=== PATIENT | female | born 1945 | race Caucasian/White ===

== ENCOUNTER 2021-08-05 05:51 | Outpatient (REF) | payer MEDICARE, SELFPAY ==
[2021-08-05 06:09] LABS: Hematocrit 28.1 % (37-47); Hemoglobin 8.7 g/dl (12.0-16.0); Mean Corpuscular Hemoglobin 27.3 pg (27.0-33.0); Mean Corpuscular Volume 88.1 fL (80-98); Mean Platelet Volume 10.8 fL (9.4-12.3); Platelet Count 241 X10*3/uL (160-400); Red Blood Count 3.19 X10*6/uL (4.20-5.50); White Blood Count 10.6 X10*3/uL (4.8-10.8)
[2021-08-05 06:14] LABS: INTERNATIONAL NORM RATIO 2.4 (0.9-1.1); Prothrombin Time 27.9 SEC (9.9-13.0)
[2021-08-05 06:40] LABS: Alanine Aminotransferase 8 U/L (0-31); Albumin Level 3.2 g/dL (3.5-5.0); Alkaline Phosphatase 189 U/L (39-117); Anion Gap 10 (12-20); Aspartate Amino Transferase 20 U/L (5-31); Bilirubin Total 0.6 mg/dL (0.0-1.0); Blood Urea Nitrogen 15 mg/dL (9-16); Calcium 8.9 mg/dL (8.4-10.2); Carbon Dioxide 34 mmol/L (22-29); Chloride 102 mmol/L (96-108); Estimated Glomerular Filt Rate > 60; Glucose Random 86 mg/dL (60-115); Potassium 3.9 mmol/L (3.3-5.1); Sodium 142 mmol/L (135-145); Total Protein 5.4 g/dL (6.5-8.0)
== END 2021-08-05 05:52 | disposition home or self-care (01) ==
LOC: HO.MMNH1L 05:51
PROVIDERS: Visit Provider Family Medicine
DX: I48.91 Unspecified atrial fibrillation (principal); J44.9 Chronic obstructive pulmonary disease, unspecified; S72.009D Fracture of unspecified part of neck of unspecified femur, subsequent encounter for closed fracture with routine healing
CPT/HCPCS: 36415; 80053; 85027; 85610

== ENCOUNTER 2021-08-11 00:21 | Outpatient (REF) | payer MEDICARE, SELFPAY ==
[2021-08-11 06:51] LABS: Hematocrit 32.9 % (37-47); Hemoglobin 9.9 g/dl (12.0-16.0); Mean Corpuscular HGB Conc 30.1 g/dl (31.0-35.0); Mean Corpuscular Hemoglobin 27.3 pg (27.0-33.0); Mean Corpuscular Volume 90.9 fL (80-98); Mean Platelet Volume 10.7 fL (9.4-12.3); Platelet Count 444 X10*3/uL (160-400); Red Blood Count 3.62 X10*6/uL (4.20-5.50); Red Cell Distribution Width 21.7 % (11.0-16.0); White Blood Count 9.4 X10*3/uL (4.8-10.8)
[2021-08-11 07:10] LABS: Anion Gap 15 (12-20); Blood Urea Nitrogen 22 mg/dL (9-16); Calcium 8.8 mg/dL (8.4-10.2); Carbon Dioxide 29 mmol/L (22-29); Chloride 99 mmol/L (96-108); Estimated Glomerular Filt Rate 51; Glucose Random 81 mg/dL (60-115); Potassium 3.9 mmol/L (3.3-5.1); Sodium 139 mmol/L (135-145)
[2021-08-11 07:13] LABS: INTERNATIONAL NORM RATIO 1.4 (0.9-1.1)
== END 2021-08-11 00:22 | disposition home or self-care (01) ==
LOC: HO.MMNH1L 00:21
PROVIDERS: Visit Provider Family Medicine
DX: I48.91 Unspecified atrial fibrillation (principal); S72.009A Fracture of unspecified part of neck of unspecified femur, initial encounter for closed fracture; J44.9 Chronic obstructive pulmonary disease, unspecified
CPT/HCPCS: 36415; 80048; 85027; 85610

== ENCOUNTER 2021-08-15 05:40 | Outpatient (REF) | payer MEDICARE, SELFPAY ==
[2021-08-15 05:57] LABS: Appearance Urine CLEAR; Color Urine YELLOW; Glucose Urine UA NEG (NEG); Leukocyte Esterase Urine NEG (NEG); Nitrite Urine NEG (NEG); Urine Blood NEG (NEG); Urine Ketones NEG (NEG); Urine Protein NEG (NEG-TRACE)
== END 2021-08-15 05:41 | disposition home or self-care (01) ==
LOC: HO.MMNH1L 05:40
PROVIDERS: Visit Provider Family Medicine
DX: R41.0 Disorientation, unspecified (principal)
CPT/HCPCS: 81003

== ENCOUNTER 2021-08-18 00:11 | Outpatient (REF) | payer MEDICARE, SELFPAY ==
[2021-08-18 07:10] LABS: Hematocrit 32.3 % (37-47); Hemoglobin 9.9 g/dl (12.0-16.0); INTERNATIONAL NORM RATIO 1.2 (0.9-1.1); Mean Corpuscular HGB Conc 30.7 g/dl (31.0-35.0); Mean Corpuscular Volume 91.2 fL (80-98); Mean Platelet Volume 10.5 fL (9.4-12.3); Platelet Count 361 X10*3/uL (160-400); Prothrombin Time 13.2 SEC (9.9-13.0); Red Blood Count 3.54 X10*6/uL (4.20-5.50); Red Cell Distribution Width 22.5 % (11.0-16.0); White Blood Count 6.7 X10*3/uL (4.8-10.8)
[2021-08-18 07:35] LABS: Anion Gap 14 (12-20); Blood Urea Nitrogen 18 mg/dL (9-16); Calcium 9.3 mg/dL (8.4-10.2); Carbon Dioxide 28 mmol/L (22-29); Chloride 101 mmol/L (96-108); Estimated Glomerular Filt Rate 51; Glucose Random 96 mg/dL (60-115); Potassium 3.6 mmol/L (3.3-5.1); Sodium 139 mmol/L (135-145)
== END 2021-08-18 00:12 | disposition home or self-care (01) ==
LOC: HO.MMNH1L 00:11
PROVIDERS: Visit Provider Family Medicine
DX: I48.91 Unspecified atrial fibrillation (principal); J44.9 Chronic obstructive pulmonary disease, unspecified; S72.009D Fracture of unspecified part of neck of unspecified femur, subsequent encounter for closed fracture with routine healing
CPT/HCPCS: 36415; 80048; 85027; 85610

== ENCOUNTER 2021-08-22 06:28 | Outpatient (REF) | payer MEDICARE, SELFPAY ==
[2021-08-22 06:43] LABS: MANUAL DIFF FLAG NO
[2021-08-22 06:53] LABS: Basophils Absolute Auto 0.1 X10*3/uL (0.0-0.2); Basophils Percent Auto 0.9 % (0-2); Eosinophils Absolute Auto 0.3 X10*3/uL (0.0-0.4); Eosinophils Percent Auto 4.7 % (0-4); Hematocrit 30.7 % (37-47); Hemoglobin 9.4 g/dl (12.0-16.0); Imm Gran Abs Auto 0.05 X10*3/uL (0.00-0.03); Imm Gran Pct Auto 0.7 % (0.0-0.4); Lymphocytes Absolute Auto 0.8 X10*3/uL (1.2-4.9); Lymphocytes Percent Auto 12.4 % (20-40); Mean Corpuscular HGB Conc 30.6 g/dl (31.0-35.0); Mean Corpuscular Hemoglobin 28.1 pg (27.0-33.0); Mean Corpuscular Volume 91.9 fL (80-98); Monocytes Percent Auto 14.5 % (2-11); Neutrophils Absolute Auto 4.5 X10*3/uL (2.0-8.3); Neutrophils Percent Auto 66.8 % (45-73); Platelet Count 261 X10*3/uL (160-400); Red Blood Count 3.34 X10*6/uL (4.20-5.50); Red Cell Distribution Width 22.1 % (11.0-16.0); White Blood Count 6.8 X10*3/uL (4.8-10.8)
[2021-08-22 07:03] LABS: Anion Gap 13 (12-20); Blood Urea Nitrogen 29 mg/dL (9-16); Calcium 9.3 mg/dL (8.4-10.2); Carbon Dioxide 29 mmol/L (22-29); Chloride 104 mmol/L (96-108); Estimated Glomerular Filt Rate 44; Glucose Random 102 mg/dL (60-115); Potassium 4.1 mmol/L (3.3-5.1); Sodium 142 mmol/L (135-145)
== END 2021-08-22 06:29 | disposition home or self-care (01) ==
LOC: HO.MMNH1L 06:28
PROVIDERS: Visit Provider Family Medicine
DX: D64.9 Anemia, unspecified (principal)
CPT/HCPCS: 36415; 80048; 85025

== ENCOUNTER 2021-08-25 01:07 | Outpatient (REF) | payer MEDICARE, SELFPAY ==
[2021-08-25 07:10] LABS: Hematocrit 33.3 % (37-47); Hemoglobin 10.3 g/dl (12.0-16.0); Mean Corpuscular HGB Conc 30.9 g/dl (31.0-35.0); Mean Corpuscular Hemoglobin 28.6 pg (27.0-33.0); Mean Corpuscular Volume 92.5 fL (80-98); Platelet Count 241 X10*3/uL (160-400); Red Cell Distribution Width 22.1 % (11.0-16.0); White Blood Count 8.7 X10*3/uL (4.8-10.8)
[2021-08-25 07:14] LABS: Prothrombin Time 23.1 SEC (9.9-13.0)
[2021-08-25 07:32] LABS: Anion Gap 16 (12-20); Blood Urea Nitrogen 30 mg/dL (9-16); Calcium 9.3 mg/dL (8.4-10.2); Carbon Dioxide 26 mmol/L (22-29); Chloride 100 mmol/L (96-108); Estimated Glomerular Filt Rate 47; Glucose Random 97 mg/dL (60-115); Potassium 3.7 mmol/L (3.3-5.1); Sodium 138 mmol/L (135-145)
== END 2021-08-25 01:08 | disposition home or self-care (01) ==
LOC: HO.MMNH1L 01:07
PROVIDERS: Visit Provider Family Medicine
DX: J44.9 Chronic obstructive pulmonary disease, unspecified (principal); I48.91 Unspecified atrial fibrillation; S72.009A Fracture of unspecified part of neck of unspecified femur, initial encounter for closed fracture
CPT/HCPCS: 36415; 80048; 85027; 85610

== ENCOUNTER 2021-09-02 | Outpatient (REF) | payer MEDICARE, SELFPAY ==
[2021-09-02 06:30] LABS: Hematocrit 30.5 % (37-47); Hemoglobin 9.5 g/dl (12.0-16.0); Mean Corpuscular HGB Conc 31.1 g/dl (31.0-35.0); Mean Corpuscular Hemoglobin 28.9 pg (27.0-33.0); Mean Corpuscular Volume 92.7 fL (80-98); Mean Platelet Volume 11.4 fL (9.4-12.3); Platelet Count 211 X10*3/uL (160-400); Red Blood Count 3.29 X10*6/uL (4.20-5.50); Red Cell Distribution Width 20.3 % (11.0-16.0); White Blood Count 6.9 X10*3/uL (4.8-10.8)
[2021-09-02 06:35] LABS: INTERNATIONAL NORM RATIO 1.9 (0.9-1.1); Prothrombin Time 22.4 SEC (9.9-13.0)
[2021-09-02 06:56] LABS: Anion Gap 15 (12-20); Blood Urea Nitrogen 34 mg/dL (9-16); Carbon Dioxide 25 mmol/L (22-29); Chloride 103 mmol/L (96-108); Estimated Glomerular Filt Rate 43; Glucose Random 103 mg/dL (60-115); Potassium 4.1 mmol/L (3.3-5.1); Sodium 139 mmol/L (135-145)
== END 2021-09-02 00:01 | disposition home or self-care (01) ==
LOC: HO.MMNH1L
PROVIDERS: Visit Provider Family Medicine
DX: I48.91 Unspecified atrial fibrillation (principal); J44.9 Chronic obstructive pulmonary disease, unspecified; S72.009D Fracture of unspecified part of neck of unspecified femur, subsequent encounter for closed fracture with routine healing
CPT/HCPCS: 36415; 80048; 85027; 85610

== ENCOUNTER 2021-09-07 23:56 | Inpatient (IN) | payer MEDICARE, SELFPAY ==
--- NOTE | ~2021-09-07 | IR_ITS ---
PROCEDURE: IR INSERTION OF PICC CLINICAL INFORMATION: Long-term IV antibiotic requirement. COMPARISON: None TECHNIQUE: Procedure and risks and benefits including bleeding, infection and blood clot were discussed with the patient and informed consent was obtained. All elements of maximal sterile barrier technique followed including use of cap, mask, sterile gown, sterile gloves, a sterile full body drape and hand hygiene. Also followed skin preparation with 2% chlorhexidine for cutaneous antisepsis, and sterile ultrasound preparation with sterile gel and probe cover when applicable. The right upper arm was prepped and draped in the usual sterile fashion. The skin and soft tissues were anesthetized with 1% lidocaine plain. Using ultrasound guidance, right brachial vein access was obtained. Over an .018 wire and through a peel-away sheath, a 5-[place] single lumen PICC line was positioned. Catheter tip is in the SVC. Catheter length is 45 cm. Real-time ultrasound guidance was used to document vein patency and for needle entry. A formal ultrasound picture was recorded. Fluoroscopy time: 0.1 minutes. DAP: 3 cGy-cm2. 1 saved fluoroscopic image. FINDINGS: There is a right upper extremity PICC line with tip projecting over the SVC. IR/IR cvc insert peripheral IMPRESSION: Right upper extremity PICC line placement.
--- NOTE | ~2021-09-07 | XR_ITS ---
EXAMINATION: XR CHEST CLINICAL INFORMATION: Cough COMPARISON: 09/16/2021 TECHNIQUE: Frontal view of the chest was obtained. FINDINGS: Lung volumes are symmetric. Redemonstrated upper lobe predominant emphysema and somewhat coarsened appearance of the interstitium. No acute consolidation is seen. No evidence of pneumothorax. Suture line is present in the right upper lung. Trace left pleural effusion is noted. No evidence of pulmonary edema. The cardiomediastinal contour is unremarkable. Calcification is present at the aortic arch. Sternal wires and mediastinal clips are noted. Redemonstrated left rib fractures. XR/XR chest 1V IMPRESSION: No new acute findings. Trace left pleural effusion redemonstrated. Chronic pulmonary findings including emphysema.
--- NOTE | ~2021-09-07 | XR_ITS ---
EXAMINATION: XR CHEST CLINICAL INFORMATION: Shortness of breath COMPARISON: Chest CT 09/08/2021 TECHNIQUE: Frontal view of the chest was obtained. FINDINGS: There are postsurgical changes from median sternotomy and multiple mediastinal clips are in place. There are surgical aga overlying the right upper lung zone from a prior partial right upper lobe resection. There is possible developing hazy opacity within the lateral aspect of the left lower lung zone. No pleural effusion or pneumothorax identified. The cardiomediastinal contours are within normal limits. There are old left-sided rib fractures XR/XR chest 1V IMPRESSION: Possible developing hazy opacity within the lateral left lower lung zone, possibly the lingula either relating to atelectasis or pneumonia in the appropriate clinical setting.
--- NOTE | ~2021-09-07 | CT_ITS ---
EXAMINATION: CT HEAD WITHOUT CONTRAST CT CERVICAL SPINE WITHOUT CONTRAST CLINICAL INFORMATION: Fall COMPARISON: None. TECHNIQUE: Multidetector CT imaging of the head and cervical spine was performed without the use of intravenous contrast. Multiplanar reformats are reviewed. This CT examination was performed using dose optimization techniques as appropriate, variously including the following: *Automated exposure control *Adjustment of mA and/or kV according to patient size (this includes techniques or standardized protocols for targeted exams where dose is matched to indication/reason for exam; i.e. extremities or head) *Use of iterative reconstruction technique DLP: 964 mGy-cm. FINDINGS: There is no evidence of acute intracranial hemorrhage or territorial infarction. No abnormal mass effect or midline shift is seen. Garcia to white matter differentiation is well preserved. No extra-axial fluid collections are identified. The ventricles are normal in size. Mild patchy subcortical and periventricular white matter low-attenuation changes statistically related to small vessel ischemic disease. The osseous structures and soft tissues are normal. The mastoid air cells and visualized portions of the paranasal sinuses are well-aerated. Atlantooccipital alignment is maintained. The vertebral bodies and posterior elements align normally. No acute fracture or subluxation. Vertebral body heights are maintained.No significant degenerative changes are appreciated. No central canal or foraminal narrowing. The cervicomedullary junction and spinal cord are grossly unremarkable. The paraspinal soft tissues are unremarkable. Imaged lung apices demonstrate severe emphysema and biapical fibrocalcific pleural-parenchymal scarring CT/CT head/brain wo con IMPRESSION: No acute intracranial pathology. No cervical spine fracture or malalignment.
--- NOTE | ~2021-09-07 | CT_ITS ---
EXAMINATION: CT CHEST WITHOUT CONTRAST CLINICAL INFORMATION: Fall COMPARISON: None TECHNIQUE: Multidetector volumetric CT imaging of the chest was done. Axial MIP volume rendering provided. Sagittal and coronal reformatted images were obtained. This CT examination was performed using dose optimization techniques as appropriate, variously including the following: *Automated exposure control *Adjustment of mA and/or kV according to patient size (this includes techniques or standardized protocols for targeted exams where dose is matched to indication/reason for exam; i.e. extremities or head) *Use of iterative reconstruction technique DLP: 324 mGy-cm FINDINGS: LUNGS: Moderate to severe upper lobe predominant centrilobular and paraseptal emphysema. Biapical fibrocalcific pleural-parenchymal scarring. There are scattered calcified granulomata. There is a 5 mm mean diameter lymph node along the major fissure. There is a 4 mm subpleural nodule within the middle lobe and a 1 mm pleural nodule within the anterior middle lobe. There is a 5 mm nodule along the anterior middle lobe near the minor fissure, likely focal pleural-parenchymal scarring. MEDIASTINUM: Cardiomegaly. Triple vessel coronary calcifications. No mediastinal or hilar adenopathy. No pericardial effusion. PLEURA: There is no pleural effusion. No pleural mass or thickening. AXILLA: No lymphadenopathy. UPPER ABDOMEN: There is a simple renal cyst in the left kidney, benign requiring no further follow-up. OSSEOUS STRUCTURES: Multiple bilateral healed rib fractures. There is an acute minimally displaced left posterior 11th rib fracture. No additional definite acute rib fractures. Status post kyphoplasty at T11, T12 and L1. Age-indeterminate, but likely chronic compression fracture at T9 resulting in 50% height loss CT/CT chest wo con IMPRESSION: * Acute minimally displaced acute left posterior 11th rib fracture. * Multiple bilateral healed rib fractures. * Moderate to severe emphysema and biapical pleural-parenchymal scarring. * There are a a few pulmonary nodules within and along the middle lobe which are probably benign. As a precaution, consider follow-up CT chest in one year per the Fleischner Society guidelines in this high-risk patient.
--- NOTE | ~2021-09-07 | CT_ITS ---
EXAMINATION: CT HEAD WITHOUT CONTRAST CT CERVICAL SPINE WITHOUT CONTRAST CLINICAL INFORMATION: Fall COMPARISON: None. TECHNIQUE: Multidetector CT imaging of the head and cervical spine was performed without the use of intravenous contrast. Multiplanar reformats are reviewed. This CT examination was performed using dose optimization techniques as appropriate, variously including the following: *Automated exposure control *Adjustment of mA and/or kV according to patient size (this includes techniques or standardized protocols for targeted exams where dose is matched to indication/reason for exam; i.e. extremities or head) *Use of iterative reconstruction technique DLP: 964 mGy-cm. FINDINGS: There is no evidence of acute intracranial hemorrhage or territorial infarction. No abnormal mass effect or midline shift is seen. Garcia to white matter differentiation is well preserved. No extra-axial fluid collections are identified. The ventricles are normal in size. Mild patchy subcortical and periventricular white matter low-attenuation changes statistically related to small vessel ischemic disease. The osseous structures and soft tissues are normal. The mastoid air cells and visualized portions of the paranasal sinuses are well-aerated. Atlantooccipital alignment is maintained. The vertebral bodies and posterior elements align normally. No acute fracture or subluxation. Vertebral body heights are maintained.No significant degenerative changes are appreciated. No central canal or foraminal narrowing. The cervicomedullary junction and spinal cord are grossly unremarkable. The paraspinal soft tissues are unremarkable. Imaged lung apices demonstrate severe emphysema and biapical fibrocalcific pleural-parenchymal scarring CT/CT cervical spine wo con IMPRESSION: No acute intracranial pathology. No cervical spine fracture or malalignment.
--- NOTE | ~2021-09-07 | XR_ITS ---
EXAMINATION: XR HIP, LEFT CLINICAL INFORMATION: Fall on Coumadin COMPARISON: None TECHNIQUE: AP view the pelvis and AP and attempted lateral views of the left hip XR/XR hip LT w PEL1V FINDINGS/IMPRESSION: There is a subcapital fracture of the left femur, with mild superior displacement of the left femur with respect to the femoral head. There are 3 cannulated screws present within the left femoral neck which are not fractured. Unfortunately, no previous imaging is available for comparison, therefore it is unclear whether this displacement is a new finding and represents a refracture. Pelvic ring intact. Right hip joint intact.
--- NOTE | ~2021-09-07 | CT_ITS ---
EXAMINATION: CT CHEST WITHOUT CONTRAST CLINICAL INFORMATION: Chest without bacteremia. COMPARISON: CT chest 09/08/2021 TECHNIQUE: Multidetector volumetric CT imaging of the chest was done. Axial MIP volume rendering provided. Sagittal and coronal reformatted images were obtained. This CT examination was performed using dose optimization techniques as appropriate, variously including the following: *Automated exposure control *Adjustment of mA and/or kV according to patient size (this includes techniques or standardized protocols for targeted exams where dose is matched to indication/reason for exam; i.e. extremities or head) *Use of iterative reconstruction technique DLP: 168 mGy-cm FINDINGS: GASTROENTEROLOGY NURSE PRACTITIONER: Unremarkable. LUNGS: There is diffuse centrilobular and paraseptal emphysema. There is bilateral apical parenchymal scarring and apical pleural thickening. There are postsurgical sutures in the right lung apex from previous wedge resection. There are scattered 1 mm calcified granulomas in both lungs, most prominent in the left lung apex. There is a 6 mm nodule in the right major fissure on axial image 313/7, 4 mm subpleural nodule right middle lobe image 379/7, 4 mm subpleural nodule anteriorly right middle lobe axial image 361/7, 1 cm subpleural plaque right middle lobe image 327/7. MEDIASTINUM: Thyroid lobes are symmetrical and normal. The central trachea and bronchi are well aerated. There is a 1.3 cm precarinal lymph node. No additional lymph nodes seen. Heart size is enlarged. The great vessels are normal caliber. There are coronary artery calcifications. No pericardial effusion seen. PLEURA: There is a small left pleural effusion with bilateral apical pleural thickening and left apical parenchymal calcification. AXILLA: No lymphadenopathy. UPPER ABDOMEN: Visualized liver, spleen, pancreas, and bilateral adrenal glands are unremarkable. OSSEOUS STRUCTURES: No lytic or sclerotic process seen. There are median sternotomy sutures from previous intervention. Bilateral healing ribs are noted. CT/CT chest wo con IMPRESSION: Postoperative changes right lung apex with no recurrent lesion seen. Emphysema without acute consolidation. Small calcified and noncalcified pulmonary nodules are stable. Consider CT followup in 18-24 months. Mild cardiomegaly.
[2021-09-08] VITALS (10 sets, daily range): BP systolic 104–140; BP diastolic 52–73; PULSE 73–88; RESP 14–19; TEMP 36.4–36.8; O2SAT 94–96; BMI 20.9
--- NOTE | 2021-09-08 00:28 | ECG_ITS ---
Test Reason : FALL Blood Pressure : / mmHG Vent. Rate : 080 BPM Atrial Rate : 000 BPM P-R Int : 000 ms QRS Dur : 084 ms QT Int : 416 ms P-R-T Axes : 000 074 020 degrees QTc Int : 479 ms Atrial fibrillation RSR' or QR pattern in V1 suggests right ventricular conduction delay Nonspecific ST and T wave abnormality Abnormal ECG No previous ECGs available Referred By: Demetria Saldivar Electronically Signed By:PORSHA ROMAN MD
--- NOTE | 2021-09-08 00:30 | ED_ITS ---
HPI - Fall General Chief Complaint: Fall Stated Complaint: WRIST PAIN S/P UNWITNESSED FALL @ SN[facility] Time Seen by Provider: 09/08/21 00:27 Source: patient Mode of arrival: EMS History of Present Illness HPI Narrative: 76-year-old female who is brought in by EMS from [facility] for fall and states that she is experiencing left chest wall pain but denies any wrist or hand pain and also states that she is having some mild pain at her left hip for which she had surgery. Patient denies any dizziness, headache, shortness of breath or chest pain and denies any recent nausea, vomiting, diarrhea, or urinary symptoms. Related Data Allergies Allergy/AdvReac Type Severity Reaction Status Date / Time No Known Allergies Allergy Unverified 09/08/21 00:27 Review of Systems Review of Systems: Pertinent positives and negatives as stated in HPI 10 point review of systems is otherwise negative. [facility] Past Medical History Source: nursing notes reviewed Social History Social History Advance Directives: No Advance Directives Information Provided: No Physical Exam Vital Signs: Vital Signs: Last Vital Signs Temp 98.3 F 09/08/21 00:02 Pulse 88 09/08/21 02:26 Resp 16 09/08/21 05:07 BP 134/63 09/08/21 02:26 Pulse Ox 94 09/08/21 02:26 Body Mass Index 20.9 VITAL SIGNS: Reviewed. GENERAL: Well developed, well nourished, in no acute distress. HEAD: Normocephalic/atraumatic EYES: PERRLA, EOMI EARS: Ext canals without abnormality NOSE: Nares patent bilateral OROPHARYNX: no oral lesions noted, posterior pharynx clear, dry mucosa NECK: C-collar in place without midline cervical spine tenderness LUNGS: Normal breath sounds. No adventitious sounds or accessory muscle use. SpO2<95>, pain on palpation over left chest wall without noted crepitus or deformity CARDIOVASCULAR: IRR/IRR without noted murmurs, no JVD or lower extremity edema. ABDOMEN: Soft, non-tender, non-distended with bowel sounds. MUSCULOSKELETAL: No tenderness, deformities, or effusions noted on gross inspection, scar over left lateral hip with palpable pulses and sensation intact no gross deformity noted EXTREMITIES: No cyanosis, clubbing or edema. SKIN: Inspection of the skin reveals no rashes NEUROLOGIC: Alert and oriented x 4. Strength and sensation to light touch were grossly intact x 4. Course Course Course Narrative: 76-year-old female with history and clinical presentation consistent with mechanical fall and associated chest wall pain suspicious for possible rib fractures will evaluate head, C-spine, chest as well as left hip and pelvis as patient is on Coumadin. Review of all investigations significant for posterior fracture of left 11th rib (nondisplaced) as well as subcapital fracture of the left femur, with mild superior displacement of the left femur with respect to the femoral head. I discussed case with inpatient hospitalist who accepts admission. Reevaluation(s) Reevaluation #1: Review of CT c-spine imaging that demonstrated no acute findings and exam was without midline tenderness on palpation or on ROM. No focal neurological deficits to suggest spinal cord injury. Time: 02:44 Reevaluation #2: Discussed with orthopedics the x-ray findings of subcapital fracture of the left femur with mild superior displacement. 0551: I received documentation from [facility] which reports nondisplaced transcervical fracture of the left femoral neck. 0610: The recommendation from orthopedics is to attempt walking the patient. If unable to walk patient will need to be admitted to medical services and will be evaluated this morning. Time: 04:32 MDM - Fall Lab Data Result diagrams: 09/08/21 01:16 09/08/21 01:16 Labs: Lab Results 09/08/21 09/08/21 09/08/21 Range/Units 01:16 01:16 01:16 WBC 9.9 (4.8-10.8) X10*3/uL RBC 3.49 L (4.20-5.50) X10*6/uL Hgb 10.3 L (12.0-16.0) g/dl Hct 32.5 L (37-47) % MCV 93.1 (80-98) fL MCH 29.5 (27.0-33.0) pg MCHC 31.7 (31.0-35.0) g/dl RDW 19.9 H (11.0-16.0) % Plt Count 307 D (160-400) X10*3/uL MPV 10.4 (9.4-12.3) fL Immature Gran % (Auto) 0.8 H (0.0-0.4) % Neut % (Auto) 79.7 H (45-73) % Lymph % (Auto) 6.7 L (20-40) % [place] % (Auto) 10.1 (2-11) % Eos % (Auto) 2.0 (0-4) % Baso % (Auto) 0.7 (0-2) % Lymph # (Auto) 0.7 L (1.2-4.9) X10*3/uL [place] # (Auto) 1.0 (0.1-1.2) X10*3/uL Eos # (Auto) 0.2 (0.0-0.4) X10*3/uL Baso # (Auto) 0.1 (0.0-0.2) X10*3/uL Abs Immat Gran (auto) 0.08 H (0.00-0.03) X10*3/uL Absolute Neuts (auto) 7.9 (2.0-8.3) X10*3/uL Absolute Nucleated RBC 0.000 (0.0-0.012) X10*3/uL Nucleated RBC % (auto) 0.0 (0.0-0.2) /100WBC PT (9.9-13.0) SEC INR (0.9-1.1) Sodium 137 (135-145) mmol/L Potassium 3.7 (3.3-5.1) mmol/L Chloride 99 (96-108) mmol/L Carbon Dioxide 25 (22-29) mmol/L Anion Gap 17 (12-20) BUN 34 H (9-16) mg/dL Creatinine 1.71 H (0.5-1.4) mg/dL Estim Creat Clear Calc 26.8 Estimated GFR 29 Random Glucose 116 H (60-115) mg/dL Calcium 9.7 D (8.4-10.2) mg/dL Total Bilirubin 0.3 (0.0-1.0) mg/dL AST 30 D (5-31) U/L ALT 18 (0-31) U/L Alkaline Phosphatase 172 H (39-117) U/L B-Natriuretic Peptide 391 H (<100) pg/mL Total Protein 6.9 D (6.5-8.0) g/dL Albumin 4.0 D (3.5-5.0) g/dL Urine Color Urine Appearance Urine pH (5.0-8.0) Ur Specific [place] (1.005-1.025) Urine Protein (NEG-TRACE) MG/DL Urine Glucose (UA) (NEG) MG/DL Urine Ketones (NEG) MG/DL Urine Blood (NEG) Urine Nitrite (NEG) Ur Leukocyte Esterase (NEG) Urine RBC (0) /HPF Urine WBC (0-4) /HPF Ur Squamous Epith Cells /LPF Urine Bacteria /LPF COVID-19 (BIMAL) (Negative) COVID-19 Clin Com 09/08/21 09/08/21 09/08/21 Range/Units 01:16 04:26 04:26 WBC (4.8-10.8) X10*3/uL RBC (4.20-5.50) X10*6/uL Hgb (12.0-16.0) g/dl Hct (37-47) % MCV (80-98) fL MCH (27.0-33.0) pg MCHC (31.0-35.0) g/dl RDW (11.0-16.0) % Plt Count (160-400) X10*3/uL MPV (9.4-12.3) fL Immature Gran % (Auto) (0.0-0.4) % Neut % (Auto) (45-73) % Lymph % (Auto) (20-40) % [place] % (Auto) (2-11) % Eos % (Auto) (0-4) % Baso % (Auto) (0-2) % Lymph # (Auto) (1.2-4.9) X10*3/uL [place] # (Auto) (0.1-1.2) X10*3/uL Eos # (Auto) (0.0-0.4) X10*3/uL Baso # (Auto) (0.0-0.2) X10*3/uL Abs Immat Gran (auto) (0.00-0.03) X10*3/uL Absolute Neuts (auto) (2.0-8.3) X10*3/uL Absolute Nucleated RBC (0.0-0.012) X10*3/uL Nucleated RBC % (auto) (0.0-0.2) /100WBC PT 24.5 H (9.9-13.0) SEC INR 2.1 H (0.9-1.1) Sodium (135-145) mmol/L Potassium (3.3-5.1) mmol/L Chloride (96-108) mmol/L Carbon Dioxide (22-29) mmol/L Anion Gap (12-20) BUN (9-16) mg/dL Creatinine (0.5-1.4) mg/dL Estim Creat Clear Calc Estimated GFR Random Glucose (60-115) mg/dL Calcium (8.4-10.2) mg/dL Total Bilirubin (0.0-1.0) mg/dL AST (5-31) U/L ALT (0-31) U/L Alkaline Phosphatase (39-117) U/L B-Natriuretic Peptide (<100) pg/mL Total Protein (6.5-8.0) g/dL Albumin (3.5-5.0) g/dL Urine Color YELLOW Urine Appearance CLEAR Urine pH 6.0 (5.0-8.0) Ur Specific [place] 1.015 (1.005-1.025) Urine Protein NEG (NEG-TRACE) MG/DL Urine Glucose (UA) NEG (NEG) MG/DL Urine Ketones NEG (NEG) MG/DL Urine Blood NEG (NEG) Urine Nitrite NEG (NEG) Ur Leukocyte Esterase 1+ H (NEG) Urine RBC 1-4 (0) /HPF Urine WBC 10-14 H (0-4) /HPF Ur Squamous Epith Cells 1+ /LPF Urine Bacteria 3+ /LPF COVID-19 (BIMAL) Negative (Negative) COVID-19 Clin Com See Note ECG Data Attestation: I personally reviewed and interpreted this ECG as follows: Prior ECG tracings: not available for review Interpretation: Atrial fibrillation, HR-80, no STEMI, QRS/QTC are within normal limits. Discharge Plan Discharge Clinical Impression: Fall, Left rib fracture, Closed subcapital fracture of femur, FRAN (acute kidney injury), Acute UTI Patient Disposition: Admitted As Inpatient
[2021-09-08] MEDS: 0.9 % Sodium Chloride 500 ML 999 ML IV (01:10)
[2021-09-08 01:21] LABS: MANUAL DIFF FLAG NO
[2021-09-08 01:22] LABS: Basophils Absolute Auto 0.1 X10*3/uL (0.0-0.2); Basophils Percent Auto 0.7 % (0-2); Eosinophils Absolute Auto 0.2 X10*3/uL (0.0-0.4); Hematocrit 32.5 % (37-47); Hemoglobin 10.3 g/dl (12.0-16.0); Imm Gran Abs Auto 0.08 X10*3/uL (0.00-0.03); Imm Gran Pct Auto 0.8 % (0.0-0.4); Lymphocytes Absolute Auto 0.7 X10*3/uL (1.2-4.9); Lymphocytes Percent Auto 6.7 % (20-40); Mean Corpuscular HGB Conc 31.7 g/dl (31.0-35.0); Mean Corpuscular Hemoglobin 29.5 pg (27.0-33.0); Mean Corpuscular Volume 93.1 fL (80-98); Mean Platelet Volume 10.4 fL (9.4-12.3); Monocytes Percent Auto 10.1 % (2-11); Neutrophils Absolute Auto 7.9 X10*3/uL (2.0-8.3); Neutrophils Percent Auto 79.7 % (45-73); Platelet Count 307 X10*3/uL (160-400); Red Blood Count 3.49 X10*6/uL (4.20-5.50); Red Cell Distribution Width 19.9 % (11.0-16.0); White Blood Count 9.9 X10*3/uL (4.8-10.8)
[2021-09-08 01:27] LABS: INTERNATIONAL NORM RATIO 2.1 (0.9-1.1); Prothrombin Time 24.5 SEC (9.9-13.0)
[2021-09-08 01:43] LABS: Alanine Aminotransferase 18 U/L (0-31); Alkaline Phosphatase 172 U/L (39-117); Anion Gap 17 (12-20); Aspartate Amino Transferase 30 U/L (5-31); B Type Natriuretic Peptide 391 pg/mL (<100); Bilirubin Total 0.3 mg/dL (0.0-1.0); Blood Urea Nitrogen 34 mg/dL (9-16); Calcium 9.7 mg/dL (8.4-10.2); Carbon Dioxide 25 mmol/L (22-29); Chloride 99 mmol/L (96-108); Creatinine Clr Calc Pharmacy 26.8; Estimated Glomerular Filt Rate 29; Glucose Random 116 mg/dL (60-115); Potassium 3.7 mmol/L (3.3-5.1); Sodium 137 mmol/L (135-145); Total Protein 6.9 g/dL (6.5-8.0)
[2021-09-08] MEDS: fentaNYL citrate/PF 100 MCG/2 ML VIAL 25 MCG IVPUSH (02:29)
[2021-09-08 04:34] LABS: Appearance Urine CLEAR; Color Urine YELLOW; Glucose Urine UA NEG (NEG); Leukocyte Esterase Urine 1+ (NEG); Nitrite Urine NEG (NEG); Specific Gravity - Urine 1.015 (1.005-1.025); UACC Culture Trigger YES; Urine Blood NEG (NEG); Urine Ketones NEG (NEG); Urine Protein NEG (NEG-TRACE)
[2021-09-08 04:42] LABS: Bacteria Urine 3+ /LPF; Squamous Epithelial Cell Urine 1+ /LPF
[2021-09-08 04:51] LABS: COVID-19 Test Negative (Negative); IDNOW Serial# 9DD0AD1C
[2021-09-08] MEDS: HYDROmorphone HCl 0.5 MG/0.5 ML SYRINGE 0.25 MG IVPUSH (05:07)
[2021-09-08] MEDS: cefTRIAXone sodium 1 GM in 0.9 % Sodium Chloride 50 ML IV (07:42)
[2021-09-08] MEDS: HYDROmorphone HCl 1 MG/ML SYRINGE IVPUSH (07:42)
--- NOTE | 2021-09-08 07:52 | PC.NURSE ---
pt alert and oriented, vss. pt reports 10/10 pain with movements, prn pain med given. med hung as documented, pt resting quietly after getting pain med, no apparent distress noted. pt pending admission. will continue to monitor.
--- NOTE | 2021-09-08 08:09 | PHA.MEDREC ---
Pharmacy Consult ? Medication Reconciliation Pharmacy has completed the medication reconciliation. Patient came from [facility] with a medication list. Venice Gilman, Mindi[facility]
--- NOTE | 2021-09-08 11:06 | PM.IMHP ---
History of Present Illness Date of Service: 09/08/21 Chief Complaint: Fall This is a 76-year-old female with a past medical history of severe COPD and chronic respiratory failure with hypoxia on 2-3 L, 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 Patient was previously admitted @ [facility] in Jun 2021 after a syncopal episode resulting in a hip fx. Patient reports that she went to bed quiet early on the evening prior to arrival. She reports that she fell/rolled out of her bed (denies any LOC) at some point during the evening/night and subsequently presented to [facility] ED. She currently reports being tired and having L-sided rib pain. Her hip pain is controlled. She reports no LOC. She reports no current respiratory or cardiac symptoms. In the ED her work up revealed a L subcapital fem. fx with mild superior displacement, 11th L rib fx. Her blood work up showed FRAN (SCr nearly 2X baseline). She was given IV pain control, 500 cc of IVF and will be admitted for further work up. Review of Systems Review of Systems: General - denies fevers or chills, denies weakness or fatigue HEENT -denies blurred vision, denies headache, denies sore throat Cardiovascular - denies chest pain or palpitations, denies edema Respiratory - denies shortness of breath, coughing, wheezing; +rib pain Gastrointestinal - denies abdominal pain, nausea, vomiting, diarrhea - denies flank pain, denies dysuria, denies frequency or urgency Musculoskeletal - denies back pain, + L hip pain, denies knee pain, denies shoulder pain; Neurological - denies any focal weakness or numbness Skin, denies any bruising or redness Psychiatric - denies any suicidal ideation, hallucinations, homicidal ideation Endocrinology - denies intolerance to hot / cold temperatures [facility] Medical History Afib CAD (coronary artery disease) Chronic respiratory failure with hypoxia Colon cancer COPD (chronic obstructive pulmonary disease) GAVE (gastric antral vascular ectasia) Hypertension Iron deficiency anemia Primary biliary cirrhosis Sicca Pertinent family history: patient unsure Surgical History H/O pneumonectomy Hx of CABG Social History Advance Directives: No Advance Directives Information Provided: No Meds Allergies Allergy/AdvReac Type Severity Reaction Status Date / Time No Known Allergies Allergy Unverified 09/08/21 00:27 Active Medications: Current Medications Acetaminophen (Acetaminophen 325 Mg Tablet) 650 mg PO Q6H PRN PRN Reason: Pain, Mild (Pain Scale 1-3) Cyanocobalamin (Cyanocobalamin (Vitamin B-12) 1,000 Mcg Tablet) 1,000 mcg PO DAILY [facility] Docusate Sodium (Docusate Sodium 100 Mg Capsule) 100 mg PO BID BLANQUITA Duloxetine HCl (Duloxetine Hcl 30 Mg Capsule.Dr) 30 mg PO BID [facility] Sodium Chloride (Ns) 1,000 mls @ 50 mls/hr IVCONT .Q20H BLANQUITA Stop: 09/09/21 06:59 Levothyroxine Sodium (Levothyroxine Sodium 150 Mcg Tablet) 150 mcg PO DAILY@0630 BL[facility]ITA Lorazepam (Lorazepam 1 Mg Tablet) 1 mg PO BID [facility] Non-Formulary Medication (Ferrous Sulfate) 325 mg PO DAILY [facility] Non-Formulary Medication (Pantoprazole) 40 mg PO BID [facility] Ondansetron HCl (Ondansetron Hcl 4 Mg/2 Ml Vial) 4 mg IVPUSH Q8H PRN PRN Reason: Nausea and Vomiting Polyethylene Glycol (Polyethylene Glycol 3350 17 Gm Powd.Pack) 17 gm PO DAILY [facility] Sodium Chloride (0.9 % Sodium Chloride Flush 3 Ml Syringe) 3 ml IVFLUSH QSHIFT [facility] Tiotropium Jay Em (Tiotropium Jay Em 18 Mcg Cap.W.Dev) puff INHALE DAILY [facility] Vitamin D (Cholecalciferol (Vitamin D3) 25 Mcg Tablet) 25 mcg PO DAILY [facility] Home Medications Medication Instructions Recorded Confirmed Last Taken Type acetaminophen 325 mg tablet 650 mg PO Q6H PRN 09/08/21 09/08/21 Unknown History albuterol sulfate 90 mcg/actuation 2 puff INHALATION Q4H PRN 09/08/21 09/08/21 Unknown History aerosol inhaler cholecalciferol (vitamin D3) 25 25 mcg PO DAILY 09/08/21 09/08/21 Unknown History mcg (1,000 unit) tablet [id number]-[id number]-PLO-caffeine 30 1 cap PO Q12H PRN 09/08/21 09/08/21 Unknown History mg-50 mg-325 mg-40 mg capsule cyanocobalamin (vitamin B-12) 1,000 mcg PO DAILY 09/08/21 09/08/21 Unknown History 1,000 mcg tablet docusate sodium 100 mg capsule 100 mg PO BID 09/08/21 09/08/21 Unknown History (Colace) duloxetine 30 mg capsule,delayed 30 mg PO BID 09/08/21 09/08/21 Unknown History release ferrous sulfate 325 mg (65 mg 325 mg PO DAILY 09/08/21 09/08/21 Unknown History iron) tablet furosemide 80 mg tablet 80 mg PO DAILY 09/08/21 09/08/21 Unknown History guaifenesin 100 mg/5 mL oral liquid 200 mg PO Q4H PRN 09/08/21 09/08/21 Unknown History levothyroxine 150 mcg tablet 150 mcg PO DAILY@0630 09/08/21 09/08/21 Unknown History lorazepam 1 mg tablet 1 mg PO BID 09/08/21 09/08/21 Unknown History melatonin 3 mg tablet 6 mg PO BEDTIME 09/08/21 09/08/21 Unknown History metoprolol succinate 25 mg 75 mg PO DAILY 09/08/21 09/08/21 Unknown History tablet,extended release 24 hr miconazole nitrate 2 % topical 1 appl TOPICAL DAILY 09/08/21 09/08/21 Unknown History powder multivitamin 1 tab PO DAILY 09/08/21 09/08/21 Unknown History pantoprazole 40 mg tablet,delayed 40 mg PO BID 09/08/21 09/08/21 Unknown History release polyethylene glycol 3350 17 17 g PO DAILY 09/08/21 09/08/21 Unknown History gram/dose oral powder (Miralax) polyvinyl alcohol 1.4 % eye drops 1 drp OPHTHALMIC (EYE) BID 09/08/21 09/08/21 Unknown History (Artificial Tears (polyvinyl alcohol)) potassium chloride 20 mEq 20 meq PO DAILY 09/08/21 09/08/21 Unknown History tablet,extended release sennosides 8.6 mg tablet 17.2 mg PO BEDTIME 09/08/21 09/08/21 Unknown History tiotropium bromide 18 mcg capsule 1 cap INHALATION DAILY 09/08/21 09/08/21 Unknown History with inhalation device tramadol 50 mg tablet 50 mg PO Q6H PRN 09/08/21 09/08/21 Unknown History ursodiol 500 mg tablet 500 mg PO BID 09/08/21 09/08/21 Unknown History warfarin 5 mg tablet 5 mg PO DAILY 09/08/21 09/08/21 Unknown History Physical Exam Vital Signs and Narrative: Vital Signs: Last Vital Signs Temp 98.3 F 09/08/21 00:02 Pulse 77 09/08/21 07:50 Resp 15 09/08/21 07:50 BP 104/55 L 09/08/21 07:50 Pulse Ox 94 09/08/21 02:26 Body Mass Index 20.9 Const: Other: Constitutional - Awake and Alert, No apparent distress HEENT - PERRLA, EOMI, dry mucous membranes Cardiovascular - S1S2, IRR, No edema Respiratory - Normal lung expansion, Normal respiratory effort, No respiratory distress, CTA bilaterally Gastrointestinal - NT / ND; +BS; No rebound or guarding - No CVA tenderness Extremities - no edema Musculoskeletal - L hip externally rotated Skin - Warm/Dry Neurological - Alert & oriented x3, No focal deficit Psychological - Appropriate affect Results Labs CBC and Chem 7: 09/08/21 01:16 09/08/21 01:16 Labs: Laboratory Results - last 24 hr 09/08/21 09/08/21 09/08/21 01:16 01:16 01:16 MCV 93.1 MCH 29.5 MCHC 31.7 RDW 19.9 H Plt Count 307 D MPV 10.4 Immature Gran % (Auto) 0.8 H Neut % (Auto) 79.7 H Lymph % (Auto) 6.7 L Borden % (Auto) 10.1 Eos % (Auto) 2.0 Baso % (Auto) 0.7 Lymph # (Auto) 0.7 L Borden # (Auto) 1.0 Eos # (Auto) 0.2 Baso # (Auto) 0.1 Abs Immat Gran (auto) 0.08 H Absolute Neuts (auto) 7.9 Absolute Nucleated RBC 0.000 Nucleated RBC % (auto) 0.0 PT INR Anion Gap 17 Estim Creat Clear Calc 26.8 Estimated GFR 29 Random Glucose 116 H Lactic Acid Calcium 9.7 D Total Bilirubin 0.3 AST 30 D ALT 18 Alkaline Phosphatase 172 H B-Natriuretic Peptide 391 H Total Protein 6.9 D Albumin 4.0 D Urine Color Urine Appearance Urine pH Ur Specific Watson Urine Protein Urine Glucose (UA) Urine Ketones Urine Blood Urine Nitrite Ur Leukocyte Esterase Urine RBC Urine WBC Ur Squamous Epith Cells Urine Bacteria COVID-19 (BIMAL) COVID-19 Clin Com 09/08/21 09/08/21 09/08/21 01:16 04:26 04:26 MCV MCH MCHC RDW Plt Count MPV Immature Gran % (Auto) Neut % (Auto) Lymph % (Auto) Borden % (Auto) Eos % (Auto) Baso % (Auto) Lymph # (Auto) Borden # (Auto) Eos # (Auto) Baso # (Auto) Abs Immat Gran (auto) Absolute Neuts (auto) Absolute Nucleated RBC Nucleated RBC % (auto) PT 24.5 H INR 2.1 H Anion Gap Estim Creat Clear Calc Estimated GFR Random Glucose Lactic Acid Calcium Total Bilirubin AST ALT Alkaline Phosphatase B-Natriuretic Peptide Total Protein Albumin Urine Color YELLOW Urine Appearance CLEAR Urine pH 6.0 Ur Specific Watson 1.015 Urine Protein NEG Urine Glucose (UA) NEG Urine Ketones NEG Urine Blood NEG Urine Nitrite NEG Ur Leukocyte Esterase 1+ H Urine RBC 1-4 Urine WBC 10-14 H Ur Squamous Epith Cells 1+ Urine Bacteria 3+ COVID-19 (BIMAL) Negative COVID-19 Clin Com See Note 09/08/21 07:29 MCV MCH MCHC RDW Plt Count MPV Immature Gran % (Auto) Neut % (Auto) Lymph % (Auto) Borden % (Auto) Eos % (Auto) Baso % (Auto) Lymph # (Auto) Borden # (Auto) Eos # (Auto) Baso # (Auto) Abs Immat Gran (auto) Absolute Neuts (auto) Absolute Nucleated RBC Nucleated RBC % (auto) PT INR Anion Gap Estim Creat Clear Calc Estimated GFR Random Glucose Lactic Acid 1.0 Calcium Total Bilirubin AST ALT Alkaline Phosphatase B-Natriuretic Peptide Total Protein Albumin Urine Color Urine Appearance Urine pH Ur Specific Watson Urine Protein Urine Glucose (UA) Urine Ketones Urine Blood Urine Nitrite Ur Leukocyte Esterase Urine RBC Urine WBC Ur Squamous Epith Cells Urine Bacteria COVID-19 (BIMAL) COVID-19 Clin Com Imaging Radiologist's Impressions: Impressions Cervical Spine CT 09/08/21 00:27 IMPRESSION: No acute intracranial pathology. No cervical spine fracture or malalignment. Chest CT 09/08/21: IMPRESSION: * Acute minimally displaced acute left posterior 11th rib fracture. * Multiple bilateral healed rib fractures. * Moderate to severe emphysema and biapical pleural-parenchymal scarring. * There are a a few pulmonary nodules within and along the middle lobe which are probably benign. As a precaution, consider follow-up CT chest in one year per the Fleischner Society guidelines in this high-risk patient. Head CT 09/08/21: IMPRESSION: No acute intracranial pathology. No cervical spine fracture or malalignment. Hip/Pelvis X-Ray 09/08/21: FINDINGS/IMPRESSION: There is a subcapital fracture of the left femur, with mild superior displacement of the left femur with respect to the femoral head. There are 3 cannulated screws present within the left femoral neck which are not fractured. Unfortunately, no previous imaging is available for comparison, therefore it is unclear whether this displacement is a new finding and represents a refracture. Pelvic ring intact. Right hip joint intact. Assessment and Plan (1) Closed subcapital fracture of femur: Status: Acute This is a 76 yo F with multiple medical problems including COPD/Chronic resp. failure with hypoxia on 2-3L, CAD - s/p CABG, A. Fib on coumadin, SOTERO/GAVE/PBC/Colon Ca - s/p resection, L hip fx repaired at [facility] in Jun 2021 who presents from [facility] after ? slipping out of bed / fall (unwitnessed) resulting in a L hip Fx. She will be admitted for further treamtent. 1. L subcap. fem fx with superior displacement Likely would need operative repair -- patient unsure of how she wants to proceed Ortho consult Given her advance cardiac and lung disease -- will get Pulm + Cardiology for pre-operative evaluation. Will check 2d Echo 2. FRAN SCr baseline around 0.9, now nearly doubled to 1.7 suspected hypovoluemic, clinially appears dry gentle IVF -- 1L NS @ 50 cc/hr 3. COPD / Chronic Resp failure with hypoxia not in exacerbation continue baseline O2 -- 2-3L by NC continue inhalers Pulm eval as above 4. PAF currently in A. Fib, rate controlled hold coumadin in preparation of surgery continue Metoprolol (will start later today after seeing BP trend) 5.Hypothyroid synthroid 6. Rib fx lidocaine patch Continue her baseline meds as appropriate Full Code HCP is her niece Andra (whom I called and updated) DVT pptx -- on coumadin Quality Stroke Does the patient have a stroke diagnosis?: No VTE Prior VTE?: No VTE Risk Level:: Medical - moderate - high VTE Device Contraindication: Treatment Not Indicated VTE Drug Contraindication: N/A - Med Ordered
--- NOTE | 2021-09-08 11:30 | CA_ITS ---
Transthoracic Echocardiogram Patient (Last, First, Middle): Alina Trujillo, Gender: Female Date of : 1945 Age: 76 Procedure Date: 09/08/2021 Procedure Type: Transthoracic Echocardiogram Location: ER Height: 167.64 cm Weight: 62.6 kg BSA: 1.71 m2 Heart Rate: bpm BP: 104 / 55 mmHg Protozoologist: VH/CP Referring MD: Diogo Fish MD Symptoms: history of chf, pre-operative eval for hip fx Study Quality: Fair ECG Rhythm: Atrial Fibrillation Conclusions: - The left ventricular systolic function is low normal. The calculated ejection fraction is 52% by biplane method. - The basal inferior and basal inferolateral segments are akinetic. - There is moderately decreased right ventricular systolic function. - There is moderate calcification of the aortic valve. - There is moderate tricuspid valve regurgitation. Findings Left Ventricle Normal left ventricular cavity size. There is normal left ventricular wall thickness. The left ventricular systolic function is low normal. The calculated ejection fraction is 52% by biplane method. There is evidence of regional wall motion abnormalities. Diastolic function is indeterminate on the basis of available data. Wall Motion Rest Echo Findings The basal inferior and basal inferolateral segments are akinetic. Right Ventricle Moderately increased right ventricular cavity size. There is moderately decreased right ventricular systolic function. Atria The left atrium is mildly dilated. The right atrium is moderately dilated. Aortic Valve There is moderate calcification of the aortic valve. There is no aortic valve stenosis. The mean gradient is 2 mmHg. There is no aortic valve regurgitation. Mitral Valve There is mild anterior mitral leaflet thickening. There is mild mitral annular calcification. There is trace mitral valve regurgitation. There is no mitral valve stenosis. Pulmonic Valve The pulmonic valve was not well visualized. There is mild pulmonic valve regurgitation. Tricuspid Valve Normal tricuspid valve structure. There is moderate tricuspid valve regurgitation. The right ventricular systolic pressure is 47 mmHg. Mild pulmonary hypertension is present. Great Vessels The aortic annulus, sinuses of valsalva, and asc aorta are normal in size. Venous The inferior vena cava is mildly dilated and collapses greater than 50% with inspiration. Pericardium/Pleural There is no evidence of pericardial effusion. Prior Study Comparison No prior study available for comparison. Measurements 2D Linear Measurements IVSd: 0.89 0.6-0.9/0.6-1.0 cm LVIDd: 4.57 3.9-5.3/4.2-5.9 cm LVIDd Index: 2.67 2.4-3.2/2.2-3.1 cm/m2 LVIDs: 3.33 2.0-3.6 cm LVPWd: 0.83 0.7-1.1 cm Ao Root: 3.10 2.1-3.5 cm LA Diam: 4.10 2.7-3.8/3.0-4.0 cm LAIDs Index: 2.40 1.5-2.3 cm/m2 LV Mass: 159.80 67-162/88-224 g LV Mass Index: 93.45 43-95/49-115 g/m2 LVOT Diam: 2.00 3.0+(-)1.3 cm 2D Systolic Function EF 4C: 53.50 >55% EF 2C: 54.80 >55% EF BiP: 51.70 >55% Mitral Valve MV Pk E: 0.98 MV Decel Time: 127.00 E'Lateral: 14.00 E'Medial: 7.83 E/E' Med: 12.60 E/E' Lat: 7.00 PHT: 37.00 MVA PHT: 5.95 Decel [place]: 8.08 Aortic Valve AoV Pk Luis Miguel: 1.26 AoV Mn Luis Miguel: 0.69 AoV VTI: 0.21 AoV Pk Grad: 6.00 Aov Mn Grad: 2.00 ABRAHAM Cont.VTI: 2.38 LVOT LVOT Pk Luis Miguel: 0.92 LVOT Mn Luis Miguel: 0.61 LVOT VTI: 0.16 LVOT Pk Grad: 3.00 LVOT Mn Grad: 2.00 LVOT Diam: 2.00 LVOT Area: 3.14 Diastolic Function MV Pk E: 0.98 E'Medial: 7.83 E/E' Med: 12.60 E' Laterial: 14.00 E/E' Lat: 7.00 Right Ventricle TVS' Luis Miguel: 7.00 Tricuspid Valve TR Pk Luis Miguel: 3.12 TR Pk Grad: 39.00 RVSP: 47.00 Great Vessels Aorta Ao Root-2D: 3.10 2.0-3.7 cm Ao Asc: 3.40 2.1-3.4 cm Pulmonary Valve PV Pk Luis Miguel: 0.77 Peak PV Grad: 2.00 Updated in Other Vendor System with Status of Final Syed Elkins MD electronically signed on 09/08/2021 4:41:55 PM with status of Final
[2021-09-08] MEDS: ondansetron HCL 4 MG/2 ML VIAL IVPUSH (12:34)
[2021-09-08] MEDS: HYDROmorphone HCl 0.5 MG/0.5 ML SYRINGE IVPUSH ×2 (12:34→18:10)
[2021-09-08] MEDS: Lidocaine 4 % Patch ADH..PATCH 1 PATCH TRANSDERMA (12:40)
[2021-09-08] MEDS: 0.9 % Sodium Chloride 1,000 ML 50 ML IVCONT (13:39)
--- NOTE | 2021-09-08 20:48 | P.EN_ITS ---
Event Note Date of Service: 09/08/21 Event Note: This is a 76 yo female with a h/o percutaneous pinning left hip at the [facility] approx 6 weeks ago. She states since her surgery she has been unable to walk on her own. She walks with PT assistance She feels everyday the pain in the hip is worse She feels the pain in the groin down to the thigh She is in the ED today because she fell out of bed at [facility] Xrays today show a now displaced femoral neck fracture, screws intact Patient was seen at bedside by Dr Leal and myself. We explained the findings and compared them to the opnotes and xrays from [facility] The patient is being admitted to the medial service for her comorbidities We will obtained CD images from [facility] We will discuss options with family as well to determine if this should be fixed sooner than later. full consult note to follow.
[2021-09-08] MEDS: Docusate Sodium 100 MG CAPSULE PO (21:45)
[2021-09-08] MEDS: LORazepam 1 MG TABLET PO (21:45)
[2021-09-08] MEDS: Omeprazole 20 MG CAPSULE.DR PO (21:46)
[2021-09-08] MEDS: Sennosides 8.6 MG TABLET 17.2 MG PO (21:46)
[2021-09-08] MEDS: DULoxetine HCl 30 MG CAPSULE.DR PO (21:46)
[2021-09-08] MEDS: UrsodioL 300 MG CAPSULE 600 MG PO (21:46)
[2021-09-09] VITALS (10 sets, daily range): BP systolic 100–154; BP diastolic 54–67; PULSE 81–101; RESP 17–20; TEMP 36.3–37.1; O2SAT 88–97
[2021-09-09] MEDS: 0.9 % Sodium Chloride Flush 3 ML SYRINGE IVFLUSH ×2 (00:06→15:58)
[2021-09-09 05:41] LABS: MANUAL DIFF FLAG NO
[2021-09-09 05:55] LABS: Basophils Percent Auto 0.3 % (0-2); Eosinophils Percent Auto 0.2 % (0-4); Hematocrit 29.3 % (37-47); Hemoglobin 8.9 g/dl (12.0-16.0); Imm Gran Abs Auto 0.07 X10*3/uL (0.00-0.03); Imm Gran Pct Auto 0.5 % (0.0-0.4); Lymphocytes Absolute Auto 0.5 X10*3/uL (1.2-4.9); Lymphocytes Percent Auto 3.8 % (20-40); Mean Corpuscular HGB Conc 30.4 g/dl (31.0-35.0); Mean Corpuscular Hemoglobin 29.4 pg (27.0-33.0); Mean Corpuscular Volume 96.7 fL (80-98); Mean Platelet Volume 10.9 fL (9.4-12.3); Monocytes Absolute Auto 1.3 X10*3/uL (0.1-1.2); Neutrophils Absolute Auto 10.9 X10*3/uL (2.0-8.3); Neutrophils Percent Auto 85.2 % (45-73); Platelet Count 265 X10*3/uL (160-400); Red Blood Count 3.03 X10*6/uL (4.20-5.50); Red Cell Distribution Width 19.6 % (11.0-16.0); White Blood Count 12.8 X10*3/uL (4.8-10.8)
[2021-09-09 06:00] LABS: Anion Gap 17 (12-20); Blood Urea Nitrogen 21 mg/dL (9-16); Calcium 9.4 mg/dL (8.4-10.2); Carbon Dioxide 24 mmol/L (22-29); Chloride 106 mmol/L (96-108); Creatinine Clr Calc Pharmacy 48.7; Estimated Glomerular Filt Rate 58; Glucose Random 112 mg/dL (60-115); Sodium 143 mmol/L (135-145)
[2021-09-09] MEDS: HYDROmorphone HCl 0.5 MG/0.5 ML SYRINGE IVPUSH ×3 (07:46→22:49)
--- NOTE | 2021-09-09 07:47 | PC.NURSE ---
Attempted to scan bracelet with scanner, unable to scan. Called help desk stated that scanner is not connected to internet, coming up to fix problem. Pt was screaming in pain so I administered pain medication.
--- NOTE | 2021-09-09 10:05 | MHC.CM.PN ---
PATIENT IS IN FROM [facility] SHE AGREES THAT PLAN IS TO RETURN. HCP IS ON FILE AND VERIFIED. PLAN IS O.R. TODAY @ 1030. CASE MANAGEMENT FOLLOWING. IMM 09/09 IN CHART
--- NOTE | 2021-09-09 10:25 | P.EN_ITS ---
Event Note Date of Service: 09/09/21 Event Note: Full consultation to follow. High cardiac risk for surgery. Un-mod ifiable. May proceed.
--- NOTE | 2021-09-09 10:39 | P.PNIM_ITS ---
Progress Note: A&P (1) Closed subcapital fracture of femur: Status: Acute <Nimisha Ramesh NP - Last Filed: 09/09/21 10:48> (2) FRAN (acute kidney injury): Status: Acute <Nimisha Ramesh NP - Last Filed: 09/09/21 10:48> (3) Acute UTI: Status: Acute <Nimisha Ramesh NP - Last Filed: 09/09/21 10:48> Assessment and Plan: This is a 76 yo F with multiple medical problems including COPD/Chronic resp. failure with hypoxia on 2-3L, CAD - s/p CABG, A. Fib on coumadin, SOTERO/GAVE/PBC/Colon Ca - s/p resection, L hip fx repaired at [facility] in Jun 2021 who presents from [facility] after ? slipping out of bed / fall (unwitnessed) resulting in a L hip Fx. She will be admitted for further treamtent. L subcap. fem fx with superior displacement Ortho consult Given her advance cardiac and lung disease will get Pulm + Cardiology for pre- operative evaluation. High risk as per cardiology Pain management, monitor for sedation FRAN SCr baseline around 0.9 suspected hypovolemia, clinially appears dry gentle IVF -- 1L NS @ 50 cc/hr completed COPD / Chronic Resp failure with hypoxia not in exacerbation continue baseline O2 -- 2-3L by NC continue inhalers Pulm eval as above PAF currently in A. Fib, rate controlled hold coumadin in preparation of surgery continue Metoprolol (will start later today after seeing BP trend) Hypothyroid synthroid Rib fx lidocaine patch Continue her baseline meds as appropriate Full Code HCP is her niece Andra (whom I called and updated) DVT pptx SCD boots <Nimisha Ramesh NP - Last Filed: 09/09/21 10:48> This is a 76 yo F with multiple medical problems including COPD/Chronic resp. failure with hypoxia on 2-3L, CAD - s/p CABG, A. Fib on coumadin, SOTERO/GAVE/PBC/Colon Ca - s/p resection, L hip fx repaired at [facility] in Jun 2021 who presents from [facility] after ? slipping out of bed / fall (unwitnessed) resulting in a L hip Fx. She will be admitted for further treamtent. L subcap. fem fx with superior displacement Ortho consult Given her advance cardiac and lung disease will get Pulm + Cardiology for pre-operative evaluation. High risk as per cardiology Pain management, monitor for sedation FRAN SCr baseline around 0.9 suspected hypovolemia, clinially appears dry gentle IVF -- 1L NS @ 50 cc/hr completed COPD / Chronic Resp failure with hypoxia not in exacerbation continue baseline O2 -- 2-3L by NC continue inhalers Pulm eval as above PAF currently in A. Fib, rate controlled hold coumadin in preparation of surgery continue Metoprolol (will start later today after seeing BP trend) Hypothyroid synthroid Rib fx lidocaine patch Continue her baseline meds as appropriate Full Code HCP is her niece Andra (whom I called and updated) DVT pptx SCD boots Attending Attestation: Patient seen and examined independently and I was present during gomez portion of E/M service. Agree with Adelaida Ramesh NP's history, physical, assessment, and plan with the follwing changes and/or additions: Seen by Cardiology -- high risk for surgery, but unmodifiable. Seen by Pulm (d/w Dr. Ramesh) -- avoid general anesthesia. Rechecking INR stat now. Overall -- patient high risk for surgery. Would use nerve block if able. If INR not within acceptable range -- maybe best to wait until tomorrow. Anticipate that it will be down to that range by tomorrow. FRAN resolved PAF -- metoprolol restarted <Diogo Fish MD - Last Filed: 09/09/21 11:46> Subjective Subjective Date of Service: 09/09/21 <Nimisha Ramesh NP - Last Filed: 09/09/21 10:48> 09/09/21 <Diogo Fish MD - Last Filed: 09/09/21 11:46> Review of Systems Follow up hip fracture Still in a lot of pain having some sob <Nimisha Ramesh NP - Last Filed: 09/09/21 10:48> Physical Exam Vital Signs: Vital Signs: Last Vital Signs Temp 97.9 F 09/09/21 07:21 Pulse 86 09/09/21 07:21 Resp 18 09/09/21 07:21 BP 154/67 H 09/09/21 07:21 Pulse Ox 94 09/09/21 07:21 Body Mass Index 20.9 <Nimisha Ramesh NP - Last Filed: 09/09/21 10:48> Appearing in no acute distress lung sounds normal expansion heart regular rate rhythm, clear S1, S2 positive bowel sounds, abdomen is soft, nontender neuro patient is alert x3, no focal deficits <Nimisha Ramesh NP - Last Filed: 09/09/21 10:48> Objective Data Current Medications Acetaminophen (Acetaminophen 325 Mg Tablet) 650 mg PO Q6H PRN PRN Reason: Pain, Mild (Pain Scale 1-3) Albuterol/Ipratropium (Albuterol/Iprat 2.5/0.5mg 3 Ml Ampul.Neb) 3 ml INHALE RQ6H PRN PRN Reason: Shortness of Breath/Wheezing Cyanocobalamin (Cyanocobalamin (Vitamin B-12) 1,000 Mcg Tablet) 1,000 mcg PO DAILY ON LICENSE OF [facility] Last Admin: 09/09/21 07:49 Dose: Not Given Documented by: Docusate Sodium (Docusate Sodium 100 Mg Capsule) 100 mg PO BID ON LICENSE OF [facility] Last Admin: 09/09/21 07:49 Dose: Not Given Documented by: Duloxetine HCl (Duloxetine Hcl 30 Mg Capsule.) 30 mg PO BID ON LICENSE OF [facility] Last Admin: 09/09/21 07:49 Dose: Not Given Documented by: Ferrous Sulfate (Ferrous Sulfate 324 Mg Tablet.) 324 mg PO DAILY ON LICENSE OF [facility] Last Admin: 09/09/21 07:49 Dose: Not Given Documented by: Hydromorphone HCl (Hydromorphone Hcl 0.5 Mg/0.5 Ml Syringe) 0.5 mg IVPUSH Q4H PRN; Protocol PRN Reason: Pain, Severe (Pain Scale 7-10) Last Admin: 09/09/21 07:46 Dose: 0.5 mg Documented by: Levothyroxine Sodium (Levothyroxine Sodium 150 Mcg Tablet) 150 mcg PO DAILY @0630 ON LICENSE OF [facility] Last Admin: 09/09/21 06:31 Dose: Not Given Documented by: Lidocaine (Lidocaine 4 % Patch Adh..Patch) 1 patch TRANSDERMA DAILY ON LICENSE OF [facility]; Protocol Last Admin: 09/09/21 10:07 Dose: Not Given Documented by: Lorazepam (Lorazepam 1 Mg Tablet) 1 mg PO BID ON LICENSE OF [facility] Last Admin: 09/09/21 09:12 Dose: Not Given Documented by: Metoprolol Succinate (Metoprolol Succinate Er 25 Mg Tab.Er.24h) 75 mg PO DAILY ON LICENSE OF [facility]; Protocol Last Admin: 09/09/21 07:49 Dose: Not Given Documented by: Omeprazole (Omeprazole 20 Mg Capsule.Dr) 20 mg PO BID ON LICENSE OF [facility] Last Admin: 09/09/21 07:50 Dose: Not Given Documented by: Ondansetron HCl (Ondansetron Hcl 4 Mg/2 Ml Vial) 4 mg IVPUSH Q8H PRN PRN Reason: Nausea and Vomiting Last Admin: 09/08/21 12:34 Dose: 4 mg Documented by: Polyethylene Glycol (Polyethylene Glycol 3350 17 Gm Powd.Pack) 17 gm PO DAILY ON LICENSE OF [facility] Last Admin: 09/09/21 07:50 Dose: Not Given Documented by: Senna (Sennosides 8.6 Mg Tablet) 17.2 mg PO BEDTIME ON LICENSE OF [facility] Last Admin: 09/08/21 21:46 Dose: 17.2 mg Documented by: Sodium Chloride (0.9 % Sodium Chloride Flush 3 Ml Syringe) 3 ml IVFLUSH QSHIFT ON LICENSE OF [facility] Last Admin: 09/09/21 09:54 Dose: Not Given Documented by: Tiotropium [place] (Tiotropium [place] 18 Mcg Cap.W.Dev) 1 puff INHALE DAILY ON LICENSE OF [facility] Last Admin: 09/09/21 07:52 Dose: Not Given Documented by: Ursodiol (Ursodiol 300 Mg Capsule) 600 mg PO BID ON LICENSE OF [facility] Last Admin: 09/09/21 07:50 Dose: Not Given Documented by: Vitamin D (Cholecalciferol (Vitamin D3) 25 Mcg Tablet) 25 mcg PO DAILY ON LICENSE OF [facility] Last Admin: 09/09/21 07:48 Dose: Not Given Documented by: <Nimisha Ramesh NP - Last Filed: 09/09/21 10:48> Labs CBC & Chem 7: : 09/09/21 05:24 09/09/21 05:24 <Nimisha Ramesh NP - Last Filed: 09/09/21 10:48> Labs: Laboratory Results - last 24 hr 09/09/21 09/09/21 05:24 05:24 MCV 96.7 MCH 29.4 MCHC 30.4 L RDW 19.6 H Plt Count 265 MPV 10.9 Immature Gran % (Auto) 0.5 H Neut % (Auto) 85.2 H Lymph % (Auto) 3.8 L [place] % (Auto) 10.0 Eos % (Auto) 0.2 Baso % (Auto) 0.3 Lymph # (Auto) 0.5 L [place] # (Auto) 1.3 H Eos # (Auto) 0.0 Baso # (Auto) 0.0 Abs Immat Gran (auto) 0.07 H Absolute Neuts (auto) 10.9 H Absolute Nucleated RBC 0.000 Nucleated RBC % (auto) 0.0 Anion Gap 17 Estim Creat Clear Calc 48.7 Estimated GFR 58 Random Glucose 112 Calcium 9.4 <Nimisha Ramesh NP - Last Filed: 09/09/21 10:48> Microbiology Microbiology Results: Microbiology 09/08/21 07:40 Blood - Venous Blood Culture - Preliminary No growth after 24 hours. 09/08/21 07:29 Blood - Venous Blood Culture - Preliminary No growth after 24 hours. 09/08/21 00:00 Urine clean catch - Urine nieto top Urine Culture - Final <Nimisha Ramesh NP - Last Filed: 09/09/21 10:48> Quality Stroke Does the patient have a stroke diagnosis?: No <Nimisha Ramesh NP - Last Filed: 09/09/21 10:48> VTE Prior VTE?: No <Nimisha Ramesh NP - Last Filed: 09/09/21 10:48> VTE Risk Level:: Medical - moderate - high <Nimisha Ramesh NP - Last Filed: 09/09/21 10:48> VTE Device Contraindication: Treatment Not Indicated <Nimisha Ramesh NP - Last Filed: 09/09/21 10:48> VTE Drug Contraindication: N/A - Med Ordered <Nimisha Ramesh NP - Last Filed: 09/09/21 10:48>
--- NOTE | 2021-09-09 10:44 | PM.CNOR ---
History of Present Illness HPI Consult date: 09/09/21 Chief complaint: Hip Fx, FRAN Narrative: This is a 76 yo female with a h/o percutaneous pinning left hip at the [facility] approx 6 weeks ago. She states since her surgery she has been unable to walk on her own. She walks with PT assistance with a walker. She feels everyday the pain in the hip is worse. She feels the pain in the groin down to the thigh. She is in the ED today because she fell out of bed at [facility] and c.o increased pain in the left hip and thigh. Xrays today show a now displaced femoral neck fracture, screws intact. She also has PMH significant for COPD/Chronic resp. failure with hypoxia on 2-3L, CAD - s/p CABG, A. Fib on coumadin, SOTERO/GAVE/PBC/Colon Ca - s/p resection. She was admitted to the medical service for further workup of her comorbidities and orthopedics was consulted for further recommendations of her left hip . She currently resides at [facility] Her plan is to live with her sister on discharge. Review of Systems Review of Systems: Yes all other systems are reviewed and are negative [facility] Past Medical History Medical History Afib CAD (coronary artery disease) Chronic respiratory failure with hypoxia Colon cancer COPD (chronic obstructive pulmonary disease) GAVE (gastric antral vascular ectasia) Hypertension Iron deficiency anemia Primary biliary cirrhosis [place] Surgical History Surgical History H/O pneumonectomy Hx of CABG Social History Social History Household Members: Other Household Members Other:: patient from facility Housing: Long-Term Do you presently have visiting nurse or other home services: No Unable to assess alcohol history related to: Unknown Patient Tobacco Use Status: Tobacco use Unknown service: No Current occupational status: retired Meds Allergies Allergy/AdvReac Type Severity Reaction Status Date / Time No Known Allergies Allergy Unverified 09/08/21 00:27 Active Medications: Current Medications Acetaminophen (Acetaminophen 325 Mg Tablet) 650 mg PO Q6H PRN PRN Reason: Pain, Mild (Pain Scale 1-3) Albuterol/Ipratropium (Albuterol/Iprat 2.5/0.5mg 3 Ml Ampul.Neb) 3 ml INHALE RQ6H PRN PRN Reason: Shortness of Breath/Wheezing Cyanocobalamin (Cyanocobalamin (Vitamin B-12) 1,000 Mcg Tablet) 1,000 mcg PO DAILY [facility] Last Admin: 09/09/21 07:49 Dose: Not Given Documented by: Docusate Sodium (Docusate Sodium 100 Mg Capsule) 100 mg PO BID [facility] Last Admin: 09/09/21 07:49 Dose: Not Given Documented by: Duloxetine HCl (Duloxetine Hcl 30 Mg Capsule.) 30 mg PO BID [facility] Last Admin: 09/09/21 07:49 Dose: Not Given Documented by: Ferrous Sulfate (Ferrous Sulfate 324 Mg Tablet.) 324 mg PO DAILY [facility] Last Admin: 09/09/21 07:49 Dose: Not Given Documented by: Hydromorphone HCl (Hydromorphone Hcl 0.5 Mg/0.5 Ml Syringe) 0.5 mg IVPUSH Q4H PRN; Protocol PRN Reason: Pain, Severe (Pain Scale 7-10) Last Admin: 09/09/21 07:46 Dose: 0.5 mg Documented by: Levothyroxine Sodium (Levothyroxine Sodium 150 Mcg Tablet) 150 mcg PO DAILY@0630 [facility] Last Admin: 09/09/21 06:31 Dose: Not Given Documented by: Lidocaine (Lidocaine 4 % Patch Adh..Patch) 1 patch TRANSDERMA DAILY [facility]; Protocol Last Admin: 09/09/21 10:07 Dose: Not Given Documented by: Lorazepam (Lorazepam 1 Mg Tablet) 1 mg PO BID [facility] Last Admin: 09/09/21 09:12 Dose: Not Given Documented by: Metoprolol Succinate (Metoprolol Succinate Er 25 Mg Tab.Er.24h) 75 mg PO DAILY [facility]; Protocol Last Admin: 09/09/21 07:49 Dose: Not Given Documented by: Omeprazole (Omeprazole 20 Mg Capsule.) 20 mg PO BID [facility] Last Admin: 09/09/21 07:50 Dose: Not Given Documented by: Ondansetron HCl (Ondansetron Hcl 4 Mg/2 Ml Vial) 4 mg IVPUSH Q8H PRN PRN Reason: Nausea and Vomiting Last Admin: 09/08/21 12:34 Dose: 4 mg Documented by: Polyethylene Glycol (Polyethylene Glycol 3350 17 Gm Powd.Pack) 17 gm PO DAILY [facility] Last Admin: 09/09/21 07:50 Dose: Not Given Documented by: Senna (Sennosides 8.6 Mg Tablet) 17.2 mg PO BEDTIME [facility] Last Admin: 09/08/21 21:46 Dose: 17.2 mg Documented by: Sodium Chloride (0.9 % Sodium Chloride Flush 3 Ml Syringe) 3 ml IVFLUSH QSHIFT [facility] Last Admin: 09/09/21 09:54 Dose: Not Given Documented by: Tiotropium [place] (Tiotropium [place] 18 Mcg Cap.W.Dev) 1 puff INHALE DAILY [facility] Last Admin: 09/09/21 07:52 Dose: Not Given Documented by: Ursodiol (Ursodiol 300 Mg Capsule) 600 mg PO BID [facility] Last Admin: 09/09/21 07:50 Dose: Not Given Documented by: Vitamin D (Cholecalciferol (Vitamin D3) 25 Mcg Tablet) 25 mcg PO DAILY [facility] Last Admin: 09/09/21 07:48 Dose: Not Given Documented by: Home Medications Medication Instructions Recorded Confirmed Last Taken Type acetaminophen 325 mg tablet 650 mg PO Q6H PRN 09/08/21 09/08/21 Unknown History albuterol sulfate 90 mcg/actuation 2 puff INHALATION Q4H PRN 09/08/21 09/08/21 Unknown History aerosol inhaler cholecalciferol (vitamin D3) 25 25 mcg PO DAILY 09/08/21 09/08/21 Unknown History mcg (1,000 unit) tablet tvzoncc-[id number]-WSU-caffeine 30 1 cap PO Q12H PRN 09/08/21 09/08/21 Unknown History mg-50 mg-325 mg-40 mg capsule cyanocobalamin (vitamin B-12) 1,000 mcg PO DAILY 09/08/21 09/08/21 Unknown History 1,000 mcg tablet docusate sodium 100 mg capsule 100 mg PO BID 09/08/21 09/08/21 Unknown History (Colace) duloxetine 30 mg capsule,delayed 30 mg PO BID 09/08/21 09/08/21 Unknown History release ferrous sulfate 325 mg (65 mg 325 mg PO DAILY 09/08/21 09/08/21 Unknown History iron) tablet furosemide 80 mg tablet 80 mg PO DAILY 09/08/21 09/08/21 Unknown History guaifenesin 100 mg/5 mL oral liquid 200 mg PO Q4H PRN 09/08/21 09/08/21 Unknown History levothyroxine 150 mcg tablet 150 mcg PO DAILY@0630 09/08/21 09/08/21 Unknown History lorazepam 1 mg tablet 1 mg PO BID 09/08/21 09/08/21 Unknown History melatonin 3 mg tablet 6 mg PO BEDTIME 09/08/21 09/08/21 Unknown History metoprolol succinate 25 mg 75 mg PO DAILY 09/08/21 09/08/21 Unknown History tablet,extended release 24 hr miconazole nitrate 2 % topical 1 appl TOPICAL DAILY 09/08/21 09/08/21 Unknown History powder multivitamin 1 tab PO DAILY 09/08/21 09/08/21 Unknown History pantoprazole 40 mg tablet,delayed 40 mg PO BID 09/08/21 09/08/21 Unknown History release polyethylene glycol 3350 17 17 g PO DAILY 09/08/21 09/08/21 Unknown History gram/dose oral powder (Miralax) polyvinyl alcohol 1.4 % eye drops 1 drp OPHTHALMIC (EYE) BID 09/08/21 09/08/21 Unknown History (Artificial Tears (polyvinyl alcohol)) potassium chloride 20 mEq 20 meq PO DAILY 09/08/21 09/08/21 Unknown History tablet,extended release sennosides 8.6 mg tablet 17.2 mg PO BEDTIME 09/08/21 09/08/21 Unknown History tiotropium bromide 18 mcg capsule 1 cap INHALATION DAILY 09/08/21 09/08/21 Unknown History with inhalation device tramadol 50 mg tablet 50 mg PO Q6H PRN 09/08/21 09/08/21 Unknown History ursodiol 500 mg tablet 500 mg PO BID 09/08/21 09/08/21 Unknown History warfarin 5 mg tablet 5 mg PO DAILY 09/08/21 09/08/21 Unknown History Physical Exam Vital Signs: Vital Signs: Last Vital Signs Temp 97.9 F 09/09/21 07:21 Pulse 86 09/09/21 07:21 Resp 18 09/09/21 07:21 BP 154/67 H 09/09/21 07:21 Pulse Ox 94 09/09/21 07:21 Body Mass Index 20.9 Const: General: cooperative, healthy appearing, comfortable, no acute distress, well developed and alert Orientation/consciousness: patient oriented x3 HENMT: Head: Yes normal to inspection, Yes normocephalic and Yes atraumatic Eyes: General: appearance normal, both eyes and all related structures Neck: Neck: Yes normal visual inspection and Yes no lymphadenopathy Resp: Effort & Inspection: normal respiratory effort and able to speak in complete sentences Cardio: Rate: regular rate Peripheral pulses: Peripheral pulses 2+ throughout GI: Inspection: Yes normal to inspection Palpation (GI): Soft to palpation Skin: General skin exam: no rashes or lesions noted Neuro: General: patient oriented x3 Extrem: Other: Left hip skin intact, surgical scar appreciated. She has discomfort with active and passive ROM of the left hip. NVI. Psych: Appearance: grossly normal Mental Status: mental status grossly normal Results Labs Result Diagrams: 09/09/21 05:24 09/09/21 05:24 Labs: Abnormal lab results 09/09/21 09/09/21 Range/Units 05:24 05:24 WBC 12.8 H (4.8-10.8) X10*3/uL RBC 3.03 L (4.20-5.50) X10*6/uL Hgb 8.9 L (12.0-16.0) g/dl Hct 29.3 L (37-47) % MCHC 30.4 L (31.0-35.0) g/dl RDW 19.6 H (11.0-16.0) % Immature Gran % (Auto) 0.5 H (0.0-0.4) % Neut % (Auto) 85.2 H (45-73) % Lymph % (Auto) 3.8 L (20-40) % Lymph # (Auto) 0.5 L (1.2-4.9) X10*3/uL [place] # (Auto) 1.3 H (0.1-1.2) X10*3/uL Abs Immat Gran (auto) 0.07 H (0.00-0.03) X10*3/uL Absolute Neuts (auto) 10.9 H (2.0-8.3) X10*3/uL BUN 21 H (9-16) mg/dL H & H 09/08/21 09/09/21 Range/Units 01:16 05:24 Hgb 10.3 L 8.9 L (12.0-16.0) g/dl Hct 32.5 L 29.3 L (37-47) % Coagulation 09/08/21 Range/Units 01:16 INR 2.1 H (0.9-1.1) All other labs normal. Diagnostic results Hip x-ray: image reviewed (new, displaced femoral neck fracture with cannulated screws intact. ) Assessment and Plan (1) Closed subcapital fracture of femur: Status: Acute I discussed the case with Dr Leal, who saw the patient with me at bedside and we explained the extent of the injury to the patient and options available which include surgical intervention vs conservative management. Opnotes and images from [facility] were obtained and compared to the new imaging studies obtained in the [facility], which do show a new displaced fracture through the femoral neck. Prior imaging studies show the femoral neck fracture as displaced. Not fixing this would potentially cause increased pain, difficulty with ambulation and femoral head necrosis. Surgical intervention would help to restore her function and improve her pain. I explained the procedure in detail along with the length of recovery and rehab course. I explained the risk, benefits and alternatives. Risk including, but not limited to infection, blood clots, bleeding, non union or malunion and nerve/tissue damage to surrounding areas. I answered all their questions and with their understanding they have consented to move forward with Operative Fixation of the left hip . The patient will be T&S, med / cardiology and pulmonolgy clearance obtained and NPO after midnight. Procedures Date of Service Date of Service: 09/09/21
--- NOTE | 2021-09-09 10:59 | PM.CNCAR ---
History of Present Illness History of Present Illness Date of Service: 09/09/21 Chief complaint: Hip Fx, FRAN Narrative: This is a cardiology consultation for preoperative risk stratification regarding femur fracture surgery. She has numerous medical comorbidities. From the cardiac standpoint, history of coronary artery disease status post bypass about 10 years ago. She also has a history of atrial fibrillation on Coumadin and stair history of carotid stenosis. Multiple other medical comorbidities including COPD on home oxygen among others. Current admission is because of fall and hip fracture. Plan to go for operative intervention today. Otherwise, patient states that she did undergo sleep clinic for cardiac catheterization. From that standpoint, she has been doing quite well without any ongoing cardiac symptoms like angina according to her. She does have shortness of breath related to COPD. Review of Systems Review of Systems: Yes all other systems are reviewed and are negative Cardiovascular: Cardiovascular: Reports as per HPI, Reports no additional cardiovascular complaints, Denies acrocyanosis, Denies cool extremities, Denies painful fingertips, Denies chest pain, Denies chest pain at rest, Denies diaphoresis, Denies syncope, Denies irregular heart rhythm, Denies claudication, Denies leg edema, Denies lightheadedness, Denies palpitations and Reports dyspnea Respiratory: Respiratory: Reports dyspnea Neurologic: Denies syncope Endocrine: Endocrine: Denies palpitations PMFSH Past Medical History Medical History Afib CAD (coronary artery disease) Chronic respiratory failure with hypoxia Colon cancer COPD (chronic obstructive pulmonary disease) GAVE (gastric antral vascular ectasia) Hypertension Iron deficiency anemia Primary biliary cirrhosis [place] Family History Pertinent family history: Multiple siblings with coronary disease. Surgical History Surgical History H/O pneumonectomy Hx of CABG Social History Social History Household Members: Other Household Members Other:: patient from facility Housing: Half-Way Do you presently have visiting nurse or other home services: No Unable to assess alcohol history related to: Unknown Patient Tobacco Use Status: Tobacco use Unknown service: No Current occupational status: retired Meds Allergies Allergy/AdvReac Type Severity Reaction Status Date / Time No Known Allergies Allergy Unverified 09/08/21 00:27 Active Medications: Current Medications Acetaminophen (Acetaminophen 325 Mg Tablet) 650 mg PO Q6H PRN PRN Reason: Pain, Mild (Pain Scale 1-3) Albuterol/Ipratropium (Albuterol/Iprat 2.5/0.5mg 3 Ml Ampul.Neb) 3 ml INHALE RQ6H PRN PRN Reason: Shortness of Breath/Wheezing Cyanocobalamin (Cyanocobalamin (Vitamin B-12) 1,000 Mcg Tablet) 1,000 mcg PO DAILY [facility] Last Admin: 09/09/21 07:49 Dose: Not Given Documented by: Docusate Sodium (Docusate Sodium 100 Mg Capsule) 100 mg PO BID [facility] Last Admin: 09/09/21 07:49 Dose: Not Given Documented by: Duloxetine HCl (Duloxetine Hcl 30 Mg Capsule.) 30 mg PO BID [facility] Last Admin: 09/09/21 07:49 Dose: Not Given Documented by: Ferrous Sulfate (Ferrous Sulfate 324 Mg Tablet.) 324 mg PO DAILY [facility] Last Admin: 09/09/21 07:49 Dose: Not Given Documented by: Hydromorphone HCl (Hydromorphone Hcl 0.5 Mg/0.5 Ml Syringe) 0.5 mg IVPUSH Q4H PRN; Protocol PRN Reason: Pain, Severe (Pain Scale 7-10) Last Admin: 09/09/21 07:46 Dose: 0.5 mg Documented by: Levothyroxine Sodium (Levothyroxine Sodium 150 Mcg Tablet) 150 mcg PO DAILY@0630 [facility] Last Admin: 09/09/21 06:31 Dose: Not Given Documented by: Lidocaine (Lidocaine 4 % Patch Adh..Patch) 1 patch TRANSDERMA DAILY [facility]; Protocol Last Admin: 09/09/21 10:07 Dose: Not Given Documented by: Lorazepam (Lorazepam 1 Mg Tablet) 1 mg PO BID [facility] Last Admin: 09/09/21 09:12 Dose: Not Given Documented by: Metoprolol Succinate (Metoprolol Succinate Er 25 Mg Tab.Er.24h) 75 mg PO DAILY [facility]; Protocol Last Admin: 09/09/21 07:49 Dose: Not Given Documented by: Omeprazole (Omeprazole 20 Mg Capsule.) 20 mg PO BID [facility] Last Admin: 09/09/21 07:50 Dose: Not Given Documented by: Ondansetron HCl (Ondansetron Hcl 4 Mg/2 Ml Vial) 4 mg IVPUSH Q8H PRN PRN Reason: Nausea and Vomiting Last Admin: 09/08/21 12:34 Dose: 4 mg Documented by: Polyethylene Glycol (Polyethylene Glycol 3350 17 Gm Powd.Pack) 17 gm PO DAILY [facility] Last Admin: 09/09/21 07:50 Dose: Not Given Documented by: Senna (Sennosides 8.6 Mg Tablet) 17.2 mg PO BEDTIME [facility] Last Admin: 09/08/21 21:46 Dose: 17.2 mg Documented by: Sodium Chloride (0.9 % Sodium Chloride Flush 3 Ml Syringe) 3 ml IVFLUSH QSHIFT [facility] Last Admin: 09/09/21 09:54 Dose: Not Given Documented by: Tiotropium Shonto (Tiotropium Shonto 18 Mcg Cap.W.Dev) 1 puff INHALE DAILY [facility] Last Admin: 09/09/21 07:52 Dose: Not Given Documented by: Ursodiol (Ursodiol 300 Mg Capsule) 600 mg PO BID [facility] Last Admin: 09/09/21 07:50 Dose: Not Given Documented by: Vitamin D (Cholecalciferol (Vitamin D3) 25 Mcg Tablet) 25 mcg PO DAILY [facility] Last Admin: 09/09/21 07:48 Dose: Not Given Documented by: Home Medications Medication Instructions Recorded Confirmed Last Taken Type acetaminophen 325 mg tablet 650 mg PO Q6H PRN 09/08/21 09/08/21 Unknown History albuterol sulfate 90 mcg/actuation 2 puff INHALATION Q4H PRN 09/08/21 09/08/21 Unknown History aerosol inhaler cholecalciferol (vitamin D3) 25 25 mcg PO DAILY 09/08/21 09/08/21 Unknown History mcg (1,000 unit) tablet bdnzagj-innbycbngb-CDJ-caffeine 30 1 cap PO Q12H PRN 09/08/21 09/08/21 Unknown History mg-50 mg-325 mg-40 mg capsule cyanocobalamin (vitamin B-12) 1,000 mcg PO DAILY 09/08/21 09/08/21 Unknown History 1,000 mcg tablet docusate sodium 100 mg capsule 100 mg PO BID 09/08/21 09/08/21 Unknown History (Colace) duloxetine 30 mg capsule,delayed 30 mg PO BID 09/08/21 09/08/21 Unknown History release ferrous sulfate 325 mg (65 mg 325 mg PO DAILY 09/08/21 09/08/21 Unknown History iron) tablet furosemide 80 mg tablet 80 mg PO DAILY 09/08/21 09/08/21 Unknown History guaifenesin 100 mg/5 mL oral liquid 200 mg PO Q4H PRN 09/08/21 09/08/21 Unknown History levothyroxine 150 mcg tablet 150 mcg PO DAILY@0630 09/08/21 09/08/21 Unknown History lorazepam 1 mg tablet 1 mg PO BID 09/08/21 09/08/21 Unknown History melatonin 3 mg tablet 6 mg PO BEDTIME 09/08/21 09/08/21 Unknown History metoprolol succinate 25 mg 75 mg PO DAILY 09/08/21 09/08/21 Unknown History tablet,extended release 24 hr miconazole nitrate 2 % topical 1 appl TOPICAL DAILY 09/08/21 09/08/21 Unknown History powder multivitamin 1 tab PO DAILY 09/08/21 09/08/21 Unknown History pantoprazole 40 mg tablet,delayed 40 mg PO BID 09/08/21 09/08/21 Unknown History release polyethylene glycol 3350 17 17 g PO DAILY 09/08/21 09/08/21 Unknown History gram/dose oral powder (Miralax) polyvinyl alcohol 1.4 % eye drops 1 drp OPHTHALMIC (EYE) BID 09/08/21 09/08/21 Unknown History (Artificial Tears (polyvinyl alcohol)) potassium chloride 20 mEq 20 meq PO DAILY 09/08/21 09/08/21 Unknown History tablet,extended release sennosides 8.6 mg tablet 17.2 mg PO BEDTIME 09/08/21 09/08/21 Unknown History tiotropium bromide 18 mcg capsule 1 cap INHALATION DAILY 09/08/21 09/08/21 Unknown History with inhalation device tramadol 50 mg tablet 50 mg PO Q6H PRN 09/08/21 09/08/21 Unknown History ursodiol 500 mg tablet 500 mg PO BID 09/08/21 09/08/21 Unknown History warfarin 5 mg tablet 5 mg PO DAILY 09/08/21 09/08/21 Unknown History Physical Exam Vital Signs: Vital Signs: Last Vital Signs Temp 97.9 F 09/09/21 07:21 Pulse 86 09/09/21 07:21 Resp 18 09/09/21 07:21 BP 154/67 H 09/09/21 07:21 Pulse Ox 94 09/09/21 07:21 Body Mass Index 20.9 Const: General: cooperative and no acute distress HENMT: Other: Unremarkable Neck: Neck: Yes normal visual inspection Chest: Chest palpation & inspection: normal inspection of the chest Resp: Auscultation: wheezes and diminished lung sounds Cardio: Jugular venous distension: no JVD Palpation: normal PMI Heart sounds: S1 normal heart sound present, S2 normal heart sound present, no gallops, no murmurs and no rubs GI: Palpation (GI): Soft to palpation Back/Spine/Pelvis: Other: unremarkable Skin: General skin exam: no rashes or lesions noted Neuro: Cranial nerves: Yes Other cranial nerve findings present Extrem: General: Yes no clubbing, cyanosis or edema Psych: Mental Status: other Results Labs and Meds Result diagrams: 09/09/21 05:24 09/09/21 05:24 Lab results: Laboratory Results - last 24 hr 09/09/21 09/09/21 05:24 05:24 WBC 12.8 H RBC 3.03 L Hgb 8.9 L Hct 29.3 L MCV 96.7 MCH 29.4 MCHC 30.4 L RDW 19.6 H Plt Count 265 MPV 10.9 Immature Gran % (Auto) 0.5 H Neut % (Auto) 85.2 H Lymph % (Auto) 3.8 L [place] % (Auto) 10.0 Eos % (Auto) 0.2 Baso % (Auto) 0.3 Lymph # (Auto) 0.5 L [place] # (Auto) 1.3 H Eos # (Auto) 0.0 Baso # (Auto) 0.0 Abs Immat Gran (auto) 0.07 H Absolute Neuts (auto) 10.9 H Absolute Nucleated RBC 0.000 Nucleated RBC % (auto) 0.0 Sodium 143 Potassium 4.0 Chloride 106 Carbon Dioxide 24 Anion Gap 17 BUN 21 H Creatinine 0.94 Estim Creat Clear Calc 48.7 Estimated GFR 58 Random Glucose 112 Calcium 9.4 ECG Interpretation: EKG with atrial fibrillation at 80/Min. RV conduction delay. Nonspecific ST-T changes. Assessment and Plan (1) Preoperative cardiovascular examination: Status: Acute (2) Atherosclerotic cardiovascular disease: Status: Acute (3) PAF (paroxysmal atrial fibrillation): Status: Acute Based on clinical examination, she has some wheezing most likely related to underlying COPD. Cardiac issues appear to be chronic. Echocardiogram with low normal LVEF and wall motion abnormalities related to underlying coronary disease; there is also decreased right ventricular systolic function and moderate tricuspid regurgitation. Overall, with regard to femur surgery, she will be at high cardiac risk based on the above. Un-modifiable. May proceed as planned. Resume Coumadin when able after surgery. If prolonged period of holding Coumadin, use Lovenox for bridging. Procedures Date of Service Date of Service: 09/09/21
--- NOTE | 2021-09-09 11:01 | PC.NURSE ---
Skin assessment completed. Patient has blanchable pinkness on coccyx. She also has a fractured left hip which will be repaired today 09/09. Some scattered bruising. No other skin issues noted at this time.
[2021-09-09 11:39] LABS: INTERNATIONAL NORM RATIO 2.7 (0.9-1.1); Prothrombin Time 31.2 SEC (9.9-13.0)
[2021-09-09] MEDS: LORazepam 1 MG TABLET PO ×2 (13:53→21:43)
[2021-09-09] MEDS: Phytonadione (Vit K1) 10 MG in 0.9 % Sodium Chloride 50 ML 51 MG IV (15:52)
[2021-09-09] MEDS: Acetaminophen 325 MG TABLET 650 MG PO ×2 (16:03→21:44)
[2021-09-09] MEDS: Albuterol/Iprat 2.5/0.5MG 3 ML AMPUL.NEB INHALE (16:09)
--- NOTE | 2021-09-09 21:24 | CONS_ITS ---
DATE OF SERVICE: 09/09/2021 INDICATION: Preop and worsening COPD. HISTORY OF PRESENT ILLNESS: Ms. 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 Apparently, she was in usual state of health until back in June when she had a syncopal episode of fell, fractured hip. She was admitted to [facility] and had surgical correction at that time. Ultimately, she went to rehab and she had a fall again when she did not loose consciousness, but she ended up refracturing her hip and also fracturing her 11th rib on the left side. She was brought to the [facility] ED, currently having increasing wheezing, shortness of breath. She has been on oxygen. Orthopedics did evaluate her and do feel strongly she needs surgery. At this point, the patient is complaining worsening shortness of breath and she is also having increased wheezing. REVIEW OF SYSTEMS: 10 systems reviewed. Denied any loss of consciousness. Complains of the respiratory symptoms. Denies any cardiac symptoms. Denies any GI, symptoms. Complains of the musculoskeletal symptoms, significant pain in the left hip, and also in the chest area. The rest of the 10-organ system is negative. PAST MEDICAL HISTORY: Atrial fibrillation, CAD, status post CABG, hypoxia, lung resection, colon cancer, COPD, gaze, gastric atrial vascular ectasia, hypertension, iron deficiency anemia, primary biliary cirrhosis, syndrome. PAST SURGICAL HISTORY: She had a lobectomy and also had CABG. SOCIAL HISTORY: She does not have an Advance directive. ALLERGIES: PLEASE REFER TO THE MAR. NO KNOWN DRUG MEDICATIONS NOTED. MEDICATIONS: Please refer to the MAR. Currently on Tylenol, Fioricet, Lasix, metoprolol, Spiriva, Coumadin is on hold, albuterol. PHYSICAL EXAMINATION: VITAL SIGNS: Stable, saturating 94% on 2 L. GENERAL: She is a pleasant lady, in no acute distress. HEENT: Pupils equal and reactive to light. Oropharynx clear. NECK: Supple. LUNGS: With diminished breath sounds and expiratory wheezing bilaterally. CARDIAC: Regular rhythm. Regular rate. No extra heart sounds appreciated. ABDOMEN: Positive bowel sounds, soft. EXTREMITIES: No clubbing or cyanosis. LABORATORY DATA: White count 12.8, hemoglobin 8.9 from 10.3, INR 2.1. Chemistries are okay, little dehydrated. COVID test is negative. Imaging studies perceived by me. She had a CT scan of the chest demonstrating the rib fracture in addition to kyphoplasty of her thoracic spine. She does have significant COPD, pulmonary nodules noted. ASSESSMENT: Ms. Trujillo is a 76-year-old woman with a very complicated past medical history, presenting after a fall, recurrent hip fracture, requiring surgery with increasing wheezing. IMPRESSION: 1. Chronic obstructive pulmonary disease exacerbation. The patient unfortunately should not be on any prednisone to allow proper healing and therefore we will optimize respiratory therapy. 2. Preop, the patient does have increased risk factors for perioperative pulmonary complications, putting her at high risk which include atelectasis, worsening hypoxia, pneumonia, and prolonged mechanical ventilation. Avoiding general anesthesia will be gomez if it can be done locally or the spinal or nerve block. 3. Pulmonary nodules. The patient does have increased risk for cancer. She has already had colon cancer in the past and she has also had issue with granulomas in her lungs of unclear etiology that can indeed manifest in this form. RECOMMENDATIONS: 1. Continue with nebulized therapy. 2. add Breo daily. 3. continue Spiriva. 4. Again, the patient is high risk for perioperative pulmonary complications, but we will optimize the patient as much as possible and would recommend avoiding general anesthesia if possible. Further recommendation based on forthcoming data. MD SEB Varma/EVIN / [id number] MTDD
[2021-09-09] MEDS: UrsodioL 300 MG CAPSULE 600 MG PO (21:42)
[2021-09-09] MEDS: Sennosides 8.6 MG TABLET 17.2 MG PO (21:42)
[2021-09-09] MEDS: Docusate Sodium 100 MG CAPSULE PO (21:43)
[2021-09-09] MEDS: Omeprazole 20 MG CAPSULE.DR PO (21:43)
[2021-09-09] MEDS: DULoxetine HCl 30 MG CAPSULE.DR PO (21:44)
[2021-09-09 22:49] LABS: INTERNATIONAL NORM RATIO 1.4 (0.9-1.1); Prothrombin Time 15.8 SEC (9.9-13.0)
--- NOTE | 2021-09-09 23:17 | PC.NURSE ---
Addendum entered by Marivel Jefferson RN 09/09/21 23:49: will monitor HR and report to Dr. Martinez if above 110, zinc plate cutter RN notified and [facility] Tech notified Original Note: P patient rhythm changed from SR to AFib/Aflutter,HR [address] Martinez notified of the above E will monitor
--- NOTE | 2021-09-09 23:47 | PC.NURSE ---
INR 1.4 at 2250 ,Dr. Martinez made aware
[2021-09-10] VITALS (16 sets, daily range): BP systolic 110–146; BP diastolic 58–82; PULSE 72–127; RESP 17–20; TEMP 36.1–36.9; O2SAT 91–97
[2021-09-10] MEDS: 0.9 % Sodium Chloride Flush 3 ML SYRINGE IVFLUSH ×3 (00:38→20:47)
[2021-09-10 04:29] LABS: Hematocrit 29.9 % (37-47); Hemoglobin 9.2 g/dl (12.0-16.0); Mean Corpuscular HGB Conc 30.8 g/dl (31.0-35.0); Mean Corpuscular Hemoglobin 29.9 pg (27.0-33.0); Mean Corpuscular Volume 97.1 fL (80-98); Mean Platelet Volume 11.3 fL (9.4-12.3); Platelet Count 159 X10*3/uL (160-400); Red Blood Count 3.08 X10*6/uL (4.20-5.50); Red Cell Distribution Width 19.5 % (11.0-16.0); White Blood Count 11.4 X10*3/uL (4.8-10.8)
[2021-09-10] MEDS: HYDROmorphone HCl 0.5 MG/0.5 ML SYRINGE IVPUSH ×2 (04:33→08:46)
[2021-09-10 04:44] LABS: INTERNATIONAL NORM RATIO 1.1 (0.9-1.1); Prothrombin Time 12.7 SEC (9.9-13.0)
[2021-09-10 04:51] LABS: Anion Gap 14 (12-20); Blood Urea Nitrogen 14 mg/dL (9-16); Calcium 9.6 mg/dL (8.4-10.2); Carbon Dioxide 27 mmol/L (22-29); Chloride 106 mmol/L (96-108); Estimated Glomerular Filt Rate > 60; Glucose Random 103 mg/dL (60-115); Potassium 4.1 mmol/L (3.3-5.1); Sodium 143 mmol/L (135-145)
--- NOTE | 2021-09-10 05:45 | PC.NURSE ---
PAIN MANAGEMENT REASSED AT 0530 WITH EFFECT, PATIENT NOTED RESTING IN BED, EYES CLOSED. REPOSITIONED PRIOR TO MEDICATION AND VOIDED TO BEDPAN, NPO MAINTAINED AND [facility] [employer] [facility] MONITORING HEART RATE AND CARDIAC RHYTHM. PER PREVIOUS SHIFT REPORT [employer] [facility] WILL ALERT FLOOR IF HR IS SUSTAINED >110. AWAITING 0415 DRAW OF INR FOR SURGICAL CLEARANCE.
[2021-09-10] MEDS: Metoprolol Succinate ER 25 MG TAB.ER.24H 75 MG PO (08:44)
[2021-09-10] MEDS: LORazepam 1 MG TABLET PO ×2 (08:45→20:46)
[2021-09-10] MEDS: Levothyroxine Sodium 150 MCG TABLET PO (08:45)
[2021-09-10] MEDS: DULoxetine HCl 30 MG CAPSULE.DR PO ×2 (08:45→20:46)
[2021-09-10] MEDS: dilTIAZem HCL 50 MG/10 ML VIAL 10 MG IVPUSH (10:30)
--- NOTE | 2021-09-10 10:51 | P.PNIM_ITS ---
Subjective Subjective Date of Service: 09/10/21 Interval History: seen and examined this AM rib pain and hip pain no cp or sob no cough no palp Review of Systems as above, otherwise negative Physical Exam Vital Signs: Vital Signs: Last Vital Signs Temp 96.9 F 09/10/21 07:59 Pulse 87 09/10/21 10:38 Resp 18 09/10/21 07:59 BP 110/58 L 09/10/21 10:38 Pulse Ox 97 09/10/21 10:38 Body Mass Index 20.9 Const: Other: General - in pain, slouched over on the left Cardiovascular - IRR -- rates 80s-120s on monitor Lungs - dim sounds, saturating 90s; no distress Abdomen - soft, nontender, no rebound or guarding Neuro - awake and alert, no focal deficits Objective Data Active Medications Acetaminophen (Acetaminophen 325 Mg Tablet) 650 mg PO Q6H PRN PRN Reason: Pain, Mild (Pain Scale 1-3) Last Admin: 09/09/21 21:44 Dose: 650 mg Documented by: BHUPINDER Albuterol/Ipratropium (Albuterol/Iprat 2.5/0.5mg 3 Ml Ampul.Neb) 3 ml INHALE RQ6H PRN PRN Reason: Shortness of Breath/Wheezing Last Admin: 09/09/21 16:09 Dose: 3 ml Documented by: GUERO Cyanocobalamin (Cyanocobalamin (Vitamin B-12) 1,000 Mcg Tablet) 1,000 mcg PO DAILY [facility] Last Admin: 09/10/21 08:53 Dose: Not Given Documented by: BRENDA Non-Admin Reason: NPO Docusate Sodium (Docusate Sodium 100 Mg Capsule) 100 mg PO BID [facility] Last Admin: 09/10/21 08:53 Dose: Not Given Documented by: BRENDA Non-Admin Reason: NPO Duloxetine HCl (Duloxetine Hcl 30 Mg Capsule.) 30 mg PO BID [facility] Last Admin: 09/10/21 08:45 Dose: 30 mg Documented by: BRENDA Ferrous Sulfate (Ferrous Sulfate 324 Mg Tablet.) 324 mg PO DAILY [facility] Last Admin: 09/10/21 08:53 Dose: Not Given Documented by: BRENDA Non-Admin Reason: NPO Hydromorphone HCl (Hydromorphone Hcl 0.5 Mg/0.5 Ml Syringe) 0.5 mg IVPUSH Q3H PRN; Protocol PRN Reason: Pain, Severe (Pain Scale 7-10) Last Admin: 09/10/21 08:46 Dose: 0.5 mg Documented by: BRENDA Diltiazem HCl 125 mg/ Sodium (Chloride) 125 mls @ 0 mls/hr IVCONT .Q0M [facility]; Protocol Levothyroxine Sodium (Levothyroxine Sodium 150 Mcg Tablet) 150 mcg PO DAILY@06 30 [facility] Last Admin: 09/10/21 08:45 Dose: 150 mcg Documented by: BRENDA Lidocaine (Lidocaine 4 % Patch Adh..Patch) 1 patch TRANSDERMA DAILY [facility]; Protocol Last Admin: 09/10/21 08:53 Dose: Not Given Documented by: BRENDA Non-Admin Reason: surgery Lorazepam (Lorazepam 1 Mg Tablet) 1 mg PO BID [facility] Last Admin: 09/10/21 08:45 Dose: 1 mg Documented by: BRENDA Metoprolol Succinate (Metoprolol Succinate Er 25 Mg Tab.Er.24h) 75 mg PO DAILY [facility]; Protocol Last Admin: 09/10/21 08:44 Dose: 75 mg Documented by: BRENDA Omeprazole (Omeprazole 20 Mg Capsule.Dr) 20 mg PO BID [facility] Last Admin: 09/10/21 08:54 Dose: Not Given Documented by: BRENDA Non-Admin Reason: NPO Ondansetron HCl (Ondansetron Hcl 4 Mg/2 Ml Vial) 4 mg IVPUSH Q8H PRN PRN Reason: Nausea and Vomiting Last Admin: 09/08/21 12:34 Dose: 4 mg Documented by: SABINE Polyethylene Glycol (Polyethylene Glycol 3350 17 Gm Powd.Pack) 17 gm PO DAILY [facility] Last Admin: 09/10/21 08:54 Dose: Not Given Documented by: BRENDA Non-Admin Reason: NPO Senna (Sennosides 8.6 Mg Tablet) 17.2 mg PO BEDTIME [facility] Last Admin: 09/09/21 21:42 Dose: 17.2 mg Documented by: BHUPINDER Sodium Chloride (0.9 % Sodium Chloride Flush 3 Ml Syringe) 3 ml IVFLUSH QSHIFT [facility] Last Admin: 09/10/21 08:47 Dose: 3 ml Documented by: BRENDA Tiotropium Odell (Tiotropium Odell 18 Mcg Cap.W.Dev) 1 puff INHALE DAILY [facility] Last Admin: 09/10/21 08:42 Dose: 1 puff Documented by: FARHAT Ursodiol (Ursodiol 300 Mg Capsule) 600 mg PO BID [facility] Last Admin: 09/10/21 08:54 Dose: Not Given Documented by: BRENDA Non-Admin Reason: NPO Vitamin D (Cholecalciferol (Vitamin D3) 25 Mcg Tablet) 25 mcg PO DAILY [facility] Last Admin: 09/10/21 08:52 Dose: Not Given Documented by: BRENDA Non-Admin Reason: NPO Labs CBC & Chem 7: 09/10/21 04:17 09/10/21 04:17 Labs: Laboratory Results - last 24 hr 09/09/21 09/09/21 09/10/21 11:17 22:35 04:17 MCV MCH MCHC RDW Plt Count MPV Absolute Nucleated RBC Nucleated RBC % (auto) PT 31.2 H 15.8 H 12.7 INR 2.7 H 1.4 H 1.1 Anion Gap Estim Creat Clear Calc Estimated GFR Random Glucose Calcium 09/10/21 09/10/21 04:17 04:17 MCV 97.1 MCH 29.9 MCHC 30.8 L RDW 19.5 H Plt Count 159 L D MPV 11.3 Absolute Nucleated RBC 0.000 Nucleated RBC % (auto) 0.0 PT INR Anion Gap 14 Estim Creat Clear Calc 58.0 Estimated GFR > 60 Random Glucose 103 Calcium 9.6 Microbiology Microbiology Results: Microbiology 09/08/21 07:40 Blood Culture - Preliminary Blood - Venous No growth after 48 hours. 09/08/21 07:29 Blood Culture - Preliminary Blood - Venous No growth after 48 hours. 09/08/21 00:00 Urine Culture - Final Urine clean catch - Urine nieto top Assessment and Plan (1) FRAN (acute kidney injury): Status: Acute Assessment and Plan: ?This is a 76 yo F with multiple medical problems including COPD/Chronic resp. failure with hypoxia on 2-3L, CAD - s/p CABG, A. Fib on coumadin, SOTERO/GAVE/PBC/Colon Ca - s/p resection, L hip fx repaired at [facility] in Jun 2021 who presents from [facility] after ? slipping out of bed / fall (unwitnessed) resulting in a L hip Fx. She will be admitted for further treamtent. L subcap. fem fx with superior displacement seen by both Pulm and Cardiac -- deemed high risk ortho on the case -- plan for OR today with spinal anesthesia (avoid gen if possible -- see pulmonary notes) A. Fib RVR converted to a. fib last night, rates up to 120s with symptoms did respond to IV push cardizem with rates in the 80s, but back up again; will start cardizem gtt anticoag on hold for surgery (INR reversed yesterday) FRAN resolved due to hypoperfusion COPD / Chronic Resp failure with hypoxia not in exacerbation continue baseline O2 -- 2-3L by NC continue inhalers Hypothyroid synthroid Rib fx high symptomatic with pain lidocaine patch PBC ursodial Full Code Andra (Niece) is HCP Quality Stroke Does the patient have a stroke diagnosis?: No VTE Prior VTE?: No VTE Risk Level:: Medical - moderate - high VTE Device Contraindication: Treatment Not Indicated VTE Drug Contraindication: N/A - Med Ordered
--- NOTE | 2021-09-10 11:17 | P.PNCA_ITS ---
Subjective Subjective Date of Service: 09/10/21 Interval history: Some shortness of breath, but otherwise ok. Review of Systems Review of Systems Yes all other systems are reviewed and are negative Cardiovascular: Reports as per HPI, Reports no additional cardiovascular complaints, Denies acrocyanosis, Denies cool extremities, Denies painful fingertips, Denies chest pain, Denies chest pain at rest, Denies diaphoresis, Denies syncope, Denies irregular heart rhythm, Denies claudication, Denies leg edema, Denies lightheadedness, Denies palpitations and Reports dyspnea Respiratory: Reports dyspnea Denies syncope Endocrine: Denies palpitations Physical Exam Vital Signs: Last Vital Signs Temp 96.9 F 09/10/21 07:59 Pulse 87 09/10/21 10:38 Resp 18 09/10/21 07:59 BP 110/58 L 09/10/21 10:38 Pulse Ox 97 09/10/21 10:38 Body Mass Index 20.9 Const General: cooperative and no acute distress HENMT Other: Unremarkable Neck Neck: Yes normal visual inspection Chest Chest palpation & inspection: normal inspection of the chest Resp Auscultation: wheezes and diminished lung sounds Cardio Jugular venous distension: no JVD Palpation: normal PMI Heart sounds: S1 normal heart sound present, S2 normal heart sound present, no gallops, no murmurs and no rubs GI Palpation (GI): Soft to palpation Back/Spine/Pelvis Other: unremarkable Skin General skin exam: no rashes or lesions noted Neuro Cranial nerves: Yes Other cranial nerve findings present Extrem General: Yes no clubbing, cyanosis or edema Psych Mental Status: other Results Labs and Meds Result diagrams: 09/10/21 04:17 09/10/21 04:17 Lab results: Laboratory Results - last 24 hr 09/09/21 09/09/21 09/10/21 11:17 22:35 04:17 WBC RBC Hgb Hct MCV MCH MCHC RDW Plt Count MPV Absolute Nucleated RBC Nucleated RBC % (auto) PT 31.2 H 15.8 H 12.7 INR 2.7 H 1.4 H 1.1 Sodium Potassium Chloride Carbon Dioxide Anion Gap BUN Creatinine Estim Creat Clear Calc Estimated GFR Random Glucose Calcium 09/10/21 09/10/21 04:17 04:17 WBC 11.4 H RBC 3.08 L Hgb 9.2 L Hct 29.9 L MCV 97.1 MCH 29.9 MCHC 30.8 L RDW 19.5 H Plt Count 159 L D MPV 11.3 Absolute Nucleated RBC 0.000 Nucleated RBC % (auto) 0.0 PT INR Sodium 143 Potassium 4.1 Chloride 106 Carbon Dioxide 27 Anion Gap 14 BUN 14 Creatinine 0.79 Estim Creat Clear Calc 58.0 Estimated GFR > 60 Random Glucose 103 Calcium 9.6 Progress Note: A&P Assessment and plan (1) Preoperative cardiovascular examination: Status: Acute (2) Atherosclerotic cardiovascular disease: Status: Acute (3) Atrial fibrillation with rapid ventricular response: Status: Acute Assessment and Plan: Echocardiogram with low normal LVEF and wall motion abnormalities related to underlying coronary disease; there is also decreased right ventricular systolic function and moderate tricuspid regurgitation. With regard to atrial fibrillation, she was in sinus yesterday, but overnight went back into atrial fibrillation. May start IV cardizem drip (after bolus, if does not respond). Also use short term Amiodarone for rhythm control. High cardiac risk for surgery. Resume Coumadin when able after surgery. If prolonged period of holding Coumadin, use Lovenox for bridging. Fall Risk Details Current Medications: Current Medications Acetaminophen (Acetaminophen 325 Mg Tablet) 650 mg PO Q6H PRN PRN Reason: Pain, Mild (Pain Scale 1-3) Last Admin: 09/09/21 21:44 Dose: 650 mg Documented by: Albuterol/Ipratropium (Albuterol/Iprat 2.5/0.5mg 3 Ml Ampul.Neb) 3 ml INHALE RQ6H PRN PRN Reason: Shortness of Breath/Wheezing Last Admin: 09/09/21 16:09 Dose: 3 ml Documented by: Cyanocobalamin (Cyanocobalamin (Vitamin B-12) 1,000 Mcg Tablet) 1,000 mcg PO DAILY [facility] Last Admin: 09/10/21 08:53 Dose: Not Given Documented by: Docusate Sodium (Docusate Sodium 100 Mg Capsule) 100 mg PO BID [facility] Last Admin: 09/10/21 08:53 Dose: Not Given Documented by: Duloxetine HCl (Duloxetine Hcl 30 Mg Capsule.) 30 mg PO BID COUNT [facility] Last Admin: 09/10/21 08:45 Dose: 30 mg Documented by: Ferrous Sulfate (Ferrous Sulfate 324 Mg Tablet.) 324 mg PO DAILY [facility] Last Admin: 09/10/21 08:53 Dose: Not Given Documented by: Hydromorphone HCl (Hydromorphone Hcl 0.5 Mg/0.5 Ml Syringe) 0.5 mg IVPUSH Q3H PRN; Protocol PRN Reason: Pain, Severe (Pain Scale 7-10) Last Admin: 09/10/21 08:46 Dose: 0.5 mg Documented by: Diltiazem HCl 125 mg/ Sodium (Chloride) 125 mls @ 0 mls/hr IVCONT .Q0M COUNT [facility]; Protocol Levothyroxine Sodium (Levothyroxine Sodium 150 Mcg Tablet) 150 mcg PO DAILY@0630 [facility] Last Admin: 09/10/21 08:45 Dose: 150 mcg Documented by: Lidocaine (Lidocaine 4 % Patch Adh..Patch) 1 patch TRANSDERMA DAILY [facility]; Protocol Last Admin: 09/10/21 08:53 Dose: Not Given Documented by: Lorazepam (Lorazepam 1 Mg Tablet) 1 mg PO BID [facility] Last Admin: 09/10/21 08:45 Dose: 1 mg Documented by: Metoprolol Succinate (Metoprolol Succinate Er 25 Mg Tab.Er.24h) 75 mg PO DAILY [facility]; Protocol Last Admin: 09/10/21 08:44 Dose: 75 mg Documented by: Omeprazole (Omeprazole 20 Mg Capsule.Dr) 20 mg PO BID [facility] Last Admin: 09/10/21 08:54 Dose: Not Given Documented by: Ondansetron HCl (Ondansetron Hcl 4 Mg/2 Ml Vial) 4 mg IVPUSH Q8H PRN PRN Reason: Nausea and Vomiting Last Admin: 09/08/21 12:34 Dose: 4 mg Documented by: Polyethylene Glycol (Polyethylene Glycol 3350 17 Gm Powd.Pack) 17 gm PO DAILY COUNT [facility]CLUD[facility] Last Admin: 09/10/21 08:54 Dose: Not Given Documented by: Senna (Sennosides 8.6 Mg Tablet) 17.2 mg PO BEDTIME COUNT [facility]CLUDES [facility] Last Admin: 09/09/21 21:42 Dose: 17.2 mg Documented by: Sodium Chloride (0.9 % Sodium Chloride Flush 3 Ml Syringe) 3 ml IVFLUSH QSHIFT COUNT [facility]CLUDES [facility] Last Admin: 09/10/21 08:47 Dose: 3 ml Documented by: Tiotropium [place] (Tiotropium [place] 18 Mcg Cap.W.Dev) 1 puff INHALE DAILY COUNT [facility] Last Admin: 09/10/21 08:42 Dose: 1 puff Documented by: Ursodiol (Ursodiol 300 Mg Capsule) 600 mg PO BID COUNT [facility] Last Admin: 09/10/21 08:54 Dose: Not Given Documented by: Vitamin D (Cholecalciferol (Vitamin D3) 25 Mcg Tablet) 25 mcg PO DAILY COUNT [facility] Last Admin: 09/10/21 08:52 Dose: Not Given Documented by: Time Spent With Patient Time: Total time spent is greater than 50% in coordination of care (as documented) at patient's floor/unit and/or counseling patient: Time with patient: less than 15 minutes Progress Note: Quality Stroke Does the patient have a stroke diagnosis?: No Procedures Date of Service Date of Service: 09/10/21
[2021-09-10] MEDS: Amiodarone HCL 200 MG TABLET 400 MG PO (11:58)
--- NOTE | 2021-09-10 12:17 | MHC.CM.PN ---
UPDATES SENT VIA [employer] TO [facility] AWARE THAT PATIENT DID NOT GO TO O.R ORIGINALLY PLANNED. POSSIBLE O.R. TODAY AND DC OVER THE WEEKEND.
[2021-09-10] MEDS: Acetaminophen 325 MG TABLET 650 MG PO (12:27)
--- NOTE | 2021-09-10 14:20 | PC.NURSE ---
PT'S HEART RATE FLUCTUATING BETWEEN 110 TO 130. CARDIZEM 1OMG IV GIVEN AT 1030 VS PRE 146/82 120 POST 110/58 HR 85. LOWER HEART RATE WAS NOT SUSTAINED. AMIODARONE 400MG GIVEN AT 1120. 1230 PT TRANS TO [facility]ARDIZEM DRIP. PT'S HEALTHCARE PROXY FAHAD QUINONEZ UPDATED. THROUGHOUT THE DAY PT HAS BEEN VERY ANXIOUS, PARANOID, AND CONFUSED.
[2021-09-10] MEDS: dilTIAZem HCL 125 MG in 0.9 % Sodium Chloride 100 ML IVCONT (15:22)
[2021-09-10] MEDS: Omeprazole 20 MG CAPSULE.DR PO (20:46)
[2021-09-10] MEDS: Amiodarone HCL 200 MG TABLET PO (20:46)
[2021-09-10] MEDS: UrsodioL 300 MG CAPSULE 600 MG PO (20:46)
[2021-09-10] MEDS: Sennosides 8.6 MG TABLET 17.2 MG PO (20:46)
[2021-09-10] MEDS: Docusate Sodium 100 MG CAPSULE PO (20:47)
[2021-09-10] MEDS: Albuterol/Iprat 2.5/0.5MG 3 ML AMPUL.NEB INHALE (23:08)
[2021-09-11] VITALS (12 sets, daily range): BP systolic 120–144; BP diastolic 61–83; PULSE 55–108; RESP 16–19; TEMP 36.2–37.7; O2SAT 95–100
[2021-09-11] MEDS: dilTIAZem HCL 125 MG in 0.9 % Sodium Chloride 100 ML 10 MG IVCONT (01:10)
--- NOTE | 2021-09-11 04:03 | PC.NURSE ---
Patient preop left hip arthroplasty - NPO after midnight. Patient c/o of pain with movement, but moves well in bed. Refusing to reposition on right side. Refused tylenol when offered. Patient confused / hallucinating, calling out at times- easily reoriented / directed. Talked w/ proxy earlier in evening, Sola Plasencia - updated her about patient status and plan for and let her talk to patient. Patient had a couple episodes of dyspnea, especially when laying down. Exp wheezing heard throughout at start of night - RT called and gave PRN updraft tx @ 2308 with good affect. Increased oxygen for comfort from 2 liters to 3/4 liters. O2sat remaining 95-96%. Cardizem drip titrated per parameter - HR down to 70's to 80's afib with drip.
[2021-09-11 05:36] LABS: Hematocrit 33.7 % (37-47); Hemoglobin 10.1 g/dl (12.0-16.0); Mean Corpuscular Hemoglobin 29.1 pg (27.0-33.0); Mean Corpuscular Volume 97.1 fL (80-98); Mean Platelet Volume 10.8 fL (9.4-12.3); NRBC Pct Auto 0.1 /100WBC (0.0-0.2); Platelet Count 295 X10*3/uL (160-400); Red Blood Count 3.47 X10*6/uL (4.20-5.50); Red Cell Distribution Width 19.3 % (11.0-16.0); White Blood Count 17.3 X10*3/uL (4.8-10.8)
[2021-09-11 05:44] LABS: Prothrombin Time 11.6 SEC (9.9-13.0)
[2021-09-11 05:56] LABS: Anion Gap 19 (12-20); Blood Urea Nitrogen 16 mg/dL (9-16); Carbon Dioxide 24 mmol/L (22-29); Chloride 105 mmol/L (96-108); Creatinine Clr Calc Pharmacy 50.8; Estimated Glomerular Filt Rate > 60; Glucose Random 134 mg/dL (60-115); Potassium 5.2 mmol/L (3.3-5.1); Sodium 143 mmol/L (135-145)
[2021-09-11] MEDS: Acetaminophen 325 MG TABLET 650 MG PO (10:10)
--- NOTE | 2021-09-11 10:29 | PM.PNCARD ---
Subjective Subjective Date of Service: 09/11/21 Interval history: Appears confused. Asking for water. However, no cardiac symptoms. Review of Systems Review of Systems Yes all other systems are reviewed and are negative Cardiovascular: Reports as per HPI, Reports no additional cardiovascular complaints, Denies acrocyanosis, Denies cool extremities, Denies painful fingertips, Denies chest pain, Denies chest pain at rest, Denies diaphoresis, Denies syncope, Denies irregular heart rhythm, Denies claudication, Denies leg edema, Denies lightheadedness, Denies palpitations and Reports dyspnea Respiratory: Reports dyspnea Denies syncope Endocrine: Denies palpitations Physical Exam Vital Signs: Last Vital Signs Temp 98.6 F 09/11/21 07:38 Pulse 72 09/11/21 07:53 Resp 18 09/11/21 07:38 BP 120/70 09/11/21 07:38 Pulse Ox 100 09/11/21 07:38 Body Mass Index 20.9 Const General: cooperative and no acute distress HENTN Other: Unremarkable Neck Neck: Yes normal visual inspection Chest Chest palpation & inspection: normal inspection of the chest Resp Auscultation: wheezes and diminished lung sounds Cardio Jugular venous distension: no JVD Palpation: normal PMI Heart sounds: S1 normal heart sound present, S2 normal heart sound present, no gallops, no murmurs and no rubs GI Palpation (GI): Soft to palpation Back/Spine/Pelvis Other: unremarkable Skin General skin exam: no rashes or lesions noted Neuro Cranial nerves: Yes Other cranial nerve findings present Extrem General: Yes no clubbing, cyanosis or edema Psych Mental Status: other Results Labs and Meds Result diagrams: 09/11/21 05:27 09/11/21 05:27 Lab results: Laboratory Results - last 24 hr 09/11/21 09/11/21 09/11/21 05:27 05:27 05:27 WBC 17.3 H RBC 3.47 L Hgb 10.1 L Hct 33.7 L MCV 97.1 MCH 29.1 MCHC 30.0 L RDW 19.3 H Plt Count 295 D MPV 10.8 Absolute Nucleated RBC 0.020 H Nucleated RBC % (auto) 0.1 PT 11.6 INR 1.0 Sodium 143 Potassium 5.2 H D Chloride 105 Carbon Dioxide 24 Anion Gap 19 BUN 16 Creatinine 0.90 Estim Creat Clear Calc 50.8 Estimated GFR > 60 Random Glucose 134 H Calcium 10.0 Blood Type Antibody Screen 09/11/21 05:27 WBC RBC Hgb Hct MCV MCH MCHC RDW Plt Count MPV Absolute Nucleated RBC Nucleated RBC % (auto) PT INR Sodium Potassium Chloride Carbon Dioxide Anion Gap BUN Creatinine Estim Creat Clear Calc Estimated GFR Random Glucose Calcium Blood Type O Positive Antibody Screen NEGATIVE Progress Note: A&P Assessment and plan (1) Preoperative cardiovascular examination: Status: Acute (2) Atherosclerotic cardiovascular disease: Status: Acute (3) Atrial fibrillation with rapid ventricular response: Status: Acute Assessment and Plan: Echocardiogram with low normal LVEF and wall motion abnormalities related to underlying coronary disease; there is also decreased right ventricular systolic function and moderate tricuspid regurgitation. With regard to atrial fibrillation, she was in sinus on admission, but then went into atrial fibrillation/rapid rate. Now on cardizem drip. Rate around 70-80/min. May transition to PO. Add Digoxin if needed. Stop Amiodarone. High cardiac risk for surgery, but it seems surgery has been cancelled. Continue anticoagulation with Lovenox bridging. Fall Risk Details Current Medications: Current Medications Acetaminophen (Acetaminophen 325 Mg Tablet) 650 mg PO Q6H PRN PRN Reason: Pain, Mild (Pain Scale 1-3) Last Admin: 09/11/21 10:10 Dose: 650 mg Documented by: Albuterol/Ipratropium (Albuterol/Iprat 2.5/0.5mg 3 Ml Ampul.Neb) 3 ml INHALE RQ6H PRN PRN Reason: Shortness of Breath/Wheezing Last Admin: 09/10/21 23:08 Dose: 3 ml Documented by: Amiodarone HCl (Amiodarone Hcl 200 Mg Tablet) 200 mg PO BID [facility] Last Admin: 09/10/21 20:46 Dose: 200 mg Documented by: Cyanocobalamin (Cyanocobalamin (Vitamin B-12) 1,000 Mcg Tablet) 1,000 mcg PO DAILY [facility] Last Admin: 09/10/21 08:53 Dose: Not Given Documented by: Docusate Sodium (Docusate Sodium 100 Mg Capsule) 100 mg PO BID [facility] Last Admin: 09/10/21 20:47 Dose: 100 mg Documented by: Duloxetine HCl (Duloxetine Hcl 30 Mg Capsule.Dr) 30 mg PO BID [facility] Last Admin: 09/10/21 20:46 Dose: 30 mg Documented by: Ferrous Sulfate (Ferrous Sulfate 324 Mg Tablet.) 324 mg PO DAILY [facility] Last Admin: 09/10/21 08:53 Dose: Not Given Documented by: Hydromorphone HCl (Hydromorphone Hcl 0.5 Mg/0.5 Ml Syringe) 0.5 mg IVPUSH Q3H PRN; Protocol PRN Reason: Pain, Severe (Pain Scale 7-10) Last Admin: 09/10/21 08:46 Dose: 0.5 mg Documented by: Diltiazem HCl 125 mg/ Sodium (Chloride) 125 mls @ 0 mls/hr IVCONT .Q0M [facility]; Protocol Last Titration: 09/11/21 09:58 Dose: 5 mg/hr, 5 mls/hr Documented by: Levothyroxine Sodium (Levothyroxine Sodium 150 Mcg Tablet) 150 mcg PO DAILY@0630 [facility] Last Admin: 09/11/21 05:53 Dose: Not Given Documented by: Lidocaine (Lidocaine 4 % Patch Adh..Patch) 1 patch TRANSDERMA DAILY [facility]; Protocol Last Admin: 09/10/21 08:53 Dose: Not Given Documented by: Lorazepam (Lorazepam 1 Mg Tablet) 1 mg PO BID [facility] Last Admin: 09/10/21 20:46 Dose: 1 mg Documented by: Metoprolol Succinate (Metoprolol Succinate Er 25 Mg Tab.Er.24h) 75 mg PO DAILY [facility]; Protocol Last Admin: 09/10/21 08:44 Dose: 75 mg Documented by: Omeprazole (Omeprazole 20 Mg Capsule.) 20 mg PO BID [facility] Last Admin: 09/10/21 20:46 Dose: 20 mg Documented by: Ondansetron HCl (Ondansetron Hcl 4 Mg/2 Ml Vial) 4 mg IVPUSH Q8H PRN PRN Reason: Nausea and Vomiting Last Admin: 09/08/21 12:34 Dose: 4 mg Documented by: Polyethylene Glycol (Polyethylene Glycol 3350 17 Gm Powd.Pack) 17 gm PO DAILY [facility] Last Admin: 09/10/21 08:54 Dose: Not Given Documented by: Senna (Sennosides 8.6 Mg Tablet) 17.2 mg PO BEDTIME [facility] Last Admin: 09/10/21 20:46 Dose: 17.2 mg Documented by: Sodium Chloride (0.9 % Sodium Chloride Flush 3 Ml Syringe) 3 ml IVFLUSH QSHIFT [facility] Last Admin: 09/10/21 20:47 Dose: 3 ml Documented by: Tiotropium [place] (Tiotropium [place] 18 Mcg Cap.W.Dev) 1 puff INHALE DAILY [facility] Last Admin: 09/11/21 07:53 Dose: 1 puff Documented by: Ursodiol (Ursodiol 300 Mg Capsule) 600 mg PO BID [facility] Last Admin: 09/10/21 20:46 Dose: 600 mg Documented by: Vitamin D (Cholecalciferol (Vitamin D3) 25 Mcg Tablet) 25 mcg PO DAILY [facility] Last Admin: 09/10/21 08:52 Dose: Not Given Documented by: Time Spent With Patient Time: Total time spent is greater than 50% in coordination of care (as documented) at patient's floor/unit and/or counseling patient: Time with patient: less than 15 minutes Progress Note: Quality Stroke Does the patient have a stroke diagnosis?: No Procedures Date of Service Date of Service: 09/11/21
--- NOTE | 2021-09-11 10:57 | HO.PM.IMPN ---
Subjective Subjective Date of Service: 09/11/21 Interval History: seen and examined having intermittent bouts of confusion during which she knows that she is confused reports rib pain with movement denies sob hip pain okay Review of Systems no sob no cp no palp +rib pain with movement Physical Exam Vital Signs: Vital Signs: Last Vital Signs Temp 98.6 F 09/11/21 07:38 Pulse 72 09/11/21 07:53 Resp 18 09/11/21 07:38 BP 120/70 09/11/21 07:38 Pulse Ox 100 09/11/21 07:38 Body Mass Index 20.9 Const: Other: gen - laying on left side; comfortable when not moving cvs - s1s2; irr; tele reviewed -- rates 70-90s on cardizem gtt lungs - dim left base but otherwise clear, no distress abd - nt/nd; +BS neuro - non-focal psych -- appropriate affect Objective Data Active Medications Acetaminophen (Acetaminophen 325 Mg Tablet) 650 mg PO Q6H PRN PRN Reason: Pain, Mild (Pain Scale 1-3) Last Admin: 09/11/21 10:10 Dose: 650 mg Documented by: WALTER Albuterol/Ipratropium (Albuterol/Iprat 2.5/0.5mg 3 Ml Ampul.Neb) 3 ml INHALE RQ6H PRN PRN Reason: Shortness of Breath/Wheezing Last Admin: 09/10/21 23:08 Dose: 3 ml Documented by: CURTIS Cyanocobalamin (Cyanocobalamin (Vitamin B-12) 1,000 Mcg Tablet) 1,000 mcg PO DAILY [facility] Last Admin: 09/10/21 08:53 Dose: Not Given Documented by: BRENDA Non-Admin Reason: NPO Docusate Sodium (Docusate Sodium 100 Mg Capsule) 100 mg PO BID [facility] Last Admin: 09/10/21 20:47 Dose: 100 mg Documented by: JANEE Duloxetine HCl (Duloxetine Hcl 30 Mg Capsule.) 30 mg PO BID [facility] Last Admin: 09/10/21 20:46 Dose: 30 mg Documented by: JANEE Ferrous Sulfate (Ferrous Sulfate 324 Mg Tablet.) 324 mg PO DAILY [facility] Last Admin: 09/10/21 08:53 Dose: Not Given Documented by: BRENDA Non-Admin Reason: NPO Hydromorphone HCl (Hydromorphone Hcl 0.5 Mg/0.5 Ml Syringe) 0.5 mg IVPUSH Q3H PRN; Protocol PRN Reason: Pain, Severe (Pain Scale 7-10) Last Admin: 09/10/21 08:46 Dose: 0.5 mg Documented by: BRENDA Levothyroxine Sodium (Levothyroxine Sodium 150 Mcg Tablet) 150 mcg PO DAILY@0630 [facility] Last Admin: 09/11/21 05:53 Dose: Not Given Documented by: JANEE Non-Admin Reason: NPO Lidocaine (Lidocaine 4 % Patch Adh..Patch) 1 patch TRANSDERMA DAILY [facility]; Protocol Last Admin: 09/10/21 08:53 Dose: Not Given Documented by: BRENDA Non-Admin Reason: surgery Lorazepam (Lorazepam 1 Mg Tablet) 1 mg PO BID [facility] Last Admin: 09/10/21 20:46 Dose: 1 mg Documented by: JANEE Metoprolol Succinate (Metoprolol Succinate Er 25 Mg Tab.Er.24h) 75 mg PO DAILY [facility]; Protocol Last Admin: 09/10/21 08:44 Dose: 75 mg Documented by: BRENDA Omeprazole (Omeprazole 20 Mg Capsule.Dr) 20 mg PO BID [facility] Last Admin: 09/10/21 20:46 Dose: 20 mg Documented by: JANEE Ondansetron HCl (Ondansetron Hcl 4 Mg/2 Ml Vial) 4 mg IVPUSH Q8H PRN PRN Reason: Nausea and Vomiting Last Admin: 09/08/21 12:34 Dose: 4 mg Documented by: SABINE Polyethylene Glycol (Polyethylene Glycol 3350 17 Gm Powd.Pack) 17 gm PO DAILY [facility] Last Admin: 09/10/21 08:54 Dose: Not Given Documented by: BRENDA Non-Admin Reason: NPO Senna (Sennosides 8.6 Mg Tablet) 17.2 mg PO BEDTIME [facility] Last Admin: 09/10/21 20:46 Dose: 17.2 mg Documented by: JANEE Sodium Chloride (0.9 % Sodium Chloride Flush 3 Ml Syringe) 3 ml IVFLUSH QSHIFT [facility] Last Admin: 09/10/21 20:47 Dose: 3 ml Documented by: JANEE Tiotropium [place] (Tiotropium [place] 18 Mcg Cap.W.Dev) 1 puff INHALE DAILY [facility] Last Admin: 09/11/21 07:53 Dose: 1 puff Documented by: KYLIE Ursodiol (Ursodiol 300 Mg Capsule) 600 mg PO BID [facility] Last Admin: 09/10/21 20:46 Dose: 600 mg Documented by: JANEE Vitamin D (Cholecalciferol (Vitamin D3) 25 Mcg Tablet) 25 mcg PO DAILY [facility] Last Admin: 09/10/21 08:52 Dose: Not Given Documented by: BRENDA Non-Admin Reason: NPO Labs CBC & Chem 7: 09/11/21 05:27 09/11/21 05:27 Labs: Laboratory Results - last 24 hr 09/11/21 09/11/21 09/11/21 05:27 05:27 05:27 MCV 97.1 MCH 29.1 MCHC 30.0 L RDW 19.3 H Plt Count 295 D MPV 10.8 Absolute Nucleated RBC 0.020 H Nucleated RBC % (auto) 0.1 PT 11.6 INR 1.0 Anion Gap 19 Estim Creat Clear Calc 50.8 Estimated GFR > 60 Random Glucose 134 H Calcium 10.0 Blood Type Antibody Screen 09/11/21 05:27 MCV MCH MCHC RDW Plt Count MPV Absolute Nucleated RBC Nucleated RBC % (auto) PT INR Anion Gap Estim Creat Clear Calc Estimated GFR Random Glucose Calcium Blood Type O Positive Antibody Screen NEGATIVE Microbiology Microbiology Results: Microbiology 09/08/21 07:40 Blood Culture - Preliminary Blood - Venous No growth after 48 hours. 09/08/21 07:29 Blood Culture - Preliminary Blood - Venous No growth after 48 hours. Assessment and Plan (1) FRAN (acute kidney injury): Status: Acute Assessment and Plan: ?This is a 76 yo F with multiple medical problems including COPD/Chronic resp. failure with hypoxia on 2-3L, CAD - s/p CABG, A. Fib on coumadin, SOTERO/GAVE/PBC/Colon Ca - s/p resection, L hip fx repaired at [facility] in Jun 2021 who presents from [facility] after ? slipping out of bed / fall (unwitnessed) resulting in a L hip Fx. She will be admitted for further treamtent. L subcap. fem fx with superior displacement seen by both Pulm and Cardiac -- deemed high risk d/w ortho today -- case cancelled for now (will perform in 2-3 weeks) -- see their notes for details ARao Michelle RVR improved on cardizem gtt -- discontinue on metoprolol 75 daily, will add cardizem (start with short acting 30q6 hours) restart anticoagluation -- will use lovenox 1mg/kg for the time being until her surgery FRAN resolved due to hypoperfusion COPD / Chronic Resp failure with hypoxia not in exacerbation continue baseline O2 -- 2-3L by NC continue inhalers Hypothyroid synthroid Rib fx high symptomatic with pain lidocaine patch PBC ursodial Delirium intermittent -- due to hospitalization / acute illness redirect as much as possible Full Code Andra (Niece) is HCP dispo: likely back to SNF tomorrow Quality Stroke Does the patient have a stroke diagnosis?: No VTE Prior VTE?: No VTE Risk Level:: Medical - moderate - high VTE Device Contraindication: Treatment Not Indicated VTE Drug Contraindication: N/A - Med Ordered
[2021-09-11] MEDS: Omeprazole 20 MG CAPSULE.DR PO ×2 (11:22→20:00)
[2021-09-11] MEDS: 0.9 % Sodium Chloride Flush 3 ML SYRINGE IVFLUSH ×3 (11:22→20:01)
[2021-09-11] MEDS: DULoxetine HCl 30 MG CAPSULE.DR PO ×2 (11:23→20:00)
[2021-09-11] MEDS: UrsodioL 300 MG CAPSULE 600 MG PO ×2 (11:23→20:00)
[2021-09-11] MEDS: Metoprolol Succinate ER 25 MG TAB.ER.24H 75 MG PO (11:24)
[2021-09-11] MEDS: Cyanocobalamin (Vitamin B-12) 1,000 MCG TABLET 1000 MCG PO (11:27)
[2021-09-11] MEDS: Cholecalciferol (Vitamin D3) 25 MCG TABLET PO (11:28)
[2021-09-11] MEDS: Ferrous Sulfate 324 MG TABLET.DR PO (11:28)
[2021-09-11] MEDS: Docusate Sodium 100 MG CAPSULE PO ×2 (11:28→20:01)
[2021-09-11] MEDS: LORazepam 1 MG TABLET PO ×2 (11:32→20:00)
[2021-09-11] MEDS: Lidocaine 4 % Patch ADH..PATCH 1 PATCH TRANSDERMA (11:34)
[2021-09-11] MEDS: polyethylene glycoL 3350 17 GM POWD.PACK PO (11:36)
[2021-09-11] MEDS: traMADoL HCL 50 MG TABLET PO (11:48)
[2021-09-11] MEDS: dilTIAZem HCL 30 MG TABLET PO ×3 (11:48→20:03)
[2021-09-11] MEDS: Enoxaparin Sodium 80 MG/0.8 ML SYRINGE 65 MG SUBCUT (11:49)
[2021-09-11] MEDS: Sennosides 8.6 MG TABLET 17.2 MG PO (20:00)
[2021-09-12] VITALS (11 sets, daily range): BP systolic 135–156; BP diastolic 54–77; PULSE 75–97; RESP 16–20; TEMP 36.4–37.6; O2SAT 95–99
[2021-09-12] MEDS: Enoxaparin Sodium 80 MG/0.8 ML SYRINGE 65 MG SUBCUT ×3 (00:57→21:48)
[2021-09-12 06:03] LABS: Hematocrit 32.1 % (37-47); Hemoglobin 9.8 g/dl (12.0-16.0); Mean Corpuscular HGB Conc 30.5 g/dl (31.0-35.0); Mean Corpuscular Hemoglobin 29.3 pg (27.0-33.0); Mean Corpuscular Volume 95.8 fL (80-98); Mean Platelet Volume 10.9 fL (9.4-12.3); Platelet Count 296 X10*3/uL (160-400); Red Blood Count 3.35 X10*6/uL (4.20-5.50); Red Cell Distribution Width 19.1 % (11.0-16.0); White Blood Count 15.9 X10*3/uL (4.8-10.8)
[2021-09-12] MEDS: Levothyroxine Sodium 150 MCG TABLET PO (06:05)
[2021-09-12 06:14] LABS: Anion Gap 17 (12-20); Blood Urea Nitrogen 15 mg/dL (9-16); Calcium 9.7 mg/dL (8.4-10.2); Carbon Dioxide 26 mmol/L (22-29); Chloride 107 mmol/L (96-108); Creatinine Clr Calc Pharmacy 55.8; Estimated Glomerular Filt Rate > 60; Glucose Random 105 mg/dL (60-115); Potassium 3.9 mmol/L (3.3-5.1); Sodium 146 mmol/L (135-145)
[2021-09-12] MEDS: DULoxetine HCl 30 MG CAPSULE.DR PO ×2 (08:39→21:47)
[2021-09-12] MEDS: traMADoL HCL 50 MG TABLET PO ×2 (08:39→16:27)
[2021-09-12] MEDS: Cholecalciferol (Vitamin D3) 25 MCG TABLET PO (08:39)
[2021-09-12] MEDS: Metoprolol Succinate ER 25 MG TAB.ER.24H 75 MG PO (08:39)
[2021-09-12] MEDS: Omeprazole 20 MG CAPSULE.DR PO ×2 (08:39→21:47)
[2021-09-12] MEDS: Docusate Sodium 100 MG CAPSULE PO ×2 (08:39→21:47)
[2021-09-12] MEDS: Lidocaine 4 % Patch ADH..PATCH 1 PATCH TRANSDERMA (08:39)
[2021-09-12] MEDS: LORazepam 1 MG TABLET PO ×2 (08:39→21:47)
[2021-09-12] MEDS: Ferrous Sulfate 324 MG TABLET.DR PO (08:39)
[2021-09-12] MEDS: UrsodioL 300 MG CAPSULE 600 MG PO ×2 (08:39→21:47)
[2021-09-12] MEDS: polyethylene glycoL 3350 17 GM POWD.PACK PO (08:39)
[2021-09-12] MEDS: Cyanocobalamin (Vitamin B-12) 1,000 MCG TABLET 1000 MCG PO (08:39)
[2021-09-12] MEDS: 0.9 % Sodium Chloride Flush 3 ML SYRINGE IVFLUSH ×3 (08:40→21:48)
--- NOTE | 2021-09-12 08:40 | P.EN_ITS ---
Event Note Date of Service: 09/12/21 Event Note: Dr Leal spoke with Beatrice and explained the concerns in detail a bout her rib fracture and her inability to progress and tolerate hip surgery with current status of pain from rib fx. The Left hip surgery is not an urgent procedure. She can WBAT with assistance an d we will see her in 1-2 weeks in clinic.
[2021-09-12] MEDS: dilTIAZem HCL CD 120 MG CAP.ER.DEG PO (09:05)
[2021-09-12] MEDS: Albuterol/Iprat 2.5/0.5MG 3 ML AMPUL.NEB INHALE ×2 (09:16→13:49)
[2021-09-12] MEDS: methylPREDNISolone Sod Succ 40 MG/ML VIAL IVPUSH ×2 (10:58→21:47)
--- NOTE | 2021-09-12 11:17 | P.PNCA_ITS ---
Subjective Subjective Date of Service: 09/12/21 Interval history: She has wheezing, shortness of breath. Review of Systems Review of Systems Yes all other systems are reviewed and are negative Cardiovascular: Reports as per HPI, Reports no additional cardiovascular complaints, Denies acrocyanosis, Denies cool extremities, Denies painful fingertips, Denies chest pain, Denies chest pain at rest, Denies diaphoresis, Denies syncope, Denies irregular heart rhythm, Denies claudication, Denies leg edema, Denies lightheadedness, Denies palpitations and Reports dyspnea Respiratory: Reports dyspnea Denies syncope Endocrine: Denies palpitations Physical Exam Vital Signs: Last Vital Signs Temp 98.6 F 09/12/21 07:59 Pulse 85 09/12/21 09:19 Resp 20 09/12/21 07:59 BP 150/74 H 09/12/21 09:05 Pulse Ox 96 09/12/21 07:59 Body Mass Index 20.9 Const General: cooperative and no acute distress HENHI Other: Unremarkable Neck Neck: Yes normal visual inspection Chest Chest palpation & inspection: normal inspection of the chest Resp Auscultation: wheezes and diminished lung sounds Cardio Jugular venous distension: no JVD Palpation: normal PMI Heart sounds: S1 normal heart sound present, S2 normal heart sound present, no gallops, no murmurs and no rubs GI Palpation (GI): Soft to palpation Back/Spine/Pelvis Other: unremarkable Skin General skin exam: no rashes or lesions noted Neuro Cranial nerves: Yes Other cranial nerve findings present Extrem General: Yes no clubbing, cyanosis or edema Psych Mental Status: other Results Labs and Meds Result diagrams: 09/12/21 05:37 09/12/21 05:37 Lab results: Laboratory Results - last 24 hr 09/12/21 09/12/21 05:37 05:37 WBC 15.9 H RBC 3.35 L Hgb 9.8 L Hct 32.1 L MCV 95.8 MCH 29.3 MCHC 30.5 L RDW 19.1 H Plt Count 296 MPV 10.9 Absolute Nucleated RBC 0.000 Nucleated RBC % (auto) 0.0 Sodium 146 H Potassium 3.9 D Chloride 107 Carbon Dioxide 26 Anion Gap 17 BUN 15 Creatinine 0.82 Estim Creat Clear Calc 55.8 Estimated GFR > 60 Random Glucose 105 Calcium 9.7 Progress Note: A&P Assessment and plan (1) Preoperative cardiovascular examination: Status: Acute (2) Atherosclerotic cardiovascular disease: Status: Acute (3) Atrial fibrillation with rapid ventricular response: Status: Acute Assessment and Plan: Echocardiogram with low normal LVEF and wall motion abnormalities related to underlying coronary disease; there is also decreased right ventricular systolic function and moderate tricuspid regurgitation. With regard to atrial fibrillation, she was in sinus on admission, but then went into atrial fibrillation/rapid rate. Was on cardizem drip; now oral Cardizem. High cardiac risk for surgery, but it seems surgery has been cancelled for now. Continue anticoagulation with Lovenox bridging. Fall Risk Details Current Medications: Current Medications Acetaminophen (Acetaminophen 325 Mg Tablet) 650 mg PO Q6H PRN PRN Reason: Pain, Mild (Pain Scale 1-3) Last Admin: 09/11/21 10:10 Dose: 650 mg Documented by: Albuterol/Ipratropium (Albuterol/Iprat 2.5/0.5mg 3 Ml Ampul.Neb) 3 ml INHALE RQ6H PRN PRN Reason: Shortness of Breath/Wheezing Last Admin: 09/12/21 09:16 Dose: 3 ml Documented by: Albuterol/Ipratropium (Albuterol/Iprat 2.5/0.5mg 3 Ml Ampul.Neb) 3 ml INHALE RQ6H WHILE AWAKE [facility] Cyanocobalamin (Cyanocobalamin (Vitamin B-12) 1,000 Mcg Tablet) 1,000 mcg PO DAILY [facility] Last Admin: 09/12/21 08:39 Dose: 1,000 mcg Documented by: Diltiazem HCl (Diltiazem Hcl Cd 120 Mg Cap.Er.Deg) 120 mg PO DAILY [facility]; Protocol Last Admin: 09/12/21 09:05 Dose: 120 mg Documented by: Docusate Sodium (Docusate Sodium 100 Mg Capsule) 100 mg PO BID [facility] Last Admin: 09/12/21 08:39 Dose: 100 mg Documented by: Duloxetine HCl (Duloxetine Hcl 30 Mg Capsule.Dr) 30 mg PO BID [facility] Last Admin: 09/12/21 08:39 Dose: 30 mg Documented by: Enoxaparin Sodium (Enoxaparin Sodium 80 Mg/0.8 Ml Syringe) 65 mg SUBCUT Q12H [facility] Last Admin: 09/12/21 10:58 Dose: 65 mg Documented by: Ferrous Sulfate (Ferrous Sulfate 324 Mg Tablet.) 324 mg PO DAILY [facility] Last Admin: 09/12/21 08:39 Dose: 324 mg Documented by: Levothyroxine Sodium (Levothyroxine Sodium 150 Mcg Tablet) 150 mcg PO DAILY@0630 [facility] Last Admin: 09/12/21 06:05 Dose: 150 mcg Documented by: Lidocaine (Lidocaine 4 % Patch Adh..Patch) 1 patch TRANSDERMA DAILY [facility]; Protocol Last Admin: 09/12/21 08:39 Dose: 1 patch Documented by: Lorazepam (Lorazepam 1 Mg Tablet) 1 mg PO BID [facility] Last Admin: 09/12/21 08:39 Dose: 1 mg Documented by: Methylprednisolone Sodium Succinate (Methylprednisolone Sod Succ 40 Mg/Ml Vial) 40 mg IVPUSH Q12H [facility] Last Admin: 09/12/21 10:58 Dose: 40 mg Documented by: Metoprolol Succinate (Metoprolol Succinate Er 25 Mg Tab.Er.24h) 75 mg PO DAILY [facility]; Protocol Last Admin: 09/12/21 08:39 Dose: 75 mg Documented by: Omeprazole (Omeprazole 20 Mg Capsule.) 20 mg PO BID [facility] Last Admin: 09/12/21 08:39 Dose: 20 mg Documented by: Ondansetron HCl (Ondansetron Hcl 4 Mg/2 Ml Vial) 4 mg IVPUSH Q8H PRN PRN Reason: Nausea and Vomiting Last Admin: 09/08/21 12:34 Dose: 4 mg Documented by: Polyethylene Glycol (Polyethylene Glycol 3350 17 Gm Powd.Pack) 17 gm PO DAILY [facility] Last Admin: 09/12/21 08:39 Dose: 17 gm Documented by: Senna (Sennosides 8.6 Mg Tablet) 17.2 mg PO BEDTIME [facility] Last Admin: 09/11/21 20:00 Dose: 17.2 mg Documented by: Sodium Chloride (0.9 % Sodium Chloride Flush 3 Ml Syringe) 3 ml IVFLUSH QSHIFT [facility] Last Admin: 09/12/21 08:40 Dose: 3 ml Documented by: Tiotropium [place] (Tiotropium [place] 18 Mcg Cap.W.Dev) 1 puff INHALE DAILY [facility] Last Admin: 09/12/21 07:59 Dose: 1 puff Documented by: Tramadol HCl (Tramadol Hcl 50 Mg Tablet) 50 mg PO Q6H PRN PRN Reason: Pain, Severe (Pain Scale 7-10) Last Admin: 09/12/21 08:39 Dose: 50 mg Documented by: Ursodiol (Ursodiol 300 Mg Capsule) 600 mg PO BID [facility] Last Admin: 09/12/21 08:39 Dose: 600 mg Documented by: Vitamin D (Cholecalciferol (Vitamin D3) 25 Mcg Tablet) 25 mcg PO DAILY [facility] Last Admin: 09/12/21 08:39 Dose: 25 mcg Documented by: Time Spent With Patient Time: Total time spent is greater than 50% in coordination of care (as documented) at patient's floor/unit and/or counseling patient: Time with patient: less than 15 minutes Progress Note: Quality Stroke Does the patient have a stroke diagnosis?: No Procedures Date of Service Date of Service: 09/12/21
--- NOTE | 2021-09-12 16:11 | MHC.CM.PN ---
Female 76 DX Hip +rib FX Surgery on hold see ortho note. DP return to [facility]. Information update provided. The facility is going for authorization today. Likely the patient will discharge Wednesday, once authorization has been obtained.
--- NOTE | 2021-09-12 16:19 | HO.PM.IMPN ---
Subjective Subjective Date of Service: 09/12/21 Interval History: seen and examined this morning follow up for hip fracture feeling short of breath, wheezing Review of Systems Review of Systems: Yes all other systems are reviewed and are negative Constitutional Constitutional: Denies chills and Denies fever(s) Gastrointestinal Gastrointestinal: Denies abdominal pain Physical Exam Vital Signs: Vital Signs: Last Vital Signs Temp 97.6 F 09/12/21 15:47 Pulse 80 09/12/21 15:47 Resp 20 09/12/21 15:47 BP 135/54 L 09/12/21 15:47 Pulse Ox 98 09/12/21 15:47 Body Mass Index 20.9 Const: General: alert and awake Nutritional Appearance: well nourished HENMT: Head: Yes normocephalic and Yes atraumatic Eyes: Sclerae: sclerae normal Pupils: Equal, round and reactive pupils present Resp: Other: diffuse wheezing Cardio: Rate: regular rate Rhythm: abnormal rhythm irregularly irregular GI: Palpation (GI): Soft to palpation and nontender Neuro: Cranial nerves: Yes CN's II-XII intact bilaterally, Yes Equal, round and reactive pupils present and Yes Bilaterally intact EOM present Objective Data Active Medications Acetaminophen (Acetaminophen 325 Mg Tablet) 650 mg PO Q6H PRN PRN Reason: Pain, Mild (Pain Scale 1-3) Last Admin: 09/11/21 10:10 Dose: 650 mg Documented by: WALTER Albuterol/Ipratropium (Albuterol/Iprat 2.5/0.5mg 3 Ml Ampul.Neb) 3 ml INHALE RQ6H PRN PRN Reason: Shortness of Breath/Wheezing Last Admin: 09/12/21 09:16 Dose: 3 ml Documented by: KYLIE Albuterol/Ipratropium (Albuterol/Iprat 2.5/0.5mg 3 Ml Ampul.Neb) 3 ml INHALE RQ6H WHILE AWAKE [facility] Last Admin: 09/12/21 13:49 Dose: 3 ml Documented by: KYLIE Cyanocobalamin (Cyanocobalamin (Vitamin B-12) 1,000 Mcg Tablet) 1,000 mcg PO DAILY [facility] Last Admin: 09/12/21 08:39 Dose: 1,000 mcg Documented by: NICK Diltiazem HCl (Diltiazem Hcl Cd 120 Mg Cap.Er.Deg) 120 mg PO DAILY [facility]; Protocol Last Admin: 09/12/21 09:05 Dose: 120 mg Documented by: NICK Docusate Sodium (Docusate Sodium 100 Mg Capsule) 100 mg PO BID [facility] Last Admin: 09/12/21 08:39 Dose: 100 mg Documented by: NICK Duloxetine HCl (Duloxetine Hcl 30 Mg Capsule.) 30 mg PO BID [facility] Last Admin: 09/12/21 08:39 Dose: 30 mg Documented by: NICK Enoxaparin Sodium (Enoxaparin Sodium 80 Mg/0.8 Ml Syringe) 65 mg SUBCUT Q12H [facility] Last Admin: 09/12/21 10:58 Dose: 65 mg Documented by: NICK Ferrous Sulfate (Ferrous Sulfate 324 Mg Tablet.) 324 mg PO DAILY [facility] Last Admin: 09/12/21 08:39 Dose: 324 mg Documented by: NICK Levothyroxine Sodium (Levothyroxine Sodium 150 Mcg Tablet) 150 mcg PO DAILY@0630 [facility] Last Admin: 09/12/21 06:05 Dose: 150 mcg Documented by: ANTOIC Lidocaine (Lidocaine 4 % Patch Adh..Patch) 1 patch TRANSDERMA DAILY [facility]; Protocol Last Admin: 09/12/21 08:39 Dose: 1 patch Documented by: NICK Lorazepam (Lorazepam 1 Mg Tablet) 1 mg PO BID [facility] Last Admin: 09/12/21 08:39 Dose: 1 mg Documented by: NICK Methylprednisolone Sodium Succinate (Methylprednisolone Sod Succ 40 Mg/Ml Vial) 40 mg IVPUSH Q12H [facility] Last Admin: 09/12/21 10:58 Dose: 40 mg Documented by: NICK Metoprolol Succinate (Metoprolol Succinate Er 25 Mg Tab.Er.24h) 75 mg PO DAILY [facility]; Protocol Last Admin: 09/12/21 08:39 Dose: 75 mg Documented by: NICK Omeprazole (Omeprazole 20 Mg Capsule.) 20 mg PO BID [facility] Last Admin: 09/12/21 08:39 Dose: 20 mg Documented by: NICK Ondansetron HCl (Ondansetron Hcl 4 Mg/2 Ml Vial) 4 mg IVPUSH Q8H PRN PRN Reason: Nausea and Vomiting Last Admin: 09/08/21 12:34 Dose: 4 mg Documented by: SABINE Polyethylene Glycol (Polyethylene Glycol 3350 17 Gm Powd.Pack) 17 gm PO DAILY [facility] Last Admin: 09/12/21 08:39 Dose: 17 gm Documented by: NICK Senna (Sennosides 8.6 Mg Tablet) 17.2 mg PO BEDTIME [facility] Last Admin: 09/11/21 20:00 Dose: 17.2 mg Documented by: ANTOIC Sodium Chloride (0.9 % Sodium Chloride Flush 3 Ml Syringe) 3 ml IVFLUSH QSHIFT [facility] Last Admin: 09/12/21 08:40 Dose: 3 ml Documented by: NICK Tiotropium [place] (Tiotropium [place] 18 Mcg Cap.W.Dev) 1 puff INHALE DAILY [facility] Last Admin: 09/12/21 07:59 Dose: 1 puff Documented by: LASHONDA Tramadol HCl (Tramadol Hcl 50 Mg Tablet) 50 mg PO Q6H PRN PRN Reason: Pain, Severe (Pain Scale 7-10) Last Admin: 09/12/21 08:39 Dose: 50 mg Documented by: NICK Ursodiol (Ursodiol 300 Mg Capsule) 600 mg PO BID [facility] Last Admin: 09/12/21 08:39 Dose: 600 mg Documented by: NICK Vitamin D (Cholecalciferol (Vitamin D3) 25 Mcg Tablet) 25 mcg PO DAILY [facility] Last Admin: 09/12/21 08:39 Dose: 25 mcg Documented by: NICK Labs CBC & Chem 7: 09/12/21 05:37 09/12/21 05:37 Labs: Laboratory Results - last 24 hr 09/12/21 09/12/21 05:37 05:37 MCV 95.8 MCH 29.3 MCHC 30.5 L RDW 19.1 H Plt Count 296 MPV 10.9 Absolute Nucleated RBC 0.000 Nucleated RBC % (auto) 0.0 Anion Gap 17 Estim Creat Clear Calc 55.8 Estimated GFR > 60 Random Glucose 105 Calcium 9.7 Assessment and Plan (1) Left rib fracture: Status: Acute (2) Closed subcapital fracture of femur: Status: Acute (3) PAF (paroxysmal atrial fibrillation): Status: Acute Assessment and Plan: ?This is a 76 yo F with multiple medical problems including COPD/Chronic resp. failure with hypoxia on 2-3L, CAD - s/p CABG, A. Fib on coumadin, SOTERO/GAVE/PBC/Colon Ca - s/p resection, L hip fx repaired at [facility] in Jun 2021 who presents from [facility] after ? slipping out of bed / fall (unwitnessed) resulting in a L hip Fx. She will be admitted for further treamtent. L subcap. fem fx with superior displacement seen by both Pulm and Cardiac -- deemed high risk d/w ortho - case cancelled for now (will perform in 2-3 weeks) -- see their notes for details A. Fib RVR initially treated with cardizem drip on metoprolol 75 daily, po cardizem added restart anticoagluation - will use lovenox 1mg/kg for the time being until her surgery Acute COPD exacerbation / Chronic Resp failure with hypoxia continue baseline O2 - 2-3L by NC scheduled and prn breathing treatments systemic steroids FRAN resolved due to hypoperfusion Hypothyroid synthroid Rib fx high symptomatic with pain lidocaine patch PBC ursodial Delirium intermittent -- due to hospitalization / acute illness redirect as much as possible Full Code Andra (Niece) is HCP seen by PT - rec SNF dispo: back to SNF attending: dr. rodas Quality Stroke Does the patient have a stroke diagnosis?: No VTE Prior VTE?: No VTE Risk Level:: Medical - moderate - high VTE Device Contraindication: Treatment Not Indicated VTE Drug Contraindication: N/A - Med Ordered
[2021-09-12] MEDS: Sennosides 8.6 MG TABLET 17.2 MG PO (21:47)
[2021-09-13] VITALS (10 sets, daily range): BP systolic 122–150; BP diastolic 66–80; PULSE 70–112; RESP 16–24; TEMP 36.6–37.1; O2SAT 86–100
[2021-09-13] MEDS: Levothyroxine Sodium 150 MCG TABLET PO (05:37)
[2021-09-13 08:15] LABS: Hemoglobin 9.5 g/dl (12.0-16.0); Mean Corpuscular HGB Conc 29.7 g/dl (31.0-35.0); Mean Corpuscular Hemoglobin 28.5 pg (27.0-33.0); Mean Corpuscular Volume 96.1 fL (80-98); Mean Platelet Volume 11.3 fL (9.4-12.3); Platelet Count 265 X10*3/uL (160-400); Red Blood Count 3.33 X10*6/uL (4.20-5.50); Red Cell Distribution Width 18.4 % (11.0-16.0); White Blood Count 10.4 X10*3/uL (4.8-10.8)
[2021-09-13 08:33] LABS: Anion Gap 14 (12-20); Blood Urea Nitrogen 13 mg/dL (9-16); Calcium 9.1 mg/dL (8.4-10.2); Carbon Dioxide 27 mmol/L (22-29); Chloride 103 mmol/L (96-108); Creatinine Clr Calc Pharmacy 59.5; Estimated Glomerular Filt Rate > 60; Glucose Random 150 mg/dL (60-115); Potassium 4.2 mmol/L (3.3-5.1); Sodium 140 mmol/L (135-145)
[2021-09-13] MEDS: Metoprolol Succinate ER 25 MG TAB.ER.24H 75 MG PO (08:39)
[2021-09-13] MEDS: dilTIAZem HCL CD 120 MG CAP.ER.DEG PO (08:39)
[2021-09-13] MEDS: methylPREDNISolone Sod Succ 40 MG/ML VIAL IVPUSH ×2 (08:39→21:00)
[2021-09-13] MEDS: UrsodioL 300 MG CAPSULE 600 MG PO ×2 (08:39→21:01)
[2021-09-13] MEDS: Albuterol/Iprat 2.5/0.5MG 3 ML AMPUL.NEB INHALE ×2 (08:40→15:39)
[2021-09-13] MEDS: LORazepam 1 MG TABLET PO ×2 (08:40→21:00)
[2021-09-13] MEDS: 0.9 % Sodium Chloride Flush 3 ML SYRINGE IVFLUSH ×2 (08:40→21:01)
[2021-09-13] MEDS: Cyanocobalamin (Vitamin B-12) 1,000 MCG TABLET 1000 MCG PO (08:40)
[2021-09-13] MEDS: Ferrous Sulfate 324 MG TABLET.DR PO (08:40)
[2021-09-13] MEDS: polyethylene glycoL 3350 17 GM POWD.PACK PO (08:40)
[2021-09-13] MEDS: Docusate Sodium 100 MG CAPSULE PO ×2 (08:40→20:59)
[2021-09-13] MEDS: Lidocaine 4 % Patch ADH..PATCH 1 PATCH TRANSDERMA (08:40)
[2021-09-13] MEDS: Omeprazole 20 MG CAPSULE.DR PO ×2 (08:40→20:59)
[2021-09-13] MEDS: DULoxetine HCl 30 MG CAPSULE.DR PO ×2 (08:40→21:00)
[2021-09-13] MEDS: Cholecalciferol (Vitamin D3) 25 MCG TABLET PO (08:40)
--- NOTE | 2021-09-13 09:23 | MHC.CM.PN ---
Addendum entered by Lula Jones 09/13/21 11:26: PTS DC WILL BE HELD Addendum entered by Lula Jones 09/13/21 10:52: CM RECEIVED A CALL FROM PTS HCP, VICKIE ([phone]) WHO REPORTED SHE WAS VERY ANGRY. SHE REPORTS SHE SPOKE TO A NURSE LAST NIGHT AROUND 1800 HOURS WHO ASSURED HER THE PT WOULD NOT BE DISCHARGED WHILE IN HER CURRENT CONDITION. SHE ALSO REPORTS SHE HAS NOT HEARD FROM ANYONE REGARDING WHETHER OR NOT THE PT WOULD BE RETURNING TO [facility]. SHE REPORTS THE PT LIVES AT HOME AND HAS BEEN AT [facility] FOR REHAB AND SHE HAD CONCERNS ABOUT HER RETURNING THERE. SHE ALSO REPORTS ANYTIME SHE CALLS SHE GETS TRANSFERRED MULTIPLE TIMES. SHE REPORTS SHE DOES NOT UNDERSTAND WHY THE PT WOULD BE GOING BACK TO REHAB WHEN SHE HAS A FRACTURED HIP. SHE REPORTS SHE KNOWS THAT THEY DID NOT WANT TO DO IT BECAUSE OF HER CARDIAC ISSUES BUT SAYS IF SHE HAS CARDIAC ISSUES WHY WOULD SHE LEAVE THE HOSPITAL. SHE REPORTED MULTIPLE TIMES SHE WANTED THE PT TO TRANSFER TO [facility]. AFTER SOME DISCUSSION, VICKIE AGREED TO SPEAK TO PTS ATTENDING FOR CLARITY ON THE PLAN. CM WILL HOLD PTS TRANSPORT UNTIL AFTER DISCUSSION WELL MAKE A REFERRAL TO [facility] PER HCP'S REQUEST. Original Note: PT CLEARED TO DC. PER RAMBO JOLLY AUTH WAS OBTAINED YESTERDAY. MESSAGE SENT TO SNF TO CONFIRM 1300 HOUR DC WAS AGREEABLE. PT WILL TRANSPORT VIA S
--- NOTE | 2021-09-13 10:13 | PM.PNCARD ---
Subjective Subjective Date of Service: 09/13/21 Interval history: No angina or palpitations. Shortness of breath+ Review of Systems Review of Systems Yes all other systems are reviewed and are negative Cardiovascular: Reports as per HPI, Reports no additional cardiovascular complaints, Denies acrocyanosis, Denies cool extremities, Denies painful fingertips, Denies chest pain, Denies chest pain at rest, Denies diaphoresis, Denies syncope, Denies irregular heart rhythm, Denies claudication, Denies leg edema, Denies lightheadedness, Denies palpitations and Reports dyspnea Respiratory: Reports dyspnea Denies syncope Endocrine: Denies palpitations Physical Exam Vital Signs: Last Vital Signs Temp 98.7 F 09/13/21 08:00 Pulse 70 09/13/21 08:39 Resp 22 H 09/13/21 08:00 BP 150/68 H 09/13/21 08:39 Pulse Ox 100 09/13/21 08:00 Body Mass Index 20.9 Const General: cooperative and no acute distress HENMT Other: Unremarkable Neck Neck: Yes normal visual inspection Chest Chest palpation & inspection: normal inspection of the chest Resp Auscultation: wheezes and diminished lung sounds Cardio Jugular venous distension: no JVD Palpation: normal PMI Heart sounds: S1 normal heart sound present, S2 normal heart sound present, no gallops, no murmurs and no rubs GI Palpation (GI): Soft to palpation Back/Spine/Pelvis Other: unremarkable Skin General skin exam: no rashes or lesions noted Neuro Cranial nerves: Yes Other cranial nerve findings present Extrem General: Yes no clubbing, cyanosis or edema Psych Mental Status: other Results Labs and Meds Result diagrams: 09/13/21 07:27 09/13/21 07:27 Lab results: Laboratory Results - last 24 hr 09/13/21 09/13/21 07:27 07:27 WBC 10.4 RBC 3.33 L Hgb 9.5 L Hct 32.0 L MCV 96.1 MCH 28.5 MCHC 29.7 L RDW 18.4 H Plt Count 265 MPV 11.3 Absolute Nucleated RBC 0.000 Nucleated RBC % (auto) 0.0 Sodium 140 Potassium 4.2 Chloride 103 Carbon Dioxide 27 Anion Gap 14 BUN 13 Creatinine 0.77 Estim Creat Clear Calc 59.5 Estimated GFR > 60 Random Glucose 150 H Calcium 9.1 D Progress Note: A&P Assessment and plan (1) Preoperative cardiovascular examination: Status: Acute (2) Atherosclerotic cardiovascular disease: Status: Acute (3) Atrial fibrillation with rapid ventricular response: Status: Acute Assessment and Plan: Echocardiogram with low normal LVEF and wall motion abnormalities related to underlying coronary disease; there is also decreased right ventricular systolic function and moderate tricuspid regurgitation. With regard to atrial fibrillation, she was in sinus on admission, but then went into atrial fibrillation/rapid rate. Was on cardizem drip; now oral Cardizem. Also on Metoprolol, which is her home med. High cardiac risk for surgery, but it seems surgery has been cancelled for now and needed to be addressed as outpt. Continue anticoagulation with Lovenox bridging. Fall Risk Details Current Medications: Current Medications Acetaminophen (Acetaminophen 325 Mg Tablet) 650 mg PO Q6H PRN PRN Reason: Pain, Mild (Pain Scale 1-3) Last Admin: 09/11/21 10:10 Dose: 650 mg Documented by: Albuterol/Ipratropium (Albuterol/Iprat 2.5/0.5mg 3 Ml Ampul.Neb) 3 ml INHALE RQ6H PRN PRN Reason: Shortness of Breath/Wheezing Last Admin: 09/13/21 08:40 Dose: 3 ml Documented by: Albuterol/Ipratropium (Albuterol/Iprat 2.5/0.5mg 3 Ml Ampul.Neb) 3 ml INHALE RQ6H WHILE AWAKE [facility] Last Admin: 09/13/21 07:49 Dose: Not Given Documented by: Cyanocobalamin (Cyanocobalamin (Vitamin B-12) 1,000 Mcg Tablet) 1,000 mcg PO DAILY [facility] Last Admin: 09/13/21 08:40 Dose: 1,000 mcg Documented by: Diltiazem HCl (Diltiazem Hcl Cd 120 Mg Cap.Er.Deg) 120 mg PO DAILY [facility]; Protocol Last Admin: 09/13/21 08:39 Dose: 120 mg Documented by: Docusate Sodium (Docusate Sodium 100 Mg Capsule) 100 mg PO BID [facility] Last Admin: 09/13/21 08:40 Dose: 100 mg Documented by: Duloxetine HCl (Duloxetine Hcl 30 Mg Capsule.Dr) 30 mg PO BID [facility] Last Admin: 09/13/21 08:40 Dose: 30 mg Documented by: Enoxaparin Sodium (Enoxaparin Sodium 80 Mg/0.8 Ml Syringe) 65 mg SUBCUT Q12H [facility] Last Admin: 09/12/21 21:48 Dose: 65 mg Documented by: Ferrous Sulfate (Ferrous Sulfate 324 Mg Tablet.) 324 mg PO DAILY [facility] Last Admin: 09/13/21 08:40 Dose: 324 mg Documented by: Guaifenesin/Dextromethorphan (Guaifenesin Dm 100/10/5 Ml 5 Ml Syrup) 5 ml PO Q6H PRN PRN Reason: Cough Levothyroxine Sodium (Levothyroxine Sodium 150 Mcg Tablet) 150 mcg PO DAILY@0630 [facility] Last Admin: 09/13/21 05:37 Dose: 150 mcg Documented by: Lidocaine (Lidocaine 4 % Patch Adh..Patch) 1 patch TRANSDERMA DAILY [facility]; Protocol Last Admin: 09/13/21 08:40 Dose: 1 patch Documented by: Lorazepam (Lorazepam 1 Mg Tablet) 1 mg PO BID [facility] Last Admin: 09/13/21 08:40 Dose: 1 mg Documented by: Methylprednisolone Sodium Succinate (Methylprednisolone Sod Succ 40 Mg/Ml Vial) 40 mg IVPUSH Q12H [facility] Last Admin: 09/13/21 08:39 Dose: 40 mg Documented by: Metoprolol Succinate (Metoprolol Succinate Er 25 Mg Tab.Er.24h) 75 mg PO DAILY [facility]; Protocol Last Admin: 09/13/21 08:39 Dose: 75 mg Documented by: Omeprazole (Omeprazole 20 Mg Capsule.) 20 mg PO BID [facility] Last Admin: 09/13/21 08:40 Dose: 20 mg Documented by: Ondansetron HCl (Ondansetron Hcl 4 Mg/2 Ml Vial) 4 mg IVPUSH Q8H PRN PRN Reason: Nausea and Vomiting Last Admin: 09/08/21 12:34 Dose: 4 mg Documented by: Polyethylene Glycol (Polyethylene Glycol 3350 17 Gm Powd.Pack) 17 gm PO DAILY [facility] Last Admin: 09/13/21 08:40 Dose: 17 gm Documented by: Senna (Sennosides 8.6 Mg Tablet) 17.2 mg PO BEDTIME [facility] Last Admin: 09/12/21 21:47 Dose: 17.2 mg Documented by: Sodium Chloride (0.9 % Sodium Chloride Flush 3 Ml Syringe) 3 ml IVFLUSH QSHIFT [facility] Last Admin: 09/13/21 08:40 Dose: 3 ml Documented by: Tiotropium [place] (Tiotropium [place] 18 Mcg Cap.W.Dev) 1 puff INHALE DAILY [facility] Last Admin: 09/13/21 07:49 Dose: Not Given Documented by: Tramadol HCl (Tramadol Hcl 50 Mg Tablet) 50 mg PO Q6H PRN PRN Reason: Pain, Severe (Pain Scale 7-10) Last Admin: 09/12/21 16:27 Dose: 50 mg Documented by: Ursodiol (Ursodiol 300 Mg Capsule) 600 mg PO BID [facility] Last Admin: 09/13/21 08:39 Dose: 600 mg Documented by: Vitamin D (Cholecalciferol (Vitamin D3) 25 Mcg Tablet) 25 mcg PO DAILY [facility] Last Admin: 09/13/21 08:40 Dose: 25 mcg Documented by: Time Spent With Patient Time: Total time spent is greater than 50% in coordination of care (as documented) at patient's floor/unit and/or counseling patient: Time with patient: less than 15 minutes Progress Note: Quality Stroke Does the patient have a stroke diagnosis?: No Procedures Date of Service Date of Service: 09/13/21
--- NOTE | 2021-09-13 11:34 | P.PNIM_ITS ---
Subjective Subjective Date of Service: 09/13/21 Interval History: seen and examined this morning reports improvement in breathing no other complaints bennett this time Review of Systems Review of Systems: Yes all other systems are reviewed and are negative Constitutional Constitutional: Denies chills and Denies fever(s) Cardiovascular Cardiovascular: Denies chest pain Gastrointestinal Gastrointestinal: Denies abdominal pain Physical Exam Vital Signs: Vital Signs: Last Vital Signs Temp 98.7 F 09/13/21 08:00 Pulse 70 09/13/21 08:39 Resp 22 H 09/13/21 08:00 BP 150/68 H 09/13/21 08:39 Pulse Ox 100 09/13/21 08:00 Body Mass Index 20.9 Const: General: no acute distress, alert and awake Nutritional Appearance: thin HENMT: Head: Yes normocephalic and Yes atraumatic Eyes: Sclerae: sclerae normal Pupils: Equal, round and reactive pupils present Chest: Chest palpation & inspection: normal inspection of the chest Resp: Other: scattered wheezing Effort & Inspection: normal respiratory effort and no respiratory distress Auscultation: diminished lung sounds Cardio: Rate: regular rate Rhythm: abnormal rhythm irregularly irregular GI: Palpation (GI): Soft to palpation and nontender Neuro: Cranial nerves: Yes CN's II-XII intact bilaterally, Yes Equal, round and reactive pupils present and Yes Bilaterally intact EOM present Objective Data Active Medications Acetaminophen (Acetaminophen 325 Mg Tablet) 650 mg PO Q6H PRN PRN Reason: Pain, Mild (Pain Scale 1-3) Last Admin: 09/11/21 10:10 Dose: 650 mg Documented by: WALTER Albuterol/Ipratropium (Albuterol/Iprat 2.5/0.5mg 3 Ml Ampul.Neb) 3 ml INHALE RQ6H PRN PRN Reason: Shortness of Breath/Wheezing Last Admin: 09/13/21 08:40 Dose: 3 ml Documented by: ОЛЕГ Albuterol/Ipratropium (Albuterol/Iprat 2.5/0.5mg 3 Ml Ampul.Neb) 3 ml INHALE RQ6H WHILE AWAKE [facility] Last Admin: 09/13/21 07:49 Dose: Not Given Documented by: LASHONDA Non-Admin Reason: Patient Asleep Cyanocobalamin (Cyanocobalamin (Vitamin B-12) 1,000 Mcg Tablet) 1,000 mcg PO DAILY [facility] Last Admin: 09/13/21 08:40 Dose: 1,000 mcg Documented by: ОЛЕГ Diltiazem HCl (Diltiazem Hcl Cd 120 Mg Cap.Er.Deg) 120 mg PO DAILY [facility]; Protocol Last Admin: 09/13/21 08:39 Dose: 120 mg Documented by: ОЛЕГ Docusate Sodium (Docusate Sodium 100 Mg Capsule) 100 mg PO BID [facility] Last Admin: 09/13/21 08:40 Dose: 100 mg Documented by: ОЛЕГ Duloxetine HCl (Duloxetine Hcl 30 Mg Capsule.) 30 mg PO BID [facility] Last Admin: 09/13/21 08:40 Dose: 30 mg Documented by: ОЛЕГ Enoxaparin Sodium (Enoxaparin Sodium 80 Mg/0.8 Ml Syringe) 65 mg SUBCUT Q12H [facility] Last Admin: 09/12/21 21:48 Dose: 65 mg Documented by: ZONIA Ferrous Sulfate (Ferrous Sulfate 324 Mg Tablet.) 324 mg PO DAILY [facility] Last Admin: 09/13/21 08:40 Dose: 324 mg Documented by: ОЛЕГ Guaifenesin/Dextromethorphan (Guaifenesin Dm 100/10/5 Ml 5 Ml Syrup) 5 ml PO Q6 H PRN PRN Reason: Cough Levothyroxine Sodium (Levothyroxine Sodium 150 Mcg Tablet) 150 mcg PO DAILY@0630 [facility] Last Admin: 09/13/21 05:37 Dose: 150 mcg Documented by: ZONIA Lidocaine (Lidocaine 4 % Patch Adh..Patch) 1 patch TRANSDERMA DAILY [facility]; Protocol Last Admin: 09/13/21 08:40 Dose: 1 patch Documented by: ОЛЕГ Lorazepam (Lorazepam 1 Mg Tablet) 1 mg PO BID [facility] Last Admin: 09/13/21 08:40 Dose: 1 mg Documented by: ОЛЕГ Methylprednisolone Sodium Succinate (Methylprednisolone Sod Succ 40 Mg/Ml Vial) 40 mg IVPUSH Q12H [facility] Last Admin: 09/13/21 08:39 Dose: 40 mg Documented by: ОЛЕГ Metoprolol Succinate (Metoprolol Succinate Er 25 Mg Tab.Er.24h) 75 mg PO DAILY [facility]; Protocol Last Admin: 09/13/21 08:39 Dose: 75 mg Documented by: ОЛЕГ Omeprazole (Omeprazole 20 Mg Capsule.) 20 mg PO BID [facility] Last Admin: 09/13/21 08:40 Dose: 20 mg Documented by: ОЛЕГ Ondansetron HCl (Ondansetron Hcl 4 Mg/2 Ml Vial) 4 mg IVPUSH Q8H PRN PRN Reason: Nausea and Vomiting Last Admin: 09/08/21 12:34 Dose: 4 mg Documented by: SABINE Polyethylene Glycol (Polyethylene Glycol 3350 17 Gm Powd.Pack) 17 gm PO DAILY [facility] Last Admin: 09/13/21 08:40 Dose: 17 gm Documented by: ОЛЕГ Senna (Sennosides 8.6 Mg Tablet) 17.2 mg PO BEDTIME [facility] Last Admin: 09/12/21 21:47 Dose: 17.2 mg Documented by: ZONIA Sodium Chloride (0.9 % Sodium Chloride Flush 3 Ml Syringe) 3 ml IVFLUSH QSHIFT [facility] Last Admin: 09/13/21 08:40 Dose: 3 ml Documented by: ОЛЕГ Tiotropium [place] (Tiotropium [place] 18 Mcg Cap.W.Dev) 1 puff INHALE DAILY [facility] Last Admin: 09/13/21 07:49 Dose: Not Given Documented by: LASHONDA Non-Admin Reason: Patient Asleep Tramadol HCl (Tramadol Hcl 50 Mg Tablet) 50 mg PO Q6H PRN PRN Reason: Pain, Severe (Pain Scale 7-10) Last Admin: 09/12/21 16:27 Dose: 50 mg Documented by: NICK Ursodiol (Ursodiol 300 Mg Capsule) 600 mg PO BID [facility] Last Admin: 09/13/21 08:39 Dose: 600 mg Documented by: ОЛЕГ Vitamin D (Cholecalciferol (Vitamin D3) 25 Mcg Tablet) 25 mcg PO DAILY [facility] Last Admin: 09/13/21 08:40 Dose: 25 mcg Documented by: ОЛЕГ Labs CBC & Chem 7: 09/13/21 07:27 09/13/21 07:27 Labs: Laboratory Results - last 24 hr 09/13/21 09/13/21 07:27 07:27 MCV 96.1 MCH 28.5 MCHC 29.7 L RDW 18.4 H Plt Count 265 MPV 11.3 Absolute Nucleated RBC 0.000 Nucleated RBC % (auto) 0.0 Anion Gap 14 Estim Creat Clear Calc 59.5 Estimated GFR > 60 Random Glucose 150 H Calcium 9.1 D Microbiology Microbiology Results: Microbiology 09/08/21 07:40 Blood Culture - Final Blood - Venous No growth after 5 days. 09/08/21 07:29 Blood Culture - Final Blood - Venous No growth after 5 days. Assessment and Plan (1) Atrial fibrillation with rapid ventricular response: Status: Acute Assessment and Plan: ?This is a 76 yo F with multiple medical problems including COPD/Chronic resp. failure with hypoxia on 2-3L, CAD - s/p CABG, A. Fib on coumadin, SOTERO/GAVE/PBC/Colon Ca - s/p resection, L hip fx repaired at [facility] in Jun 2021 who presents from [facility] after ? slipping out of bed / fall (unwitnessed) r esulting in a L hip Fx. She will be admitted for further treamtent. L subcap. fem fx with superior displacement seen by both Pulm and Cardiac - deemed high risk d/w ortho - case cancelled for now (will perform in 2-3 weeks). hip surgery is not urgent per ortho and will likely put patient at unnecessary risk given her pain and immobility from the rib fracture. interval may give rib time to heal fo r pt to better participate in PT following surgery. A. Fib RVR HR controlled. initially treated with cardizem drip on metoprolol 75 daily, po cardizem 120 added restart anticoagluation - will use lovenox 1mg/kg for the time being until her surgery COPD per HCP, patient does not use oxygen chronically at home, but only on a prn basis check cxr, wean o2 as tolerated scheduled and prn breathing treatments respiratory has advised to avoid systemic steroids if possible to promote healing for rib fracture CAD ECHO showing low normal LVEF and WMA, mod tricuspid regurgitation. at high risk for surgery due to above - un-modifiable Chronic anemia underlying GAVE h/o requiring multiple transfusions in the past H/H stable FRAN resolved due to hypoperfusion Hypothyroid synthroid Rib fx lidocaine patch for pain control PBC ursodial Delirium intermittent -- due to hospitalization / acute illness redirect as much as possible is on ativan, but since this is a home medicaion, will continue for now Full Code Andra (Niece) is HCP [phone] seen by PT - rec SNF attending: dr. hernandez The above was discussed in detail with the patient's nice Andra Tinajero Stroke Does the patient have a stroke diagnosis?: No VTE Prior VTE?: No VTE Risk Level:: Medical - moderate - high VTE Device Contraindication: Treatment Not Indicated VTE Drug Contraindication: N/A - Med Ordered
[2021-09-13] MEDS: traMADoL HCL 50 MG TABLET PO (12:06)
[2021-09-13] MEDS: Acetaminophen 325 MG TABLET 650 MG PO ×2 (13:39→21:13)
[2021-09-13] MEDS: guaiFENesin 100 MG/5 ML LIQUID PO (13:39)
[2021-09-13] MEDS: Enoxaparin Sodium 80 MG/0.8 ML SYRINGE 65 MG SUBCUT ×2 (14:20→21:04)
[2021-09-13] MEDS: Furosemide 40 MG TABLET PO (14:21)
[2021-09-13] MEDS: Sennosides 8.6 MG TABLET 17.2 MG PO (21:00)
[2021-09-14] VITALS (9 sets, daily range): BP systolic 126–157; BP diastolic 72–87; PULSE 62–108; RESP 18–20; TEMP 36.3–37.4; O2SAT 92–100
[2021-09-14] MEDS: traMADoL HCL 50 MG TABLET PO ×2 (06:09→17:21)
[2021-09-14] MEDS: Levothyroxine Sodium 150 MCG TABLET PO (06:09)
[2021-09-14] MEDS: Albuterol/Iprat 2.5/0.5MG 3 ML AMPUL.NEB INHALE ×5 (07:37→20:56)
[2021-09-14 07:38] LABS: Hematocrit 33.3 % (37-47); Hemoglobin 10.3 g/dl (12.0-16.0); Mean Corpuscular HGB Conc 30.9 g/dl (31.0-35.0); Mean Corpuscular Hemoglobin 29.9 pg (27.0-33.0); Mean Corpuscular Volume 96.5 fL (80-98); Mean Platelet Volume 10.7 fL (9.4-12.3); NRBC Pct Auto 0.1 /100WBC (0.0-0.2); Platelet Count 349 X10*3/uL (160-400); Red Blood Count 3.45 X10*6/uL (4.20-5.50); Red Cell Distribution Width 18.5 % (11.0-16.0); White Blood Count 24.5 X10*3/uL (4.8-10.8)
[2021-09-14 07:57] LABS: B Type Natriuretic Peptide 910 pg/mL (<100)
[2021-09-14 08:26] LABS: Anion Gap 17 (12-20); Blood Urea Nitrogen 15 mg/dL (9-16); Carbon Dioxide 26 mmol/L (22-29); Chloride 105 mmol/L (96-108); Creatinine Clr Calc Pharmacy 54.5; Estimated Glomerular Filt Rate > 60; Glucose Random 144 mg/dL (60-115); Potassium 4.2 mmol/L (3.3-5.1); Sodium 144 mmol/L (135-145)
[2021-09-14] MEDS: guaiFENesin 100 MG/5 ML LIQUID PO ×2 (08:46→15:49)
--- NOTE | 2021-09-14 09:06 | P.PNIM_ITS ---
Subjective Subjective Date of Service: 09/14/21 Interval History: seen and examined this morning follow up for left rib fracture reporting left side rib pain Review of Systems Review of Systems: Yes all other systems are reviewed and are negative Constitutional Constitutional: Denies chills and Denies fever(s) Cardiovascular Cardiovascular: Denies chest pain Gastrointestinal Gastrointestinal: Denies abdominal pain Physical Exam Vital Signs: Vital Signs: Last Vital Signs Temp 98.1 F 09/14/21 07:45 Pulse 105 H 09/14/21 07:45 Resp 19 09/14/21 07:45 BP 140/74 H 09/14/21 07:45 Pulse Ox 100 09/14/21 07:45 Body Mass Index 20.9 Const: Other: appears uncomfortable General: alert, awake and tired appearing Nutritional Appearance: thin HENMT: Head: Yes normocephalic and Yes atraumatic Eyes: Sclerae: sclerae normal Pupils: Equal, round and reactive pupils present Chest: Other: tenderness left side ribs Resp: Other: scattered wheezing; diminished breath sounds; small shallow breaths Effort & Inspection: decreased respiratory effort, no respiratory distress and tachypneic Auscultation: diminished lung sounds Cardio: Rate: regular rate Rhythm: abnormal rhythm irregularly irregular GI: Palpation (GI): Soft to palpation and nontender Neuro: Cranial nerves: Yes CN's II-XII intact bilaterally, Yes Equal, round and reactive pupils present and Yes Bilaterally intact EOM present Objective Data Active Medications Acetaminophen (Acetaminophen 325 Mg Tablet) 950 mg PO TID [facility] Albuterol/Ipratropium (Albuterol/Iprat 2.5/0.5mg 3 Ml Ampul.Neb) 3 ml INHALE RQ6H PRN PRN Reason: Shortness of Breath/Wheezing Last Admin: 09/14/21 08:39 Dose: 3 ml Documented by: ОЛЕГ Albuterol/Ipratropium (Albuterol/Iprat 2.5/0.5mg 3 Ml Ampul.Neb) 3 ml INHALE RQ6H WHILE AWAKE [facility] Last Admin: 09/14/21 07:37 Dose: 3 ml Documented by: LASHONDA Cyanocobalamin (Cyanocobalamin (Vitamin B-12) 1,000 Mcg Tablet) 1,000 mcg PO DAILY [facility] Last Admin: 09/13/21 08:40 Dose: 1,000 mcg Documented by: ОЛЕГ Diltiazem HCl (Diltiazem Hcl Cd 120 Mg Cap.Er.Deg) 120 mg PO DAILY [facility]; Protocol Last Admin: 09/13/21 08:39 Dose: 120 mg Documented by: ОЛЕГ Docusate Sodium (Docusate Sodium 100 Mg Capsule) 100 mg PO BID [facility] Last Admin: 09/13/21 20:59 Dose: 100 mg Documented by: ZONIA Duloxetine HCl (Duloxetine Hcl 30 Mg Capsule.) 30 mg PO BID [facility] Last Admin: 09/13/21 21:00 Dose: 30 mg Documented by: ZONIA Enoxaparin Sodium (Enoxaparin Sodium 80 Mg/0.8 Ml Syringe) 65 mg SUBCUT Q12H [facility] Last Admin: 09/13/21 21:04 Dose: 65 mg Documented by: ZONIA Ferrous Sulfate (Ferrous Sulfate 324 Mg Tablet.) 324 mg PO DAILY [facility] Last Admin: 09/13/21 08:40 Dose: 324 mg Documented by: ОЛЕГ Furosemide (Furosemide 40 Mg Tablet) 40 mg PO DAILY [facility]; Protocol Last Admin: 09/13/21 14:21 Dose: 40 mg Documented by: ANTHONY-SCOTJ Guaifenesin (Guaifenesin 100 Mg/5 Ml Liquid) 5 ml PO Q4H PRN PRN Reason: Cough Last Admin: 09/14/21 08:46 Dose: 5 ml Documented by: ОЛЕГ Ceftriaxone Sodium 1 gm/ (Sodium Chloride) 50 mls @ 100 mls/hr IV Q24H [facility] Azithromycin 500 mg/ Sodium (Chloride) 250 mls @ 125 mls/hr IV Q24H [facility] Levothyroxine Sodium (Levothyroxine Sodium 150 Mcg Tablet) 150 mcg PO DAILY@0630 [facility] Last Admin: 09/14/21 06:09 Dose: 150 mcg Documented by: ZONIA Lidocaine (Lidocaine 4 % Patch Adh..Patch) 1 patch TRANSDERMA DAILY [facility]; Protocol Last Admin: 09/13/21 08:40 Dose: 1 patch Documented by: ОЛЕГ Lorazepam (Lorazepam 1 Mg Tablet) 1 mg PO BID [facility] Last Admin: 09/13/21 21:00 Dose: 1 mg Documented by: ZONIA Methylprednisolone Sodium Succinate (Methylprednisolone Sod Succ 40 Mg/Ml Vial) 40 mg IVPUSH Q12H [facility] Last Admin: 09/13/21 21:00 Dose: 40 mg Documented by: ZONIA Metoprolol Succinate (Metoprolol Succinate Er 25 Mg Tab.Er.24h) 75 mg PO DAILY [facility]; Protocol Last Admin: 09/13/21 08:39 Dose: 75 mg Documented by: ОЛЕГ Omeprazole (Omeprazole 20 Mg Capsule.Dr) 20 mg PO BID [facility] Last Admin: 09/13/21 20:59 Dose: 20 mg Documented by: ZONIA Ondansetron HCl (Ondansetron Hcl 4 Mg/2 Ml Vial) 4 mg IVPUSH Q8H PRN PRN Reason: Nausea and Vomiting Last Admin: 09/08/21 12:34 Dose: 4 mg Documented by: SABINE Polyethylene Glycol (Polyethylene Glycol 3350 17 Gm Powd.Pack) 17 gm PO DAILY [facility] Last Admin: 09/13/21 08:40 Dose: 17 gm Documented by: ОЛЕГ Senna (Sennosides 8.6 Mg Tablet) 17.2 mg PO BEDTIME [facility] Last Admin: 09/13/21 21:00 Dose: 17.2 mg Documented by: ZONIA Sodium Chloride (0.9 % Sodium Chloride Flush 3 Ml Syringe) 3 ml IVFLUSH QSHIFT [facility] Last Admin: 09/13/21 21:01 Dose: 3 ml Documented by: ZONIA Tiotropium [place] (Tiotropium [place] 18 Mcg Cap.W.Dev) 1 puff INHALE DAILY [facility] Last Admin: 09/14/21 07:37 Dose: 1 puff Documented by: LASHONDA Tramadol HCl (Tramadol Hcl 50 Mg Tablet) 50 mg PO Q6H PRN PRN Reason: Pain, Severe (Pain Scale 7-10) Last Admin: 09/14/21 06:09 Dose: 50 mg Documented by: ZONIA Ursodiol (Ursodiol 300 Mg Capsule) 600 mg PO BID [facility] Last Admin: 09/13/21 21:01 Dose: 600 mg Documented by: ZONIA Vitamin D (Cholecalciferol (Vitamin D3) 25 Mcg Tablet) 25 mcg PO DAILY [facility] Last Admin: 09/13/21 08:40 Dose: 25 mcg Documented by: ОЛЕГ Labs CBC & Chem 7: 09/14/21 07:22 09/14/21 07:22 Labs: Laboratory Results - last 24 hr 09/14/21 09/14/21 09/14/21 07:22 07:22 07:22 MCV 96.5 MCH 29.9 MCHC 30.9 L RDW 18.5 H Plt Count 349 D MPV 10.7 Absolute Nucleated RBC 0.030 H Nucleated RBC % (auto) 0.1 Anion Gap 17 Estim Creat Clear Calc 54.5 Estimated GFR > 60 Random Glucose 144 H Calcium 10.0 D B-Natriuretic Peptide 910 H Microbiology Microbiology Results: Microbiology 09/08/21 07:40 Blood Culture - Final Blood - Venous No growth after 5 days. 09/08/21 07:29 Blood Culture - Final Blood - Venous No growth after 5 days. Assessment and Plan (1) COPD exacerbation: Status: Acute (2) Atrial fibrillation with rapid ventricular response: Status: Acute (3) Atherosclerotic cardiovascular disease: Status: Acute (4) Left rib fracture: Status: Acute Assessment and Plan: ?This is a 76 yo F with multiple medical problems including COPD/Chronic resp. failure with hypoxia on 2-3L, CAD - s/p CABG, A. Fib on coumadin, SOTERO/GAVE/PBC/Colon Ca - s/p resection, L hip fx repaired at [facility] in Jun 2021 who presents from [facility] after ? slipping out of bed / fall (unwitnessed) resulting in a L hip Fx. She will be admitted for further treamtent. Pneumonia No evidence of sepsis. tachycardia r/t afib/breathing treatments, not sepsis CXR showing atelectasis vs pneumonia, but given increase in leukocytosis today will start antibiotics -IV ceftriaxone, azithromycin day #1 -follow blood cultures Acute on Chronic HFpEF EF low to normal; moderately decreased right ventricular EF po lasix was on hold since admission for FRAN. renal function improved, BNP increased -resume lower dose of lasix -monitor fluid status closely, uptitrate lasix if needed Acute COPD exacerbation per HCP, patient does not use oxygen chronically at home, but only on a prn ba sis supplemential o2, wean as tolerated -scheduled and prn breathing treatments -continue systemic steroids left Rib fx pain not adequately controlled concern for delirium with narcotics -will trial IV tylenol -lidocaine patch, prn ultram L subcap. fem fx with superior displacement seen by both Pulm and Cardiac - deemed high risk d/w ortho - case cancelled for now (will perform in 2-3 weeks). hip surgery is not urgent per ortho and will likely put patient at unnecessary risk given her pain and immobility from the rib fracture. interval may give rib time to heal for pt to better participate in PT following surgery. A. Fib RVR HR controlled. initially treated with cardizem drip on metoprolol 75 daily, po cardizem 120 added restart anticoagluation - will use lovenox 1mg/kg for the time being until her surgery Delirium intermittent -- due to hospitalization / acute illness redirect as much as possible is on ativan, but since this is a home medicaion, will continue for now CAD ECHO showing low normal LVEF and WMA, mod tricuspid regurgitation. at high risk for surgery due to above - un-modifiable Chronic anemia underlying GAVE h/o requiring multiple transfusions in the past H/H stable FRAN resolved due to hypoperfusion Hypothyroid synthroid PBC ursodial Full Code Andra (Niece) is [facility] [phone] seen by PT - rec SNF attending: dr. dai The above was discussed in detail with the patient's arcenio Silverman 09/13; update given today 09/14 Quality Stroke Does the patient have a stroke diagnosis?: No VTE Prior VTE?: No VTE Risk Level:: Medical - moderate - high VTE Device Contraindication: Treatment Not Indicated VTE Drug Contraindication: N/A - Med Ordered
[2021-09-14] MEDS: Furosemide 20 MG/2 ML VIAL IVPUSH (09:13)
[2021-09-14] MEDS: methylPREDNISolone Sod Succ 40 MG/ML VIAL IVPUSH ×2 (09:13→20:30)
[2021-09-14] MEDS: 0.9 % Sodium Chloride Flush 3 ML SYRINGE IVFLUSH ×3 (09:13→20:33)
[2021-09-14] MEDS: cefTRIAXone sodium 1 GM in 0.9 % Sodium Chloride 50 ML IV (09:13)
[2021-09-14] MEDS: dilTIAZem HCL CD 120 MG CAP.ER.DEG PO (09:24)
[2021-09-14] MEDS: Furosemide 40 MG TABLET PO (09:24)
[2021-09-14] MEDS: Docusate Sodium 100 MG CAPSULE PO ×2 (09:24→20:32)
[2021-09-14] MEDS: UrsodioL 300 MG CAPSULE 600 MG PO ×2 (09:24→20:33)
[2021-09-14] MEDS: Metoprolol Succinate ER 25 MG TAB.ER.24H 75 MG PO (09:24)
[2021-09-14] MEDS: Cholecalciferol (Vitamin D3) 25 MCG TABLET PO (09:25)
[2021-09-14] MEDS: Ferrous Sulfate 324 MG TABLET.DR PO (09:25)
[2021-09-14] MEDS: polyethylene glycoL 3350 17 GM POWD.PACK PO (09:25)
[2021-09-14] MEDS: LORazepam 1 MG TABLET PO ×2 (09:25→20:34)
[2021-09-14] MEDS: DULoxetine HCl 30 MG CAPSULE.DR PO ×2 (09:25→20:32)
[2021-09-14] MEDS: Cyanocobalamin (Vitamin B-12) 1,000 MCG TABLET 1000 MCG PO (09:25)
[2021-09-14] MEDS: Lidocaine 4 % Patch ADH..PATCH 1 PATCH TRANSDERMA (09:25)
[2021-09-14] MEDS: Omeprazole 20 MG CAPSULE.DR PO ×2 (09:25→20:33)
[2021-09-14] MEDS: Azithromycin 500 MG in 0.9 % Sodium Chloride 250 ML 125 MG IV (09:51)
[2021-09-14] MEDS: Acetaminophen 325 MG TABLET 950 MG PO (15:48)
[2021-09-14] MEDS: Enoxaparin Sodium 80 MG/0.8 ML SYRINGE 65 MG SUBCUT (15:48)
[2021-09-14] MEDS: Sennosides 8.6 MG TABLET 17.2 MG PO (20:33)
[2021-09-14] MEDS: Artificial Tears 15 ML DROPS 1 DROP EYE-BOTH (20:34)
[2021-09-15] VITALS (10 sets, daily range): BP systolic 152–181; BP diastolic 74–91; PULSE 74–100; RESP 14–18; TEMP 36.5–36.9; O2SAT 93–100
[2021-09-15] MEDS: Enoxaparin Sodium 80 MG/0.8 ML SYRINGE 65 MG SUBCUT ×3 (00:08→22:49)
[2021-09-15] MEDS: Levothyroxine Sodium 150 MCG TABLET PO (06:29)
[2021-09-15] MEDS: methylPREDNISolone Sod Succ 40 MG/ML VIAL IVPUSH ×2 (06:30→18:49)
[2021-09-15] MEDS: guaiFENesin 100 MG/5 ML LIQUID PO ×2 (06:32→16:52)
[2021-09-15] MEDS: Albuterol/Iprat 2.5/0.5MG 3 ML AMPUL.NEB INHALE ×2 (07:24→19:33)
[2021-09-15 09:23] LABS: Hematocrit 33.1 % (37-47); Imm Gran Abs Auto 0.14 X10*3/uL (0.00-0.03); Imm Gran Pct Auto 0.7 % (0.0-0.4); Lymphocytes Absolute Auto 0.3 X10*3/uL (1.2-4.9); Lymphocytes Percent Auto 1.5 % (20-40); MANUAL DIFF FLAG SCAN; Mean Corpuscular HGB Conc 30.2 g/dl (31.0-35.0); Mean Corpuscular Hemoglobin 29.1 pg (27.0-33.0); Mean Corpuscular Volume 96.2 fL (80-98); Mean Platelet Volume 10.7 fL (9.4-12.3); Monocytes Absolute Auto 0.9 X10*3/uL (0.1-1.2); Monocytes Percent Auto 4.6 % (2-11); Neutrophils Absolute Auto 18.7 X10*3/uL (2.0-8.3); Neutrophils Percent Auto 93.2 % (45-73); Platelet Count 333 X10*3/uL (160-400); Red Blood Count 3.44 X10*6/uL (4.20-5.50); Red Cell Distribution Width 18.3 % (11.0-16.0); SCAN SMEAR FLAG 1; White Blood Count 20.1 X10*3/uL (4.8-10.8)
[2021-09-15] MEDS: Metoprolol Succinate ER 25 MG TAB.ER.24H 75 MG PO (09:38)
[2021-09-15] MEDS: Furosemide 40 MG TABLET PO (09:39)
[2021-09-15] MEDS: Ferrous Sulfate 324 MG TABLET.DR PO (09:39)
[2021-09-15] MEDS: dilTIAZem HCL CD 120 MG CAP.ER.DEG PO (09:39)
[2021-09-15] MEDS: LORazepam 1 MG TABLET PO ×2 (09:39→20:01)
[2021-09-15] MEDS: Cyanocobalamin (Vitamin B-12) 1,000 MCG TABLET 1000 MCG PO (09:39)
[2021-09-15] MEDS: DULoxetine HCl 30 MG CAPSULE.DR PO ×2 (09:39→20:01)
[2021-09-15] MEDS: Cholecalciferol (Vitamin D3) 25 MCG TABLET PO (09:39)
[2021-09-15 09:40] LABS: Anion Gap 15 (12-20); Blood Urea Nitrogen 15 mg/dL (9-16); Calcium 9.6 mg/dL (8.4-10.2); Carbon Dioxide 31 mmol/L (22-29); Chloride 103 mmol/L (96-108); Creatinine Clr Calc Pharmacy 55.8; Estimated Glomerular Filt Rate > 60; Glucose Random 148 mg/dL (60-115); Potassium 4.1 mmol/L (3.3-5.1); Sodium 145 mmol/L (135-145)
[2021-09-15] MEDS: UrsodioL 300 MG CAPSULE 600 MG PO ×2 (09:40→20:01)
[2021-09-15] MEDS: Lidocaine 4 % Patch ADH..PATCH 1 PATCH TRANSDERMA (09:41)
[2021-09-15] MEDS: Omeprazole 20 MG CAPSULE.DR PO ×2 (09:43→20:02)
[2021-09-15] MEDS: Artificial Tears 15 ML DROPS 1 DROP EYE-BOTH ×2 (09:45→20:06)
[2021-09-15] MEDS: 0.9 % Sodium Chloride Flush 3 ML SYRINGE IVFLUSH ×3 (09:46→20:03)
[2021-09-15] MEDS: cefTRIAXone sodium 1 GM in 0.9 % Sodium Chloride 50 ML IV (09:47)
--- NOTE | 2021-09-15 10:02 | PHA.PROG ---
Admission Date/Time: September 08, 2021 10:44 Indication: Bacteremia Weight in k.596 kg Adjusted body weight in Kg: [place] body weight in Kg: Obesity Dosing Indication % IBW: Serum Creatinine - Last 168 Hours 09/09/21 09/10/21 09/11/21 05:24 04:17 05:27 Creatinine 0.94 0.79 0.90 09/12/21 09/13/21 09/14/21 05:37 07:27 07:22 Creatinine 0.82 0.77 0.84 09/15/21 09:08 Creatinine 0.82 Estimated CrCl and GFR - Last 168 Hours 09/09/21 09/10/21 09/11/21 05:24 04:17 05:27 Estim Creat Clear Calc 48.7 58.0 50.8 Estimated GFR 58 > 60 > 60 09/12/21 09/13/21 09/14/21 05:37 07:27 07:22 Estim Creat Clear Calc 55.8 59.5 54.5 Estimated GFR > 60 > 60 > 60 09/15/21 09:08 Estim Creat Clear Calc 55.8 Estimated GFR > 60 Vancomycin Loading Dose: 1250mg x1 load Current Vancomycin Dosing Regimen: 1000mg IV Q24H Vancomycin Monitoring using AUC goal of 400 - 600 range with trough as surrogate marker: AUC 454, TROUGH 13.6 Date and Time for next Vancomycin Level to be drawn: 09/17/2021 @0900 Pharmacist Comments on Vancomycin Plan: WILL DRAW TROUGH AFTER TWO DOSES TO ASSESS TOXICITY IN 76 Y/O ON Q24H DOSING. WE SUSPECT THE PATIENT WILL NEED THREE DOSES (72HRS) TO BE THERAPUETIC Vancomycin dosing will take advantage of [employer] as a clinical decision support tool that uses Bayesian modeling to calculate individual patient's pharmacokinetic parameters and forecast the patient's drug concentration time course with the target goal AUC 24 range of 400 - 600 mg/L/hr.
[2021-09-15 10:19] LABS: B Type Natriuretic Peptide 765 pg/mL (<100)
[2021-09-15 10:47] LABS: SLIDE REVIEW VERIFIED
[2021-09-15] MEDS: vancomycin HCL 1,250 MG in 0.9 % Sodium Chloride 250 ML 166.67 MG IV (11:08)
--- NOTE | 2021-09-15 11:57 | P.PNIM_ITS ---
Progress Note: A&P Assessment and Plan: This is a 76 yo F with multiple medical problems including [employer] D/Chronic resp. failure with hypoxia on 2-3L, CAD - s/p CABG, A. Fib on coumadin, SOTERO/GAVE/PBC/Colon Ca - s/p resection, L hip fx repaired at [facility] in Jun 2021 who presents from [facility] after ? slipping out of bed / fall (unwitnessed) resulting in a L hip Fx. She will be admitted for further tream tent. Bacteremia . Gram-positive cocci in clusters 2/2 pos, Staphylococcus species Start vancomycin Repeat cultures Pneumonia. No evidence of sepsis. tachycardia r/t afib/breathing treatments, not sepsis CXR showing atelectasis vs pneumonia IV ceftriaxone. Initially on Azithromycin however now with bacteremia vancomycin ordered and azithromycin stopped -follow blood cultures Acute on Chronic HFpEF. BNP trending down EF low to normal; moderately decreased right ventricular EF po lasix was on hold since admission for FRAN. renal function improved, BNP increased continue lasix monitor fluid status closely, uptitrate lasix if needed Acute COPD exacerbation per HCP, patient does not use oxygen chronically at home, but only on a prn basis supplemential o2, wean as tolerated scheduled and prn breathing treatments continue systemic steroids left Rib fx pain not adequately controlled concern for delirium with narcotics will trial IV tylenol, now to oral Tylenol lidocaine patch, prn ultram L subcap. fem fx with superior displacement seen by both Pulm and Cardiac - deemed high risk d/w ortho - case cancelled for now (will perform in 2-3 weeks). hip surgery is not urgent per ortho and will likely put patient at unnecessary risk given her pain and immobility from the rib fracture. interval may give rib time to heal for pt to better participate in PT following surgery. A. Fib RVR HR controlled. initially treated with cardizem drip on metoprolol 75 daily, po cardizem 120 added restart anticoagluation - will use lovenox 1mg/kg for the time being until her surgery Delirium. intermittent due to hospitalization / acute illness redirect as much as possible Ativan CAD ECHO showing low normal LVEF and WMA, mod tricuspid regurgitation. at high risk for surgery due to above - un-modifiable Chronic anemia underlying GAVE h/o requiring multiple transfusions in the past H/H stable FRAN resolved due to hypoperfusion Hypothyroid synthroid PBC ursodial Full Code Andra (Niece) is [facility] [phone] Fish The above was discussed in detail with the patient's arcenio Barrone 09/13; update given today 09/14 <Nimisha Ramesh NP - Last Filed: 09/15/21 12:30> Subjective Subjective Date of Service: 09/15/21 <Nimisha Ramesh NP - Last Filed: 09/15/21 12:30> 09/16/21 <Diogo Fish MD - Last Filed: 09/16/21 08:02> Review of Systems Follow up Hip fx, PNA, Bactermia Pain to hip is better, still with rib pain some mild SOB poor appetite <Nimisha Ramesh NP - Last Filed: 09/15/21 12:30> Physical Exam Vital Signs: Vital Signs: Last Vital Signs Temp 97.7 F 09/15/21 07:24 Pulse 87 09/15/21 09:39 Resp 18 09/15/21 07:24 BP 156/81 H 09/15/21 09:39 Pulse Ox 99 09/15/21 07:24 Body Mass Index 20.9 <Nimisha Ramesh NP - Last Filed: 09/15/21 12:30> Appearing in no acute distress lung sounds rhonchi heart regular rate rhythm, clear S1, S2 positive bowel sounds, abdomen is soft, nontender neuro patient is alert, confused <Nimisha Ramesh NP - Last Filed: 09/15/21 12:30> Objective Data Current Medications Albuterol/Ipratropium (Albuterol/Iprat 2.5/0.5mg 3 Ml Ampul.Neb) 3 ml INHALE RQ6H PRN PRN Reason: Shortness of Breath/Wheezing Last Admin: 09/14/21 15:49 Dose: 3 ml Documented by: Albuterol/Ipratropium (Albuterol/Iprat 2.5/0.5mg 3 Ml Ampul.Neb) 3 ml INHALE RQ6H WHILE AWAKE [facility] Last Admin: 09/15/21 07:24 Dose: 3 ml Documented by: Artificial Tears (Artificial Tears 15 Ml Drops) 1 drop EYE-BOTH BID [facility] Last Admin: 09/15/21 09:45 Dose: 1 drop Documented by: Cyanocobalamin (Cyanocobalamin (Vitamin B-12) 1,000 Mcg Tablet) 1,000 mcg PO DAILY [facility] Last Admin: 09/15/21 09:39 Dose: 1,000 mcg Documented by: Diltiazem HCl (Diltiazem Hcl Cd 120 Mg Cap.Er.Deg) 120 mg PO DAILY [facility]; Protoco l Last Admin: 09/15/21 09:39 Dose: 120 mg Documented by: Docusate Sodium (Docusate Sodium 100 Mg Capsule) 100 mg PO BID [facility] Last Admin: 09/15/21 09:41 Dose: Not Given Documented by: Duloxetine HCl (Duloxetine Hcl 30 Mg Capsule.) 30 mg PO BID [facility] Last Admin: 09/15/21 09:39 Dose: 30 mg Documented by: Enoxaparin Sodium (Enoxaparin Sodium 80 Mg/0.8 Ml Syringe) 65 mg SUBCUT Q12H [facility] Last Admin: 09/15/21 11:07 Dose: 65 mg Documented by: Ferrous Sulfate (Ferrous Sulfate 324 Mg Tablet.) 324 mg PO DAILY [facility] Last Admin: 09/15/21 09:39 Dose: 324 mg Documented by: Furosemide (Furosemide 40 Mg Tablet) 40 mg PO DAILY [facility]; Protocol Last Admin: 09/15/21 09:39 Dose: 40 mg Documented by: Guaifenesin (Guaifenesin 100 Mg/5 Ml Liquid) 5 ml PO Q4H PRN PRN Reason: Cough Last Admin: 09/15/21 06:32 Dose: 5 ml Documented by: Ceftriaxone Sodium 1 gm/ (Sodium Chloride) 50 mls @ 100 mls/hr IV Q24H [facility] Last Infusion: 09/15/21 10:20 Dose: Infused Documented by: Vancomycin HCl 1,000 mg/ (Sodium Chloride) 270 mls @ 270 mls/hr IV Q24H [facility] Levothyroxine Sodium (Levothyroxine Sodium 150 Mcg Tablet) 150 mcg PO DAILY@0630 [facility] Last Admin: 09/15/21 06:29 Dose: 150 mcg Documented by: Lidocaine (Lidocaine 4 % Patch Adh..Patch) 1 patch TRANSDERMA DAILY [facility]; Prot ocol Last Admin: 09/15/21 09:41 Dose: 1 patch Documented by: Lorazepam (Lorazepam 1 Mg Tablet) 1 mg PO BID [facility] Last Admin: 09/15/21 09:39 Dose: 1 mg Documented by: Methylprednisolone Sodium Succinate (Methylprednisolone Sod Succ 40 Mg/Ml Vial) 40 mg IVPUSH Q12H [facility] Last Admin: 09/15/21 06:30 Dose: 40 mg Documented by: Metoprolol Succinate (Metoprolol Succinate Er 25 Mg Tab.Er.24h) 75 mg PO DAILY [facility]; Protocol Last Admin: 09/15/21 09:38 Dose: 75 mg Documented by: Omeprazole (Omeprazole 20 Mg Capsule.Dr) 20 mg PO BID [facility] Last Admin: 09/15/21 09:43 Dose: 20 mg Documented by: Ondansetron HCl (Ondansetron Hcl 4 Mg/2 Ml Vial) 4 mg IVPUSH Q8H PRN PRN Reason: Nausea and Vomiting Last Admin: 09/08/21 12:34 Dose: 4 mg Documented by: Pharmacy Consult (Consult Rx Vancomycin Dosing) 1 each MISCELLANE DAILY PRN PRN Reason: Consult order Polyethylene Glycol (Polyethylene Glycol 3350 17 Gm Powd.Pack) 17 gm PO DAILY [facility] Last Admin: 09/15/21 09:43 Dose: Not Given Documented by: Senna (Sennosides 8.6 Mg Tablet) 17.2 mg PO BEDTIME [facility] Last Admin: 09/14/21 20:33 Dose: 17.2 mg Documented by: Sodium Chloride (0.9 % Sodium Chloride Flush 3 Ml Syringe) 3 ml IVFLUSH QSHIFT [facility] Last Admin: 09/15/21 09:46 Dose: 3 ml Documented by: Tiotropium [place] (Tiotropium [place] 18 Mcg Cap.W.Dev) 1 puff INHALE DAILY [facility] Last Admin: 09/15/21 07:24 Dose: 1 puff Documented by: Tramadol HCl (Tramadol Hcl 50 Mg Tablet) 50 mg PO Q6H PRN PRN Reason: Pain, Severe (Pain Scale 7-10) Last Admin: 09/14/21 17:21 Dose: 50 mg Documented by: Ursodiol (Ursodiol 300 Mg Capsule) 600 mg PO BID [facility] Last Admin: 09/15/21 09:40 Dose: 600 mg Documented by: Vitamin D (Cholecalciferol (Vitamin D3) 25 Mcg Tablet) 25 mcg PO DAILY [facility] Last Admin: 09/15/21 09:39 Dose: 25 mcg Documented by: <Nimisha Ramesh NP - Last Filed: 09/15/21 12:30> Labs CBC & Chem 7: : 09/16/21 05:41 09/16/21 05:41 <Nimisha aRmesh NP - Last Filed: 09/15/21 12:30> Labs: Laboratory Results - last 24 hr 09/15/21 09/15/21 09/15/21 09:08 09:08 09:08 MCV 96.2 MCH 29.1 MCHC 30.2 L RDW 18.3 H Plt Count 333 MPV 10.7 Immature Gran % (Auto) 0.7 H Neut % (Auto) 93.2 H Lymph % (Auto) 1.5 L [place] % (Auto) 4.6 Eos % (Auto) 0.0 Baso % (Auto) 0.0 Lymph # (Auto) 0.3 L [place] # (Auto) 0.9 Eos # (Auto) 0.0 Baso # (Auto) 0.0 Abs Immat Gran (auto) 0.14 H Absolute Neuts (auto) 18.7 H Absolute Nucleated RBC 0.000 Nucleated RBC % (auto) 0.0 Smear Tech's Comments VERIFIED Anion Gap 15 Estim Creat Clear Calc 55.8 Estimated GFR > 60 Random Glucose 148 H Calcium 9.6 B-Natriuretic Peptide 765 H <Nimisha Ramesh NP - Last Filed: 09/15/21 12:30> Microbiology Microbiology Results: Microbiology 09/14/21 09:36 Blood - Venous Blood Culture - Preliminary Staphylococcus species 09/14/21 09:36 Blood - Venous Blood Culture - Preliminary Staphylococcus species 09/08/21 07:40 Blood - Venous Blood Culture - Final No growth after 5 days. 09/08/21 07:29 Blood - Venous Blood Culture - Final No growth after 5 days. 09/08/21 00:00 Urine clean catch - Urine nieto top Urine Culture - Final <Nimisha Ramesh NP - Last Filed: 09/15/21 12:30> Quality Stroke Does the patient have a stroke diagnosis?: No <Nimisha Ramesh NP - Last Filed: 09/15/21 12:30> VTE Prior VTE?: No <Nimisha Ramesh NP - Last Filed: 09/15/21 12:30> VTE Risk Level:: Medical - moderate - high <Nimisha Ramesh NP - Last Filed: 09/15/21 12:30> VTE Device Contraindication: Treatment Not Indicated <Nimisha Ramesh NP - Last Filed: 09/15/21 12:30> VTE Drug Contraindication: N/A - Med Ordered <Nimisha Ramesh NP - Last Filed: 09/15/21 12:30>
--- NOTE | 2021-09-15 13:20 | MHC.CM.PN ---
CM CONTACTED PTS HCP, VICKIE ([phone]) TO DISCUSS PTS DC PLANNING. SUSANEN INFORMED HER [facility] [place] DID NOT OFFER A BED. VICKIE REPORTS [facility] AND [facility] ARE THE ONLY TWO FACILITIES SHE IS INTERESTED IN ALTHOUGH SHE REPORTS SHE WAS NOT VERY HAPPY WITH SUSAN FENG. PER DISCUSSION, NO FURTHER REFERRALS WERE MADE. ONCE PTS DC DATE IS KNOWN, CM WILL CHECK WITH [facility] TO SEE IF A BED HAS OPENED. SUSAN FENG IS ALSO STILL FOLLOWING, PT WILL GO THERE IF [facility] DOES NOT OFFER A BED. VICKIE IS AWARE A CM WILL CONTACT HER ONCE A DC DATE IS KNOWN TO FINALIZE DC PLANNING.
--- NOTE | 2021-09-15 14:02 | MHC.CLN ---
NUTRITION CONSULT NUTRITION CONSULT DUE TO POOR APPETITE AND LOW BMI. BMI=21, WNL. INTAKE AT MEALS VARIABLE. STAGE I TO BUTTOCKS. ADDING ENSURE BID TO PROVIDE 700 KCAL, 40 G PROTEIN.
[2021-09-15] MEDS: traMADoL HCL 50 MG TABLET PO ×2 (16:53→22:49)
[2021-09-15] MEDS: Sennosides 8.6 MG TABLET 17.2 MG PO (20:02)
[2021-09-15] MEDS: Nystatin Powder 15 GM BOTTLE 1 APPL TOPICAL (20:02)
[2021-09-16] VITALS (11 sets, daily range): BP systolic 144–183; BP diastolic 75–92; PULSE 67–88; RESP 14–18; TEMP 36.1–36.5; O2SAT 95–98
[2021-09-16] MEDS: methylPREDNISolone Sod Succ 40 MG/ML VIAL IVPUSH ×2 (06:02→18:27)
[2021-09-16] MEDS: Levothyroxine Sodium 150 MCG TABLET PO (06:02)
[2021-09-16 06:52] LABS: Hematocrit 32.2 % (37-47); Hemoglobin 9.6 g/dl (12.0-16.0); Mean Corpuscular HGB Conc 29.8 g/dl (31.0-35.0); Mean Corpuscular Hemoglobin 28.4 pg (27.0-33.0); Mean Corpuscular Volume 95.3 fL (80-98); Mean Platelet Volume 11.7 fL (9.4-12.3); Platelet Count 348 X10*3/uL (160-400); Red Blood Count 3.38 X10*6/uL (4.20-5.50); White Blood Count 14.1 X10*3/uL (4.8-10.8)
[2021-09-16 06:55] LABS: B Type Natriuretic Peptide 772 pg/mL (<100)
[2021-09-16 07:15] LABS: Anion Gap 15 (12-20); Blood Urea Nitrogen 14 mg/dL (9-16); Calcium 9.1 mg/dL (8.4-10.2); Carbon Dioxide 33 mmol/L (22-29); Chloride 101 mmol/L (96-108); Creatinine Clr Calc Pharmacy 66.4; Estimated Glomerular Filt Rate > 60; Glucose Random 130 mg/dL (60-115); Potassium 3.6 mmol/L (3.3-5.1); Sodium 145 mmol/L (135-145)
[2021-09-16] MEDS: Albuterol/Iprat 2.5/0.5MG 3 ML AMPUL.NEB INHALE ×3 (07:49→19:58)
[2021-09-16] MEDS: Lidocaine 4 % Patch ADH..PATCH 1 PATCH TRANSDERMA (08:46)
[2021-09-16] MEDS: dilTIAZem HCL CD 120 MG CAP.ER.DEG PO (08:47)
[2021-09-16] MEDS: Cholecalciferol (Vitamin D3) 25 MCG TABLET PO (08:47)
[2021-09-16] MEDS: UrsodioL 300 MG CAPSULE 600 MG PO ×2 (08:47→20:20)
[2021-09-16] MEDS: cefTRIAXone sodium 1 GM in 0.9 % Sodium Chloride 50 ML IV (08:47)
[2021-09-16] MEDS: Furosemide 40 MG TABLET PO (08:47)
[2021-09-16] MEDS: DULoxetine HCl 30 MG CAPSULE.DR PO ×2 (08:48→20:21)
[2021-09-16] MEDS: Cyanocobalamin (Vitamin B-12) 1,000 MCG TABLET 1000 MCG PO (08:48)
[2021-09-16] MEDS: LORazepam 1 MG TABLET PO ×2 (08:48→20:20)
[2021-09-16] MEDS: Omeprazole 20 MG CAPSULE.DR PO ×2 (08:48→20:21)
[2021-09-16] MEDS: Ferrous Sulfate 324 MG TABLET.DR PO (08:48)
[2021-09-16] MEDS: Metoprolol Succinate ER 25 MG TAB.ER.24H 75 MG PO (08:48)
[2021-09-16] MEDS: guaiFENesin 100 MG/5 ML LIQUID PO (08:52)
[2021-09-16] MEDS: 0.9 % Sodium Chloride Flush 3 ML SYRINGE IVFLUSH ×3 (09:03→20:21)
[2021-09-16] MEDS: Nystatin Powder 15 GM BOTTLE 1 APPL TOPICAL (09:04)
[2021-09-16] MEDS: Artificial Tears 15 ML DROPS 1 DROP EYE-BOTH ×2 (09:04→20:21)
[2021-09-16] MEDS: vancomycin HCL 1,000 MG in 0.9 % Sodium Chloride 250 ML 270 MG IV (11:00)
[2021-09-16 11:55] LABS: Appearance Urine HAZY; Color Urine YELLOW; Glucose Urine UA NEG (NEG); Leukocyte Esterase Urine NEG (NEG); Nitrite Urine NEG (NEG); Specific Gravity - Urine 1.015 (1.005-1.025); Urine Blood NEG (NEG); Urine Ketones NEG (NEG); Urine Protein TRACE MG/DL (NEG-TRACE)
[2021-09-16] MEDS: Enoxaparin Sodium 80 MG/0.8 ML SYRINGE 65 MG SUBCUT (12:38)
--- NOTE | 2021-09-16 13:31 | P.PNIM_ITS ---
Progress Note: A&P (1) Bacteremia: Status: Acute (2) Pneumonia: Status: Acute (3) Left rib fracture: Status: Acute Assessment and Plan: This is a 76 yo F with multiple medical problems including COPD/Chronic resp. failure with hypoxia on 2-3L, CAD - s/p CABG, A. Fib on coumadin, SOTERO/GAVE/PB C/Colon Ca - s/p resection, L hip fx repaired at [facility] in Jun 2021 who presents from [facility] after ? slipping out of bed / fall (unwitnessed) resulting in a L hip Fx. She will be admitted for further treamtent. Bacteremia. MRSA Start vancomycin Repeat cultures pending chest CT pending Pneumonia. No evidence of sepsis. tachycardia r/t afib/breathing treatments, not sepsis CXR showing atelectasis vs pneumonia IV ceftriaxone.? Initially on Azithromycin however now with bacteremia vancomycin ordered and azithromycin stopped -follow blood cultures Acute on Chronic HFpEF.? BNP trending down EF low to normal; moderately decreased right ventricular EF po lasix was on hold since admission for FRAN. renal function improved, BNP increased continue lasix monitor fluid status closely, uptitrate lasix if needed Acute COPD exacerbation per HCP, patient does not use oxygen chronically at home, but only on a prn basis supplemential o2, wean as tolerated scheduled and prn breathing treatments continue systemic steroids left Rib fx pain not adequately controlled concern for delirium with narcotics will trial IV tylenol, now to oral Tylenol lidocaine patch, prn ultram L subcap. fem fx with superior displacement seen by both Pulm and Cardiac - deemed high risk d/w ortho - case cancelled for now (will perform in 2-3 weeks). hip surgery is not urgent per ortho and will likely put patient at unnecessary risk given her pain and immobility from the rib fracture. interval may give rib time to heal for pt to better participate in PT following surgery. A. Fib RVR HR controlled. initially treated with cardizem drip on metoprolol 75 daily, po cardizem 120 added restart anticoagluation - will use lovenox 1mg/kg for the time being until her surgery Delirium. intermittent due to hospitalization / acute illness redirect as much as possible Ativan CAD ECHO showing low normal LVEF and WMA, mod tricuspid regurgitation. at high risk for surgery due to above - un-modifiable Chronic anemia underlying GAVE h/o requiring multiple transfusions in the past H/H stable FRAN resolved due to hypoperfusion Hypothyroid synthroid PBC ursodial Full Code Andra (Niece) is [facility] [phone] Fish The above was discussed in detail with the patient's arcenio Andra 09/13; update given today 09/14? Subjective Subjective Date of Service: 09/16/21 Review of Systems Follow up MRSA bacteremia, PNA Doing well, no sob still with cough some rib pain, but better Physical Exam Vital Signs: Vital Signs: Last Vital Signs Temp 97.0 F 09/16/21 11:01 Pulse 88 09/16/21 11:01 Resp 17 09/16/21 11:01 BP 168/80 H 09/16/21 11:01 Pulse Ox 98 09/16/21 11:01 Body Mass Index 20.9 Appearing in no acute distress lung sounds rhonchi heart regular rate rhythm, clear S1, S2 positive bowel sounds, abdomen is soft, nontender neuro patient is alert x3, no focal deficits Objective Data Current Medications Albuterol/Ipratropium (Albuterol/Iprat 2.5/0.5mg 3 Ml Ampul.Neb) 3 ml INHALE RQ6H WHILE AWAKE [facility] Last Admin: 09/16/21 07:49 Dose: 3 ml Documented by: Artificial Tears (Artificial Tears 15 Ml Drops) 1 drop EYE-BOTH BID [facility] Last Admin: 09/16/21 09:04 Dose: 1 drop Documented by: Cyanocobalamin (Cyanocobalamin (Vitamin B-12) 1,000 Mcg Tablet) 1,000 mcg PO DAILY [facility] Last Admin: 09/16/21 08:48 Dose: 1,000 mcg Documented by: Diltiazem HCl (Diltiazem Hcl Cd 120 Mg Cap.Er.Deg) 120 mg PO DAILY [facility]; Protocol Last Admin: 09/16/21 08:47 Dose: 120 mg Documented by: Duloxetine HCl (Duloxetine Hcl 30 Mg Capsule.Dr) 30 mg PO BID [facility] Last Admin: 09/16/21 08:48 Dose: 30 mg Documented by: Enoxaparin Sodium (Enoxaparin Sodium 80 Mg/0.8 Ml Syringe) 65 mg SUBCUT Q12H [facility] Last Admin: 09/16/21 12:38 Dose: 65 mg Documented by: Ferrous Sulfate (Ferrous Sulfate 324 Mg Tablet.) 324 mg PO DAILY [facility] Last Admin: 09/16/21 08:48 Dose: 324 mg Documented by: Furosemide (Furosemide 40 Mg Tablet) 40 mg PO DAILY [facility]; Protocol Last Admin: 09/16/21 08:47 Dose: 40 mg Documented by: Guaifenesin (Guaifenesin 100 Mg/5 Ml Liquid) 5 ml PO Q4H PRN PRN Reason: Cough Last Admin: 09/16/21 08:52 Dose: 5 ml Documented by: Ceftriaxone Sodium 1 gm/ (Sodium Chloride) 50 mls @ 100 mls/hr IV Q24H [facility] Last Infusion: 09/16/21 11:19 Dose: Infused Documented by: Vancomycin HCl 1,000 mg/ (Sodium Chloride) 270 mls @ 270 mls/hr IV Q24H [facility] Last Infusion: 09/16/21 12:40 Dose: Infused Documented by: Levothyroxine Sodium (Levothyroxine Sodium 150 Mcg Tablet) 150 mcg PO DAILY@0630 [facility] Last Admin: 09/16/21 06:02 Dose: 150 mcg Documented by: Lidocaine (Lidocaine 4 % Patch Adh..Patch) 1 patch TRANSDERMA DAILY [facility]; Protocol Last Admin: 09/16/21 08:46 Dose: 1 patch Documented by: Lorazepam (Lorazepam 1 Mg Tablet) 1 mg PO BID [facility] Last Admin: 09/16/21 08:48 Dose: 1 mg Documented by: Methylprednisolone Sodium Succinate (Methylprednisolone Sod Succ 40 Mg/Ml Vial) 40 mg IVPUSH Q12H [facility] Last Admin: 09/16/21 06:02 Dose: 40 mg Documented by: Metoprolol Succinate (Metoprolol Succinate Er 25 Mg Tab.Er.24h) 75 mg PO DAILY [facility]; Protocol Last Admin: 09/16/21 08:48 Dose: 75 mg Documented by: Nystatin (Nystatin Powder 15 Gm Bottle) 1 appl TOPICAL BID [facility]; Protocol Last Admin: 09/16/21 09:04 Dose: 1 appl Documented by: Omeprazole (Omeprazole 20 Mg Capsule.) 20 mg PO BID [facility] Last Admin: 09/16/21 08:48 Dose: 20 mg Documented by: Ondansetron HCl (Ondansetron Hcl 4 Mg/2 Ml Vial) 4 mg IVPUSH Q8H PRN PRN Reason: Nausea and Vomiting Last Admin: 09/08/21 12:34 Dose: 4 mg Documented by: Pharmacy Consult (Consult Rx Vancomycin Dosing) 1 each MISCELLANE DAILY PRN PRN Reason: Consult order Senna (Sennosides 8.6 Mg Tablet) 17.2 mg PO BEDTIME [facility] Last Admin: 09/15/21 20:02 Dose: 17.2 mg Documented by: Senna (Sennosides 8.6 Mg Tablet) 17.2 mg PO Q24H PRN PRN Reason: constipation Sodium Chloride (0.9 % Sodium Chloride Flush 3 Ml Syringe) 3 ml IVFLUSH QSHIFT [facility] Last Admin: 09/16/21 09:03 Dose: 3 ml Documented by: Tiotropium [place] (Tiotropium [place] 18 Mcg Cap.W.Dev) 1 puff INHALE DAILY [facility] Last Admin: 09/16/21 07:53 Dose: Not Given Documented by: Ursodiol (Ursodiol 300 Mg Capsule) 600 mg PO BID [facility] Last Admin: 09/16/21 08:47 Dose: 600 mg Documented by: Vitamin D (Cholecalciferol (Vitamin D3) 25 Mcg Tablet) 25 mcg PO DAILY [facility] Last Admin: 09/16/21 08:47 Dose: 25 mcg Documented by: Labs CBC & Chem 7: 09/16/21 05:41 09/16/21 05:41 Labs: Laboratory Results - last 24 hr 09/16/21 09/16/21 09/16/21 05:41 05:41 05:41 MCV 95.3 MCH 28.4 MCHC 29.8 L RDW 18.0 H Plt Count 348 MPV 11.7 Absolute Nucleated RBC 0.000 Nucleated RBC % (auto) 0.0 Anion Gap 15 Estim Creat Clear Calc 66.4 Estimated GFR > 60 Random Glucose 130 H Calcium 9.1 B-Natriuretic Peptide 772 H Urine Color Urine Appearance Urine pH Ur Specific [place] Urine Protein Urine Glucose (UA) Urine Ketones Urine Blood Urine Nitrite Ur Leukocyte Esterase 09/16/21 11:29 MCV MCH MCHC RDW Plt Count MPV Absolute Nucleated RBC Nucleated RBC % (auto) Anion Gap Estim Creat Clear Calc Estimated GFR Random Glucose Calcium B-Natriuretic Peptide Urine Color YELLOW Urine Appearance HAZY Urine pH 6.0 Ur Specific [place] 1.015 Urine Protein TRACE Urine Glucose (UA) NEG Urine Ketones NEG Urine Blood NEG Urine Nitrite NEG Ur Leukocyte Esterase NEG Microbiology Microbiology Results: Microbiology 09/15/21 09:08 Blood - Venous Blood Culture - Preliminary Prelim: GPC Gram Stain only 09/15/21 09:08 Blood - Venous Blood Culture - Preliminary Prelim: GPC Gram Stain only 09/14/21 09:36 Blood - Venous Blood Culture - Final Methicillin Res Staph Aureus 09/14/21 09:36 Blood - Venous Blood Culture - Final Methicillin Res Staph Aureus 09/08/21 07:40 Blood - Venous Blood Culture - Final No growth after 5 days. 09/08/21 07:29 Blood - Venous Blood Culture - Final No growth after 5 days. 09/08/21 00:00 Urine clean catch - Urine nieto top Urine Culture - Final Quality Stroke Does the patient have a stroke diagnosis?: No VTE Prior VTE?: No VTE Risk Level:: Medical - moderate - high VTE Device Contraindication: Treatment Not Indicated VTE Drug Contraindication: N/A - Med Ordered
[2021-09-16] MEDS: traMADoL HCL 50 MG TABLET 100 MG PO ×2 (14:05→20:20)
[2021-09-16] MEDS: Sennosides 8.6 MG TABLET 17.2 MG PO (20:20)
[2021-09-17] VITALS (12 sets, daily range): BP systolic 136–165; BP diastolic 64–87; PULSE 71–86; RESP 16–18; TEMP 36.1–36.9; O2SAT 93–97
[2021-09-17] MEDS: Enoxaparin Sodium 80 MG/0.8 ML SYRINGE 65 MG SUBCUT ×2 (00:22→12:13)
[2021-09-17] MEDS: traMADoL HCL 50 MG TABLET 100 MG PO (03:18)
[2021-09-17] MEDS: methylPREDNISolone Sod Succ 40 MG/ML VIAL IVPUSH ×2 (06:17→18:42)
[2021-09-17] MEDS: Levothyroxine Sodium 150 MCG TABLET PO (06:17)
[2021-09-17 06:42] LABS: Hemoglobin 10.5 g/dl (12.0-16.0); Mean Corpuscular Hemoglobin 28.7 pg (27.0-33.0); Mean Corpuscular Volume 95.6 fL (80-98); Mean Platelet Volume 11.6 fL (9.4-12.3); Platelet Count 360 X10*3/uL (160-400); Red Blood Count 3.66 X10*6/uL (4.20-5.50); Red Cell Distribution Width 17.9 % (11.0-16.0); White Blood Count 13.1 X10*3/uL (4.8-10.8)
[2021-09-17 06:58] LABS: Anion Gap 14 (12-20); Blood Urea Nitrogen 15 mg/dL (9-16); Calcium 9.4 mg/dL (8.4-10.2); Carbon Dioxide 36 mmol/L (22-29); Chloride 98 mmol/L (96-108); Estimated Glomerular Filt Rate > 60; Glucose Random 182 mg/dL (60-115); Sodium 144 mmol/L (135-145)
[2021-09-17] MEDS: Albuterol/Iprat 2.5/0.5MG 3 ML AMPUL.NEB INHALE ×3 (07:42→18:44)
[2021-09-17] MEDS: Metoprolol Succinate ER 25 MG TAB.ER.24H 75 MG PO (09:32)
[2021-09-17] MEDS: Omeprazole 20 MG CAPSULE.DR PO ×2 (09:33→21:48)
[2021-09-17] MEDS: Cyanocobalamin (Vitamin B-12) 1,000 MCG TABLET 1000 MCG PO (09:33)
[2021-09-17] MEDS: Ferrous Sulfate 324 MG TABLET.DR PO (09:33)
[2021-09-17] MEDS: UrsodioL 300 MG CAPSULE 600 MG PO ×2 (09:33→21:49)
[2021-09-17] MEDS: Cholecalciferol (Vitamin D3) 25 MCG TABLET PO (09:33)
[2021-09-17] MEDS: LORazepam 1 MG TABLET PO ×2 (09:33→21:49)
[2021-09-17] MEDS: dilTIAZem HCL CD 120 MG CAP.ER.DEG PO (09:33)
[2021-09-17] MEDS: DULoxetine HCl 30 MG CAPSULE.DR PO ×2 (09:33→21:48)
[2021-09-17] MEDS: Furosemide 40 MG TABLET PO (09:33)
[2021-09-17] MEDS: vancomycin HCL 1,000 MG in 0.9 % Sodium Chloride 250 ML 270 MG IV (09:34)
[2021-09-17 09:35] LABS: Vancomycin Trough 8.6 mcg/mL (10.0-20.0)
[2021-09-17] MEDS: 0.9 % Sodium Chloride Flush 3 ML SYRINGE IVFLUSH ×3 (09:35→21:52)
[2021-09-17] MEDS: Lidocaine 4 % Patch ADH..PATCH 1 PATCH TRANSDERMA (09:35)
[2021-09-17] MEDS: Nystatin Powder 15 GM BOTTLE 1 APPL TOPICAL ×2 (09:36→21:54)
[2021-09-17] MEDS: Artificial Tears 15 ML DROPS 1 DROP EYE-BOTH ×2 (09:36→21:54)
--- NOTE | 2021-09-17 13:54 | PM.IMPN ---
Progress Note: A&P (1) Pneumonia: Status: Acute <Nimisha Ramesh NP - Last Filed: 09/17/21 16:26> (2) MRSA (methicillin resistant staph aureus) culture positive: Status: Acute <Nimisha Ramesh NP - Last Filed: 09/17/21 16:26> Assessment and Plan: This is a 76 yo F with multiple medical problems including COPD/Chronic resp. failure with hypoxia on 2-3L, CAD - s/p CABG, A. Fib on coumadin, SOTERO/GAVE/PBC/Colon Ca - s/p resection, L hip fx repaired at [facility] in Jun 2021 who presents from [facility] after ? slipping out of bed / fall (unwitnessed) resulting in a L hip Fx. She will be admitted for further treatment Bacteremia. MRSA Start vancomycin Repeat cultures pending chest CT negative for consolidation, u/a negative Will discuss with ID regarding EKATERINA Will need vancomycin and PICC line for 6-8 weeks once neg cx Rifampin added will recheck echo to r/o endocarditis Possible source could be hip hardware, will assess after echo Pneumonia. No evidence of sepsis. tachycardia r/t afib/breathing treatments, not sepsis CXR showing atelectasis vs pneumonia but CT not showing consolidation IV ceftriaxone.? Initially on Azithromycin however now with bacteremia, vancomycin ordered and azithromycin stopped follow blood cultures Acute on Chronic HFpEF.? BNP trending down EF low to normal; moderately decreased right ventricular EF po lasix was on hold since admission for FRAN. renal function improved, BNP increased continue lasix monitor fluid status closely, uptitrate lasix if needed Acute COPD exacerbation per HCP, patient does not use oxygen chronically at home, but only on a prn basis supplemential o2, wean as tolerated scheduled and prn breathing treatments continue systemic steroids left Rib fx pain not adequately controlled concern for delirium with narcotics will trial IV tylenol, now to oral Tylenol lidocaine patch, prn ultram L subcap. fem fx with superior displacement seen by both Pulm and Cardiac - deemed high risk d/w ortho - case cancelled for now (will perform in 2-3 weeks). hip surgery is not urgent per ortho and will likely put patient at unnecessary risk given her pain and immobility from the rib fracture. interval may give rib time to heal for pt to better participate in PT following surgery. A. Fib RVR HR controlled. initially treated with cardizem drip on metoprolol 75 daily, po cardizem 120 added restart anticoagluation - will use lovenox 1mg/kg for the time being until her surgery Delirium. intermittent due to hospitalization / acute illness redirect as much as possible Ativan CAD ECHO showing low normal LVEF and WMA, mod tricuspid regurgitation. at high risk for surgery due to above - un-modifiable Chronic anemia underlying GAVE h/o requiring multiple transfusions in the past H/H stable FRAN resolved due to hypoperfusion Hypothyroid synthroid PBC ursodial DVT prophylaxis with Full Code Andra (Niece) is HCP [phone] Fish The above was discussed in detail with the patient's niece Andra 09/13; update given today 09/14, 09/17 <Nimisha Raemsh NP - Last Filed: 09/17/21 16:26> This is a 76 yo F with multiple medical problems including COPD/Chronic resp. failure with hypoxia on 2-3L, CAD - s/p CABG, A. Fib on coumadin, SOTERO/GAVE/PBC/Colon Ca - s/p resection, L hip fx repaired at [facility] in Jun 2021 who presents from [facility] after ? slipping out of bed / fall (unwitnessed) resulting in a L hip Fx. She will be admitted for further treatment Bacteremia. MRSA Start vancomycin Repeat cultures pending chest CT negative for consolidation, u/a negative Will discuss with ID regarding EKATERINA Will need vancomycin and PICC line for 6-8 weeks once neg cx Rifampin added will recheck echo to r/o endocarditis Possible source could be hip hardware, will assess after echo Pneumonia. No evidence of sepsis. tachycardia r/t afib/breathing treatments, not sepsis CXR showing atelectasis vs pneumonia but CT not showing consolidation IV ceftriaxone.? Initially on Azithromycin however now with bacteremia, vancomycin ordered and azithromycin stopped follow blood cultures Acute on Chronic HFpEF.? BNP trending down EF low to normal; moderately decreased right ventricular EF po lasix was on hold since admission for FRAN. renal function improved, BNP increased continue lasix monitor fluid status closely, uptitrate lasix if needed Acute COPD exacerbation per HCP, patient does not use oxygen chronically at home, but only on a prn basis supplemential o2, wean as tolerated scheduled and prn breathing treatments continue systemic steroids left Rib fx pain not adequately controlled concern for delirium with narcotics will trial IV tylenol, now to oral Tylenol lidocaine patch, prn ultram L subcap. fem fx with superior displacement seen by both Pulm and Cardiac - deemed high risk d/w ortho - case cancelled for now (will perform in 2-3 weeks). hip surgery is not urgent per ortho and will likely put patient at unnecessary risk given her pain and immobility from the rib fracture. interval may give rib time to heal for pt to better participate in PT following surgery. A. Fib RVR HR controlled. initially treated with cardizem drip on metoprolol 75 daily, po cardizem 120 added restart anticoagluation - will use lovenox 1mg/kg for the time being until her surgery Delirium. intermittent due to hospitalization / acute illness redirect as much as possible Ativan CAD ECHO showing low normal LVEF and WMA, mod tricuspid regurgitation. at high risk for surgery due to above - un-modifiable Chronic anemia underlying GAVE h/o requiring multiple transfusions in the past H/H stable FRAN resolved due to hypoperfusion Hypothyroid synthroid PBC ursodial DVT prophylaxis with Full Code Andra (Niece) is HCP [phone] Fish The above was discussed in detail with the patient's niece Andra 09/13; update given today 09/14, 09/17 Attending Attestation: DOS: 09/17/21 Patient seen and examined. Case discussed with the mid-level provider. Agree with the assessment and plan as documented above. <Diogo Fish MD - Last Filed: 09/18/21 16:11> Subjective Subjective Date of Service: 09/17/21 <Nimisha Ramesh NP - Last Filed: 09/17/21 16:26> 09/18/21 <Diogo Fish MD - Last Filed: 09/18/21 16:11> Review of Systems Follow up MRSA bacteremia, PNA Doing well, no sob still with cough some rib pain, but better <Nimisha Ramesh NP - Last Filed: 09/17/21 16:26> Physical Exam Vital Signs: Vital Signs: Last Vital Signs Temp 96.9 F 09/17/21 10:54 Pulse 86 09/17/21 10:54 Resp 16 09/17/21 10:54 BP 140/73 H 09/17/21 10:54 Pulse Ox 95 09/17/21 10:54 Body Mass Index 20.9 <Nimisha Ramesh NP - Last Filed: 09/17/21 16:26> Appearing in no acute distress lung sounds are clear to auscultation heart regular rate rhythm, clear S1, S2 positive bowel sounds, abdomen is soft, nontender neuro patient is alert x3, no focal deficits <Nimisha Ramesh NP - Last Filed: 09/17/21 16:26> Objective Data Current Medications Albuterol/Ipratropium (Albuterol/Iprat 2.5/0.5mg 3 Ml Ampul.Neb) 3 ml INHALE RQ6H WHILE AWAKE [facility] Last Admin: 09/17/21 07:42 Dose: 3 ml Documented by: Artificial Tears (Artificial Tears 15 Ml Drops) 1 drop EYE-BOTH BID [facility] Last Admin: 09/17/21 09:36 Dose: 1 drop Documented by: Cyanocobalamin (Cyanocobalamin (Vitamin B-12) 1,000 Mcg Tablet) 1,000 mcg PO DAILY [facility] Last Admin: 09/17/21 09:33 Dose: 1,000 mcg Documented by: Diltiazem HCl (Diltiazem Hcl Cd 120 Mg Cap.Er.Deg) 120 mg PO DAILY [facility]; Protocol Last Admin: 09/17/21 09:33 Dose: 120 mg Documented by: Duloxetine HCl (Duloxetine Hcl 30 Mg Capsule.) 30 mg PO BID [facility] Last Admin: 09/17/21 09:33 Dose: 30 mg Documented by: Enoxaparin Sodium (Enoxaparin Sodium 80 Mg/0.8 Ml Syringe) 65 mg SUBCUT Q12H [facility] Last Admin: 09/17/21 12:13 Dose: 65 mg Documented by: Ferrous Sulfate (Ferrous Sulfate 324 Mg Tablet.) 324 mg PO DAILY [facility] Last Admin: 09/17/21 09:33 Dose: 324 mg Documented by: Furosemide (Furosemide 40 Mg Tablet) 40 mg PO DAILY [facility]; Protocol Last Admin: 09/17/21 09:33 Dose: 40 mg Documented by: Guaifenesin (Guaifenesin 100 Mg/5 Ml Liquid) 5 ml PO Q4H PRN PRN Reason: Cough Last Admin: 09/16/21 08:52 Dose: 5 ml Documented by: Vancomycin HCl 1,000 mg/ (Sodium Chloride) 270 mls @ 270 mls/hr IV Q24H [facility] Last Infusion: 09/17/21 11:32 Dose: Infused Documented by: Levothyroxine Sodium (Levothyroxine Sodium 150 Mcg Tablet) 150 mcg PO DAILY@0630 [facility] Last Admin: 09/17/21 06:17 Dose: 150 mcg Documented by: Lidocaine (Lidocaine 4 % Patch Adh..Patch) 1 patch TRANSDERMA DAILY [facility]; Protocol Last Admin: 09/17/21 09:35 Dose: 1 patch Documented by: Lorazepam (Lorazepam 1 Mg Tablet) 1 mg PO BID [facility] Last Admin: 09/17/21 09:33 Dose: 1 mg Documented by: Methylprednisolone Sodium Succinate (Methylprednisolone Sod Succ 40 Mg/Ml Vial) 40 mg IVPUSH Q12H [facility] Last Admin: 09/17/21 06:17 Dose: 40 mg Documented by: Metoprolol Succinate (Metoprolol Succinate Er 25 Mg Tab.Er.24h) 75 mg PO DAILY [facility]; Protocol Last Admin: 09/17/21 09:32 Dose: 75 mg Documented by: Nystatin (Nystatin Powder 15 Gm Bottle) 1 appl TOPICAL BID [facility]; Protocol Last Admin: 09/17/21 09:36 Dose: 1 appl Documented by: Omeprazole (Omeprazole 20 Mg Capsule.Dr) 20 mg PO BID [facility] Last Admin: 09/17/21 09:33 Dose: 20 mg Documented by: Ondansetron HCl (Ondansetron Hcl 4 Mg/2 Ml Vial) 4 mg IVPUSH Q8H PRN PRN Reason: Nausea and Vomiting Last Admin: 09/08/21 12:34 Dose: 4 mg Documented by: Pharmacy Consult (Consult Rx Vancomycin Dosing) 1 each MISCELLANE DAILY PRN PRN Reason: Consult order Senna (Sennosides 8.6 Mg Tablet) 17.2 mg PO BEDTIME [facility] Last Admin: 09/16/21 20:20 Dose: 17.2 mg Documented by: Senna (Sennosides 8.6 Mg Tablet) 17.2 mg PO Q24H PRN PRN Reason: constipation Sodium Chloride (0.9 % Sodium Chloride Flush 3 Ml Syringe) 3 ml IVFLUSH QSHIFT [facility] Last Admin: 09/17/21 09:35 Dose: 3 ml Documented by: Tiotropium [place] (Tiotropium [place] 18 Mcg Cap.W.Dev) 1 puff INHALE DAILY [facility] Last Admin: 09/17/21 07:42 Dose: 1 puff Documented by: Tramadol HCl (Tramadol Hcl 50 Mg Tablet) 100 mg PO Q6H PRN PRN Reason: Pain, Mild (Pain Scale 1-3) Last Admin: 09/17/21 03:18 Dose: 100 mg Documented by: Ursodiol (Ursodiol 300 Mg Capsule) 600 mg PO BID [facility] Last Admin: 09/17/21 09:33 Dose: 600 mg Documented by: Vitamin D (Cholecalciferol (Vitamin D3) 25 Mcg Tablet) 25 mcg PO DAILY [facility] Last Admin: 09/17/21 09:33 Dose: 25 mcg Documented by: <Nimisha Ramesh NP - Last Filed: 09/17/21 16:26> Labs CBC & Chem 7: : 09/18/21 05:32 09/18/21 05:32 <Nimisha Ramesh NP - Last Filed: 09/17/21 16:26> Labs: Laboratory Results - last 24 hr 09/17/21 09/17/21 09/17/21 05:48 05:48 08:49 MCV 95.6 MCH 28.7 MCHC 30.0 L RDW 17.9 H Plt Count 360 MPV 11.6 Absolute Nucleated RBC 0.000 Nucleated RBC % (auto) 0.0 Anion Gap 14 Estim Creat Clear Calc 58.0 Estimated GFR > 60 Random Glucose 182 H Calcium 9.4 Vancomycin Trough 8.6 L <Nimisha Ramesh NP - Last Filed: 09/17/21 16:26> Microbiology Microbiology Results: Microbiology 09/15/21 09:08 Blood - Venous Blood Culture - Final Methicillin Res Staph Aureus 09/15/21 09:08 Blood - Venous Blood Culture - Final Methicillin Res Staph Aureus 09/14/21 09:36 Blood - Venous Blood Culture - Final Methicillin Res Staph Aureus 09/14/21 09:36 Blood - Venous Blood Culture - Final Methicillin Res Staph Aureus 09/08/21 07:40 Blood - Venous Blood Culture - Final No growth after 5 days. 09/08/21 07:29 Blood - Venous Blood Culture - Final No growth after 5 days. 09/08/21 00:00 Urine clean catch - Urine nieto top Urine Culture - Final <Nimisha Ramesh NP - Last Filed: 09/17/21 16:26> Quality Stroke Does the patient have a stroke diagnosis?: No <Nimisha Ramesh NP - Last Filed: 09/17/21 16:26> VTE Prior VTE?: No <Nimisha Ramesh NP - Last Filed: 09/17/21 16:26> VTE Risk Level:: Medical - moderate - high <Nimisha Ramesh NP - Last Filed: 09/17/21 16:26> VTE Device Contraindication: Treatment Not Indicated <Nimisha Ramesh NP - Last Filed: 09/17/21 16:26> VTE Drug Contraindication: N/A - Med Ordered <Nimisha Ramesh NP - Last Filed: 09/17/21 16:26>
--- NOTE | 2021-09-17 14:42 | PM.PNORT ---
Subjective Subjective Date of Service: 09/17/21 Principal diagnosis: left sub acture hip fracture Interval history: Pateint subjectively doing better today. Ribs still sore but able to mobilize without pain. Physical Exam Vital Signs: Vital Signs: Last Vital Signs Temp 96.9 F 09/17/21 10:54 Pulse 86 09/17/21 10:54 Resp 16 09/17/21 10:54 BP 140/73 H 09/17/21 10:54 Pulse Ox 95 09/17/21 10:54 Body Mass Index 20.9 Extrem: Other: no pain with passive hip ROM on the left Procedures Date of Service Date of Service: 09/17/21 Progress Note: A&P Assessment and plan (1) Closed subcapital fracture of femur: Status: Acute Assessment and Plan: This is a 76 yo F approximately 2 mo s/p ORIF for a non displaced left femoral head fracture. She was admitted for pain in her ribs after a fall and has been hospitalized with respiratory issues likely stemming in part from her b fracture. Recently bacteremic but stable. Her hip fracture was treated surgically at an outside facility but repeat imaging demonstrates femoral head displacement. This will likely need to be converted to a hemiarthroplasty but she may continue to ambulate as tolerated and , although it is displaced, there are still screws imparting some stability. When she is able to be more mobile with her rib fractures and when she has cleared her bacteremia she may consider hip surgery. Until then continue WBAT with PT. She can be seen in clinic to discuss and I don't anticipate operating on her during this hospitalization. (2) Left rib fracture: Status: Acute (3) Bacteremia: Status: Acute (4) Pneumonia: Status: Acute Fall Risk Details Current Medications: Current Medications Albuterol/Ipratropium (Albuterol/Iprat 2.5/0.5mg 3 Ml Ampul.Neb) 3 ml INHALE RQ6H WHILE AWAKE [facility] Last Admin: 09/17/21 07:42 Dose: 3 ml Documented by: Artificial Tears (Artificial Tears 15 Ml Drops) 1 drop EYE-BOTH BID [facility] Last Admin: 09/17/21 09:36 Dose: 1 drop Documented by: Cyanocobalamin (Cyanocobalamin (Vitamin B-12) 1,000 Mcg Tablet) 1,000 mcg PO DAILY [facility] Last Admin: 09/17/21 09:33 Dose: 1,000 mcg Documented by: Diltiazem HCl (Diltiazem Hcl Cd 120 Mg Cap.Er.Deg) 120 mg PO DAILY [facility]; Protocol Last Admin: 09/17/21 09:33 Dose: 120 mg Documented by: Duloxetine HCl (Duloxetine Hcl 30 Mg Capsule.) 30 mg PO BID [facility] Last Admin: 09/17/21 09:33 Dose: 30 mg Documented by: Enoxaparin Sodium (Enoxaparin Sodium 80 Mg/0.8 Ml Syringe) 65 mg SUBCUT Q12H [facility] Last Admin: 09/17/21 12:13 Dose: 65 mg Documented by: Ferrous Sulfate (Ferrous Sulfate 324 Mg Tablet.) 324 mg PO DAILY [facility] Last Admin: 09/17/21 09:33 Dose: 324 mg Documented by: Furosemide (Furosemide 40 Mg Tablet) 40 mg PO DAILY [facility]; Protocol Last Admin: 09/17/21 09:33 Dose: 40 mg Documented by: Guaifenesin (Guaifenesin 100 Mg/5 Ml Liquid) 5 ml PO Q4H PRN PRN Reason: Cough Last Admin: 09/16/21 08:52 Dose: 5 ml Documented by: Vancomycin HCl 1,000 mg/ (Sodium Chloride) 270 mls @ 270 mls/hr IV Q24H [facility] Last Infusion: 09/17/21 11:32 Dose: Infused Documented by: Levothyroxine Sodium (Levothyroxine Sodium 150 Mcg Tablet) 150 mcg PO DAILY@0630 [facility] Last Admin: 09/17/21 06:17 Dose: 150 mcg Documented by: Lidocaine (Lidocaine 4 % Patch Adh..Patch) 1 patch TRANSDERMA DAILY [facility]; Protocol Last Admin: 09/17/21 09:35 Dose: 1 patch Documented by: Lorazepam (Lorazepam 1 Mg Tablet) 1 mg PO BID [facility] Last Admin: 09/17/21 09:33 Dose: 1 mg Documented by: Methylprednisolone Sodium Succinate (Methylprednisolone Sod Succ 40 Mg/Ml Vial) 40 mg IVPUSH Q12H [facility] Last Admin: 09/17/21 06:17 Dose: 40 mg Documented by: Metoprolol Succinate (Metoprolol Succinate Er 25 Mg Tab.Er.24h) 75 mg PO DAILY [facility]; Protocol Last Admin: 09/17/21 09:32 Dose: 75 mg Documented by: Nystatin (Nystatin Powder 15 Gm Bottle) 1 appl TOPICAL BID [facility]; Protocol Last Admin: 09/17/21 09:36 Dose: 1 appl Documented by: Omeprazole (Omeprazole 20 Mg Capsule.) 20 mg PO BID [facility] Last Admin: 09/17/21 09:33 Dose: 20 mg Documented by: Ondansetron HCl (Ondansetron Hcl 4 Mg/2 Ml Vial) 4 mg IVPUSH Q8H PRN PRN Reason: Nausea and Vomiting Last Admin: 09/08/21 12:34 Dose: 4 mg Documented by: Pharmacy Consult (Consult Rx Vancomycin Dosing) 1 each MISCELLANE DAILY PRN PRN Reason: Consult order Senna (Sennosides 8.6 Mg Tablet) 17.2 mg PO BEDTIME [facility] Last Admin: 09/16/21 20:20 Dose: 17.2 mg Documented by: Senna (Sennosides 8.6 Mg Tablet) 17.2 mg PO Q24H PRN PRN Reason: constipation Sodium Chloride (0.9 % Sodium Chloride Flush 3 Ml Syringe) 3 ml IVFLUSH QSHIFT [facility] Last Admin: 09/17/21 09:35 Dose: 3 ml Documented by: Tiotropium [place] (Tiotropium [place] 18 Mcg Cap.W.Dev) 1 puff INHALE DAILY [facility] Last Admin: 09/17/21 07:42 Dose: 1 puff Documented by: Tramadol HCl (Tramadol Hcl 50 Mg Tablet) 100 mg PO Q6H PRN PRN Reason: Pain, Mild (Pain Scale 1-3) Last Admin: 09/17/21 03:18 Dose: 100 mg Documented by: Ursodiol (Ursodiol 300 Mg Capsule) 600 mg PO BID [facility] Last Admin: 09/17/21 09:33 Dose: 600 mg Documented by: Vitamin D (Cholecalciferol (Vitamin D3) 25 Mcg Tablet) 25 mcg PO DAILY [facility] Last Admin: 09/17/21 09:33 Dose: 25 mcg Documented by: Time Spent With Patient Time: Total time spent is greater than 50% in coordination of care (as documented) at patient's floor/unit and/or counseling patient: Time with patient: 15 - 24 minutes Quality Stroke Does the patient have a stroke diagnosis?: No VTE Prior VTE?: No VTE Risk Level:: Medical - moderate - high VTE Device Contraindication: Treatment Not Indicated VTE Drug Contraindication: N/A - Med Ordered
--- NOTE | 2021-09-17 15:14 | P.CNID_ITS ---
History of Present Illness Data of Consult Service Date: 09/17/21 Requesting physician: Nimisha Ramesh Primary Care Provider: Kavin Toscano MD HPI Reason for consult: MRSA bacteremia She presents with weakness as well as left leg swelling. She has had fall She had repair fracture left subcapital two months ago,ORIF. Now she falls and has fracture and has screws in place from earlier surgery Blood MRSA Review of Systems Review of Systems: Yes all other systems are reviewed and are negative PMFSH Past Medical History Medical History Afib Atherosclerotic cardiovascular disease CAD (coronary artery disease) Chronic respiratory failure with hypoxia Colon cancer COPD (chronic obstructive pulmonary disease) Fall GAVE (gastric antral vascular ectasia) Hypertension Iron deficiency anemia PAF (paroxysmal atrial fibrillation) Primary biliary cirrhosis [place] Surgical History Surgical History H/O pneumonectomy Hx of CABG Social History Social History Household Members: Other Household Members Other:: patient from facility Housing: Longterm Do you presently have visiting nurse or other home services: No Unable to assess alcohol history related to: Unknown Patient Tobacco Use Status: Tobacco use Unknown service: No Current occupational status: retired Meds Allergies Allergy/AdvReac Type Severity Reaction Status Date / Time No Known Allergies Allergy Unverified 09/08/21 00:27 Active Medications: Current Medications Albuterol/Ipratropium (Albuterol/Iprat 2.5/0.5mg 3 Ml Ampul.Neb) 3 ml INHALE RQ6H WHILE AWAKE [facility] Last Admin: 09/17/21 14:53 Dose: 3 ml Documented by: Artificial Tears (Artificial Tears 15 Ml Drops) 1 drop EYE-BOTH BID [facility] Last Admin: 09/17/21 09:36 Dose: 1 drop Documented by: Cyanocobalamin (Cyanocobalamin (Vitamin B-12) 1,000 Mcg Tablet) 1,000 mcg PO DAILY [facility] Last Admin: 09/17/21 09:33 Dose: 1,000 mcg Documented by: Diltiazem HCl (Diltiazem Hcl Cd 120 Mg Cap.Er.Deg) 120 mg PO DAILY [facility]; Protocol Last Admin: 09/17/21 09:33 Dose: 120 mg Documented by: Duloxetine HCl (Duloxetine Hcl 30 Mg Capsule.) 30 mg PO BID [facility] Last Admin: 09/17/21 09:33 Dose: 30 mg Documented by: Enoxaparin Sodium (Enoxaparin Sodium 80 Mg/0.8 Ml Syringe) 65 mg SUBCUT Q12H [facility] Last Admin: 09/17/21 12:13 Dose: 65 mg Documented by: Ferrous Sulfate (Ferrous Sulfate 324 Mg Tablet.) 324 mg PO DAILY [facility] Last Admin: 09/17/21 09:33 Dose: 324 mg Documented by: Furosemide (Furosemide 40 Mg Tablet) 40 mg PO DAILY [facility]; Protocol Last Admin: 09/17/21 09:33 Dose: 40 mg Documented by: Guaifenesin (Guaifenesin 100 Mg/5 Ml Liquid) 5 ml PO Q4H PRN PRN Reason: Cough Last Admin: 09/16/21 08:52 Dose: 5 ml Documented by: Vancomycin HCl 1,000 mg/ (Sodium Chloride) 270 mls @ 270 mls/hr IV Q24H [facility] Last Infusion: 09/17/21 11:32 Dose: Infused Documented by: Levothyroxine Sodium (Levothyroxine Sodium 150 Mcg Tablet) 150 mcg PO DAILY@0630 [facility] Last Admin: 09/17/21 06:17 Dose: 150 mcg Documented by: Lidocaine (Lidocaine 4 % Patch Adh..Patch) 1 patch TRANSDERMA DAILY [facility]; Protocol Last Admin: 09/17/21 09:35 Dose: 1 patch Documented by: Lorazepam (Lorazepam 1 Mg Tablet) 1 mg PO BID [facility] Last Admin: 09/17/21 09:33 Dose: 1 mg Documented by: Methylprednisolone Sodium Succinate (Methylprednisolone Sod Succ 40 Mg/Ml Vial) 40 mg IVPUSH Q12H [facility] Last Admin: 09/17/21 06:17 Dose: 40 mg Documented by: Metoprolol Succinate (Metoprolol Succinate Er 25 Mg Tab.Er.24h) 75 mg PO DAILY [facility]; Protocol Last Admin: 09/17/21 09:32 Dose: 75 mg Documented by: Nystatin (Nystatin Powder 15 Gm Bottle) 1 appl TOPICAL BID [facility]; Protocol Last Admin: 09/17/21 09:36 Dose: 1 appl Documented by: Omeprazole (Omeprazole 20 Mg Capsule.) 20 mg PO BID [facility] Last Admin: 09/17/21 09:33 Dose: 20 mg Documented by: Ondansetron HCl (Ondansetron Hcl 4 Mg/2 Ml Vial) 4 mg IVPUSH Q8H PRN PRN Reason: Nausea and Vomiting Last Admin: 09/08/21 12:34 Dose: 4 mg Documented by: Pharmacy Consult (Consult Rx Vancomycin Dosing) 1 each MISCELLANE DAILY PRN PRN Reason: Consult order Senna (Sennosides 8.6 Mg Tablet) 17.2 mg PO BEDTIME [facility] Last Admin: 09/16/21 20:20 Dose: 17.2 mg Documented by: Senna (Sennosides 8.6 Mg Tablet) 17.2 mg PO Q24H PRN PRN Reason: constipation Sodium Chloride (0.9 % Sodium Chloride Flush 3 Ml Syringe) 3 ml IVFLUSH QSHIFT [facility] Last Admin: 09/17/21 09:35 Dose: 3 ml Documented by: Tiotropium [place] (Tiotropium [place] 18 Mcg Cap.W.Dev) 1 puff INHALE DAILY [facility] Last Admin: 09/17/21 07:42 Dose: 1 puff Documented by: Tramadol HCl (Tramadol Hcl 50 Mg Tablet) 100 mg PO Q6H PRN PRN Reason: Pain, Mild (Pain Scale 1-3) Last Admin: 09/17/21 03:18 Dose: 100 mg Documented by: Ursodiol (Ursodiol 300 Mg Capsule) 600 mg PO BID [facility] Last Admin: 09/17/21 09:33 Dose: 600 mg Documented by: Vitamin D (Cholecalciferol (Vitamin D3) 25 Mcg Tablet) 25 mcg PO DAILY [facility] Last Admin: 09/17/21 09:33 Dose: 25 mcg Documented by: Home Medications Medication Instructions Recorded Confirmed Last Taken Type acetaminophen 325 mg tablet 650 mg PO Q6H PRN 09/08/21 09/08/21 Unknown History albuterol sulfate 90 mcg/actuation 2 puff INHALATION Q4H PRN 09/08/21 09/08/21 Unknown History aerosol inhaler cholecalciferol (vitamin D3) 25 25 mcg PO DAILY 09/08/21 09/08/21 Unknown History mcg (1,000 unit) tablet jzdotwx-ljacxzhidp-NPM-caffeine 30 1 cap PO Q12H PRN 09/08/21 09/08/21 Unknown History mg-50 mg-325 mg-40 mg capsule cyanocobalamin (vitamin B-12) 1,000 mcg PO DAILY 09/08/21 09/08/21 Unknown History 1,000 mcg tablet docusate sodium 100 mg capsule 100 mg PO BID 09/08/21 09/08/21 Unknown History (Colace) duloxetine 30 mg capsule,delayed 30 mg PO BID 09/08/21 09/08/21 Unknown History release ferrous sulfate 325 mg (65 mg 325 mg PO DAILY 09/08/21 09/08/21 Unknown History iron) tablet guaifenesin 100 mg/5 mL oral liquid 200 mg PO Q4H PRN 09/08/21 09/08/21 Unknown History levothyroxine 150 mcg tablet 150 mcg PO DAILY@0630 09/08/21 09/08/21 Unknown History lorazepam 1 mg tablet 1 mg PO BID 09/08/21 09/08/21 Unknown History melatonin 3 mg tablet 6 mg PO BEDTIME 09/08/21 09/08/21 Unknown History metoprolol succinate 25 mg 75 mg PO DAILY 09/08/21 09/08/21 Unknown History tablet,extended release 24 hr miconazole nitrate 2 % topical 1 appl TOPICAL DAILY 09/08/21 09/08/21 Unknown History powder multivitamin 1 tab PO DAILY 09/08/21 09/08/21 Unknown History pantoprazole 40 mg tablet,delayed 40 mg PO BID 09/08/21 09/08/21 Unknown History release polyethylene glycol 3350 17 17 g PO DAILY 09/08/21 09/08/21 Unknown History gram/dose oral powder (Miralax) polyvinyl alcohol 1.4 % eye drops 1 drp OPHTHALMIC (EYE) BID 09/08/21 09/08/21 Unknown History (Artificial Tears (polyvinyl alcohol)) sennosides 8.6 mg tablet 17.2 mg PO BEDTIME 09/08/21 09/08/21 Unknown History tiotropium bromide 18 mcg capsule 1 cap INHALATION DAILY 09/08/21 09/08/21 Unknown History with inhalation device tramadol 50 mg tablet 50 mg PO Q6H PRN 09/08/21 09/08/21 Unknown History ursodiol 500 mg tablet 500 mg PO BID 09/08/21 09/08/21 Unknown History warfarin 5 mg tablet 5 mg PO DAILY 09/08/21 09/08/21 Unknown History Physical Exam Vital Signs: Vital Signs: Last Vital Signs Temp 96.9 F 09/17/21 10:54 Pulse 74 09/17/21 14:48 Resp 16 09/17/21 10:54 BP 140/73 H 09/17/21 10:54 Pulse Ox 95 09/17/21 10:54 Body Mass Index 20.9 Eyes: General: appearance normal, both eyes and all related structures Pupils: Equal, round and reactive pupils present Resp: Effort & Inspection: normal respiratory effort Cardio: Rate: regular rate Rhythm: regular rhythm GI: Palpation (GI): Soft to palpation and nontender Neuro: Cranial nerves: Yes Equal, round and reactive pupils present Extrem: Other: clear left skin over operative site pain on movement hip Results Labs CBC & Chem 7: 09/17/21 05:48 09/17/21 05:48 Labs: Short CBC 09/17/21 Range/Units 05:48 WBC 13.1 H (4.8-10.8) X10*3/uL Hgb 10.5 L (12.0-16.0) g/dl Hct 35.0 L (37-47) % Plt Count 360 (160-400) X10*3/uL BMP 09/17/21 05:48 Sodium 144 Potassium 4.0 Chloride 98 Carbon Dioxide 36 H BUN 15 Creatinine 0.79 Calcium 9.4 Microbiology Microbiology Results: Microbiology 09/15/21 09:08 Blood - Venous Blood Culture - Final Methicillin Res Staph Aureus 09/15/21 09:08 Blood - Venous Blood Culture - Final Methicillin Res Staph Aureus 09/14/21 09:36 Blood - Venous Blood Culture - Final Methicillin Res Staph Aureus 09/14/21 09:36 Blood - Venous Blood Culture - Final Methicillin Res Staph Aureus 09/08/21 07:40 Blood - Venous Blood Culture - Final No growth after 5 days. 09/08/21 07:29 Blood - Venous Blood Culture - Final No growth after 5 days. 09/08/21 00:00 Urine clean catch - Urine nieto top Urine Culture - Final Assessment and Plan (1) Closed subcapital fracture of femur: Status: Acute (2) Bacteremia: Status: Acute There is concern over MRSA bacteremia with recent hip fracture. She has pain in area although skin looks clear There is always concern over infected hip and pathologic fracture Endocarditis is a possibility Suggest Continue Vancomycin for six to eight weeks,follow levels Vancomycin trough or AUC per Pharmacy Add Rifampin 300 mg po bid,watch for drug interactions. Check echo evaluate endocarditis.
[2021-09-17] MEDS: Sennosides 8.6 MG TABLET 17.2 MG PO (21:47)
[2021-09-17] MEDS: rifAMPin 300 MG CAPSULE 600 MG PO (21:48)
[2021-09-18] VITALS (12 sets, daily range): BP systolic 130–170; BP diastolic 72–88; PULSE 58–101; RESP 16–20; TEMP 36–36.6; O2SAT 92–97
[2021-09-18] MEDS: Enoxaparin Sodium 80 MG/0.8 ML SYRINGE 65 MG SUBCUT ×2 (00:13→11:28)
[2021-09-18] MEDS: methylPREDNISolone Sod Succ 40 MG/ML VIAL IVPUSH ×2 (06:06→19:35)
[2021-09-18] MEDS: Levothyroxine Sodium 150 MCG TABLET PO (06:06)
[2021-09-18 06:08] LABS: Hematocrit 34.9 % (37-47); Hemoglobin 10.7 g/dl (12.0-16.0); Mean Corpuscular HGB Conc 30.7 g/dl (31.0-35.0); Mean Corpuscular Hemoglobin 29.2 pg (27.0-33.0); Mean Corpuscular Volume 95.1 fL (80-98); Mean Platelet Volume 11.2 fL (9.4-12.3); Platelet Count 327 X10*3/uL (160-400); Red Blood Count 3.67 X10*6/uL (4.20-5.50); Red Cell Distribution Width 17.6 % (11.0-16.0); White Blood Count 12.9 X10*3/uL (4.8-10.8)
[2021-09-18 06:27] LABS: Anion Gap 18 (12-20); Blood Urea Nitrogen 15 mg/dL (9-16); Carbon Dioxide 32 mmol/L (22-29); Chloride 97 mmol/L (96-108); Creatinine Clr Calc Pharmacy 64.5; Estimated Glomerular Filt Rate > 60; Glucose Random 137 mg/dL (60-115); Potassium 3.8 mmol/L (3.3-5.1); Sodium 143 mmol/L (135-145)
--- NOTE | 2021-09-18 06:47 | P.CDIC_ITS ---
CDI Concurrent Query Documentation Clarification: PHYSICIAN'S DOCUMENTATION REQUEST Date of Query: 09/18/21 0648 Patient Name: Alina Trujillo Admit Date: 09/08/21 Dear Doctor, A review of the medical record indicates additional documentation may be needed. Please review below and update the documentation accordingly. Clinical Indicators: Risk Factors/Clinical Indicators/Treatments H/H on 09/08/21: 10.3/32.5 H/H on 09/09/21: 8.9/29.3 Per Orthopedics: displaced femoral neck fracture screws intact. Plan for OR in 2 - 3 weeks Based on the above, could you clarify in the Progress Notes which of the following is the most likely type of anemia you are evaluating, treating, and/or monitoring? * Acute blood loss anemia * Acute blood loss anemia with baseline chronic anemia (specify type) * Anemia of chronic disease- indicate if neoplastic disease, CKD, or other * Chronic iron deficiency anemia due to blood loss * Other ? please specify * Unable to determine Use of terms such as suspected, likely, concern for, or probable (associated with a specific diagnosis that is being evaluated, monitored, or treated as if it exists) are acceptable and can be coded in the inpatient setting, when docume nted at the time of discharge. Thank you, Hallie Mccain RN Extension: [phone] Please use your independent medical judgment in providing your response. THIS QUERY IS PART OF THE PERMANENT MEDICAL RECORD Provider Response: Other Other Diagnosis: Acute on Chronic Anemia due to acute illness-- no evidence of blood loss, patients h/h stabilized without any blood product transfusion.
[2021-09-18] MEDS: Albuterol/Iprat 2.5/0.5MG 3 ML AMPUL.NEB INHALE ×3 (07:27→20:17)
--- NOTE | 2021-09-18 08:27 | PM.PNORT ---
Subjective Subjective Date of Service: 09/18/21 Principal diagnosis: left sub acture hip fracture Interval history: Patient resting comfortably in bed. No overnight events. Pain is well managed. In no acute distress. Physical Exam Vital Signs: Vital Signs: Last Vital Signs Temp 96.8 F 09/18/21 07:12 Pulse 76 09/18/21 07:27 Resp 19 09/18/21 07:12 BP 170/72 H 09/18/21 07:12 Pulse Ox 97 09/18/21 07:12 Body Mass Index 20.9 Const: General: cooperative, healthy appearing and no acute distress Resp: Effort & Inspection: normal respiratory effort and able to speak in complete sentences Cardio: Rate: regular rate Peripheral pulses: Peripheral pulses 2+ throughout GI: Palpation (GI): Soft to palpation Skin: Lesions: no lesions Rashes: no rashes Extrem: Other: No pain with passive ROM of the lt hip Procedures Date of Service Date of Service: 09/18/21 Progress Note: A&P Assessment and plan (1) Closed subcapital fracture of femur: Status: Acute Assessment and Plan: When patient is able to demonstrate better ambulation with her rib fractures and recovered from the bacteremia she may consider hip surgery. Until then continue WBAT with PT. She can be seen in clinic to discuss surgical intervention for her hip. Fall Risk Details Current Medications: Current Medications Albuterol/Ipratropium (Albuterol/Iprat 2.5/0.5mg 3 Ml Ampul.Neb) 3 ml INHALE RQ6H WHILE AWAKE [facility] Last Admin: 09/18/21 07:27 Dose: 3 ml Documented by: Artificial Tears (Artificial Tears 15 Ml Drops) 1 drop EYE-BOTH BID [facility] Last Admin: 09/17/21 21:54 Dose: 1 drop Documented by: Cyanocobalamin (Cyanocobalamin (Vitamin B-12) 1,000 Mcg Tablet) 1,000 mcg PO DAILY [facility] Last Admin: 09/17/21 09:33 Dose: 1,000 mcg Documented by: Diltiazem HCl (Diltiazem Hcl Cd 120 Mg Cap.Er.Deg) 120 mg PO DAILY [facility]; Protocol Last Admin: 09/17/21 09:33 Dose: 120 mg Documented by: Duloxetine HCl (Duloxetine Hcl 30 Mg Capsule.Dr) 30 mg PO BID [facility] Last Admin: 09/17/21 21:48 Dose: 30 mg Documented by: Enoxaparin Sodium (Enoxaparin Sodium 80 Mg/0.8 Ml Syringe) 65 mg SUBCUT Q12H [facility] Last Admin: 09/18/21 00:13 Dose: 65 mg Documented by: Ferrous Sulfate (Ferrous Sulfate 324 Mg Tablet.) 324 mg PO DAILY [facility] Last Admin: 09/17/21 09:33 Dose: 324 mg Documented by: Furosemide (Furosemide 40 Mg Tablet) 40 mg PO DAILY [facility]; Protocol Last Admin: 09/17/21 09:33 Dose: 40 mg Documented by: Guaifenesin (Guaifenesin 100 Mg/5 Ml Liquid) 5 ml PO Q4H PRN PRN Reason: Cough Last Admin: 09/16/21 08:52 Dose: 5 ml Documented by: Vancomycin HCl 1,000 mg/ (Sodium Chloride) 270 mls @ 270 mls/hr IV Q24H [facility] Last Infusion: 09/17/21 11:32 Dose: Infused Documented by: Levothyroxine Sodium (Levothyroxine Sodium 150 Mcg Tablet) 150 mcg PO DAILY@0630 [facility] Last Admin: 09/18/21 06:06 Dose: 150 mcg Documented by: Lidocaine (Lidocaine 4 % Patch Adh..Patch) 1 patch TRANSDERMA DAILY [facility]; Protocol Last Admin: 09/17/21 09:35 Dose: 1 patch Documented by: Lorazepam (Lorazepam 1 Mg Tablet) 1 mg PO BID [facility] Last Admin: 09/17/21 21:49 Dose: 1 mg Documented by: Methylprednisolone Sodium Succinate (Methylprednisolone Sod Succ 40 Mg/Ml Vial) 40 mg IVPUSH Q12H [facility] Last Admin: 09/18/21 06:06 Dose: 40 mg Documented by: Metoprolol Succinate (Metoprolol Succinate Er 25 Mg Tab.Er.24h) 75 mg PO DAILY [facility]; Protocol Last Admin: 09/17/21 09:32 Dose: 75 mg Documented by: Nystatin (Nystatin Powder 15 Gm Bottle) 1 appl TOPICAL BID [facility]; Protocol Last Admin: 09/17/21 21:54 Dose: 1 appl Documented by: Omeprazole (Omeprazole 20 Mg Capsule.) 20 mg PO BID [facility] Last Admin: 09/17/21 21:48 Dose: 20 mg Documented by: Ondansetron HCl (Ondansetron Hcl 4 Mg/2 Ml Vial) 4 mg IVPUSH Q8H PRN PRN Reason: Nausea and Vomiting Last Admin: 09/08/21 12:34 Dose: 4 mg Documented by: Pharmacy Consult (Consult Rx Vancomycin Dosing) 1 each MISCELLANE DAILY PRN PRN Reason: Consult order Rifampin (Rifampin 300 Mg Capsule) 600 mg PO BID [facility] Last Admin: 09/17/21 21:48 Dose: 600 mg Documented by: Senna (Sennosides 8.6 Mg Tablet) 17.2 mg PO BEDTIME [facility] Last Admin: 09/17/21 21:47 Dose: 17.2 mg Documented by: Senna (Sennosides 8.6 Mg Tablet) 17.2 mg PO Q24H PRN PRN Reason: constipation Sodium Chloride (0.9 % Sodium Chloride Flush 3 Ml Syringe) 3 ml IVFLUSH QSHIFT [facility] Last Admin: 09/17/21 21:52 Dose: 3 ml Documented by: Tiotropium [place] (Tiotropium [place] 18 Mcg Cap.W.Dev) 1 puff INHALE DAILY [facility] Last Admin: 09/18/21 07:27 Dose: 1 puff Documented by: Tramadol HCl (Tramadol Hcl 50 Mg Tablet) 100 mg PO Q6H PRN PRN Reason: Pain, Mild (Pain Scale 1-3) Last Admin: 09/17/21 03:18 Dose: 100 mg Documented by: Ursodiol (Ursodiol 300 Mg Capsule) 600 mg PO BID [facility] Last Admin: 09/17/21 21:49 Dose: 600 mg Documented by: Vitamin D (Cholecalciferol (Vitamin D3) 25 Mcg Tablet) 25 mcg PO DAILY [facility] Last Admin: 09/17/21 09:33 Dose: 25 mcg Documented by: Time Spent With Patient Time: Total time spent is greater than 50% in coordination of care (as documented) at patient's floor/unit and/or counseling patient: Time with patient: less than 15 minutes Quality Stroke Does the patient have a stroke diagnosis?: No VTE Prior VTE?: No VTE Risk Level:: Medical - moderate - high VTE Device Contraindication: Treatment Not Indicated VTE Drug Contraindication: N/A - Med Ordered
--- NOTE | 2021-09-18 08:40 | MHC.CM.PN ---
pt will need snf ultimately, either before her ortho surgery for bacteremia abx infusion if required or p surgery if long filler cigar roller machine abx therapy is not required and patient stays here until the surgery. refs. have been made. cm to cont. to follow.
[2021-09-18] MEDS: vancomycin HCL 1,000 MG in 0.9 % Sodium Chloride 250 ML 270 MG IV (10:03)
[2021-09-18] MEDS: 0.9 % Sodium Chloride Flush 3 ML SYRINGE IVFLUSH ×3 (10:03→21:08)
[2021-09-18] MEDS: dilTIAZem HCL CD 120 MG CAP.ER.DEG PO (10:04)
[2021-09-18] MEDS: Ferrous Sulfate 324 MG TABLET.DR PO (10:05)
[2021-09-18] MEDS: Omeprazole 20 MG CAPSULE.DR PO ×2 (10:05→21:06)
[2021-09-18] MEDS: Cholecalciferol (Vitamin D3) 25 MCG TABLET PO (10:05)
[2021-09-18] MEDS: UrsodioL 300 MG CAPSULE 600 MG PO ×2 (10:06→21:06)
[2021-09-18] MEDS: rifAMPin 300 MG CAPSULE 600 MG PO ×2 (10:06→21:05)
[2021-09-18] MEDS: LORazepam 1 MG TABLET PO ×2 (10:07→21:07)
[2021-09-18] MEDS: DULoxetine HCl 30 MG CAPSULE.DR PO ×2 (10:08→21:05)
[2021-09-18] MEDS: Cyanocobalamin (Vitamin B-12) 1,000 MCG TABLET 1000 MCG PO (10:08)
[2021-09-18] MEDS: Furosemide 40 MG TABLET PO (10:08)
[2021-09-18] MEDS: Metoprolol Succinate ER 25 MG TAB.ER.24H 75 MG PO (10:08)
[2021-09-18] MEDS: Lidocaine 4 % Patch ADH..PATCH 1 PATCH TRANSDERMA (10:09)
[2021-09-18] MEDS: Artificial Tears 15 ML DROPS 1 DROP EYE-BOTH ×2 (10:10→21:10)
[2021-09-18] MEDS: Nystatin Powder 15 GM BOTTLE 1 APPL TOPICAL ×2 (10:11→21:09)
--- NOTE | 2021-09-18 11:48 | MHC.CM.PN ---
i spoke c pt's niece, lindsey, today. she would like to keep pt at [facility] while she is recieving iv abx's d/t the fact that patient is more confused and deteriorating per lindsey's perspective. lindsey did say that if she improved then she would consider patient going to snf to recieve her iv abx's. [facility] her first choice, second is [facility]. i did let niece know that this conversation would likely be revisited in the near future. cm to cont. to follow.
--- NOTE | 2021-09-18 14:55 | P.PNIM_ITS ---
Subjective Subjective Date of Service: 09/18/21 <LEFTY Delatorre - Last Filed: 09/18/21 15:17> 09/18/21 <Diogo Fish MD - Last Filed: 09/18/21 16:29> Interval History: seen and examined this morning follow up for rib fracture, MRSA bacteremia feeling much improved today <LEFTY Delatorre - Last Filed: 09/18/21 15:17> Review of Systems Review of Systems: Yes all other systems are reviewed and are negative <LEFTY Delatorre - Last Filed: 09/18/21 15:17> Constitutional Constitutional: Denies chills and Denies fever(s) <LEFTY Delatorre - Last Filed: 09/18/21 15:17> Cardiovascular Cardiovascular: Denies chest pain <LEFTY Delatorre - Last Filed: 09/18/21 15:17> Respiratory Respiratory: Denies cough <LEFTY Delatorre - Last Filed: 09/18/21 15:17> Gastrointestinal Gastrointestinal: Denies abdominal pain <LEFTY Delatorre - Last Filed: 09/18/21 15:17> Physical Exam Vital Signs: Vital Signs: Last Vital Signs Temp 98 F 09/18/21 11:01 Pulse 101 H 09/18/21 11:01 Resp 20 09/18/21 11:01 BP 170/87 H 09/18/21 11:01 Pulse Ox 96 09/18/21 11:01 Body Mass Index 20.9 <LEFTY Delatorre - Last Filed: 09/18/21 15:17> Const: Other: appears uncomfortable <LEFTY Delatorre - Last Filed: 09/18/21 15:17> General: alert, awake and tired appearing <LEFTY Delatorre - Last Filed: 09/18/21 15:17> Nutritional Appearance: thin <LEFTY Delatorre - Last Filed: 09/18/21 15:17> HENMT: Head: Yes normocephalic and Yes atraumatic <LEFTY Delatorre - Last Filed: 09/18/21 15:17> Eyes: Sclerae: sclerae normal <LEFTY Dealtorre - Last Filed: 09/18/21 15:17> Pupils: Equal, round and reactive pupils present <LEFTY Delatorre - Last Filed: 09/18/21 15:17> Chest: Other: tenderness left side ribs <LEFTY Delatorre - Last Filed: 09/18/21 15:17> Chest palpation & inspection: normal inspection of the chest <LEFTY Delatorre - Last Filed: 09/18/21 15:17> Resp: Other: diminished breath sounds <LEFTY Delatorre - Last Filed: 09/18/21 15:17> Effort & Inspection: no respiratory distress <LEFTY Delatorre - Last Filed: 09/18/21 15:17> Cardio: Rate: regular rate <LEFTY Delatorre Last Filed: 09/18/21 15:17> Rhythm: abnormal rhythm irregularly irregular <LEFTY Delatorre - Last Filed: 09/18/21 15:17> GI: Palpation (GI): Soft to palpation and nontender <LEFTY Delatorre - Last Filed: 09/18/21 15:17> Neuro: Cranial nerves: Yes CN's II-XII intact bilaterally, Yes Equal, round and reactive pupils present and Yes Bilaterally intact EOM present <LEFTY Thrasher - Last Filed: 09/18/21 15:17> Extrem: General: Yes normal to inspection <LEFTY Delatorre - Last Filed: 09/18/21 15:17> Objective Data Active Medications Albuterol/Ipratropium (Albuterol/Iprat 2.5/0.5mg 3 Ml Ampul.Neb) 3 ml INHALE RQ6H WHILE AWAKE [facility] Last Admin: 09/18/21 07:27 Dose: 3 ml Documented by: GUERO Artificial Tears (Artificial Tears 15 Ml Drops) 1 drop EYE-BOTH BID [facility] Last Admin: 09/18/21 10:10 Dose: 1 drop Documented by: BRIGITTE Cyanocobalamin (Cyanocobalamin (Vitamin B-12) 1,000 Mcg Tablet) 1,000 mcg PO DAILY [facility] Last Admin: 09/18/21 10:08 Dose: 1,000 mcg Documented by: BRIGITTE Diltiazem HCl (Diltiazem Hcl Cd 120 Mg Cap.Er.Deg) 120 mg PO DAILY [facility]; Protocol Last Admin: 09/18/21 10:04 Dose: 120 mg Documented by: BRIGITTE Duloxetine HCl (Duloxetine Hcl 30 Mg Capsule.) 30 mg PO BID [facility] Last Admin: 09/18/21 10:08 Dose: 30 mg Documented by: BRIGITTE Enoxaparin Sodium (Enoxaparin Sodium 80 Mg/0.8 Ml Syringe) 65 mg SUBCUT Q12H [facility] Last Admin: 09/18/21 11:28 Dose: 65 mg Documented by: BRIGITTE Ferrous Sulfate (Ferrous Sulfate 324 Mg Tablet.) 324 mg PO DAILY [facility] Last Admin: 09/18/21 10:05 Dose: 324 mg Documented by: BRIGITTE Furosemide (Furosemide 40 Mg Tablet) 40 mg PO DAILY [facility]; Protocol Last Admin: 09/18/21 10:08 Dose: 40 mg Documented by: BRIGITTE Guaifenesin (Guaifenesin 100 Mg/5 Ml Liquid) 5 ml PO Q4H PRN PRN Reason: Cough Last Admin: 09/16/21 08:52 Dose: 5 ml Documented by: BROPedro Vancomycin HCl 1,000 mg/ (Sodium Chloride) 270 mls @ 270 mls/hr IV Q24H [facility] Last Infusion: 09/18/21 11:03 Dose: 0 mls/hr Documented by: BRIGITTE Levothyroxine Sodium (Levothyroxine Sodium 150 Mcg Tablet) 150 mcg PO DAILY@0630 [facility] Last Admin: 09/18/21 06:06 Dose: 150 mcg Documented by: MARINA Lidocaine (Lidocaine 4 % Patch Adh..Patch) 1 patch TRANSDERMA DAILY [facility]; Protocol Last Admin: 09/18/21 10:09 Dose: 1 patch Documented by: BRIGITTE Methylprednisolone Sodium Succinate (Methylprednisolone Sod Succ 40 Mg/Ml Vial) 40 mg IVPUSH Q12H [facility] Stop: 09/18/21 23:59 Last Admin: 09/18/21 06:06 Dose: 40 mg Documented by: MARINA Metoprolol Succinate (Metoprolol Succinate Er 25 Mg Tab.Er.24h) 75 mg PO DAILY [facility]; Protocol Last Admin: 09/18/21 10:08 Dose: 75 mg Documented by: BRIGITTE Nystatin (Nystatin Powder 15 Gm Bottle) 1 appl TOPICAL BID [facility]; Protocol Last Admin: 09/18/21 10:11 Dose: 1 appl Documented by: BRIGITTE Omeprazole (Omeprazole 20 Mg Capsule.Dr) 20 mg PO BID [facility] Last Admin: 09/18/21 10:05 Dose: 20 mg Documented by: BRIGITTE Ondansetron HCl (Ondansetron Hcl 4 Mg/2 Ml Vial) 4 mg IVPUSH Q8H PRN PRN Reason: Nausea and Vomiting Last Admin: 09/08/21 12:34 Dose: 4 mg Documented by: SABINE Pharmacy Consult (Consult Rx Vancomycin Dosing) 1 each MISCELLANE DAILY PRN PRN Reason: Consult order Prednisone (Prednisone 20 Mg Tablet) 40 mg PO DAILY [facility] Rifampin (Rifampin 300 Mg Capsule) 600 mg PO BID [facility] Last Admin: 09/18/21 10:06 Dose: 600 mg Documented by: BRIGITTE Senna (Sennosides 8.6 Mg Tablet) 17.2 mg PO BEDTIME [facility] Last Admin: 09/17/21 21:47 Dose: 17.2 mg Documented by: MARINA Senna (Sennosides 8.6 Mg Tablet) 17.2 mg PO Q24H PRN PRN Reason: constipation Sodium Chloride (0.9 % Sodium Chloride Flush 3 Ml Syringe) 3 ml IVFLUSH QSHIFT [facility] Last Admin: 09/18/21 10:03 Dose: 3 ml Documented by: BRIGITTE Tiotropium Fulton (Tiotropium Fulton 18 Mcg Cap.W.Dev) 1 puff INHALE DAILY [facility] Last Admin: 09/18/21 07:27 Dose: 1 puff Documented by: GUERO Tramadol HCl (Tramadol Hcl 50 Mg Tablet) 100 mg PO Q6H PRN PRN Reason: Pain, Mild (Pain Scale 1-3) Last Admin: 09/17/21 03:18 Dose: 100 mg Documented by: NAYANA Ursodiol (Ursodiol 300 Mg Capsule) 600 mg PO BID [facility] Last Admin: 09/18/21 10:06 Dose: 600 mg Documented by: BRIGITTE Vitamin D (Cholecalciferol (Vitamin D3) 25 Mcg Tablet) 25 mcg PO DAILY [facility] Last Admin: 09/18/21 10:05 Dose: 25 mcg Documented by: BRIGITTE <LEFTY Delatorre - Last Filed: 09/18/21 15:17> Labs CBC & Chem 7: : 09/18/21 05:32 09/18/21 05:32 <LEFTY Delatorre - Last Filed: 09/18/21 15:17> Labs: Laboratory Results - last 24 hr 09/18/21 09/18/21 05:32 05:32 MCV 95.1 MCH 29.2 MCHC 30.7 L RDW 17.6 H Plt Count 327 MPV 11.2 Absolute Nucleated RBC 0.000 Nucleated RBC % (auto) 0.0 Anion Gap 18 Estim Creat Clear Calc 64.5 Estimated GFR > 60 Random Glucose 137 H Calcium 9.0 <LEFTY Delatorre - Last Filed: 09/18/21 15:17> Microbiology Microbiology Results: Microbiology 09/17/21 08:49 Blood Culture - Preliminary Blood - Venous No growth after 24 hours. 09/17/21 08:49 Blood Culture - Preliminary Blood - Venous No growth after 24 hours. <LEFTY Delatorre - Last Filed: 09/18/21 15:17> Assessment and Plan (1) MRSA (methicillin resistant staph aureus) culture positive: Status: Acute <LEFTY Delatorre - Last Filed: 09/18/21 15:17> (2) Left rib fracture: Status: Acute <LEFTY Delatorre - Last Filed: 09/18/21 15:17> (3) Closed subcapital fracture of femur: Status: Acute <LEFTY Delatorre - Last Filed: 09/18/21 15:17> Assessment and Plan: This is a 76 yo F with multiple medical problems including COPD/Chronic resp. failure with hypoxia on 2-3L, CAD - s/p CABG, A. Fib on coumadin, SOTERO/GAVE/PBC/Colon Ca - s/p resection, L hip fx repaired at [facility] in Jun 2021 who presents from [facility] after ? slipping out of bed / fall (unwitnessed) resulting in a L hip Fx. She will be admitted for further treatment MRSA bacteremia Blood cultures from 09/15 growing MRSA Repeat blood cultures 09/17 no growth times [address] negative for consolidation, u/a negative. Possible source hip hardware vs endocarditis -Continue vancomycin, rifampin -echo pending to r/o endocarditis -Will need vancomycin and PICC line for 6-8 weeks once neg cx Pneumonia. CXR showing atelectasis vs pneumonia but CT not showing consolidation abx for PNA d/c Acute on Chronic HFpEF.? BNP trending down EF low to normal; moderately decreased right ventricular EF po lasix was on hold since admission for FRAN. renal function improved, BNP increased continue lasix monitor fluid status closely, uptitrate lasix if needed Acute COPD exacerbation. improving per HCP, patient does not use oxygen chronically at home, but only on a prn basis supplemental o2, wean as tolerated continue scheduled and prn breathing treatments will change solumedrol to prednisone left Rib fx pain improving concern for delirium with narcotics lidocaine patch, prn ultram L subcap. fem fx with superior displacement seen by both Pulm and Cardiac - deemed high risk d/w ortho -initially planned to be done in 2-3 weeks as hip surgery is not urgent per ortho and will likely put patient at unnecessary risk given her pain and immobility from the rib fracture. interval may give rib time to heal for pt to better participate in PT following surgery. now with bacteremia will likely be delayed until after completion of antibiotics. -WBAT A. Fib RVR HR controlled. initially treated with cardizem drip on metoprolol 75 daily, po cardizem 120 added restart anticoagluation - will use lovenox 1mg/kg for the time being until her surgery Delirium. intermittent due to hospitalization / acute illness redirect as much as possible ativan home medication, will continue for now CAD ECHO showing low normal LVEF and WMA, mod tricuspid regurgitation. at high risk for surgery due to above - un-modifiable Chronic normocytic anemia underlying GAVE. no acute blood loss h/o requiring multiple transfusions in the past H/H stable FRAN resolved due to hypoperfusion Hypothyroid synthroid PBC ursodial DVT prophylaxis with Full Code Andra (Niece) is HCP [phone] Fish The above was discussed in detail with the patient's niece Andra 09/13; update given 09/14, 09/17 <LEFTY Delatorre - Last Filed: 09/18/21 15:17> This is a 76 yo F with multiple medical problems including COPD/Chronic resp. failure with hypoxia on 2-3L, CAD - s/p CABG, A. Fib on coumadin, SOTERO/GAVE/PBC/Colon Ca - s/p resection, L hip fx repaired at [facility] in Jun 2021 who presents from [facility] after ? slipping out of bed / fall (unwitnessed) resulting in a L hip Fx. She will be admitted for further treatment MRSA bacteremia Blood cultures from 09/15 growing MRSA Repeat blood cultures 09/17 no growth times [address] negative for consolidation, u/a negative. Possible source hip hardware vs endocarditis -Continue vancomycin, rifampin -echo pending to r/o endocarditis -Will need vancomycin and PICC line for 6-8 weeks once neg cx Pneumonia. CXR showing atelectasis vs pneumonia but CT not showing consolidation abx for PNA d/c Acute on Chronic HFpEF.? BNP trending down EF low to normal; moderately decreased right ventricular EF po lasix was on hold since admission for FRAN. renal function improved, BNP increased continue lasix monitor fluid status closely, uptitrate lasix if needed Acute COPD exacerbation. improving per HCP, patient does not use oxygen chronically at home, but only on a prn basis supplemental o2, wean as tolerated continue scheduled and prn breathing treatments will change solumedrol to prednisone left Rib fx pain improving concern for delirium with narcotics lidocaine patch, prn ultram L subcap. fem fx with superior displacement seen by both Pulm and Cardiac - deemed high risk d/w ortho -initially planned to be done in 2-3 weeks as hip surgery is not urgent per ortho and will likely put patient at unnecessary risk given her pain and immobility from the rib fracture. interval may give rib time to heal for pt to better participate in PT following surgery. now with bacteremia will likely be delayed until after completion of antibiotics. -WBAT A. Fib RVR HR controlled. initially treated with cardizem drip on metoprolol 75 daily, po cardizem 120 added restart anticoagluation - will use lovenox 1mg/kg for the time being until her surgery Delirium. intermittent due to hospitalization / acute illness redirect as much as possible ativan home medication, will continue for now CAD ECHO showing low normal LVEF and WMA, mod tricuspid regurgitation. at high risk for surgery due to above - un-modifiable Chronic normocytic anemia underlying GAVE. no acute blood loss h/o requiring multiple transfusions in the past H/H stable FRAN resolved due to hypoperfusion Hypothyroid synthroid PBC ursodial DVT prophylaxis with Full Code Andra (Niece) is [facility] [phone] Fish The above was discussed in detail with the patient's niece Andra 09/13; update given 09/14, 09/17 Attending Attestation: Patient seen and examined. Case discussed with the mid-level provider. Agree with the assessment and plan as documented above. <Diogo Fish MD - Last Filed: 09/18/21 16:29> Quality Stroke Does the patient have a stroke diagnosis?: No <LEFTY Delatorre - Last Filed: 09/18/21 15:17> VTE Prior VTE?: No <LEFTY Delatorre - Last Filed: 09/18/21 15:17> VTE Risk Level:: Medical - moderate - high <LEFTY Delatorre - Last Filed: 09/18/21 15:17> VTE Device Contraindication: Treatment Not Indicated <LEFTY Delatorre - Last Filed: 09/18/21 15:17> VTE Drug Contraindication: N/A - Med Ordered <LEFTY Delatorre - Last Filed: 09/18/21 15:17>
[2021-09-18] MEDS: traMADoL HCL 50 MG TABLET 100 MG PO (15:39)
--- NOTE | 2021-09-18 15:55 | MHC.SL.SWA ---
Speech Pathologist Impression: Risk of Aspiration Oralpharyngeal Dysphagia Risk of Aspiration Due to: Poor PO Intake Liquid Consistency and Strategies for Safe Swallow: Liquid Intake Recommendation: Thin Liquid Intake Strategies: Small Sips Solid Food Consistency: Dietary Recommendations: Grnd/Mech Altered (NDD2) Additional Modifications to Solid Foods: Recommend GROUND/MECH ALTERED (NDD2) solids, THIN liquids, and pills CRUSHED when possible in PUREE. Patient is able to feed herself. Recommend intermittent supervision to monitor tolerance and ensure aspiration precautions. PARAPLANNER will return tomorrow morning to re-assess potential for upgrade. Oral Medication Intake: Crushed with Puree Compensatory Strategies and Precautions to be Taken for Safe Swallow: Sitting Upright (90 deg) Double Swallow Small Bites and Sips Alternate Liquids/Solids Rate of Ingestion Change Supervision While Eating and Drinking for Safe Swallow: Intermittent Supervision Swallowing Recommended Treatments: Compens. Strategy Educat. Recommendation for Speech: Inpatient Speech Therapy Plumbing And Heating Mechanic Clinican/Clinical Fellow: No Supervisory Statement: I have reviewed and agree with the student/clinical fellow's documentation: N/A Speech Language Pathologist: Lata Pathak M.A., CCC-PARAPLANNER
--- NOTE | 2021-09-18 18:05 | PC.NURSE ---
PATIENT NOTED TO HAVE DIFFICULTY SWALLOWING PILLS WITH APPLESAUCE THIS AM. MD NOTIFIED AND S&H SWALLOW EVAL ORDERED. PER EVAL: GROUND MECH SOLIDS, THIN LIQUIDS, PILLS CRUSHED WITH APPLESAUCE/PUREE. PATIENT TOLERATING ADJUSTMENTS TO DIET.
[2021-09-18] MEDS: Sennosides 8.6 MG TABLET 17.2 MG PO (21:07)
[2021-09-19] VITALS (11 sets, daily range): BP systolic 130–158; BP diastolic 66–93; PULSE 58–93; RESP 16–20; TEMP 35.9–36.8; O2SAT 82–98
[2021-09-19] MEDS: Enoxaparin Sodium 80 MG/0.8 ML SYRINGE 65 MG SUBCUT ×3 (00:32→23:05)
[2021-09-19] MEDS: Levothyroxine Sodium 150 MCG TABLET PO (05:48)
--- NOTE | 2021-09-19 07:30 | CA_ITS ---
Transthoracic Echocardiogram Patient (Last, First, Middle): Alina Trujillo, Gender: Female Date of : 1945 Age: 76 Procedure Date: 09/19/2021 Procedure Type: [place]ansthoracic [place] [facility] [facility] [place]: 167.64 cm Weight: 62.6 kg BSA: 1.71 m2 Heart Rate: bpm BP: 168 / 83 mmHg Manager Machine: Referring MD: Nimisha Ramesh NP Symptoms: MRSA bacteremia Study Quality: Fair ECG Rhythm: Atrial Fibrillation Conclusions: - Normal left ventricular size and systolic function. - Mildly increased right ventricular cavity size. There is normal right ventricular systolic function. - No obvious vegetation noted to explain bacteremia. Findings Left Ventricle Normal left ventricular size and systolic function. There is mildly increased left ventricular wall thickness. The visually estimated ejection fraction is between 60-65%. There is no evidence of regional wall motion abnormalities. Diastolic function is indeterminate on the basis of available data. Right Ventricle Mildly increased right ventricular cavity size. There is normal right ventricular systolic function. Atria The left atrium is likely dilated. Aortic Valve There is moderate calcification of the aortic valve. There is mild thickening of the aortic valve. There is no aortic valve stenosis. There is no aortic valve regurgitation. Mitral Valve There is mild anterior mitral leaflet thickening. There is mild mitral annular calcification. There is no mitral valve regurgitation. There is no mitral valve stenosis. Pulmonic Valve The pulmonic valve is likely normal. Tricuspid Valve Normal tricuspid valve structure. There is moderate to severe tricuspid valve regurgitation. Indeterminate right atrial pressure. PASP = 45 + right atrial pressure. Great Vessels All visible segments of the aorta are normal in size. Venous The inferior vena cava was not well visualized. Pericardium/Pleural There is no evidence of pericardial effusion. Prior Study Comparison Changes noted compared to prior study dated: 09/08/2021. Biventricular improvement in function. Measurements 2D Linear Measurements IVSd: 1.00 0.6-0.9/0.6-1.0 cm LVIDd: 4.23 3.9-5.3/4.2-5.9 cm LVIDd Index: 2.47 2.4-3.2/2.2-3.1 cm/m2 LVIDs: 3.00 2.0-3.6 cm LVPWd: 0.91 0.7-1.1 cm Ao Root: 3.00 2.1-3.5 cm LA Diam: 4.30 2.7-3.8/3.0-4.0 cm LAIDs Index: 2.51 1.5-2.3 cm/m2 LV Mass: 161.67 67-162/88-224 g LV Mass Index: 94.54 43-95/49-115 g/m2 LVOT Diam: 2.00 3.0+(-)1.3 cm Mitral Valve MV VTI: 0.21 MV Pk Luis Miguel: 1.15 MV Mn Luis Miguel: 0.59 MV Pk Grad: 5.00 MV Mn Grad: 2.00 MV Pk E: 0.93 MV Decel Time: 149.00 E'Lateral: 15.20 E'Medial: 8.16 E/E' Med: 11.40 E/E' Lat: 6.10 PHT: 44.00 MVA PHT: 5.00 MVA Continuity: 2.24 Decel Tyler: 6.29 Aortic Valve AoV Pk Luis Miguel: 1.24 AoV Mn Luis Miguel: 0.79 AoV VTI: 0.28 AoV Pk Grad: 6.00 Aov Mn Grad: 3.00 ABRAHAM Cont.VTI: 1.64 LVOT LVOT Pk Luis Miguel: 0.70 LVOT Mn Luis Miguel: 0.44 LVOT VTI: 0.15 LVOT Pk Grad: 2.00 LVOT Mn Grad: 1.00 LVOT Diam: 2.00 LVOT Area: 3.14 Diastolic Function MV Pk E: 0.93 E'Medial: 8.16 E/E' Med: 11.40 E' Laterial: 15.20 E/E' Lat: 6.10 Tricuspid Valve TR Pk Luis Miguel: 3.30 TR Pk Grad: 44.00 Great Vessels Aorta Ao Root-2D: 3.00 2.0-3.7 cm Ao Asc: 3.10 2.1-3.4 cm Pulmonary Valve PV Pk Luis Miguel: 0.75 Peak PV Grad: 2.00 Updated in Other Vendor System with Status of Final Parth Quintero MD electronically signed on 09/19/2021 1:00:51 PM with status of Final
[2021-09-19] MEDS: UrsodioL 300 MG CAPSULE 600 MG PO ×2 (08:32→20:40)
[2021-09-19] MEDS: Ferrous Sulfate 324 MG TABLET.DR PO (08:33)
[2021-09-19] MEDS: DULoxetine HCl 30 MG CAPSULE.DR PO ×2 (08:33→20:41)
[2021-09-19] MEDS: Cyanocobalamin (Vitamin B-12) 1,000 MCG TABLET 1000 MCG PO (08:33)
[2021-09-19] MEDS: predniSONE 20 MG TABLET 40 MG PO (08:33)
[2021-09-19] MEDS: rifAMPin 300 MG CAPSULE 600 MG PO ×2 (08:35→20:42)
[2021-09-19] MEDS: LORazepam 1 MG TABLET PO ×2 (08:35→20:42)
[2021-09-19] MEDS: Cholecalciferol (Vitamin D3) 25 MCG TABLET PO (08:36)
[2021-09-19] MEDS: Omeprazole 20 MG CAPSULE.DR PO ×2 (08:36→20:41)
[2021-09-19] MEDS: dilTIAZem HCL CD 120 MG CAP.ER.DEG PO (08:38)
[2021-09-19] MEDS: Metoprolol Succinate ER 25 MG TAB.ER.24H 75 MG PO (08:39)
[2021-09-19] MEDS: Lidocaine 4 % Patch ADH..PATCH 1 PATCH TRANSDERMA (08:41)
[2021-09-19] MEDS: 0.9 % Sodium Chloride Flush 3 ML SYRINGE IVFLUSH ×3 (08:46→20:55)
[2021-09-19] MEDS: Furosemide 40 MG TABLET PO (08:50)
[2021-09-19] MEDS: Nystatin Powder 15 GM BOTTLE 1 APPL TOPICAL ×2 (08:51→20:49)
[2021-09-19] MEDS: Artificial Tears 15 ML DROPS 1 DROP EYE-BOTH ×2 (08:51→20:49)
[2021-09-19 09:05] LABS: Hematocrit 33.7 % (37-47); Hemoglobin 10.6 g/dl (12.0-16.0); Mean Corpuscular HGB Conc 31.5 g/dl (31.0-35.0); Mean Corpuscular Hemoglobin 29.2 pg (27.0-33.0); Mean Corpuscular Volume 92.8 fL (80-98); Mean Platelet Volume 10.6 fL (9.4-12.3); NRBC Pct Auto 0.1 /100WBC (0.0-0.2); Platelet Count 347 X10*3/uL (160-400); Red Blood Count 3.63 X10*6/uL (4.20-5.50); Red Cell Distribution Width 17.7 % (11.0-16.0); White Blood Count 20.4 X10*3/uL (4.8-10.8)
[2021-09-19 09:45] LABS: Vancomycin Trough 10.7 mcg/mL (10.0-20.0)
[2021-09-19 09:46] LABS: Anion Gap 14 (12-20); Blood Urea Nitrogen 13 mg/dL (9-16); Calcium 9.1 mg/dL (8.4-10.2); Carbon Dioxide 34 mmol/L (22-29); Chloride 96 mmol/L (96-108); Creatinine Clr Calc Pharmacy 66.4; Estimated Glomerular Filt Rate > 60; Glucose Random 97 mg/dL (60-115); Sodium 141 mmol/L (135-145)
--- NOTE | 2021-09-19 09:59 | PHA.PROG ---
Admission Date/Time: September 08, 2021 10:44 Indication: Bactermia Weight in k.596 kg Serum Creatinine - Last 168 Hours 09/13/21 09/14/21 09/15/21 07:27 07:22 09:08 Creatinine 0.77 0.84 0.82 09/16/21 09/17/21 09/18/21 05:41 05:48 05:32 Creatinine 0.69 0.79 0.71 09/19/21 08:55 Creatinine 0.69 Estimated CrCl and GFR - Last 168 Hours 09/13/21 09/14/21 09/15/21 07:27 07:22 09:08 Estim Creat Clear Calc 59.5 54.5 55.8 Estimated GFR > 60 > 60 > 60 09/16/21 09/17/21 09/18/21 05:41 05:48 05:32 Estim Creat Clear Calc 66.4 58.0 64.5 Estimated GFR > 60 > 60 > 60 09/19/21 08:55 Estim Creat Clear Calc 66.4 Estimated GFR > 60 Vancomycin Loading Dose: 1250 mg on 09/15 Current Vancomycin Dosing Regimen: 1000 mg Q24H Date and Time for next Vancomycin Level to be drawn: 09/22 @ 0900 Vancomycin Trough 10.7 mcg/mL (10.0-20.0) 09/19/21 08:55 Pharmacist Comments on Vancomycin Plan: Patient is subtherapeutic with current vanco regimen with an AUC of 380. Patient is not expected to be in therapuetic levels until 3 days from now after dose on 09/21. Increase dose to 1250 mg Q24H. Expected AUC of 496 with a trough of 14 Pharmacy to monitor renal function daily and adjust if necessary Venice Gilman PharmD Vancomycin dosing will take advantage of [employer] as a clinical decision support tool that uses Bayesian modeling to calculate individual patient's pharmacokinetic parameters and forecast the patient's drug concentration time course with the target goal AUC 24 range of 400 - 600 mg/L/hr.
[2021-09-19] MEDS: vancomycin HCL 1,250 MG in 0.9 % Sodium Chloride 250 ML 166.67 MG IV (10:35)
[2021-09-19] MEDS: Potassium Chloride Packet 20 MEQ PACKET 40 MEQ PO (10:42)
--- NOTE | 2021-09-19 11:58 | MHC.SL.DTX ---
Dysphagia Diet modifications: Last documented Solid diet consistencies: Grnd/Mech Altered (NDD2) Last documented Liquid consistency: Thin Last documented Medication Administration:Whole with Puree Changes made to current diet?: No Liquid Consistency and Strategies: Liquid Intake Recommendation: Thin Compensatory Strategies for Safe Swallow: Small Sips Compensatory Strategies for Safe Swallow(b): Sitting Upright (90 deg) Double Swallow Small Bites and Sips Alternate Liquids/Solids Rate of Ingestion Change Solid Food Consistency: Dietary Recommendations: Grnd/Mech Altered (NDD2) Additional Modifications to Solids: Recommend GROUND/MECH ALTERED (NDD2) solids, THIN liquids, and pills CRUSHED when possible in PUREE. Patient is able to feed herself. Recommend intermittent supervision to monitor tolerance and ensure aspiration precautions. Pt not agreeable to trial PO of advanced consistencies beyond 1 bite 09/19 due to feeling nervous. Will re-assess 09/22. Oral Medication Intake: Crushed with Puree Strategies and Precautions to be Taken for Safe Swallow: Sitting Upright (90 deg) Double Swallow Small Bites and Sips Alternate Liquids/Solids Rate of Ingestion Change Supervision While Eating and/Drinking: Intermittent Supervision Foods to Avoid: Swallowing Recommended Treatments: Compens. Strategy Educat. Level of Impact on: Daily activities: Mild Interpersonal interactions: Education: Employment: Community: Mild Prognosis for Improvement: Fair Recommendation for Speech: Inpatient Speech Therapy Block Placer Clinican/Clinical Fellow: No Supervisory Statement: I have reviewed and agree with the student/clinical fellow's documentation: N/A Speech Language Pathologist: Lore Sevilla M.A., CCC-NOTCHED BLADE LOADER
[2021-09-19] MEDS: Albuterol/Iprat 2.5/0.5MG 3 ML AMPUL.NEB INHALE ×2 (13:21→18:59)
--- NOTE | 2021-09-19 15:06 | HO.PM.IMPN ---
Subjective Subjective Date of Service: 09/19/21 Interval History: seen and examined this morning Follow-up for rib fracture, MRSA bacteremia Patient awake and alert this morning. Reports that her left-sided rib pain is improving no complaints at this time Review of Systems Review of Systems: Yes all other systems are reviewed and are negative Constitutional Constitutional: Denies chills and Denies fever(s) Cardiovascular Cardiovascular: Denies chest pain Gastrointestinal Gastrointestinal: Denies abdominal pain Physical Exam Vital Signs: Vital Signs: Last Vital Signs Temp 98 F 09/19/21 11:51 Pulse 58 09/19/21 13:23 Resp 20 09/19/21 11:51 BP 156/77 H 09/19/21 11:51 Pulse Ox 93 09/19/21 11:51 Body Mass Index 20.9 Const: Other: appears uncomfortable General: healthy appearing, comfortable, no acute distress, alert and awake Nutritional Appearance: thin HENMT: Head: Yes normocephalic and Yes atraumatic Eyes: Sclerae: sclerae normal Pupils: Equal, round and reactive pupils present Chest: Other: tenderness left side ribs Chest palpation & inspection: normal inspection of the chest Resp: Other: diminished breath sounds Effort & Inspection: no respiratory distress Auscultation: diminished lung sounds Cardio: Rate: regular rate Rhythm: abnormal rhythm irregularly irregular GI: Palpation (GI): Soft to palpation and nontender Neuro: Cranial nerves: Yes CN's II-XII intact bilaterally, Yes Equal, round and reactive pupils present and Yes Bilaterally intact EOM present Extrem: General: Yes normal to inspection Objective Data Active Medications Albuterol/Ipratropium (Albuterol/Iprat 2.5/0.5mg 3 Ml Ampul.Neb) 3 ml INHALE RQ6H WHILE AWAKE [facility] Last Admin: 09/19/21 13:21 Dose: 3 ml Documented by: LASHONDA Artificial Tears (Artificial Tears 15 Ml Drops) 1 drop EYE-BOTH BID [facility] Last Admin: 09/19/21 08:51 Dose: 1 drop Documented by: JULITO Cyanocobalamin (Cyanocobalamin (Vitamin B-12) 1,000 Mcg Tablet) 1,000 mcg PO DAILY [facility] Last Admin: 09/19/21 08:33 Dose: 1,000 mcg Documented by: JULITO Diltiazem HCl (Diltiazem Hcl Cd 120 Mg Cap.Er.Deg) 120 mg PO DAILY [facility]; Protocol Last Admin: 09/19/21 08:38 Dose: 120 mg Documented by: JULITO Duloxetine HCl (Duloxetine Hcl 30 Mg Capsule.) 30 mg PO BID [facility] Last Admin: 09/19/21 08:33 Dose: 30 mg Documented by: JULITO Enoxaparin Sodium (Enoxaparin Sodium 80 Mg/0.8 Ml Syringe) 65 mg SUBCUT Q12H [facility] Last Admin: 09/19/21 12:18 Dose: 65 mg Documented by: JULITO Ferrous Sulfate (Ferrous Sulfate 324 Mg Tablet.) 324 mg PO DAILY [facility] Last Admin: 09/19/21 08:33 Dose: 324 mg Documented by: JULITO Furosemide (Furosemide 40 Mg Tablet) 40 mg PO DAILY [facility]; Protocol Last Admin: 09/19/21 08:50 Dose: 40 mg Documented by: JULITO Guaifenesin (Guaifenesin 100 Mg/5 Ml Liquid) 5 ml PO Q4H PRN PRN Reason: Cough Last Admin: 09/16/21 08:52 Dose: 5 ml Documented by: CHICO Vancomycin HCl 1,250 mg/ (Sodium Chloride) 250 mls @ 166.667 mls/hr IV Q24H [facility] Last Infusion: 09/19/21 12:17 Dose: 166.67 mls/hr Documented by: JULITO Levothyroxine Sodium (Levothyroxine Sodium 150 Mcg Tablet) 150 mcg PO DAILY@0630 [facility] Last Admin: 09/19/21 05:48 Dose: 150 mcg Documented by: MARINA Lidocaine (Lidocaine 4 % Patch Adh..Patch) 1 patch TRANSDERMA DAILY [facility]; Protocol Last Admin: 09/19/21 08:41 Dose: 1 patch Documented by: JULITO Lorazepam (Lorazepam 1 Mg Tablet) 1 mg PO BID [facility] Last Admin: 09/19/21 08:35 Dose: 1 mg Documented by: JULITO Metoprolol Succinate (Metoprolol Succinate Er 25 Mg Tab.Er.24h) 75 mg PO DAILY [facility]; Protocol Last Admin: 09/19/21 08:39 Dose: 75 mg Documented by: JULITO Nystatin (Nystatin Powder 15 Gm Bottle) 1 appl TOPICAL BID [facility]; Protocol Last Admin: 09/19/21 08:51 Dose: 1 appl Documented by: JULITO Omeprazole (Omeprazole 20 Mg Capsule.Dr) 20 mg PO BID [facility] Last Admin: 09/19/21 08:36 Dose: 20 mg Documented by: JULITO Ondansetron HCl (Ondansetron Hcl 4 Mg/2 Ml Vial) 4 mg IVPUSH Q8H PRN PRN Reason: Nausea and Vomiting Last Admin: 09/08/21 12:34 Dose: 4 mg Documented by: SABINE Pharmacy Consult (Consult Rx Vancomycin Dosing) 1 each MISCELLANE DAILY PRN PRN Reason: Consult order Prednisone (Prednisone 20 Mg Tablet) 40 mg PO DAILY [facility] Last Admin: 09/19/21 08:33 Dose: 40 mg Documented by: JULITO Rifampin (Rifampin 300 Mg Capsule) 600 mg PO BID [facility] Last Admin: 09/19/21 08:35 Dose: 600 mg Documented by: JULITO Senna (Sennosides 8.6 Mg Tablet) 17.2 mg PO BEDTIME [facility] Last Admin: 09/18/21 21:07 Dose: 17.2 mg Documented by: MARINA Senna (Sennosides 8.6 Mg Tablet) 17.2 mg PO Q24H PRN PRN Reason: constipation Sodium Chloride (0.9 % Sodium Chloride Flush 3 Ml Syringe) 3 ml IVFLUSH QSHIFT [facility] Last Admin: 09/19/21 08:46 Dose: 3 ml Documented by: JULITO Tiotropium [place] (Tiotropium [place] 18 Mcg Cap.W.Dev) 1 puff INHALE DAILY [facility] Last Admin: 09/19/21 07:34 Dose: Not Given Documented by: LASHONDA Non-Admin Reason: Patient Refused Tramadol HCl (Tramadol Hcl 50 Mg Tablet) 100 mg PO Q6H PRN PRN Reason: Pain, Mild (Pain Scale 1-3) Last Admin: 09/18/21 15:39 Dose: 100 mg Documented by: BRIGITTE Ursodiol (Ursodiol 300 Mg Capsule) 600 mg PO BID [facility] Last Admin: 09/19/21 08:32 Dose: 600 mg Documented by: JULITO Vitamin D (Cholecalciferol (Vitamin D3) 25 Mcg Tablet) 25 mcg PO DAILY [facility] Last Admin: 09/19/21 08:36 Dose: 25 mcg Documented by: JULITO Labs CBC & Chem 7: 09/19/21 08:55 09/19/21 08:55 Labs: Laboratory Results - last 24 hr 09/19/21 09/19/21 09/19/21 08:55 08:55 08:55 MCV 92.8 MCH 29.2 MCHC 31.5 RDW 17.7 H Plt Count 347 MPV 10.6 Absolute Nucleated RBC 0.020 H Nucleated RBC % (auto) 0.1 Anion Gap 14 Estim Creat Clear Calc 66.4 Estimated GFR > 60 Random Glucose 97 Calcium 9.1 Vancomycin Trough 10.7 Microbiology Microbiology Results: Microbiology 09/17/21 08:49 Blood Culture - Preliminary Blood - Venous No growth after 48 hours. 09/17/21 08:49 Blood Culture - Preliminary Blood - Venous Staphylococcus species Assessment and Plan (1) Bacteremia: Status: Acute Assessment and Plan: This is a 76 yo F with multiple medical problems including COPD/Chronic resp. failure with hypoxia on 2-3L, CAD - s/p CABG, A. Fib on coumadin, SOTERO/GAVE/PBC/Colon Ca - s/p resection, L hip fx repaired at [facility] in Jun 2021 who presents from [facility] after ? slipping out of bed / fall (unwitnessed) resulting in a L hip Fx. She will be admitted for further treatment MRSA bacteremia Blood cultures from 09/15 growing MRSA Repeat blood cultures 09/17/ + for Staph species chest CT negative for consolidation, u/a negative. Possible source hip hardware vs endocarditis -Continue vancomycin, rifampin -echo done, report pending -Will need vancomycin/rifampin and PICC line for 6-8 weeks once neg cx -repeat blood cultures ordered Pneumonia. CXR showing atelectasis vs pneumonia but CT not showing consolidation abx for PNA d/c Acute on Chronic HFpEF.? BNP trending down EF low to normal; moderately decreased right ventricular EF po lasix was on hold since admission for FRAN. renal function improved, BNP increased continue lasix monitor fluid status closely, uptitrate lasix if needed Acute COPD exacerbation. improving per HCP, patient does not use oxygen chronically at home, but only on a prn basis supplemental o2, wean as tolerated continue scheduled and prn breathing treatments solumedrol changed to prednisone 09/19 left Rib fx pain improving concern for delirium with narcotics lidocaine patch, prn ultram L subcap. fem fx with superior displacement seen by both Pulm and Cardiac - deemed high risk d/w ortho -initially planned to be done in 2-3 weeks as hip surgery is not urgent per ortho and will likely put patient at unnecessary risk given her pain and immobility from the rib fracture. interval may give rib time to heal for pt to better participate in PT following surgery. now with bacteremia will likely be delayed until after completion of antibiotics. -WBAT hypokalemia replace and follow A. Fib RVR HR controlled. initially treated with cardizem drip on metoprolol 75 daily, po cardizem 120 added restart anticoagluation - will use lovenox 1mg/kg for the time being until her surgery Delirium. intermittent due to hospitalization / acute illness redirect as much as possible ativan home medication, will continue for now CAD ECHO showing low normal LVEF and WMA, mod tricuspid regurgitation. at high risk for surgery due to above - un-modifiable Chronic normocytic anemia underlying GAVE. no acute blood loss h/o requiring multiple transfusions in the past H/H stable FRAN resolved due to hypoperfusion Hypothyroid synthroid PBC ursodial DVT prophylaxis with Full Code Andra (Niece) is [facility] [phone] Fish The above was discussed in detail with the patient's niece Andra 09/13; update given 09/14, 09/17 Quality Stroke Does the patient have a stroke diagnosis?: No VTE Prior VTE?: No VTE Risk Level:: Medical - moderate - high VTE Device Contraindication: Treatment Not Indicated VTE Drug Contraindication: N/A - Med Ordered
[2021-09-19] MEDS: traMADoL HCL 50 MG TABLET 100 MG PO (16:00)
[2021-09-19] MEDS: Sennosides 8.6 MG TABLET 17.2 MG PO (20:40)
[2021-09-20] VITALS (12 sets, daily range): BP systolic 111–156; BP diastolic 58–87; PULSE 69–120; RESP 16–20; TEMP 36.3–36.9; O2SAT 95–100
--- NOTE | 2021-09-20 | ECG_ITS ---
Test Reason : TACHY Blood Pressure : / mmHG Vent. Rate : 109 BPM Atrial Rate : 366 BPM P-R Int : 000 ms QRS Dur : 072 ms QT Int : 324 ms P-R-T Axes : 000 060 205 degrees QTc Int : 436 ms Atrial flutter with variable A-V block Nonspecific ST and T wave abnormality Abnormal ECG No significant changes seen Referred By: Nimisha Ramesh Electronically Signed By:PORSHA ROMAN MD
[2021-09-20] MEDS: traMADoL HCL 50 MG TABLET 100 MG PO ×3 (03:56→23:27)
[2021-09-20] MEDS: Levothyroxine Sodium 150 MCG TABLET PO (05:59)
[2021-09-20 07:25] LABS: Anion Gap 14 (12-20); Blood Urea Nitrogen 11 mg/dL (9-16); Carbon Dioxide 36 mmol/L (22-29); Chloride 94 mmol/L (96-108); Creatinine Clr Calc Pharmacy 59.5; Estimated Glomerular Filt Rate > 60; Glucose Random 78 mg/dL (60-115); Sodium 141 mmol/L (135-145)
[2021-09-20] MEDS: Albuterol/Iprat 2.5/0.5MG 3 ML AMPUL.NEB INHALE ×3 (08:07→20:18)
[2021-09-20] MEDS: Potassium Chloride ER 20 MEQ TAB.ER.PRT 40 MEQ PO (08:39)
[2021-09-20] MEDS: 0.9 % Sodium Chloride Flush 3 ML SYRINGE IVFLUSH ×2 (08:40→21:21)
--- NOTE | 2021-09-20 11:04 | PM.IMPN ---
Progress Note: A&P (1) MRSA (methicillin resistant staph aureus) culture positive: Status: Acute <Nimisha Ramesh SPECIALIST PHYSICIAN - Last Filed: 09/20/21 11:15> (2) Bacteremia: Status: Acute <Nimisha Ramesh NP - Last Filed: 09/20/21 11:15> (3) Left rib fracture: Status: Acute <Nimisha Ramesh SPECIALIST PHYSICIAN - Last Filed: 09/20/21 11:15> (4) Closed subcapital fracture of femur: Status: Acute <Nimisha Ramesh SPECIALIST PHYSICIAN - Last Filed: 09/20/21 11:15> Assessment and Plan: This is a 76 yo F with multiple medical problems including COPD/Chronic resp. failure with hypoxia on 2-3L, CAD - s/p CABG, A. Fib on coumadin, SOTERO/GAVE/PBC/Colon Ca - s/p resection, L hip fx repaired at [facility] in Jun 2021 who presents from [facility] after ? slipping out of bed / fall (unwitnessed) resulting in a L hip Fx. She will be admitted for further treatment. MRSA bacteremia Blood cultures from 09/15 growing MRSA Repeat blood cultures 09/17/ + for Staph species and cx from 09/19 so far neg after [address] negative for consolidation, u/a negative. Possible source hip hardware vs endocarditis Continue vancomycin, rifampin, Will need vancomycin/rifampin and PICC line for 6-8 weeks once neg cx Pneumonia. CXR showing atelectasis vs pneumonia but CT not showing consolidation abx for PNA d/c Acute on Chronic HFpEF.? BNP trending down EF low to normal; moderately decreased right ventricular EF po lasix was on hold since admission for FRAN. renal function improved, BNP increased continue lasix monitor fluid status closely, uptitrate lasix if needed Acute COPD exacerbation/Emphysema. improving per HCP, patient does not use oxygen chronically at home, but only on a prn basis supplemental o2, wean as tolerated continue scheduled and prn breathing treatments solumedrol changed to prednisone 09/19 left Rib fx pain improving concern for delirium with narcotics lidocaine patch, prn ultram L subcap. fem fx with superior displacement seen by both Pulm and Cardiac - deemed high risk d/w ortho -initially planned to be done in 2-3 weeks as hip surgery is not urgent per ortho and will likely put patient at unnecessary risk given her pain and immobility from the rib fracture. interval may give rib time to heal for pt to better participate in PT following surgery. now with bacteremia will likely be delayed until after completion of antibiotics. WBAT Hypokalemia replace and follow A. Fib RVR. Stable HR controlled. initially treated with cardizem drip on metoprolol 75 daily, po cardizem 120 added restart anticoagluation - will use lovenox 1mg/kg for the time being until her surgery Delirium. intermittent due to hospitalization / acute illness redirect as much as possible ativan home medication, will continue for now CAD ECHO showing Ef 60-65% no RWMA at high risk for surgery due to above - un-modifiable Chronic normocytic anemia underlying GAVE. no acute blood loss h/o requiring multiple transfusions in the past H/H stable FRAN resolved due to hypoperfusion Hypothyroid synthroid PBC ursodial DVT prophylaxis with Lovenox Full Code Andra (Niece) is [facility] [phone] Chavez The above was discussed in detail with the patient's niece Andra 09/13; update given 09/14, 09/17 <Nimisha Ramesh NP - Last Filed: 09/20/21 11:15> This is a 76 yo F with multiple medical problems including COPD/Chronic resp. failure with hypoxia on 2-3L, CAD - s/p CABG, A. Fib on coumadin, SOTERO/GAVE/PBC/Colon Ca - s/p resection, L hip fx repaired at [facility] in Jun 2021 who presents from [facility] after ? slipping out of bed / fall (unwitnessed) resulting in a L hip Fx. She will be admitted for further treatment. MRSA bacteremia Blood cultures from 09/15 growing MRSA Repeat blood cultures 09/17 1/2 + for Staph species and cx from 09/19 so far neg after [address] negative for consolidation, u/a negative. Possible source hip hardware vs endocarditis Continue vancomycin, rifampin, Will need vancomycin/rifampin and PICC line for 6-8 weeks once neg cx Pneumonia. CXR showing atelectasis vs pneumonia but CT not showing consolidation abx for PNA d/c Acute on Chronic HFpEF.? BNP trending down EF low to normal; moderately decreased right ventricular EF po lasix was on hold since admission for FRAN. renal function improved, BNP increased continue lasix monitor fluid status closely, uptitrate lasix if needed Acute COPD exacerbation/Emphysema. improving per HCP, patient does not use oxygen chronically at home, but only on a prn basis supplemental o2, wean as tolerated continue scheduled and prn breathing treatments solumedrol changed to prednisone 09/19 left Rib fx pain improving concern for delirium with narcotics lidocaine patch, prn ultram L subcap. fem fx with superior displacement seen by both Pulm and Cardiac - deemed high risk d/w ortho -initially planned to be done in 2-3 weeks as hip surgery is not urgent per ortho and will likely put patient at unnecessary risk given her pain and immobility from the rib fracture. interval may give rib time to heal for pt to better participate in PT following surgery. now with bacteremia will likely be delayed until after completion of antibiotics. WBAT Hypokalemia replace and follow A. Fib RVR. Stable HR controlled. initially treated with cardizem drip on metoprolol 75 daily, po cardizem 120 added restart anticoagluation - will use lovenox 1mg/kg for the time being until her surgery Delirium. intermittent due to hospitalization / acute illness redirect as much as possible ativan home medication, will continue for now CAD ECHO showing Ef 60-65% no RWMA at high risk for surgery due to above - un-modifiable Chronic normocytic anemia underlying GAVE. no acute blood loss h/o requiring multiple transfusions in the past H/H stable FRAN resolved due to hypoperfusion Hypothyroid synthroid PBC ursodial DVT prophylaxis with Lovenox Full Code Andra (Niece) is [facility] [phone] Chavez The above was discussed in detail with the patient's niece Andra 09/13; update given 09/14, 09/17 I saw and evaluated the patient and discussed the care with SPECIALIST PHYSICIAN Nimisha Ramesh, I agree with the findings and plan as documented in the note above. Darby Chavez MD ? <Cam Chavez MD - Last Filed: 09/20/21 16:48> Subjective Subjective Date of Service: 09/20/21 <Nimisha Ramesh NP - Last Filed: 09/20/21 11:15> 09/20/21 <Cam Chavez MD - Last Filed: 09/20/21 16:48> Review of Systems Follow-up for rib fracture, MRSA bacteremia Patient awake and alert this morning.? Reports that her left-sided rib pain is improving no complaints at this time <Nimisha Ramesh NP - Last Filed: 09/20/21 11:15> Physical Exam Vital Signs: Vital Signs: Last Vital Signs Temp 97.4 F 09/20/21 07:42 Pulse 88 09/20/21 08:07 Resp 17 09/20/21 07:42 BP 144/75 H 09/20/21 07:42 Pulse Ox 98 09/20/21 07:42 Body Mass Index 20.9 <Nimisha Ramesh NP - Last Filed: 09/20/21 11:15> Appearing in no acute distress lung sounds are clear to auscultation, chronic rhonchi heart regular rate rhythm, clear S1, S2 positive bowel sounds, abdomen is soft, nontender neuro patient is alert x3, no focal deficits <Nimisha Ramesh NP - Last Filed: 09/20/21 11:15> Objective Data Current Medications Albuterol/Ipratropium (Albuterol/Iprat 2.5/0.5mg 3 Ml Ampul.Neb) 3 ml INHALE RQ6H WHILE AWAKE [facility] Last Admin: 09/20/21 08:07 Dose: 3 ml Documented by: Artificial Tears (Artificial Tears 15 Ml Drops) 1 drop EYE-BOTH BID [facility] Last Admin: 09/19/21 20:49 Dose: 1 drop Documented by: Cyanocobalamin (Cyanocobalamin (Vitamin B-12) 1,000 Mcg Tablet) 1,000 mcg PO DAILY [facility] Last Admin: 09/19/21 08:33 Dose: 1,000 mcg Documented by: Diltiazem HCl (Diltiazem Hcl Cd 120 Mg Cap.Er.Deg) 120 mg PO DAILY [facility]; Protocol Last Admin: 09/19/21 08:38 Dose: 120 mg Documented by: Duloxetine HCl (Duloxetine Hcl 30 Mg Capsule.Dr) 30 mg PO BID [facility] Last Admin: 09/19/21 20:41 Dose: 30 mg Documented by: Enoxaparin Sodium (Enoxaparin Sodium 80 Mg/0.8 Ml Syringe) 65 mg SUBCUT Q12H [facility] Last Admin: 09/19/21 23:05 Dose: 65 mg Documented by: Ferrous Sulfate (Ferrous Sulfate 324 Mg Tablet.) 324 mg PO DAILY [facility] Last Admin: 09/19/21 08:33 Dose: 324 mg Documented by: Furosemide (Furosemide 40 Mg Tablet) 40 mg PO DAILY [facility]; Protocol Last Admin: 09/19/21 08:50 Dose: 40 mg Documented by: Guaifenesin (Guaifenesin 100 Mg/5 Ml Liquid) 5 ml PO Q4H PRN PRN Reason: Cough Last Admin: 09/16/21 08:52 Dose: 5 ml Documented by: Vancomycin HCl 1,250 mg/ (Sodium Chloride) 250 mls @ 166.667 mls/hr IV Q24H [facility] Last Infusion: 09/19/21 12:17 Dose: Infused Documented by: Levothyroxine Sodium (Levothyroxine Sodium 150 Mcg Tablet) 150 mcg PO DAILY@0630 [facility] Last Admin: 09/20/21 05:59 Dose: 150 mcg Documented by: Lidocaine (Lidocaine 4 % Patch Adh..Patch) 1 patch TRANSDERMA DAILY [facility]; Protocol Last Admin: 09/19/21 08:41 Dose: 1 patch Documented by: Lorazepam (Lorazepam 1 Mg Tablet) 1 mg PO BID [facility] Last Admin: 09/19/21 20:42 Dose: 1 mg Documented by: Metoprolol Succinate (Metoprolol Succinate Er 25 Mg Tab.Er.24h) 75 mg PO DAILY [facility]; Protocol Last Admin: 09/19/21 08:39 Dose: 75 mg Documented by: Nystatin (Nystatin Powder 15 Gm Bottle) 1 appl TOPICAL BID [facility]; Protocol Last Admin: 09/19/21 20:49 Dose: 1 appl Documented by: Omeprazole (Omeprazole 20 Mg Capsule.) 20 mg PO BID [facility] Last Admin: 09/19/21 20:41 Dose: 20 mg Documented by: Ondansetron HCl (Ondansetron Hcl 4 Mg/2 Ml Vial) 4 mg IVPUSH Q8H PRN PRN Reason: Nausea and Vomiting Last Admin: 09/08/21 12:34 Dose: 4 mg Documented by: Pharmacy Consult (Consult Rx Vancomycin Dosing) 1 each MISCELLANE DAILY PRN PRN Reason: Consult order Potassium Chloride (Potassium Chloride Er 20 Meq Tab.Er.Prt) 20 meq PO DAILY [facility] Prednisone (Prednisone 20 Mg Tablet) 40 mg PO DAILY [facility] Last Admin: 09/19/21 08:33 Dose: 40 mg Documented by: Rifampin (Rifampin 300 Mg Capsule) 600 mg PO BID [facility] Last Admin: 09/19/21 20:42 Dose: 600 mg Documented by: Senna (Sennosides 8.6 Mg Tablet) 17.2 mg PO BEDTIME [facility] Last Admin: 09/19/21 20:40 Dose: 17.2 mg Documented by: Senna (Sennosides 8.6 Mg Tablet) 17.2 mg PO Q24H PRN PRN Reason: constipation Sodium Chloride (0.9 % Sodium Chloride Flush 3 Ml Syringe) 3 ml IVFLUSH QSHIFT [facility] Last Admin: 09/20/21 08:40 Dose: 3 ml Documented by: Tiotropium [place] (Tiotropium [place] 18 Mcg Cap.W.Dev) 1 puff INHALE DAILY [facility] Last Admin: 09/20/21 08:19 Dose: 1 puff Documented by: Tramadol HCl (Tramadol Hcl 50 Mg Tablet) 100 mg PO Q6H PRN PRN Reason: Pain, Mild (Pain Scale 1-3) Last Admin: 09/20/21 03:56 Dose: 100 mg Documented by: Ursodiol (Ursodiol 300 Mg Capsule) 600 mg PO BID [facility] Last Admin: 09/19/21 20:40 Dose: 600 mg Documented by: Vitamin D (Cholecalciferol (Vitamin D3) 25 Mcg Tablet) 25 mcg PO DAILY [facility] Last Admin: 09/19/21 08:36 Dose: 25 mcg Documented by: <Nimisha Ramesh NP - Last Filed: 09/20/21 11:15> Labs CBC & Chem 7: : 09/19/21 08:55 09/20/21 06:21 <Nimisha Ramesh NP - Last Filed: 09/20/21 11:15> Labs: Laboratory Results - last 24 hr 09/20/21 06:21 Anion Gap 14 Estim Creat Clear Calc 59.5 Estimated GFR > 60 Random Glucose 78 Calcium 9.0 <Nimisha Ramesh NP - Last Filed: 09/20/21 11:15> Microbiology Microbiology Results: Microbiology 09/19/21 08:55 Blood - Venous Blood Culture - Preliminary No growth after 24 hours. 09/19/21 08:55 Blood - Venous Blood Culture - Preliminary No growth after 24 hours. 09/17/21 08:49 Blood - Venous Blood Culture - Final Staphylococcus aureus 09/17/21 08:49 Blood - Venous Blood Culture - Preliminary No growth after 48 hours. 09/15/21 09:08 Blood - Venous Blood Culture - Final Methicillin Res Staph Aureus 09/15/21 09:08 Blood - Venous Blood Culture - Final Methicillin Res Staph Aureus 09/14/21 09:36 Blood - Venous Blood Culture - Final Methicillin Res Staph Aureus 09/14/21 09:36 Blood - Venous Blood Culture - Final Methicillin Res Staph Aureus 09/08/21 07:40 Blood - Venous Blood Culture - Final No growth after 5 days. 09/08/21 07:29 Blood - Venous Blood Culture - Final No growth after 5 days. 09/08/21 00:00 Urine clean catch - Urine nieto top Urine Culture - Final <Nimisha Ramesh NP - Last Filed: 09/20/21 11:15> Quality Stroke Does the patient have a stroke diagnosis?: No <Nimisha Ramesh NP - Last Filed: 09/20/21 11:15> VTE Prior VTE?: No <Nimisha Ramesh NP - Last Filed: 09/20/21 11:15> VTE Risk Level:: Medical - moderate - high <Nimisha Ramesh NP - Last Filed: 09/20/21 11:15> VTE Device Contraindication: Treatment Not Indicated <Nimisha Ramesh NP - Last Filed: 09/20/21 11:15> VTE Drug Contraindication: N/A - Med Ordered <Nimisha Ramesh NP - Last Filed: 09/20/21 11:15>
[2021-09-20] MEDS: UrsodioL 300 MG CAPSULE 600 MG PO ×2 (11:19→21:20)
[2021-09-20] MEDS: Furosemide 40 MG TABLET PO (11:20)
[2021-09-20] MEDS: dilTIAZem HCL CD 120 MG CAP.ER.DEG PO (11:21)
[2021-09-20] MEDS: Omeprazole 20 MG CAPSULE.DR PO ×2 (11:21→21:20)
[2021-09-20] MEDS: Cholecalciferol (Vitamin D3) 25 MCG TABLET PO (11:21)
[2021-09-20] MEDS: rifAMPin 300 MG CAPSULE 600 MG PO ×2 (11:22→21:20)
[2021-09-20] MEDS: DULoxetine HCl 30 MG CAPSULE.DR PO ×2 (11:22→21:19)
[2021-09-20] MEDS: Cyanocobalamin (Vitamin B-12) 1,000 MCG TABLET 1000 MCG PO (11:22)
[2021-09-20] MEDS: Metoprolol Succinate ER 25 MG TAB.ER.24H 75 MG PO (11:23)
[2021-09-20] MEDS: predniSONE 20 MG TABLET 40 MG PO (11:24)
[2021-09-20] MEDS: Ferrous Sulfate 324 MG TABLET.DR PO (11:24)
[2021-09-20] MEDS: LORazepam 1 MG TABLET PO ×2 (11:24→21:20)
[2021-09-20] MEDS: Lidocaine 4 % Patch ADH..PATCH 1 PATCH TRANSDERMA (11:25)
[2021-09-20] MEDS: vancomycin HCL 1,250 MG in 0.9 % Sodium Chloride 250 ML 166.67 MG IV (11:42)
[2021-09-20] MEDS: Artificial Tears 15 ML DROPS 1 DROP EYE-BOTH ×2 (11:47→21:00)
[2021-09-20] MEDS: Nystatin Powder 15 GM BOTTLE 1 APPL TOPICAL ×2 (11:47→21:00)
[2021-09-20] MEDS: Enoxaparin Sodium 80 MG/0.8 ML SYRINGE 65 MG SUBCUT ×2 (12:39→23:28)
[2021-09-20] MEDS: Sennosides 8.6 MG TABLET 17.2 MG PO (21:20)
--- NOTE | 2021-09-20 21:32 | PM.EVENT ---
Event Note Date of Service: 09/20/21 Event Note: Ms Trujillo was seen today for follow up. She was sitting upright in her recliner. States her pain is better today. She has no concerns. Will continue to hold off on left hip surgery as it is not urgent and she has MRSA + cultures.
[2021-09-20] MEDS: guaiFENesin 100 MG/5 ML LIQUID PO (21:37)
[2021-09-21] VITALS (11 sets, daily range): BP systolic 101–129; BP diastolic 57–72; PULSE 70–92; RESP 16–20; TEMP 36.1–36.8; O2SAT 9–98
[2021-09-21] MEDS: guaiFENesin 100 MG/5 ML LIQUID PO ×3 (05:54→20:10)
[2021-09-21] MEDS: Levothyroxine Sodium 150 MCG TABLET PO ×2 (05:54→06:03)
[2021-09-21 07:03] LABS: Hematocrit 34.4 % (37.0-47.0); Hemoglobin 10.4 g/dl (12.0-16.0); Mean Corpuscular HGB Conc 30.2 g/dl (31.0-35.0); Mean Corpuscular Hemoglobin 28.7 pg (27.0-33.0); Mean Platelet Volume 11.5 fL (9.4-12.3); Platelet Count 273 X10*3/uL (160-400); Red Blood Count 3.62 X10*6/uL (4.20-5.50); Red Cell Distribution Width 18.4 % (11.0-16.0)
[2021-09-21 07:32] LABS: White Blood Count 35.9 X10*3/uL (4.8-10.8)
[2021-09-21 07:58] LABS: Anion Gap 20 (12-20); Blood Urea Nitrogen 12 mg/dL (9-16); Calcium 8.7 mg/dL (8.4-10.2); Carbon Dioxide 30 mmol/L (22-29); Chloride 94 mmol/L (96-108); Creatinine Clr Calc Pharmacy 60.3; Estimated Glomerular Filt Rate > 60; Glucose Random 80 mg/dL (60-115); Potassium 3.6 mmol/L (3.3-5.1); Sodium 140 mmol/L (135-145)
[2021-09-21 08:06] LABS: Creatinine Clr Calc Pharmacy 59.5; Estimated Glomerular Filt Rate > 60
[2021-09-21] MEDS: Albuterol/Iprat 2.5/0.5MG 3 ML AMPUL.NEB INHALE ×3 (08:11→20:00)
[2021-09-21] MEDS: predniSONE 20 MG TABLET 40 MG PO (08:18)
[2021-09-21] MEDS: DULoxetine HCl 30 MG CAPSULE.DR PO ×2 (08:18→20:12)
[2021-09-21] MEDS: Potassium Chloride ER 20 MEQ TAB.ER.PRT PO (08:18)
[2021-09-21] MEDS: Omeprazole 20 MG CAPSULE.DR PO ×2 (08:18→20:12)
[2021-09-21] MEDS: rifAMPin 300 MG CAPSULE 600 MG PO ×2 (08:18→20:10)
[2021-09-21] MEDS: Ferrous Sulfate 324 MG TABLET.DR PO (08:18)
[2021-09-21] MEDS: LORazepam 1 MG TABLET PO ×2 (08:18→20:11)
[2021-09-21] MEDS: UrsodioL 300 MG CAPSULE 600 MG PO ×2 (08:19→20:11)
[2021-09-21] MEDS: Cyanocobalamin (Vitamin B-12) 1,000 MCG TABLET 1000 MCG PO (08:19)
[2021-09-21] MEDS: Cholecalciferol (Vitamin D3) 25 MCG TABLET PO (08:19)
[2021-09-21] MEDS: Furosemide 40 MG TABLET PO (08:20)
[2021-09-21] MEDS: Metoprolol Succinate ER 25 MG TAB.ER.24H 75 MG PO (08:20)
[2021-09-21] MEDS: Lidocaine 4 % Patch ADH..PATCH 1 PATCH TRANSDERMA (08:26)
[2021-09-21] MEDS: 0.9 % Sodium Chloride Flush 3 ML SYRINGE IVFLUSH ×3 (08:27→20:39)
[2021-09-21] MEDS: Nystatin Powder 15 GM BOTTLE 1 APPL TOPICAL ×2 (08:27→20:38)
[2021-09-21] MEDS: vancomycin HCL 1,250 MG in 0.9 % Sodium Chloride 250 ML 166.67 MG IV (10:13)
[2021-09-21] MEDS: dilTIAZem HCL CD 120 MG CAP.ER.DEG PO (10:14)
--- NOTE | 2021-09-21 11:15 | P.PNIM_ITS ---
Progress Note: A&P (1) MRSA (methicillin resistant staph aureus) culture positive: Status: Acute <Nimisha Ramesh EVENING OR NIGHT NURSE SUPERVISOR - Last Filed: 09/21/21 11:27> (2) Bacteremia: Status: Acute <Nimisha Ramesh NP - Last Filed: 09/21/21 11:27> (3) Left rib fracture: Status: Acute <Nimisha Ramesh EVENING OR NIGHT NURSE SUPERVISOR - Last Filed: 09/21/21 11:27> Assessment and Plan: This is a 76 yo F with multiple medical problems including COPD/Chronic resp. failure with hypoxia on 2-3L, CAD - s/p CABG, A. Fib on coumadin, SOTERO/GAVE/PBC/Colon Ca - s/p resection, L hip fx repaired at [facility] in Jun 2021 who presents from [facility] after ? slipping out of bed / fall (unwitnessed) resulting in a L hip Fx. She will be admitted for further treatment. MRSA bacteremia Blood cultures from 09/15 growing MRSA Repeat blood cultures 09/17 1/2 + for Staph species and cx from 09/19 so far neg after [address] negative for consolidation, u/a negative. Possible source hip hardware vs endocarditis Continue vancomycin, rifampin, Will need vancomycin/rifampin and PICC line for 6-8 weeks once neg cx picc line ordered Pneumonia. CXR showing atelectasis vs pneumonia but CT not showing consolidation abx for PNA d/c Acute on Chronic HFpEF.? BNP trending down EF low to normal; moderately decreased right ventricular EF po lasix was on hold since admission for FRAN. renal function improved, BNP increased continue lasix monitor fluid status closely, uptitrate lasix if needed Acute COPD exacerbation/Emphysema. improving per HCP, patient does not use oxygen chronically at home, but only on a prn basis supplemental o2, wean as tolerated continue scheduled and prn breathing treatments solumedrol changed to prednisone 09/19 left Rib fx pain improving concern for delirium with narcotics lidocaine patch, prn ultram L subcap. fem fx with superior displacement seen by both Pulm and Cardiac - deemed high risk d/w ortho -initially planned to be done in 2-3 weeks as hip surgery is not urgent per ortho and will likely put patient at unnecessary risk given her pain and immobility from the rib fracture. interval may give rib time to heal for pt to better participate in PT following surgery. now with bacteremia will likely be delayed until after completion of antibiotics. WBAT Hypokalemia replace and follow A. Fib RVR. Stable HR controlled. initially treated with cardizem drip on metoprolol 75 daily, po cardizem 120 added restart anticoagluation - will use lovenox 1mg/kg for the time being until her surgery Delirium. intermittent due to hospitalization / acute illness redirect as much as possible ativan home medication, will continue for now CAD ECHO showing Ef 60-65% no RWMA at high risk for surgery due to above - un-modifiable Chronic normocytic anemia underlying GAVE. no acute blood loss h/o requiring multiple transfusions in the past H/H stable FRAN resolved due to hypoperfusion Hypothyroid synthroid PBC ursodial DVT prophylaxis with Lovenox Full Code Andra (Niece) is HCP [phone] Lott <Nimisha Ramesh NP - Last Filed: 09/21/21 11:27> This is a 76 yo F with multiple medical problems including COPD/Chronic resp. failure with hypoxia on 2-3L, CAD - s/p CABG, A. Fib on coumadin, SOTERO/GAVE/PBC/Colon Ca - s/p resection, L hip fx repaired at [facility] in Jun 2021 who presents from [facility] after ? slipping out of bed / fall (unwitnessed) resulting in a L hip Fx. She will be admitted for further treatment. MRSA bacteremia Blood cultures from 09/15 growing MRSA Repeat blood cultures 09/17 1/2 + for Staph species and cx from 09/19 so far neg after [address] negative for consolidation, u/a negative. Possible source hip hardware vs endocarditis Continue vancomycin, rifampin, Will need vancomycin/rifampin and PICC line for 6-8 weeks once neg cx picc line ordered Pneumonia. CXR showing atelectasis vs pneumonia but CT not showing consolidation abx for PNA d/c Acute on Chronic HFpEF.? BNP trending down EF low to normal; moderately decreased right ventricular EF po lasix was on hold since admission for FRAN. renal function improved, BNP increased continue lasix monitor fluid status closely, uptitrate lasix if needed Acute COPD exacerbation/Emphysema. improving per HCP, patient does not use oxygen chronically at home, but only on a prn basis supplemental o2, wean as tolerated continue scheduled and prn breathing treatments solumedrol changed to prednisone 09/19 left Rib fx pain improving concern for delirium with narcotics lidocaine patch, prn ultram L subcap. fem fx with superior displacement seen by both Pulm and Cardiac - deemed high risk d/w ortho -initially planned to be done in 2-3 weeks as hip surgery is not urg ent per ortho and will likely put patient at unnecessary risk given her pain and immobility from the rib fracture. interval may give rib time to heal for pt to better participate in PT following surgery. now with bacteremia will likely be delayed until after completion of antibiotics. WBAT Hypokalemia replace and follow A. Fib RVR. Stable HR controlled. initially treated with cardizem drip on metoprolol 75 daily, po cardizem 120 added restart anticoagluation - will use lovenox 1mg/kg for the time being until her surgery Delirium. intermittent due to hospitalization / acute illness redirect as much as possible ativan home medication, will continue for now CAD ECHO showing Ef 60-65% no RWMA at high risk for surgery due to above - un-modifiable Chronic normocytic anemia underlying GAVE. no acute blood loss h/o requiring multiple transfusions in the past H/H stable FRAN resolved due to hypoperfusion Hypothyroid synthroid PBC ursodial DVT prophylaxis with Lovenox Full Code Andra (Niece) is HCP [phone] Lott I saw and evaluated the patient and discussed the care with Adelaida KLEIN above. I agree with the findings and plan as documented in the note above. persistent leukocytosis raise concern of possible ohter source of infection, suggest thertefore to repeat blood cultures, check c dif. T. MD Kaylie <Cam Lott MD - Last Filed: 09/21/21 14:25> Subjective Subjective Date of Service: 09/21/21 <Nimisha Ramesh NP - Last Filed: 09/21/21 11:27> 09/21/21 <Cam Lott MD - Last Filed: 09/21/21 14:25> Review of Systems Follow-up for rib fracture, MRSA bacteremia Patient awake and alert this morning.? Reports that her left-sided rib pain is improving no complaints at this time? <Nimisha Ramesh NP - Last Filed: 09/21/21 11:27> Physical Exam Vital Signs: Vital Signs: Last Vital Signs Temp 97.8 F 09/21/21 08:00 Pulse 78 09/21/21 08:20 Resp 18 09/21/21 08:00 BP 123/64 09/21/21 08:20 Pulse Ox 94 09/21/21 08:00 Body Mass Index 20.9 <Nimisha Ramesh NP - Last Filed: 09/21/21 11:27> Appearing in no acute distress lung sounds are clear to auscultation heart regular rate rhythm, clear S1, S2 positive bowel sounds, abdomen is soft, nontender neuro patient is alert x3, no focal deficits <Nimisha Ramesh NP - Last Filed: 09/21/21 11:27> Objective Data Current Medications Albuterol/Ipratropium (Albuterol/Iprat 2.5/0.5mg 3 Ml Ampul.Neb) 3 ml INHALE RQ6H WHILE AWAKE [facility] Last Admin: 09/21/21 08:11 Dose: 3 ml Documented by: Artificial Tears (Artificial Tears 15 Ml Drops) 1 drop EYE-BOTH BID [facility] Last Admin: 09/21/21 10:14 Dose: Not Given Documented by: Cyanocobalamin (Cyanocobalamin (Vitamin B-12) 1,000 Mcg Tablet) 1,000 mcg PO DAILY [facility] Last Admin: 09/21/21 08:19 Dose: 1,000 mcg Documented by: Diltiazem HCl (Diltiazem Hcl Cd 120 Mg Cap.Er.Deg) 120 mg PO DAILY [facility]; Protocol Last Admin: 09/21/21 10:14 Dose: 120 mg Documented by: Duloxetine HCl (Duloxetine Hcl 30 Mg Capsule.) 30 mg PO BID [facility] Last Admin: 09/21/21 08:18 Dose: 30 mg Documented by: Enoxaparin Sodium (Enoxaparin Sodium 80 Mg/0.8 Ml Syringe) 65 mg SUBCUT Q12H [facility] Last Admin: 09/20/21 23:28 Dose: 65 mg Documented by: Ferrous Sulfate (Ferrous Sulfate 324 Mg Tablet.) 324 mg PO DAILY [facility] Last Admin: 09/21/21 08:18 Dose: 324 mg Documented by: Furosemide (Furosemide 40 Mg Tablet) 40 mg PO DAILY [facility]; Protocol Last Admin: 09/21/21 08:20 Dose: 40 mg Documented by: Guaifenesin (Guaifenesin 100 Mg/5 Ml Liquid) 5 ml PO Q4H PRN PRN Reason: Cough Last Admin: 09/21/21 05:54 Dose: 5 ml Documented by: Vancomycin HCl 1,250 mg/ (Sodium Chloride) 250 mls @ 166.667 mls/hr IV Q24H [facility] Last Admin: 09/21/21 10:13 Dose: 166.67 mls/hr Documented by: Levothyroxine Sodium (Levothyroxine Sodium 150 Mcg Tablet) 150 mcg PO DAILY@0630 [facility] Last Admin: 09/21/21 06:03 Dose: 150 mcg Documented by: Lidocaine (Lidocaine 4 % Patch Adh..Patch) 1 patch TRANSDERMA DAILY [facility]; Protocol Last Admin: 09/21/21 08:26 Dose: 1 patch Documented by: Lorazepam (Lorazepam 1 Mg Tablet) 1 mg PO BID [facility] Last Admin: 09/21/21 08:18 Dose: 1 mg Documented by: Metoprolol Succinate (Metoprolol Succinate Er 25 Mg Tab.Er.24h) 75 mg PO DAILY [facility]; Protocol Last Admin: 09/21/21 08:20 Dose: 75 mg Documented by: Nystatin (Nystatin Powder 15 Gm Bottle) 1 appl TOPICAL BID [facility]; Protocol Last Admin: 09/21/21 08:27 Dose: 1 appl Documented by: Omeprazole (Omeprazole 20 Mg Capsule.Dr) 20 mg PO BID [facility] Last Admin: 09/21/21 08:18 Dose: 20 mg Documented by: Ondansetron HCl (Ondansetron Hcl 4 Mg/2 Ml Vial) 4 mg IVPUSH Q8H PRN PRN Reason: Nausea and Vomiting Last Admin: 09/08/21 12:34 Dose: 4 mg Documented by: Pharmacy Consult (Consult Rx Vancomycin Dosing) 1 each MISCELLANE DAILY PRN PRN Reason: Consult order Potassium Chloride (Potassium Chloride Er 20 Meq Tab.Er.Prt) 20 meq PO DAILY [facility] Last Admin: 09/21/21 08:18 Dose: 20 meq Documented by: Prednisone (Prednisone 20 Mg Tablet) 40 mg PO DAILY [facility] Last Admin: 09/21/21 08:18 Dose: 40 mg Documented by: Rifampin (Rifampin 300 Mg Capsule) 600 mg PO BID [facility] Last Admin: 09/21/21 08:18 Dose: 600 mg Documented by: Senna (Sennosides 8.6 Mg Tablet) 17.2 mg PO BEDTIME [facility] Last Admin: 09/20/21 21:20 Dose: 17.2 mg Documented by: Senna (Sennosides 8.6 Mg Tablet) 17.2 mg PO Q24H PRN PRN Reason: constipation Sodium Chloride (0.9 % Sodium Chloride Flush 3 Ml Syringe) 3 ml IVFLUSH QSHIFT [facility] Last Admin: 09/21/21 08:27 Dose: 3 ml Documented by: Tiotropium Gays (Tiotropium Gays 18 Mcg Cap.W.Dev) 1 puff INHALE DAILY [facility] Last Admin: 09/21/21 08:11 Dose: 1 puff Documented by: Tramadol HCl (Tramadol Hcl 50 Mg Tablet) 100 mg PO Q6H PRN PRN Reason: Pain, Mild (Pain Scale 1-3) Last Admin: 09/20/21 23:27 Dose: 100 mg Documented by: Ursodiol (Ursodiol 300 Mg Capsule) 600 mg PO BID [facility] Last Admin: 09/21/21 08:19 Dose: 600 mg Documented by: Vitamin D (Cholecalciferol (Vitamin D3) 25 Mcg Tablet) 25 mcg PO DAILY [facility] Last Admin: 09/21/21 08:19 Dose: 25 mcg Documented by: <Nimisha Ramesh NP - Last Filed: 09/21/21 11:27> Labs CBC & Chem 7: : 09/21/21 06:20 09/21/21 06:20 <Nimisha Ramesh NP - Last Filed: 09/21/21 11:27> Labs: Laboratory Results - last 24 hr 09/21/21 09/21/21 09/21/21 06:20 06:20 06:20 MCV 95.0 MCH 28.7 MCHC 30.2 L RDW 18.4 H Plt Count 273 MPV 11.5 Absolute Nucleated RBC 0.000 Nucleated RBC % (auto) 0.0 Anion Gap 20 Estim Creat Clear Calc 59.5 60.3 Estimated GFR > 60 > 60 Random Glucose 80 Calcium 8.7 <Nimisha Ramesh NP - Last Filed: 09/21/21 11:27> Microbiology Microbiology Results: Microbiology 09/19/21 08:55 Blood - Venous Blood Culture - Preliminary No growth after 48 hours. 09/19/21 08:55 Blood - Venous Blood Culture - Preliminary No growth after 48 hours. 09/17/21 08:49 Blood - Venous Blood Culture - Final Staphylococcus aureus 09/17/21 08:49 Blood - Venous Blood Culture - Preliminary No growth after 48 hours. 09/15/21 09:08 Blood - Venous Blood Culture - Final Methicillin Res Staph Aureus 09/15/21 09:08 Blood - Venous Blood Culture - Final Methicillin Res Staph Aureus 09/14/21 09:36 Blood - Venous Blood Culture - Final Methicillin Res Staph Aureus 09/14/21 09:36 Blood - Venous Blood Culture - Final Methicillin Res Staph Aureus 09/08/21 07:40 Blood - Venous Blood Culture - Final No growth after 5 days. 09/08/21 07:29 Blood - Venous Blood Culture - Final No growth after 5 days. 09/08/21 00:00 Urine clean catch - Urine nieto top Urine Culture - Final <Nimisha Ramesh NP - Last Filed: 09/21/21 11:27> Quality Stroke Does the patient have a stroke diagnosis?: No <Nimisha Ramesh NP - Last Filed: 09/21/21 11:27> VTE Prior VTE?: No <Nimisha Ramesh NP - Last Filed: 09/21/21 11:27> VTE Risk Level:: Medical - moderate - high <Nimisha Ramesh NP - Last Filed: 09/21/21 11:27> VTE Device Contraindication: Treatment Not Indicated <Nimisha Ramesh NP - Last Filed: 09/21/21 11:27> VTE Drug Contraindication: N/A - Med Ordered <Nimisha Ramesh NP - Last Filed: 09/21/21 11:27>
[2021-09-21] MEDS: Enoxaparin Sodium 80 MG/0.8 ML SYRINGE 65 MG SUBCUT ×2 (12:14→23:37)
--- NOTE | 2021-09-21 19:13 | P.EN_ITS ---
Event Note Date of Service: 09/21/21 Event Note: Call by RNs to to assess patient's since noted to have atrial flut ter with heart rate between 110-120 Patient awake alert finishing her supper, she denies chest pain no palpitation denies shortness of breath, but unable to lie flat chronically to shortness of breath Neck no JVD Lungs bibasilar crackles Heart irregular Extremities no edema Assessment and plan History of atrial flutter currently on a Cardizem CD 120 and metoprolol 75 mg daily Concern for underlying diastolic heart failure Recent echo showed stable EF no wall motion abnormality and diastolic dysfunction Will give IV Lasix 20 mg will obtain cardiology consultation, dose of metoprolol can be increased to 100mg Will decrease dose of prednisone to 20mg Leukocytosis likely due to underlying infection and steroids
[2021-09-21] MEDS: Furosemide 20 MG/2 ML VIAL IVPUSH (20:10)
[2021-09-21] MEDS: Artificial Tears 15 ML DROPS 1 DROP EYE-BOTH (20:38)
[2021-09-22] VITALS (11 sets, daily range): BP systolic 99–138; BP diastolic 52–74; PULSE 64–104; RESP 18–20; TEMP 36.1–36.7; O2SAT 94–100
[2021-09-22] MEDS: traMADoL HCL 50 MG TABLET 100 MG PO (04:10)
[2021-09-22 09:02] LABS: Hematocrit 32.2 % (37.0-47.0); Hemoglobin 9.9 g/dl (12.0-16.0); Mean Corpuscular HGB Conc 30.7 g/dl (31.0-35.0); Mean Corpuscular Hemoglobin 28.5 pg (27.0-33.0); Mean Corpuscular Volume 92.8 fL (80.0-98.0); Platelet Count 320 X10*3/uL (160-400); Red Blood Count 3.47 X10*6/uL (4.20-5.50); Red Cell Distribution Width 18.4 % (11.0-16.0); White Blood Count 19.1 X10*3/uL (4.8-10.8)
[2021-09-22 09:15] LABS: Anion Gap 11 (12-20); Blood Urea Nitrogen 10 mg/dL (9-16); Calcium 8.5 mg/dL (8.4-10.2); Carbon Dioxide 35 mmol/L (22-29); Chloride 96 mmol/L (96-108); Creatinine Clr Calc Pharmacy 53.2; Estimated Glomerular Filt Rate > 60; Glucose Random 111 mg/dL (60-115); Potassium 3.2 mmol/L (3.3-5.1); Sodium 139 mmol/L (135-145)
[2021-09-22 09:22] LABS: Vancomycin Trough 19.4 mcg/mL (10.0-20.0)
[2021-09-22 09:23] LABS: B Type Natriuretic Peptide 258 pg/mL (<100)
[2021-09-22] MEDS: Ferrous Sulfate 324 MG TABLET.DR PO (09:40)
[2021-09-22] MEDS: Nystatin Powder 15 GM BOTTLE 1 APPL TOPICAL ×2 (09:40→22:15)
[2021-09-22] MEDS: UrsodioL 300 MG CAPSULE 600 MG PO (09:40)
[2021-09-22] MEDS: DULoxetine HCl 30 MG CAPSULE.DR PO ×2 (09:40→20:55)
[2021-09-22] MEDS: Omeprazole 20 MG CAPSULE.DR PO ×2 (09:40→20:55)
[2021-09-22] MEDS: Cholecalciferol (Vitamin D3) 25 MCG TABLET PO (09:41)
[2021-09-22] MEDS: Cyanocobalamin (Vitamin B-12) 1,000 MCG TABLET 1000 MCG PO (09:41)
[2021-09-22] MEDS: Potassium Chloride ER 20 MEQ TAB.ER.PRT PO (09:41)
[2021-09-22] MEDS: Metoprolol Succinate ER 25 MG TAB.ER.24H 75 MG PO (09:41)
[2021-09-22] MEDS: rifAMPin 300 MG CAPSULE 600 MG PO (09:41)
[2021-09-22] MEDS: predniSONE 20 MG TABLET PO (09:41)
[2021-09-22] MEDS: Furosemide 40 MG TABLET PO (09:42)
[2021-09-22] MEDS: Lidocaine 4 % Patch ADH..PATCH 1 PATCH TRANSDERMA (09:42)
[2021-09-22] MEDS: dilTIAZem HCL CD 120 MG CAP.ER.DEG PO ×2 (09:42→20:58)
[2021-09-22] MEDS: 0.9 % Sodium Chloride Flush 3 ML SYRINGE IVFLUSH ×2 (09:42→20:59)
[2021-09-22] MEDS: Artificial Tears 15 ML DROPS 1 DROP EYE-BOTH (09:43)
[2021-09-22] MEDS: LORazepam 1 MG TABLET PO ×2 (09:43→20:55)
--- NOTE | 2021-09-22 09:43 | MHC.CM.PN ---
Addendum entered by Dio Leon 09/22/21 15:02: call placed to pt's niece, ana, to update her and confirm that dc plan was to [facility] for lgt iv abx's. message left - waiting for return call . cm to cont. to follow. Original Note: dc plan is picc c lg term iv abx at [facility]. refs have been made. hcp, mello - ana , is part of dc decision makeing. cm to cont. to follow.
--- NOTE | 2021-09-22 09:44 | HE.PHANOTE ---
Vancomycin Dosing Addendum Trough 19.4. Decreased dose to 1000 mg q24h for predicted AUC of 491 predicted trough of 15.3. continue to monitor scr.
[2021-09-22] MEDS: vancomycin HCL 1,000 MG in 0.9 % Sodium Chloride 250 ML 270 MG IV (10:11)
--- NOTE | 2021-09-22 10:37 | P.PNCA_ITS ---
Subjective Subjective Date of Service: 09/22/21 Principal diagnosis: Atrial fibrillation Interval history: We are requested to see Alina in follow-up visit today as she had atrial fibrillation rapid ventricular response last night. Patient had no obvious symptoms related to it. Not sure if she had pain during that time. Overnight however rate has been adequately controlled. Denies any chest pain or palpitation this morning. Visibly short of breath, but this is a baseline related to COPD. Review of Systems Constitutional: Reports no additional constitutional complaints Cardiovascular: Reports no additional cardiovascular complaints Respiratory: Reports no additional respiratory complaints Gastrointestinal: Reports no additional gastrointestinal complaints Reports system reviewed and no additional complaints, except as documented Psychiatric: Reports no additional psychiatric complaints Endocrine: Reports no additional endocrine complaints Physical Exam Vital Signs: Last Vital Signs Temp 97.1 F 09/22/21 07:06 Pulse 75 09/22/21 09:42 Resp 18 09/22/21 07:06 BP 132/64 09/22/21 09:42 Pulse Ox 95 09/22/21 07:06 Body Mass Index 20.9 Neck Neck: Yes trachea midline, Yes supple and Yes no JVD Resp Effort & Inspection: decreased respiratory effort Auscultation: wheezes and diminished lung sounds Cardio Jugular venous distension: no JVD Rhythm: abnormal rhythm irregularly irregular Heart sounds: S1 normal heart sound present, S2 normal heart sound present, no click, no gallops and no murmurs GI Auscultation: normal bowel sounds Skin General skin exam: no rashes or lesions noted and ecchymosis Neuro General: no focal motor deficits Results Labs and Meds Result diagrams: 09/22/21 08:54 09/22/21 08:54 Lab results: Laboratory Results - last 24 hr 09/21/21 09/22/21 09/22/21 06:20 08:53 08:54 WBC Cancelled RBC Cancelled Hgb Cancelled Hct Cancelled MCV Cancelled MCH Cancelled MCHC Cancelled RDW Cancelled Plt Count Cancelled MPV Cancelled Absolute Nucleated RBC Cancelled Nucleated RBC % (auto) Cancelled Smear Path Review SEE NOTE Sodium Potassium Chloride Carbon Dioxide Anion Gap BUN Creatinine Estim Creat Clear Calc Estimated GFR Random Glucose Calcium B-Natriuretic Peptide 258 H Vancomycin Trough 09/22/21 09/22/21 09/22/21 08:54 08:54 08:54 WBC 19.1 H RBC 3.47 L Hgb 9.9 L Hct 32.2 L MCV 92.8 MCH 28.5 MCHC 30.7 L RDW 18.4 H Plt Count 320 MPV 11.0 Absolute Nucleated RBC 0.000 Nucleated RBC % (auto) 0.0 Smear Path Review Sodium Cancelled 139 Potassium Cancelled 3.2 L Chloride Cancelled 96 Carbon Dioxide Cancelled 35 H Anion Gap Cancelled 11 L BUN Cancelled 10 Creatinine Cancelled 0.86 Estim Creat Clear Calc Cancelled 53.2 Estimated GFR Cancelled > 60 Random Glucose Cancelled 111 Calcium Cancelled 8.5 B-Natriuretic Peptide Vancomycin Trough 09/22/21 09/22/21 08:55 08:55 WBC RBC Hgb Hct MCV MCH MCHC RDW Plt Count MPV Absolute Nucleated RBC Nucleated RBC % (auto) Smear Path Review Sodium Potassium Chloride Carbon Dioxide Anion Gap BUN Creatinine Cancelled Estim Creat Clear Calc Cancelled Estimated GFR Cancelled Random Glucose Calcium B-Natriuretic Peptide Vancomycin Trough 19.4 Progress Note: A&P Assessment and plan (1) Afib: Status: Acute Assessment and Plan: Atrial fibrillation with last night having in adequate heart rate control. This morning heart rate adequately controlled. In adequate heart rate could be due to multiple factors including pain. Continue aggressive pain control. Continue treat sepsis/bacteremia. Can increase Cardizem CD to 120 mg b.i.d. in addition to metoprolol therapy. Would avoid increasing metoprolol therapy given her COPD. Continue full oral anticoagulation as planned. Chronically on Coumadin therapy. Maintain target INR between 2 and 3. Continue high-intensity statin therapy. Blood pressure is well optimized. Will sign of the case Fall Risk Details Current Medications: Current Medications Albuterol/Ipratropium (Albuterol/Iprat 2.5/0.5mg 3 Ml Ampul.Neb) 3 ml INHALE RQ6H WHILE AWAKE [facility] Last Admin: 09/22/21 08:10 Dose: Not Given Documented by: Artificial Tears (Artificial Tears 15 Ml Drops) 1 drop EYE-BOTH BID [facility] Last Admin: 09/22/21 09:43 Dose: 1 drop Documented by: Cyanocobalamin (Cyanocobalamin (Vitamin B-12) 1,000 Mcg Tablet) 1,000 mcg PO DAILY [facility] Last Admin: 09/22/21 09:41 Dose: 1,000 mcg Documented by: Diltiazem HCl (Diltiazem Hcl Cd 120 Mg Cap.Er.Deg) 120 mg PO DAILY [facility]; Protocol Last Admin: 09/22/21 09:42 Dose: 120 mg Documented by: Duloxetine HCl (Duloxetine Hcl 30 Mg Capsule.) 30 mg PO BID [facility] Last Admin: 09/22/21 09:40 Dose: 30 mg Documented by: Enoxaparin Sodium (Enoxaparin Sodium 80 Mg/0.8 Ml Syringe) 65 mg SUBCUT Q12H [facility] Last Admin: 09/21/21 23:37 Dose: 65 mg Documented by: Ferrous Sulfate (Ferrous Sulfate 324 Mg Tablet.) 324 mg PO DAILY [facility] Last Admin: 09/22/21 09:40 Dose: 324 mg Documented by: Furosemide (Furosemide 40 Mg Tablet) 40 mg PO DAILY [facility]; Protocol Last Admin: 09/22/21 09:42 Dose: 40 mg Documented by: Guaifenesin (Guaifenesin 100 Mg/5 Ml Liquid) 5 ml PO Q4H PRN PRN Reason: Cough Last Admin: 09/21/21 20:10 Dose: 5 ml Documented by: Vancomycin HCl 1,000 mg/ (Sodium Chloride) 270 mls @ 270 mls/hr IV Q24H [facility] Last Admin: 09/22/21 10:11 Dose: 270 mls/hr Documented by: Levothyroxine Sodium (Levothyroxine Sodium 150 Mcg Tablet) 150 mcg PO DAILY@0630 [facility] Last Admin: 09/21/21 06:03 Dose: 150 mcg Documented by: Lidocaine (Lidocaine 4 % Patch Adh..Patch) 1 patch TRANSDERMA DAILY [facility]; Protocol Last Admin: 09/22/21 09:42 Dose: 1 patch Documented by: Lorazepam (Lorazepam 1 Mg Tablet) 1 mg PO BID [facility] Last Admin: 09/22/21 09:43 Dose: 1 mg Documented by: Metoprolol Succinate (Metoprolol Succinate Er 25 Mg Tab.Er.24h) 75 mg PO DAILY [facility]; Protocol Last Admin: 09/22/21 09:41 Dose: 75 mg Documented by: Nystatin (Nystatin Powder 15 Gm Bottle) 1 appl TOPICAL BID [facility]; Protocol Last Admin: 09/22/21 09:40 Dose: 1 appl Documented by: Omeprazole (Omeprazole 20 Mg Capsule.) 20 mg PO BID [facility] Last Admin: 09/22/21 09:40 Dose: 20 mg Documented by: Ondansetron HCl (Ondansetron Hcl 4 Mg/2 Ml Vial) 4 mg IVPUSH Q8H PRN PRN Reason: Nausea and Vomiting Last Admin: 09/08/21 12:34 Dose: 4 mg Documented by: Pharmacy Consult (Consult Rx Vancomycin Dosing) 1 each MISCELLANE DAILY PRN PRN Reason: Consult order Potassium Chloride (Potassium Chloride Er 20 Meq Tab.Er.Prt) 20 meq PO DAILY [facility] Last Admin: 09/22/21 09:41 Dose: 20 meq Documented by: Prednisone (Prednisone 20 Mg Tablet) 20 mg PO DAILY [facility] Last Admin: 09/22/21 09:41 Dose: 20 mg Documented by: Rifampin (Rifampin 300 Mg Capsule) 600 mg PO BID [facility] Last Admin: 09/22/21 09:41 Dose: 600 mg Documented by: Senna (Sennosides 8.6 Mg Tablet) 17.2 mg PO BEDTIME [facility] Last Admin: 09/21/21 20:38 Dose: Not Given Documented by: Senna (Sennosides 8.6 Mg Tablet) 17.2 mg PO Q24H PRN PRN Reason: constipation Sodium Chloride (0.9 % Sodium Chloride Flush 3 Ml Syringe) 3 ml IVFLUSH QSHIFT [facility] Last Admin: 09/22/21 09:42 Dose: 3 ml Documented by: Tiotropium [place] (Tiotropium [place] 18 Mcg Cap.W.Dev) 1 puff INHALE DAILY [facility] Last Admin: 09/22/21 08:10 Dose: Not Given Documented by: Tramadol HCl (Tramadol Hcl 50 Mg Tablet) 100 mg PO Q6H PRN PRN Reason: Pain, Mild (Pain Scale 1-3) Last Admin: 09/22/21 04:10 Dose: 100 mg Documented by: Ursodiol (Ursodiol 300 Mg Capsule) 600 mg PO BID [facility] Last Admin: 09/22/21 09:40 Dose: 600 mg Documented by: Vitamin D (Cholecalciferol (Vitamin D3) 25 Mcg Tablet) 25 mcg PO DAILY [facility] Last Admin: 09/22/21 09:41 Dose: 25 mcg Documented by: Time Spent With Patient Time: Total time spent is greater than 50% in coordination of care (as documented) at patient's floor/unit and/or counseling patient: Time with patient: 25 - 35 minutes Progress Note: Quality Stroke Does the patient have a stroke diagnosis?: No Procedures Date of Service Date of Service: 09/22/21
--- NOTE | 2021-09-22 11:19 | P.PNIM_ITS ---
Progress Note: A&P (1) Afib: Status: Acute (2) MRSA (methicillin resistant staph aureus) culture positive: Status: Acute (3) Left rib fracture: Status: Acute Assessment and Plan: This is a 76 yo F with multiple medical problems including COPD/Chronic resp. failure with hypoxia on 2-3L, CAD - s/p CABG, A. Fib on coumadin, SOTERO/GAVE/PBC/Colon Ca - s/p resection, L hip fx repaired at [facility] in Jun 2021 who presents from [facility] after ? slipping out of bed / fall (unwitnessed) resulting in a L hip Fx. She will be admitted for further treatment. A. Fib RVR. Epsiode overnight HR controlled this morning increased po cardizem to 120mg BID restart anticoagluation - will use lovenox 1mg/kg for the time being until her surgery MRSA bacteremia Blood cultures from 09/15 growing MRSA Repeat blood cultures 09/17 1/2 + for Staph species and cx from 09/19 so far neg after [address] negative for consolidation, u/a negative. Possible source hip hardware vs endocarditis Continue vancomycin, rifampin, Will need vancomycin/rifampin and PICC line for 6-8 weeks once neg cx picc line ordered Pneumonia. Resolved. CXR showing atelectasis vs pneumonia but CT not showing consolidation abx for PNA d/c Acute on Chronic HFpEF.? BNP trending down EF low to normal; moderately decreased right ventricular EF po lasix was on hold since admission for FRAN. renal function improved, BNP incre ased continue lasix monitor fluid status closely, uptitrate lasix if needed Acute COPD exacerbation/Emphysema. improving per HCP, patient does not use oxygen chronically at home, but only on a prn ba sis supplemental o2, wean as tolerated continue scheduled and prn breathing treatments solumedrol changed to prednisone 09/19 left Rib fx pain improving concern for delirium with narcotics lidocaine patch, prn ultram L subcap. fem fx with superior displacement seen by both Pulm and Cardiac - deemed high risk d/w ortho -initially planned to be done in 2-3 weeks as hip surgery is not urgent per ortho and will likely put patient at unnecessary risk given her pain and immobility from the rib fracture. interval may give rib time to heal for pt to better participate in PT following surgery. now with bacteremia will likely be delayed until after completion of antibiotics. WBAT Hypokalemia replace and follow Delirium. intermittent due to hospitalization / acute illness redirect as much as possible ativan home medication, will continue for now CAD ECHO showing Ef 60-65% no RWMA at high risk for surgery due to above - un-modifiable Chronic normocytic anemia underlying GAVE. no acute blood loss h/o requiring multiple transfusions in the past H/H stable FRAN resolved due to hypoperfusion Hypothyroid synthroid PBC ursodial DVT prophylaxis with Lovenox Full Code Andra (Niece) is [facility] [phone] Nguyễn Subjective Subjective Date of Service: 09/22/21 Review of Systems Follow-up for rib fracture, MRSA bacteremia Patient awake and alert this morning.? Reports that her left-sided rib pain is improving no complaints at this time Physical Exam Vital Signs: Vital Signs: Last Vital Signs Temp 97.8 F 09/22/21 11:08 Pulse 64 09/22/21 11:08 Resp 18 09/22/21 11:08 BP 113/60 09/22/21 11:08 Pulse Ox 98 09/22/21 11:08 Body Mass Index 20.9 Appearing in no acute distress lung sounds are clear to auscultation heart regular rate rhythm, clear S1, S2 positive bowel sounds, abdomen is soft, nontender neuro patient is alert x3, no focal deficits Objective Data Current Medications Albuterol/Ipratropium (Albuterol/Iprat 2.5/0.5mg 3 Ml Ampul.Neb) 3 ml INHALE RQ6H WHILE AWAKE [facility] Last Admin: 09/22/21 08:10 Dose: Not Given Documented by: Artificial Tears (Artificial Tears 15 Ml Drops) 1 drop EYE-BOTH BID [facility] Last Admin: 09/22/21 09:43 Dose: 1 drop Documented by: Cyanocobalamin (Cyanocobalamin (Vitamin B-12) 1,000 Mcg Tablet) 1,000 mcg PO DAILY [facility] Last Admin: 09/22/21 09:41 Dose: 1,000 mcg Documented by: Diltiazem HCl (Diltiazem Hcl Cd 120 Mg Cap.Er.Deg) 120 mg PO DAILY [facility]; Protocol Last Admin: 09/22/21 09:42 Dose: 120 mg Documented by: Duloxetine HCl (Duloxetine Hcl 30 Mg Capsule.Dr) 30 mg PO BID [facility] Last Admin: 09/22/21 09:40 Dose: 30 mg Documented by: Enoxaparin Sodium (Enoxaparin Sodium 80 Mg/0.8 Ml Syringe) 65 mg SUBCUT Q12H [facility] Last Admin: 09/21/21 23:37 Dose: 65 mg Documented by: Ferrous Sulfate (Ferrous Sulfate 324 Mg Tablet.) 324 mg PO DAILY [facility] Last Admin: 09/22/21 09:40 Dose: 324 mg Documented by: Furosemide (Furosemide 40 Mg Tablet) 40 mg PO DAILY [facility]; Protocol Last Admin: 09/22/21 09:42 Dose: 40 mg Documented by: Guaifenesin (Guaifenesin 100 Mg/5 Ml Liquid) 5 ml PO Q4H PRN PRN Reason: Cough Last Admin: 09/21/21 20:10 Dose: 5 ml Documented by: Vancomycin HCl 1,000 mg/ (Sodium Chloride) 270 mls @ 270 mls/hr IV Q24H [facility] Last Infusion: 09/22/21 11:16 Dose: Infused Documented by: Levothyroxine Sodium (Levothyroxine Sodium 150 Mcg Tablet) 150 mcg PO DAILY@0630 [facility] Last Admin: 09/21/21 06:03 Dose: 150 mcg Documented by: Lidocaine (Lidocaine 4 % Patch Adh..Patch) 1 patch TRANSDERMA DAILY [facility]; Protocol Last Admin: 09/22/21 09:42 Dose: 1 patch Documented by: Lorazepam (Lorazepam 1 Mg Tablet) 1 mg PO BID [facility] Last Admin: 09/22/21 09:43 Dose: 1 mg Documented by: Metoprolol Succinate (Metoprolol Succinate Er 25 Mg Tab.Er.24h) 75 mg PO DAILY [facility]; Protocol Last Admin: 09/22/21 09:41 Dose: 75 mg Documented by: Nystatin (Nystatin Powder 15 Gm Bottle) 1 appl TOPICAL BID [facility]; Protocol Last Admin: 09/22/21 09:40 Dose: 1 appl Documented by: Omeprazole (Omeprazole 20 Mg Capsule.) 20 mg PO BID [facility] Last Admin: 09/22/21 09:40 Dose: 20 mg Documented by: Ondansetron HCl (Ondansetron Hcl 4 Mg/2 Ml Vial) 4 mg IVPUSH Q8H PRN PRN Reason: Nausea and Vomiting Last Admin: 09/08/21 12:34 Dose: 4 mg Documented by: Pharmacy Consult (Consult Rx Vancomycin Dosing) 1 each MISCELLANE DAILY PRN PRN Reason: Consult order Potassium Chloride (Potassium Chloride Er 20 Meq Tab.Er.Prt) 20 meq PO DAILY [facility] Last Admin: 09/22/21 09:41 Dose: 20 meq Documented by: Potassium Chloride (Potassium Chloride Er 20 Meq Tab.Er.Prt) 40 meq PO ONCE ONE Stop: 09/22/21 11:18 Prednisone (Prednisone 20 Mg Tablet) 20 mg PO DAILY [facility] Last Admin: 09/22/21 09:41 Dose: 20 mg Documented by: Rifampin (Rifampin 300 Mg Capsule) 600 mg PO BID [facility] Last Admin: 09/22/21 09:41 Dose: 600 mg Documented by: Senna (Sennosides 8.6 Mg Tablet) 17.2 mg PO BEDTIME [facility] Last Admin: 09/21/21 20:38 Dose: Not Given Documented by: Senna (Sennosides 8.6 Mg Tablet) 17.2 mg PO Q24H PRN PRN Reason: constipation Sodium Chloride (0.9 % Sodium Chloride Flush 3 Ml Syringe) 3 ml IVFLUSH QSHIFT [facility] Last Admin: 09/22/21 09:42 Dose: 3 ml Documented by: Tiotropium [place] (Tiotropium [place] 18 Mcg Cap.W.Dev) 1 puff INHALE DAILY [facility] Last Admin: 09/22/21 08:10 Dose: Not Given Documented by: Tramadol HCl (Tramadol Hcl 50 Mg Tablet) 100 mg PO Q6H PRN PRN Reason: Pain, Mild (Pain Scale 1-3) Last Admin: 09/22/21 04:10 Dose: 100 mg Documented by: Ursodiol (Ursodiol 300 Mg Capsule) 600 mg PO BID [facility] Last Admin: 09/22/21 09:40 Dose: 600 mg Documented by: Vitamin D (Cholecalciferol (Vitamin D3) 25 Mcg Tablet) 25 mcg PO DAILY [facility] Last Admin: 09/22/21 09:41 Dose: 25 mcg Documented by: Labs CBC & Chem 7: 09/22/21 08:54 09/22/21 08:54 Labs: Laboratory Results - last 24 hr 09/21/21 09/22/21 09/22/21 06:20 08:53 08:54 MCV Cancelled MCH Cancelled MCHC Cancelled RDW Cancelled Plt Count Cancelled MPV Cancelled Absolute Nucleated RBC Cancelled Nucleated RBC % (auto) Cancelled Smear Path Review SEE NOTE Anion Gap Estim Creat Clear Calc Estimated GFR Random Glucose Calcium B-Natriuretic Peptide 258 H Vancomycin Trough 09/22/21 09/22/21 09/22/21 08:54 08:54 08:54 MCV 92.8 MCH 28.5 MCHC 30.7 L RDW 18.4 H Plt Count 320 MPV 11.0 Absolute Nucleated RBC 0.000 Nucleated RBC % (auto) 0.0 Smear Path Review Anion Gap Cancelled 11 L Estim Creat Clear Calc Cancelled 53.2 Estimated GFR Cancelled > 60 Random Glucose Cancelled 111 Calcium Cancelled 8.5 B-Natriuretic Peptide Vancomycin Trough 09/22/21 09/22/21 08:55 08:55 MCV MCH MCHC RDW Plt Count MPV Absolute Nucleated RBC Nucleated RBC % (auto) Smear Path Review Anion Gap Estim Creat Clear Calc Cancelled Estimated GFR Cancelled Random Glucose Calcium B-Natriuretic Peptide Vancomycin Trough 19.4 Microbiology Microbiology Results: Microbiology 09/17/21 08:49 Blood - Venous Blood Culture - Final No growth after 5 days. 09/19/21 08:55 Blood - Venous Blood Culture - Preliminary No growth after 48 hours. 09/19/21 08:55 Blood - Venous Blood Culture - Preliminary No growth after 48 hours. 09/17/21 08:49 Blood - Venous Blood Culture - Final Staphylococcus aureus 09/15/21 09:08 Blood - Venous Blood Culture - Final Methicillin Res Staph Aureus 09/15/21 09:08 Blood - Venous Blood Culture - Final Methicillin Res Staph Aureus 09/14/21 09:36 Blood - Venous Blood Culture - Final Methicillin Res Staph Aureus 09/14/21 09:36 Blood - Venous Blood Culture - Final Methicillin Res Staph Aureus 09/08/21 07:40 Blood - Venous Blood Culture - Final No growth after 5 days. 09/08/21 07:29 Blood - Venous Blood Culture - Final No growth after 5 days. 09/08/21 00:00 Urine clean catch - Urine nieto top Urine Culture - Final Quality Stroke Does the patient have a stroke diagnosis?: No VTE Prior VTE?: No VTE Risk Level:: Medical - moderate - high VTE Device Contraindication: Treatment Not Indicated VTE Drug Contraindication: N/A - Med Ordered
--- NOTE | 2021-09-22 12:21 | MHC.SL.SWA ---
Speech Pathologist Impression: Risk of Aspiration Oralpharyngeal Dysphagia Risk of Aspiration Due to: Poor PO Intake Dysphasia Diet Status: No Change Liquid Consistency and Strategies for Safe Swallow: Liquid Intake Recommendation: Thin Liquid Intake Strategies: Small Sips Solid Food Consistency: Dietary Recommendations: Grnd/Mech Altered (NDD2) Additional Modifications to Solid Foods: Recommend GROUND/MECH ALTERED (NDD2) solids, THIN liquids, and pills CRUSHED when possible in PUREE. Patient is able to feed herself. Recommend intermittent supervision to monitor tolerance and ensure aspiration precautions. TECHNICAL INTERN discussed upgrade to advanced solids, but patient stated that she preferred mashed food, and maybe will be ready for advanced solids in a few days. Oral Medication Intake: Crushed with Puree Compensatory Strategies and Precautions to be Taken for Safe Swallow: Sitting Upright (90 deg) Double Swallow Small Bites and Sips Alternate Liquids/Solids Rate of Ingestion Change Supervision While Eating and Drinking for Safe Swallow: Intermittent Supervision Swallowing Recommended Treatments: Compens. Strategy Educat. Recommendation for Speech: Inpatient Speech Therapy Cotton Machine Operator Clinican/Clinical Fellow: No Supervisory Statement: I have reviewed and agree with the student/clinical fellow's documentation: N/A Speech Language Pathologist: Lata Pathak M.A., [facility]-TECHNICAL INTERN
[2021-09-22] MEDS: Enoxaparin Sodium 80 MG/0.8 ML SYRINGE 65 MG SUBCUT (12:28)
[2021-09-22] MEDS: Potassium Chloride ER 20 MEQ TAB.ER.PRT 40 MEQ PO (12:28)
[2021-09-22] MEDS: Albuterol/Iprat 2.5/0.5MG 3 ML AMPUL.NEB INHALE ×2 (14:30→19:38)
[2021-09-22] MEDS: guaiFENesin 100 MG/5 ML LIQUID PO (20:59)
[2021-09-23] VITALS (12 sets, daily range): BP systolic 110–148; BP diastolic 52–90; PULSE 68–115; RESP 15–20; TEMP 35.5–37; O2SAT 92–100
[2021-09-23] MEDS: Enoxaparin Sodium 80 MG/0.8 ML SYRINGE 65 MG SUBCUT ×3 (01:10→22:18)
[2021-09-23 06:22] LABS: Creatinine Clr Calc Pharmacy 54.5; Estimated Glomerular Filt Rate > 60
[2021-09-23] MEDS: Levothyroxine Sodium 150 MCG TABLET PO (06:23)
[2021-09-23] MEDS: Albuterol/Iprat 2.5/0.5MG 3 ML AMPUL.NEB INHALE ×2 (08:40→20:06)
[2021-09-23] MEDS: Cholecalciferol (Vitamin D3) 25 MCG TABLET PO (08:55)
[2021-09-23] MEDS: Potassium Chloride ER 20 MEQ TAB.ER.PRT PO (08:55)
[2021-09-23] MEDS: Omeprazole 20 MG CAPSULE.DR PO ×2 (08:56→22:17)
[2021-09-23] MEDS: dilTIAZem HCL CD 120 MG CAP.ER.DEG PO ×2 (08:56→22:17)
[2021-09-23] MEDS: 0.9 % Sodium Chloride Flush 3 ML SYRINGE IVFLUSH ×3 (08:56→22:19)
[2021-09-23] MEDS: Ferrous Sulfate 324 MG TABLET.DR PO (08:56)
[2021-09-23] MEDS: LORazepam 1 MG TABLET PO ×2 (08:56→23:23)
[2021-09-23] MEDS: Cyanocobalamin (Vitamin B-12) 1,000 MCG TABLET 1000 MCG PO (08:56)
[2021-09-23] MEDS: Metoprolol Succinate ER 25 MG TAB.ER.24H 75 MG PO (08:56)
[2021-09-23] MEDS: Furosemide 40 MG TABLET PO (08:56)
[2021-09-23] MEDS: predniSONE 20 MG TABLET PO (08:56)
[2021-09-23] MEDS: Nystatin Powder 15 GM BOTTLE 1 APPL TOPICAL ×2 (08:57→22:18)
[2021-09-23] MEDS: UrsodioL 300 MG CAPSULE 600 MG PO ×2 (08:57→22:18)
[2021-09-23] MEDS: Lidocaine 4 % Patch ADH..PATCH 1 PATCH TRANSDERMA (08:57)
[2021-09-23] MEDS: rifAMPin 300 MG CAPSULE 600 MG PO ×2 (08:57→22:18)
[2021-09-23] MEDS: DULoxetine HCl 30 MG CAPSULE.DR PO ×2 (08:58→22:17)
[2021-09-23 09:04] LABS: Hematocrit 35.9 % (37.0-47.0); Hemoglobin 10.7 g/dl (12.0-16.0); Mean Corpuscular HGB Conc 29.8 g/dl (31.0-35.0); Mean Corpuscular Hemoglobin 28.2 pg (27.0-33.0); Mean Corpuscular Volume 94.7 fL (80.0-98.0); Mean Platelet Volume 10.5 fL (9.4-12.3); Platelet Count 373 X10*3/uL (160-400); Red Blood Count 3.79 X10*6/uL (4.20-5.50); Red Cell Distribution Width 18.5 % (11.0-16.0)
[2021-09-23] MEDS: Artificial Tears 15 ML DROPS 1 DROP EYE-BOTH ×2 (09:15→22:17)
[2021-09-23] MEDS: guaiFENesin 100 MG/5 ML LIQUID PO (09:15)
[2021-09-23] MEDS: vancomycin HCL 1,000 MG in 0.9 % Sodium Chloride 250 ML 270 MG IV (09:16)
[2021-09-23 09:34] LABS: Anion Gap 13 (12-20); Blood Urea Nitrogen 13 mg/dL (9-16); Carbon Dioxide 36 mmol/L (22-29); Chloride 96 mmol/L (96-108); Creatinine Clr Calc Pharmacy 49.2; Estimated Glomerular Filt Rate 58; Glucose Random 116 mg/dL (60-115); Potassium 3.7 mmol/L (3.3-5.1); Sodium 141 mmol/L (135-145)
--- NOTE | 2021-09-23 11:39 | P.PNIM_ITS ---
Progress Note: A&P (1) Afib: Status: Acute (2) MRSA (methicillin resistant staph aureus) culture positive: Status: Acute (3) Bacteremia: Status: Acute (4) Left rib fracture: Status: Acute (5) Closed subcapital fracture of femur: Status: Acute Assessment and Plan: This is a 76 yo F with multiple medical problems including COPD/Chronic resp. failure with hypoxia on 2-3L, CAD - s/p CABG, A. Fib on coumadin, SOTERO/GAVE/PBC/Colon Ca - s/p resection, L hip fx repaired at [facility] in Jun 2021 who presents from [facility] after ? slipping out of bed / fall (unwitnessed) resulting in a L hip Fx. She will be admitted for further treatment. Hypokalemia. resolved Leukocytosis. likely secondary to steroids trending down A. Fib RVR. HR controlled this morning increased po cardizem to 120mg BID restart anticoagulation, warfarin from lovenox, [place], PT INR daily MRSA bacteremia Blood cultures from 09/15 growing MRSA Repeat blood cultures 09/17 1/ + for Staph species and cx from 09/19 so far neg after [address] negative for consolidation, u/a negative. Possible source hip hardware vs endocarditis Continue vancomycin, rifampin, Will need vancomycin/rifampin total 6-8 weeks single lumen picc line placed Pneumonia. Resolved. CXR showing atelectasis vs pneumonia but CT not showing consolidation abx for PNA d/c Acute on Chronic HFpEF.? BNP trending down EF low to normal; moderately decreased right ventricular EF po lasix was on hold since admission for FRAN. renal function improved, BNP increased continue lasix monitor fluid status closely, uptitrate lasix if needed Acute COPD exacerbation/Emphysema. improving per HCP, patient does not use oxygen chronically at home, but only on a prn basis supplemental o2, wean as tolerated continue scheduled and prn breathing treatments solumedrol changed to prednisone 09/19, taper left Rib fx pain improving concern for delirium with narcotics lidocaine patch, prn ultram L subcap. fem fx with superior displacement seen by both Pulm and Cardiac - deemed high risk d/w ortho -initially planned to be done in 2-3 weeks as hip surgery is not urgent per ortho and will likely put patient at unnecessary risk given her pain and immobility from the rib fracture. interval may give rib time to heal for pt to better participate in PT following surgery. now with bacteremia will likely be delayed until after completion of antibiotics. WBAT Hypokalemia replace and follow Delirium. intermittent due to hospitalization / acute illness redirect as much as possible ativan home medication, will continue for now CAD ECHO showing Ef 60-65% no RWMA at high risk for surgery due to above - un-modifiable Chronic normocytic anemia underlying GAVE. no acute blood loss h/o requiring multiple transfusions in the past H/H stable FRAN resolved due to hypoperfusion Hypothyroid synthroid PBC ursodial DVT prophylaxis with Lovenox Full Code Andra (Niece) is [facility] [phone] Nguyễn Subjective Subjective Date of Service: 09/23/21 Review of Systems Follow up hip fracture, bacteremia no pain today generally feels unwell today denies chest pain, sob Physical Exam Vital Signs: Vital Signs: Last Vital Signs Temp 96 F L 09/23/21 11:24 Pulse 76 09/23/21 11:24 Resp 19 09/23/21 11:24 BP 147/90 H 09/23/21 11:24 Pulse Ox 96 09/23/21 11:24 Body Mass Index 20.9 Appearing in no acute distress lung sounds are clear to auscultation heart regular rate rhythm, clear S1, S2 positive bowel sounds, abdomen is soft, nontender neuro patient is alert x3, no focal deficits Objective Data Current Medications Albuterol/Ipratropium (Albuterol/Iprat 2.5/0.5mg 3 Ml Ampul.Neb) 3 ml INHALE RQ6H WHILE AWAKE [facility] Last Admin: 09/23/21 08:40 Dose: 3 ml Documented by: Artificial Tears (Artificial Tears 15 Ml Drops) 1 drop EYE-BOTH BID [facility] Last Admin: 09/23/21 09:15 Dose: 1 drop Documented by: Cyanocobalamin (Cyanocobalamin (Vitamin B-12) 1,000 Mcg Tablet) 1,000 mcg PO DAILY [facility] Last Admin: 09/23/21 08:56 Dose: 1,000 mcg Documented by: Diltiazem HCl (Diltiazem Hcl Cd 120 Mg Cap.Er.Deg) 120 mg PO BID [facility]; Protocol Last Admin: 09/23/21 08:56 Dose: 120 mg Documented by: Duloxetine HCl (Duloxetine Hcl 30 Mg Capsule.) 30 mg PO BID [facility] Last Admin: 09/23/21 08:58 Dose: 30 mg Documented by: Enoxaparin Sodium (Enoxaparin Sodium 80 Mg/0.8 Ml Syringe) 65 mg SUBCUT Q12H [facility] Last Admin: 09/23/21 11:27 Dose: 65 mg Documented by: Ferrous Sulfate (Ferrous Sulfate 324 Mg Tablet.) 324 mg PO DAILY [facility] Last Admin: 09/23/21 08:56 Dose: 324 mg Documented by: Furosemide (Furosemide 40 Mg Tablet) 40 mg PO DAILY [facility]; Protocol Last Admin: 09/23/21 08:56 Dose: 40 mg Documented by: Guaifenesin (Guaifenesin 100 Mg/5 Ml Liquid) 5 ml PO Q4H PRN PRN Reason: Cough Last Admin: 09/23/21 09:15 Dose: 5 ml Documented by: Vancomycin HCl 1,000 mg/ (Sodium Chloride) 270 mls @ 270 mls/hr IV Q24H [facility] Last Infusion: 09/23/21 11:30 Dose: Infused Documented by: Levothyroxine Sodium (Levothyroxine Sodium 150 Mcg Tablet) 150 mcg PO DAILY@0630 [facility] Last Admin: 09/23/21 06:23 Dose: 150 mcg Documented by: Lidocaine (Lidocaine 4 % Patch Adh..Patch) 1 patch TRANSDERMA DAILY [facility]; Protocol Last Admin: 09/23/21 08:57 Dose: 1 patch Documented by: Lorazepam (Lorazepam 1 Mg Tablet) 1 mg PO BID [facility] Last Admin: 09/23/21 08:56 Dose: 1 mg Documented by: Metoprolol Succinate (Metoprolol Succinate Er 25 Mg Tab.Er.24h) 75 mg PO DAILY [facility]; Protocol Last Admin: 09/23/21 08:56 Dose: 75 mg Documented by: Nystatin (Nystatin Powder 15 Gm Bottle) 1 appl TOPICAL BID [facility]; Protocol Last Admin: 09/23/21 08:57 Dose: 1 appl Documented by: Omeprazole (Omeprazole 20 Mg Capsule.) 20 mg PO BID [facility] Last Admin: 09/23/21 08:56 Dose: 20 mg Documented by: Ondansetron HCl (Ondansetron Hcl 4 Mg/2 Ml Vial) 4 mg IVPUSH Q8H PRN PRN Reason: Nausea and Vomiting Last Admin: 09/08/21 12:34 Dose: 4 mg Documented by: Pharmacy Consult (Consult Rx Vancomycin Dosing) 1 each MISCELLANE DAILY PRN PRN Reason: Consult order Potassium Chloride (Potassium Chloride Er 20 Meq Tab.Er.Prt) 20 meq PO DAILY [facility] Last Admin: 09/23/21 08:55 Dose: 20 meq Documented by: Prednisone (Prednisone 20 Mg Tablet) 20 mg PO DAILY [facility] Last Admin: 09/23/21 08:56 Dose: 20 mg Documented by: Rifampin (Rifampin 300 Mg Capsule) 600 mg PO BID [facility] Last Admin: 09/23/21 08:57 Dose: 600 mg Documented by: Senna (Sennosides 8.6 Mg Tablet) 17.2 mg PO BEDTIME [facility] Last Admin: 09/22/21 21:13 Dose: Not Given Documented by: Senna (Sennosides 8.6 Mg Tablet) 17.2 mg PO Q24H PRN PRN Reason: constipation Sodium Chloride (0.9 % Sodium Chloride Flush 3 Ml Syringe) 3 ml IVFLUSH QSHIFT [facility] Last Admin: 09/23/21 08:56 Dose: 3 ml Documented by: Tiotropium [place] (Tiotropium [place] 18 Mcg Cap.W.Dev) 1 puff INHALE DAILY [facility] Last Admin: 09/23/21 08:42 Dose: 1 puff Documented by: Tramadol HCl (Tramadol Hcl 50 Mg Tablet) 100 mg PO Q6H PRN PRN Reason: Pain, Mild (Pain Scale 1-3) Last Admin: 09/22/21 04:10 Dose: 100 mg Documented by: Ursodiol (Ursodiol 300 Mg Capsule) 600 mg PO BID [facility] Last Admin: 09/23/21 08:57 Dose: 600 mg Documented by: Vitamin D (Cholecalciferol (Vitamin D3) 25 Mcg Tablet) 25 mcg PO DAILY [facility] Last Admin: 09/23/21 08:55 Dose: 25 mcg Documented by: Labs CBC & Chem 7: 09/23/21 08:37 09/23/21 08:37 Labs: Laboratory Results - last 24 hr 09/23/21 09/23/21 09/23/21 05:49 08:37 08:37 MCV 94.7 MCH 28.2 MCHC 29.8 L RDW 18.5 H Plt Count 373 MPV 10.5 Absolute Nucleated RBC 0.000 Nucleated RBC % (auto) 0.0 Anion Gap 13 Estim Creat Clear Calc 54.5 49.2 Estimated GFR > 60 58 Random Glucose 116 H Calcium 9.0 Microbiology Microbiology Results: Microbiology 09/17/21 08:49 Blood - Venous Blood Culture - Final No growth after 5 days. 09/19/21 08:55 Blood - Venous Blood Culture - Preliminary No growth after 48 hours. 09/19/21 08:55 Blood - Venous Blood Culture - Preliminary No growth after 48 hours. 09/17/21 08:49 Blood - Venous Blood Culture - Final Staphylococcus aureus 09/15/21 09:08 Blood - Venous Blood Culture - Final Methicillin Res Staph Aureus 09/15/21 09:08 Blood - Venous Blood Culture - Final Methicillin Res Staph Aureus 09/14/21 09:36 Blood - Venous Blood Culture - Final Methicillin Res Staph Aureus 09/14/21 09:36 Blood - Venous Blood Culture - Final Methicillin Res Staph Aureus 09/08/21 07:40 Blood - Venous Blood Culture - Final No growth after 5 days. 09/08/21 07:29 Blood - Venous Blood Culture - Final No growth after 5 days. 09/08/21 00:00 Urine clean catch - Urine nieto top Urine Culture - Final Quality Stroke Does the patient have a stroke diagnosis?: No VTE Prior VTE?: No VTE Risk Level:: Medical - moderate - high VTE Device Contraindication: Treatment Not Indicated VTE Drug Contraindication: N/A - Med Ordered
[2021-09-23 12:17] LABS: Prothrombin Time 11.8 SEC (9.9-13.0)
--- NOTE | 2021-09-23 12:18 | MHC.SL.SWA ---
Speech Pathologist Impression: Risk of Aspiration Oralpharyngeal Dysphagia Risk of Aspiration Due to: Poor PO Intake Dysphasia Diet Status: Upgrade Liquid Consistency and Strategies for Safe Swallow: Liquid Intake Recommendation: Thin Liquid Intake Strategies: Small Sips Solid Food Consistency: Dietary Recommendations: Chopped/Advanced (NDD3) Additional Modifications to Solid Foods: Patient was seen for PO trials. No overt s/s of aspiration when drinking thin liquid from a can. Patient displayed good oral clearance and no overt s/s of aspiration when eating dry katherine crackers. Note mildly prolonged mastication. Patient independently took sips of liquid as needed for oral clearance. Recommend UPGRADE to CHOPPED/ADVANCED (NDD3) solids and THIN liquids, with pills WHOLE or CRUSHED in PUREE. Patient tolerates regular solids based on today's observations. Patient expresses that she is nervous about eating hard, dry solids, but was agreeable to upgrade to CHOPPED/ADVANCED (NDD3) as this would give her more options and she is able to self-select foods. Patient reports difficulty swallowing rice and certain pastas and would like to avoid these foods. Patient is able to feed herself. Recommend intermittent supervision to monitor tolerance and ensure aspiration precautions. Oral Medication Intake: Crushed with Puree Compensatory Strategies and Precautions to be Taken for Safe Swallow: Sitting Upright (90 deg) Double Swallow Small Bites and Sips Alternate Liquids/Solids Rate of Ingestion Change Avoid Specific Foods Supervision While Eating and Drinking for Safe Swallow: Intermittent Supervision Foods to Avoid: Rice Swallowing Recommended Treatments: Compens. Strategy Educat. Recommendation for Speech: Inpatient Speech Therapy Battery Container Inspector Clinican/Clinical Fellow: No Supervisory Statement: I have reviewed and agree with the student/clinical fellow's documentation: N/A Speech Language Pathologist: Lata Pathak M.A., CCC-DIRECTOR OF RETAIL
[2021-09-23] MEDS: Warfarin Sodium 5 MG TABLET PO (17:08)
[2021-09-24] VITALS (10 sets, daily range): BP systolic 112–145; BP diastolic 59–81; PULSE 50–124; RESP 16–20; TEMP 36.4–37; O2SAT 94–99
[2021-09-24] MEDS: Levothyroxine Sodium 150 MCG TABLET PO (05:24)
[2021-09-24 07:10] LABS: Prothrombin Time 11.4 SEC (9.9-13.0)
[2021-09-24 07:26] LABS: Creatinine Clr Calc Pharmacy 54.5; Estimated Glomerular Filt Rate > 60
[2021-09-24] MEDS: Albuterol/Iprat 2.5/0.5MG 3 ML AMPUL.NEB INHALE ×3 (07:57→19:46)
[2021-09-24] MEDS: Cyanocobalamin (Vitamin B-12) 1,000 MCG TABLET 1000 MCG PO (09:03)
[2021-09-24] MEDS: Potassium Chloride ER 20 MEQ TAB.ER.PRT PO (09:03)
[2021-09-24] MEDS: predniSONE 20 MG TABLET PO (09:03)
[2021-09-24] MEDS: UrsodioL 300 MG CAPSULE 600 MG PO ×2 (09:03→21:50)
[2021-09-24] MEDS: Ferrous Sulfate 324 MG TABLET.DR PO (09:03)
[2021-09-24] MEDS: rifAMPin 300 MG CAPSULE 600 MG PO ×2 (09:03→21:50)
[2021-09-24] MEDS: Omeprazole 20 MG CAPSULE.DR PO ×2 (09:03→21:51)
[2021-09-24] MEDS: DULoxetine HCl 30 MG CAPSULE.DR PO ×2 (09:04→21:51)
[2021-09-24] MEDS: dilTIAZem HCL CD 120 MG CAP.ER.DEG PO ×2 (09:04→21:51)
[2021-09-24] MEDS: Metoprolol Succinate ER 25 MG TAB.ER.24H 75 MG PO (09:04)
[2021-09-24] MEDS: Furosemide 40 MG TABLET PO (09:04)
[2021-09-24] MEDS: LORazepam 1 MG TABLET PO ×2 (09:04→18:40)
[2021-09-24] MEDS: Cholecalciferol (Vitamin D3) 25 MCG TABLET PO (09:04)
[2021-09-24] MEDS: Lidocaine 4 % Patch ADH..PATCH 1 PATCH TRANSDERMA (09:05)
[2021-09-24] MEDS: Artificial Tears 15 ML DROPS 1 DROP EYE-BOTH ×2 (09:06→21:54)
[2021-09-24] MEDS: 0.9 % Sodium Chloride Flush 3 ML SYRINGE IVFLUSH ×3 (09:06→23:58)
[2021-09-24] MEDS: Nystatin Powder 15 GM BOTTLE 1 APPL TOPICAL ×2 (09:07→21:54)
[2021-09-24 09:49] LABS: Vancomycin Trough 17.9 mcg/mL (10.0-20.0)
[2021-09-24] MEDS: vancomycin HCL 1,000 MG in 0.9 % Sodium Chloride 250 ML 270 MG IV (10:07)
[2021-09-24] MEDS: Enoxaparin Sodium 80 MG/0.8 ML SYRINGE 65 MG SUBCUT ×2 (11:31→23:58)
--- NOTE | 2021-09-24 11:38 | MHC.INPTTRAN ---
alert, a little vague and forgetful at times. Dilshad diet. remains very weak, OOB with 1 or 2 assist. Had BM yesterday, voiding. Had episoke of near syncope yesterday on commode with attempting to have BM, Stable today. thanks.
--- NOTE | 2021-09-24 11:57 | MHC.SLORD ---
Speech Language Pathology Order Status: Updated with RN Hannah, who reported that pt has been tolerating her recently advanced diet consistency of NDD3 CHOPPED/ADVANCED solids well. Pt continues to tolerate thin liquids with no reported overt s/s aspiration. DIRECTOR OF REAL ESTATE will continue to follow pt throughout her stay.
[2021-09-24] MEDS: guaiFENesin 100 MG/5 ML LIQUID PO ×2 (13:25→18:40)
--- NOTE | 2021-09-24 13:35 | MHC.CM.PN ---
roverto blood going for auth requested covid from
--- NOTE | 2021-09-24 13:36 | P.PNIM_ITS ---
Subjective Subjective Date of Service: 09/24/21 Interval History: seen in f/u for MRSA bacteremia, hip fracture... Overall doing better, no confusion, pain controlled Review of Systems no fever, or chills no pain Physical Exam Vital Signs: Vital Signs: Last Vital Signs Temp 98 F 09/24/21 11:07 Pulse 80 09/24/21 11:58 Resp 19 09/24/21 11:07 BP 113/59 L 09/24/21 11:58 Pulse Ox 95 09/24/21 11:58 Body Mass Index 20.9 Const: Other: General: AO X 3, no acute distress Resp: CTA bilateral CVS: S1,S2,RRR GI: +BS, NT, no distention Skin: No rash Neuro: motor grossly intact Psych: appropriate affect Objective Data Active Medications Albuterol/Ipratropium (Albuterol/Iprat 2.5/0.5mg 3 Ml Ampul.Neb) 3 ml INHALE RQ6H WHILE AWAKE [facility] Last Admin: 09/24/21 07:57 Dose: 3 ml Documented by: FARHAT Artificial Tears (Artificial Tears 15 Ml Drops) 1 drop EYE-BOTH BID [facility] Last Admin: 09/24/21 09:06 Dose: 1 drop Documented by: MIRANDA Cyanocobalamin (Cyanocobalamin (Vitamin B-12) 1,000 Mcg Tablet) 1,000 mcg PO DAILY [facility] Last Admin: 09/24/21 09:03 Dose: 1,000 mcg Documented by: MIRANDA Diltiazem HCl (Diltiazem Hcl Cd 120 Mg Cap.Er.Deg) 120 mg PO BID [facility]; Protocol Last Admin: 09/24/21 09:04 Dose: 120 mg Documented by: MIRANDA Duloxetine HCl (Duloxetine Hcl 30 Mg Capsule.) 30 mg PO BID [facility] Last Admin: 09/24/21 09:04 Dose: 30 mg Documented by: MIRANDA Enoxaparin Sodium (Enoxaparin Sodium 80 Mg/0.8 Ml Syringe) 65 mg SUBCUT Q12H [facility] Last Admin: 09/24/21 11:31 Dose: 65 mg Documented by: MIRANDA Ferrous Sulfate (Ferrous Sulfate 324 Mg Tablet.) 324 mg PO DAILY [facility] Last Admin: 09/24/21 09:03 Dose: 324 mg Documented by: MIRANDA Furosemide (Furosemide 40 Mg Tablet) 40 mg PO DAILY [facility]; Protocol Last Admin: 09/24/21 09:04 Dose: 40 mg Documented by: MIRANDA Guaifenesin (Guaifenesin 100 Mg/5 Ml Liquid) 5 ml PO Q4H PRN PRN Reason: Cough Last Admin: 09/24/21 13:25 Dose: 5 ml Documented by: MIRANDA Vancomycin HCl 1,000 mg/ (Sodium Chloride) 270 mls @ 270 mls/hr IV Q24H [facility] Last Infusion: 09/24/21 11:37 Dose: 0 mls/hr Documented by: MIRANDA Levothyroxine Sodium (Levothyroxine Sodium 150 Mcg Tablet) 150 mcg PO DAILY@0630 [facility] Last Admin: 09/24/21 05:24 Dose: 150 mcg Documented by: WENDY Lidocaine (Lidocaine 4 % Patch Adh..Patch) 1 patch TRANSDERMA DAILY [facility]; Protocol Last Admin: 09/24/21 09:05 Dose: 1 patch Documented by: MIRANDA Lorazepam (Lorazepam 1 Mg Tablet) 1 mg PO BID PRN PRN Reason: Anxiety Last Admin: 09/24/21 09:04 Dose: 1 mg Documented by: MIRANDA Metoprolol Succinate (Metoprolol Succinate Er 25 Mg Tab.Er.24h) 75 mg PO DAILY [facility]; Protocol Last Admin: 09/24/21 09:04 Dose: 75 mg Documented by: MIRANDA Nystatin (Nystatin Powder 15 Gm Bottle) 1 appl TOPICAL BID [facility]; Protocol Last Admin: 09/24/21 09:07 Dose: 1 appl Documented by: MIRANDA Omeprazole (Omeprazole 20 Mg Capsule.Dr) 20 mg PO BID [facility] Last Admin: 09/24/21 09:03 Dose: 20 mg Documented by: MIRANDA Ondansetron HCl (Ondansetron Hcl 4 Mg/2 Ml Vial) 4 mg IVPUSH Q8H PRN PRN Reason: Nausea and Vomiting Last Admin: 09/08/21 12:34 Dose: 4 mg Documented by: SABINE Pharmacy Consult (Consult Rx Vancomycin Dosing) 1 each MISCELLANE DAILY PRN PRN Reason: Consult order Potassium Chloride (Potassium Chloride Er 20 Meq Tab.Er.Prt) 20 meq PO DAILY [facility] Last Admin: 09/24/21 09:03 Dose: 20 meq Documented by: MIRANDA Prednisone (Prednisone 20 Mg Tablet) 20 mg PO DAILY [facility] Last Admin: 09/24/21 09:03 Dose: 20 mg Documented by: MIRANDA Rifampin (Rifampin 300 Mg Capsule) 600 mg PO BID [facility] Last Admin: 09/24/21 09:03 Dose: 600 mg Documented by: MIRANDA Senna (Sennosides 8.6 Mg Tablet) 17.2 mg PO BEDTIME [facility] Last Admin: 09/23/21 22:18 Dose: Not Given Documented by: WENDY Non-Admin Reason: diarrhea yesterday Senna (Sennosides 8.6 Mg Tablet) 17.2 mg PO Q24H PRN PRN Reason: constipation Sodium Chloride (0.9 % Sodium Chloride Flush 3 Ml Syringe) 3 ml IVFLUSH QSHIFT [facility] Last Admin: 09/24/21 09:06 Dose: 3 ml Documented by: MIRANDA Tiotropium [place] (Tiotropium [place] 18 Mcg Cap.W.Dev) 1 puff INHALE DAILY [facility] Last Admin: 09/24/21 09:13 Dose: 1 puff Documented by: FARHAT Tramadol HCl (Tramadol Hcl 50 Mg Tablet) 100 mg PO Q6H PRN PRN Reason: Pain, Mild (Pain Scale 1-3) Last Admin: 09/22/21 04:10 Dose: 100 mg Documented by: JANEE Ursodiol (Ursodiol 300 Mg Capsule) 600 mg PO BID [facility] Last Admin: 09/24/21 09:03 Dose: 600 mg Documented by: MIRANDA Vitamin D (Cholecalciferol (Vitamin D3) 25 Mcg Tablet) 25 mcg PO DAILY [facility] Last Admin: 09/24/21 09:04 Dose: 25 mcg Documented by: MIRANDA Warfarin Sodium (Warfarin Sodium 5 Mg Tablet) 5 mg PO DAILY@1800 [facility] Last Admin: 09/23/21 17:08 Dose: 5 mg Documented by: KATHRYN Labs CBC & Chem 7: 09/23/21 08:37 09/24/21 06:20 Labs: Laboratory Results - last 24 hr 09/24/21 09/24/21 09/24/21 06:20 06:20 09:15 PT 11.4 INR 1.0 Estim Creat Clear Calc 54.5 Estimated GFR > 60 Vancomycin Trough 17.9 Microbiology Microbiology Results: Microbiology 09/19/21 08:55 Blood Culture - Final Blood - Venous No growth after 5 days. 09/19/21 08:55 Blood Culture - Final Blood - Venous No growth after 5 days. 09/17/21 08:49 Blood Culture - Final Blood - Venous Methicillin Res Staph Aureus Assessment and Plan (1) MRSA (methicillin resistant staph aureus) culture positive: Status: Acute (2) Bacteremia: Status: Acute (3) Left rib fracture: Status: Acute Assessment and Plan: 76 yo F with multiple medical problems including COPD/Chronic resp. failure with hypoxia on 2-3L, CAD - s/p CABG, A. Fib on coumadin, SOTERO/GAVE/PBC/Colon Ca - s/p resection, L hip fx repaired at [facility] in Jun 2021 who presents from [facility] after ? slipping out of bed / fall (unwitnessed) resulting in a L hip Fx. She will be admitted for further treatment MRSA bacteremia Blood cultures from 09/15 grew MRSA Repeat blood cultures 09/17 1/ + for Staph species chest CT negative for consolidation, u/a negative. Possible source hip hardware vs endocarditis -Was on Vanco and Rifampin but now on Vanco only -ID recommends 6 weeks of therapy, PICC line in No PNA, CXR showed atelectasis, CT no PNA Acute on Chronic HFpEF.? Treated with IV Lasix, no PO, BNP trended own, seem euvolemic at moment Acute COPD improved on bronchodilator by Neb, O2 as needed, IV steroid now oral Prednisone and alfredo over a week Left rib fracture--winslow controlled. Delirium likely related to narc, benzo and situational change-presently lucid L subcap. fem fx with superior displacement seen by both Pulm and Cardiac - deemed high risk d/w ortho -initially planned to be done in 2-3 weeks as hip surgery is not urgent per ortho and will likely put patient at unnecessary risk given her pain and immobility from the rib fracture. interval may give rib time to heal for pt to better participate in PT following surgery. now with bacteremia will likely be delayed until after completion of antibiotics. -WBAT hypokalemia, replaced and resolved. Chronic AFib RVR--initially required cardizem drip, now rate controlled on cardezem.. Anticoagulation with Lovenox until after hip surgery and go back on NOAC CAD ECHO showing low normal LVEF and WMA, mod tricuspid regurgitation. at high risk for surgery due to above - un-modifiable Chronic normocytic anemia underlying GAVE. no acute blood loss h/o requiring multiple transfusions in the past H/H stable FRAN--pre renal, mild resolved Hypothyroid synthroid PBC ursodial Quality Stroke Does the patient have a stroke diagnosis?: No VTE Prior VTE?: No VTE Risk Level:: Medical - moderate - high VTE Device Contraindication: Treatment Not Indicated VTE Drug Contraindication: N/A - Med Ordered
--- NOTE | 2021-09-24 13:42 | MHC.CM.PN ---
called and left message for pts hcp lindsey re possible dc today or jessie howell and to let her know [facility] has no beds her 2nd choice [facility]verto jeremi is going for auth from [facility]
[2021-09-24] MEDS: Warfarin Sodium 5 MG TABLET PO (21:50)
[2021-09-24] MEDS: Sennosides 8.6 MG TABLET 17.2 MG PO (21:51)
[2021-09-25] VITALS (10 sets, daily range): BP systolic 103–151; BP diastolic 55–82; PULSE 68–88; RESP 17–20; TEMP 36.3–37.1; O2SAT 94–99
[2021-09-25] MEDS: traMADoL HCL 50 MG TABLET 100 MG PO (04:54)
[2021-09-25] MEDS: Levothyroxine Sodium 150 MCG TABLET PO (04:55)
[2021-09-25 06:53] LABS: Prothrombin Time 11.8 SEC (9.9-13.0)
[2021-09-25 06:59] LABS: Creatinine Clr Calc Pharmacy 44.9; Estimated Glomerular Filt Rate 52
[2021-09-25] MEDS: Albuterol/Iprat 2.5/0.5MG 3 ML AMPUL.NEB INHALE ×2 (07:51→15:53)
--- NOTE | 2021-09-25 09:23 | P.DS_ITS ---
DS: Providers Provider Date of Service: 09/13/21 <LEFTY Delatorre - Last Filed: 09/13/21 09:47> 09/25/21 <Cam Lott MD - Last Filed: 09/26/21 10:57> Date of admission: 09/08/21 10:44 <LEFTY Delatorre - Last Filed: 09/13/21 09:47> Date of discharge: 09/13/21 <LEFTY Delatorre - Last Filed: 09/13/21 09:47> Primary care physician: Kavin Toscano MD <LEFTY Delatorre - Last Filed: 09/13/21 09:47> Consults: 09/08/21 10:54 Consult to Pulmonology Routine Consulting Provider: Zeb Ramesh Reason for consultation: COPD, chronic resp failure, pre-op eval for hip fx 09/08/21 10:56 Consult to Cardiology Routine Consulting Provider: [facility] Cardiovascular Services Reason for consultation: hx of chf/cad - pre-op eval for hip fx 09/08/21 11:28 Consult to Orthopedics Routine Consulting Provider: [facility] Orthopedic Surgeons Reason for consultation: hip fx <LEFTY Delatorre - Last Filed: 09/13/21 09:47> Attending physician on discharge: Cam Lott <LEFTY Delatorre - Last Filed: 09/13/21 09:47> Discharging clinician: Esme Ashby <LFETY Delatorre - Last Filed: 09/13/21 09:47> DS: Diagnosis Discharge Diagnosis (1) Closed subcapital fracture of femur: Status: Acute <LEFTY Delatorre - Last Filed: 09/13/21 09:47> (2) Left rib fracture: Status: Acute <LEFTY Delatorre - Last Filed: 09/13/21 09:47> (3) COPD exacerbation: Status: Resolved <LEFTY Delatorre - Last Filed: 09/13/21 09:47> DS: Summary Hospital Course Hospital Course: From H&P on day of admission This is a 76-year-old female with a past medical history of severe COPD and chronic respiratory failure with hypoxia on 2-3 L, 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 Patient was previously admitted @ [facility] in Jun 2021 after a syncopal episode resulting in a hip fx. Patient reports that she went to bed quiet early on the evening prior to arrival. She reports that she fell/rolled out of her bed (denies any LOC) at some point during the evening/night and subsequently presented to [facility] ED. She currently reports being tired and having L-sided rib pain. Her hip pain is controlled. She reports no LOC. She reports no current respiratory or cardiac symptoms. In the ED her work up revealed a L subcapital fem. fx with mild superior displacement, 11th L rib fx. Her blood work up showed FRAN (SCr nearly 2X baseline). She was given IV pain control, 500 cc of IVF and will be admitted for further work up. Hospital course 76 yo F with multiple medical problems including COPD/Chronic resp. failure with hypoxia on 2-3L, CAD - s/p CABG, A. Fib on coumadin, Iron deficiency anemia due to GAVE (Gastric Antral Vascular Ectasia) primary biliary sclerosis and history of Colon Ca - s/p resection, left hip fx repaired at [facility] in Jun 2021 who presents from [facility] after falling/slipping out of bed / fall (unwitnessed) resulting in left hip injury and and rib fracture and was admitted to [facility] with initial goal to repair the hip, however in the days following patient cardiac and pulmonary status were unstable as she was short of breath and her atrial fibrilation was uncontrolled and was having signficant rib pain which we thought would limit we rehab potential. Thus a decision was made to delay surgery until she rib pain and fracture improved and better. During hospital course she developped shignficnat respiratory distress and work up prove that she had heart failure and also developped MRSa bacteremia, metabolic encephalopathy and exacerbation of COPD. Problems Left Hip sub acute fracture---Was evaluated by ortho and given that is not acute fracture and with active issues, especially with bacteremia, a decision has been made by ortho delay surgery until she recovers fully from bacteremia and healed rib fracture, at moment her pain is controlled. She can weight bear as tolerated and should follow up with Orthopedic surgery Dr. Leal for ultinate repair for pain control. MRSA bacteremia, Sepsis, Blood cultures from 09/14 and 09/15 were positive for MRSA, blood cultures from 09/17 and 09/19 have been negative > 5 days. Source of infection is unclear but concern for possible hardware infection. Further work up included negative Urine culture, Echo cardiogram showed no vegetations. CXR and CT showed no pneumonia. She has been on Vancomycin since 09/15 and Rifampin since 09/17 and ID recommends 6 weeks of therapy, therefore last dose of Vancomycin will be October 26, 2021 and Rifampin 300 mg PO bid until October 26. She has a PICC line inserted on 09/21/21. Check Vanco random weekly, BMP and LFTs weekly. Her WBC peaked at 35K on 09/21 and now 14 today 09/25 Acute on Chronic HFpEF.? Treated with IV Lasix, now ? PO Lasix, BNP trended own, clinically she is euvolemic Acute COPD exacerbation, treated with bronchodilator by Neb, O2, IV steroid now on oral Prednisone and will alfredo within a week Left rib fracture--is healing, pain is better, incentive spirometry will help Metabolic Encephalopathy likely of multifactorial etiology including bacteremia, sepsis, renal failure, narcotics---this has resolved and mental statu intact, lucid now. hypokalemia, replaced and resolved, Potassium today 09/25, 4.1 Chronic AFib RVR--initially required cardizem drip, now rate controlled on? PO cardezem. and Metoprolol for rate control. She is usually on coumadin but given that she will be needing surgery and might need reversal for, she is now on therapeutic Lovenox until after operation then can go back to coumadin. She has no signs of bleeding and H/H. CAD--no angiana, ECHO showing low normal LVEF and WMA, mod tricuspid regurgitation. at high risk for surgery Chronic normocytic anemia underlying GAVE (Gastric Antral Vascular Ectasia). no acute blood loss h/o requiring multiple transfusions in the past, H/H has stable FRAN--She had pre-renal azotemia, that resolved, Creatine is 0.97 today 09/25 Hypothyroid--continue synthroid Primary biliary Sclerosis (PBC) continue ursodial Final diagnoses: MRSA sepsis and bacteremia Hip fracture COPD exacerbation Heart failure exacerbation chronic afib metabolic encephalopathy <LEFTY Delatorre Last Filed: 09/13/21 09:47> Time Spent with Patient Time attestation: Total time spent providing and/or coordinating discharge services: <LEFTY Delatorre Last Filed: 09/13/21 09:47> Discharge coordination time: Greater than 30 minutes <LEFTY Delatorre Last Filed: 09/13/21 09:47> Quality: Stroke Does the patient have a stroke diagnosis?: No <LEFTY Delatorre Last Filed: 09/13/21 09:47> Physical Exam Vital Signs: Vital Signs: Last Vital Signs Temp 98.7 F 09/13/21 08:00 Pulse 70 09/13/21 08:39 Resp 22 H 09/13/21 08:00 BP 150/68 H 09/13/21 08:39 Pulse Ox 100 09/13/21 08:00 Body Mass Index 20.9 <LEFTY Delatorre Last Filed: 09/13/21 09:47> Vital Signs: Selected Entries 09/25/21 11:09 Temperature 97.9 F Pulse Rate 78 Respiratory Rate 19 Blood Pressure 103/57 L Pulse Oximetry 96 Oxygen Delivery Me thod Room Air General: AO X 3, no acute distress Resp: CTA bilateral CVS: S1,S2,RRR GI: +BS, NT, no distention Skin: No rash Neuro: motor grossly intact Psych: appropriate affect <Camedith Lott MD - Last Filed: 09/26/21 10:57> Const: General: no acute distress, alert and awake <LEFTY Delatorre Last Filed: 09/13/21 09:47> Nutritional Appearance: thin <LEFTY Delatorre Last Filed: 09/13/21 09:47> HENMT: Head: Yes normocephalic and Yes atraumatic <LEFTY Delatorre Last Filed: 09/13/21 09:47> Eyes: Sclerae: sclerae normal <LEFTY Delatorre Last Filed: 09/13/21 09:47> Chest: Chest palpation & inspection: normal inspection of the chest <LEFTY Delatorre Last Filed: 09/13/21 09:47> Resp: Effort & Inspection: normal respiratory effort and no respiratory distress <LEFTY Delatorre Last Filed: 09/13/21 09:47> Auscultation: diminished lung sounds <LEFTY Delatorre - Last Filed: 09/13/21 09:47> Cardio: Rate: regular rate <LEFTY Delatorre Last Filed: 09/13/21 09:47> Rhythm: regular rhythm <LEFTY Delatorre Last Filed: 09/13/21 09:47> GI: Palpation (GI): Soft to palpation and nontender <LEFTY Delatorre Last Filed: 09/13/21 09:47> Neuro: Cranial nerves: Yes CN's II-XII intact bilaterally and Yes Bilaterally intact EOM present <LEFTY Delatorre Last Filed: 09/13/21 09:47> Extrem: General: Yes normal to inspection <LEFTY Delatorre Last Filed: 09/13/21 09:47> DS: Data Data Completed and Pending Labs on day of discharge: Laboratory Results - last 24 hr 09/13/21 09/13/21 07:27 07:27 WBC 10.4 RBC 3.33 L Hgb 9.5 L Hct 32.0 L MCV 96.1 MCH 28.5 MCHC 29.7 L RDW 18.4 H Plt Count 265 MPV 11.3 Absolute Nucleated RBC 0.000 Nucleated RBC % (auto) 0.0 Sodium 140 Potassium 4.2 Chloride 103 Carbon Dioxide 27 Anion Gap 14 BUN 13 Creatinine 0.77 Estim Creat Clear Calc 59.5 Estimated GFR > 60 Random Glucose 150 H Calcium 9.1 D Preliminary micro results at discharge 09/08/21 07:40 Blood Culture - Preliminary Blood - Venous No growth after 48 hours. 09/08/21 07:29 Blood Culture - Preliminary Blood - Venous No growth after 48 hours. <LEFTY Delatorre Last Filed: 09/13/21 09:47> Discharge Plan Discharge Anticipated Discharge Date/Time: 09/25/21 13:26 <LEFTY Delatorre - Last Filed: 09/13/21 09:47> Patient Disposition: Xfer SNF <LEFTY Delatorre - Last Filed: 09/13/21 09:47> Discharge Diagnosis: Left femoral fracture COPD exacerbation Afib with RVR FRAN MRSA bacteremia Sepsis <LEFTY Delatorre - Last Filed: 09/13/21 09:47> Left femoral fracture COPD exacerbation Afib with RVR FRAN MRSA bacteremia Sepsis <Cam Lott MD - Last Filed: 09/26/21 10:57> Referrals: Bernardo William [Outside] - 1 Week Pedro Leal MD [Physician] - 1 Week Kavin Toscano MD [Primary Care Provider] - 1 Week <LEFTY Delatorre - Last Filed: 09/13/21 09:47> Discharge Medications: New ipratropium-albuterol 0.5 mg-3 mg(2.5 mg base)/3 mL Solution For Nebulization 3 ml inhalation RQ6H PRN (Reason: Shortness Of Breath/Wheezing) Qty: 3 RF: 0 enoxaparin 80 mg/0.8 mL Syringe 65 mg subcut Q12H Qty: 8 RF: 0 diltiazem HCl [Cardizem CD] 120 mg Capsule,Extended Release 24hr 120 mg PO DAILY Qty: 7 RF: 0 lidocaine [Lidocaine Pain Relief] 4 % Adhesive Patch,Medicated 1 patch transdermal DAILY Qty: 10 RF: 0 rifampin 300 mg Capsule 600 mg PO BID 31 Days Qty: 124 RF: 0 vancomycin 1,000 mg recon soln 1,000 mg IV Q12H 31 Days Qty: 62 RF: 0 furosemide 40 mg Tablet 40 mg PO DAILY Qty: 30 RF: 0 prednisone 10 mg tablet 10 mg PO DAILY Qty: 4 RF: 0 oxycodone 5 mg tablet 5 mg PO Q6H PRN (Reason: pain (scale score 7-10)) Qty: 14 RF: 0 Continued acetaminophen 325 mg Tablet 650 mg PO Q6H PRN (Reason: Pain) RF: 0 polyvinyl alcohol [Artificial Tears (polyvin alc)] 1.4 % Drops 1 drp OPHTHALMIC (EYE) BID RF: 0 miconazole nitrate 2 % Powder 1 appl TOPICAL DAILY RF: 0 cyanocobalamin (vitamin B-12) 1,000 mcg Tablet 1,000 mcg PO DAILY RF: 0 melatonin 3 mg Tablet 6 mg PO BEDTIME RF: 0 guaifenesin 100 mg/5 mL Liquid 200 mg PO Q4H PRN (Reason: Cough) RF: 0 [id number] mg Capsule 1 cap PO Q12H PRN (Reason: Headache) RF: 0 ferrous sulfate 325 mg (65 mg iron) Tablet 325 mg PO DAILY RF: 0 levothyroxine 150 mcg Tablet 150 mcg PO DAILY@0630 RF: 0 docusate sodium [Colace] 100 mg Capsule 100 mg PO BID RF: 0 lorazepam 1 mg Tablet 1 mg PO BID RF: 0 polyethylene glycol 3350 [Miralax] 17 gram/dose Powder 17 g PO DAILY RF: 0 albuterol sulfate 90 mcg/actuation Hfa Aerosol Inhaler 2 puff INHALATION Q4H PRN (Reason: Wheezing) RF: 0 duloxetine 30 mg Capsule,Delayed Release(Dr/Ec) 30 mg PO BID RF: 0 cholecalciferol (vitamin D3) 25 mcg (1,000 unit) Tablet 25 mcg PO DAILY RF: 0 multivitamin Tablet 1 tab PO DAILY RF: 0 sennosides 8.6 mg Tablet 17.2 mg PO BEDTIME RF: 0 tramadol 50 mg Tablet 50 mg PO Q6H PRN (Reason: Pain) RF: 0 pantoprazole 40 mg Tablet,Delayed Release (Dr/Ec) 40 mg PO BID RF: 0 metoprolol succinate 25 mg Tablet Extended Release 24 Hr 75 mg PO DAILY RF: 0 tiotropium bromide 18 mcg Capsule, W/Inhalation Device 1 cap INHALATION DAILY RF: 0 ursodiol 500 mg Tablet 500 mg PO BID RF: 0 Discontinued furosemide 80 mg Tablet 80 mg PO DAILY RF: 0 warfarin 5 mg Tablet 5 mg PO DAILY RF: 0 Hold Instructions: can resume after surgery when safe from orthopedic perspective. for now continue therapeutic lovenox potassium chloride 20 mEq Tablet Extended Release 20 meq PO DAILY RF: 0 <LEFTY Delatorre - Last Filed: 09/13/21 09:47> Discharge Orders: Discharge Order (Routine); Ordered 09/25/21 Ordered By: Cam Lott <LEFTY Delatorre - Last Filed: 09/13/21 09:47> Diet: regular diet <LEFTY Delatorre - Last Filed: 09/13/21 09:47> regular diet <Cam Lott MD - Last Filed: 09/26/21 10:57> Activity on Discharge: Use cane or walker <LEFTY Delatorre - Last Filed: 09/13/21 09:47> Use cane or walker <Cam Lott MD - Last Filed: 09/26/21 10:57> Stand Alone Forms: Patient Portal Discharge page <LEFTY Delatorre - Last Filed: 09/13/21 09:47> Care Plan Goals: see below <LEFTY Delatorre - Last Filed: 09/13/21 09:47> Health Concerns: Subcapital left femur fracture atrial fibrillation COPD Rib fracture <LEFTY Delatorre - Last Filed: 09/13/21 09:47> Plan of Treatment: WBAT Left lower extremity with walker/ assistance Rib fracture-conservative treatment, pain managment Follow up with [facility] in 2 weeks [phone] of coumadin until after surgery Lasix dose was decreased, can up titrate as needed. potassium supplementation was held, but may need to be resumed. check renal function and chemistries periodically. Cardizem has been added for better control of atrial fibrillation. The dose of metoprolol is unchanged. Take Vancomycin for 6 weeks, last day is October 26, 2021 Rifampin for 6 weeks, last day October 26, 2021 Check random vancomycin level weekly on mondays check BMP, lfts weekly on Wednesday while on Vaco and rifampin <LEFTY Delatorre - Last Filed: 09/13/21 09:47> Assessment: see discharge summary <LEFTY Delatorre - Last Filed: 09/13/21 09:47> Discharge Date/Time: 09/25/21 17:51 <LEFTY Delatorre - Last Filed: 09/13/21 09:47>
[2021-09-25] MEDS: 0.9 % Sodium Chloride Flush 3 ML SYRINGE IVFLUSH (09:30)
[2021-09-25] MEDS: vancomycin HCL 1,000 MG in 0.9 % Sodium Chloride 250 ML 270 MG IV (09:31)
[2021-09-25] MEDS: Omeprazole 20 MG CAPSULE.DR PO (09:36)
[2021-09-25] MEDS: Furosemide 40 MG TABLET PO (09:36)
[2021-09-25] MEDS: DULoxetine HCl 30 MG CAPSULE.DR PO (09:37)
[2021-09-25] MEDS: rifAMPin 300 MG CAPSULE 600 MG PO (09:37)
[2021-09-25] MEDS: Cholecalciferol (Vitamin D3) 25 MCG TABLET PO (09:38)
[2021-09-25] MEDS: predniSONE 20 MG TABLET PO (09:38)
[2021-09-25] MEDS: UrsodioL 300 MG CAPSULE 600 MG PO (09:38)
[2021-09-25] MEDS: Ferrous Sulfate 324 MG TABLET.DR PO (09:38)
[2021-09-25] MEDS: dilTIAZem HCL CD 120 MG CAP.ER.DEG PO (09:39)
[2021-09-25] MEDS: Cyanocobalamin (Vitamin B-12) 1,000 MCG TABLET 1000 MCG PO (09:39)
[2021-09-25] MEDS: Potassium Chloride ER 20 MEQ TAB.ER.PRT PO (09:40)
[2021-09-25] MEDS: Metoprolol Succinate ER 25 MG TAB.ER.24H 75 MG PO (09:40)
[2021-09-25] MEDS: Lidocaine 4 % Patch ADH..PATCH 1 PATCH TRANSDERMA (09:41)
[2021-09-25] MEDS: Artificial Tears 15 ML DROPS 1 DROP EYE-BOTH (09:42)
[2021-09-25] MEDS: Nystatin Powder 15 GM BOTTLE 1 APPL TOPICAL (09:42)
[2021-09-25] MEDS: guaiFENesin 100 MG/5 ML LIQUID PO (09:44)
[2021-09-25] MEDS: LORazepam 1 MG TABLET PO ×2 (09:44→16:02)
--- NOTE | 2021-09-25 11:17 | HO.PM.IMPN ---
Subjective Subjective Date of Service: 09/25/21 Interval History: seen in f/u for MRSA bacteremia, hip fracture... continue to improve, no new issues Review of Systems no fever, or chills no pain no sob Physical Exam Vital Signs: Vital Signs: Last Vital Signs Temp 97.9 F 09/25/21 11:09 Pulse 78 09/25/21 11:09 Resp 19 09/25/21 11:09 BP 103/57 L 09/25/21 11:09 Pulse Ox 96 09/25/21 11:09 Body Mass Index 20.9 Const: Other: General: AO X 3, no acute distress Resp: CTA bilateral CVS: S1,S2,RRR GI: +BS, NT, no distention Skin: No rash Neuro: motor grossly intact Psych: appropriate affect Objective Data Active Medications Albuterol/Ipratropium (Albuterol/Iprat 2.5/0.5mg 3 Ml Ampul.Neb) 3 ml INHALE RQ6H WHILE AWAKE [facility] Last Admin: 09/25/21 07:51 Dose: 3 ml Documented by: JEREMY Artificial Tears (Artificial Tears 15 Ml Drops) 1 drop EYE-BOTH BID [facility] Last Admin: 09/25/21 09:42 Dose: 1 drop Documented by: BRIGITTE Cyanocobalamin (Cyanocobalamin (Vitamin B-12) 1,000 Mcg Tablet) 1,000 mcg PO DAILY [facility] Last Admin: 09/25/21 09:39 Dose: 1,000 mcg Documented by: BRIGITTE Diltiazem HCl (Diltiazem Hcl Cd 120 Mg Cap.Er.Deg) 120 mg PO BID [facility]; Protocol Last Admin: 09/25/21 09:39 Dose: 120 mg Documented by: BRIGITTE Duloxetine HCl (Duloxetine Hcl 30 Mg Capsule.) 30 mg PO BID [facility] Last Admin: 09/25/21 09:37 Dose: 30 mg Documented by: BRIGITTE Enoxaparin Sodium (Enoxaparin Sodium 80 Mg/0.8 Ml Syringe) 65 mg SUBCUT Q12H [facility] Last Admin: 09/24/21 23:58 Dose: 65 mg Documented by: NAYANA Ferrous Sulfate (Ferrous Sulfate 324 Mg Tablet.) 324 mg PO DAILY [facility] Last Admin: 09/25/21 09:38 Dose: 324 mg Documented by: BRIGITTE Furosemide (Furosemide 40 Mg Tablet) 40 mg PO DAILY [facility]; Protocol Last Admin: 09/25/21 09:36 Dose: 40 mg Documented by: BRIGITTE Guaifenesin (Guaifenesin 100 Mg/5 Ml Liquid) 5 ml PO Q4H PRN PRN Reason: Cough Last Admin: 09/25/21 09:44 Dose: 5 ml Documented by: BRIGITTE Vancomycin HCl 1,000 mg/ (Sodium Chloride) 270 mls @ 270 mls/hr IV Q24H [facility] Last Infusion: 09/25/21 10:39 Dose: 0 mls/hr Documented by: BRIGITTE Levothyroxine Sodium (Levothyroxine Sodium 150 Mcg Tablet) 150 mcg PO DAILY@0630 [facility] Last Admin: 09/25/21 04:55 Dose: 150 mcg Documented by: NAYANA Lidocaine (Lidocaine 4 % Patch Adh..Patch) 1 patch TRANSDERMA DAILY [facility]; Protocol Last Admin: 09/25/21 09:41 Dose: 1 patch Documented by: BRIGITTE Lorazepam (Lorazepam 1 Mg Tablet) 1 mg PO BID PRN PRN Reason: Anxiety Last Admin: 09/25/21 09:44 Dose: 1 mg Documented by: BRIGITTE Metoprolol Succinate (Metoprolol Succinate Er 25 Mg Tab.Er.24h) 75 mg PO DAILY [facility]; Protocol Last Admin: 09/25/21 09:40 Dose: 75 mg Documented by: BRIGITTE Nystatin (Nystatin Powder 15 Gm Bottle) 1 appl TOPICAL BID [facility]; Protocol Last Admin: 09/25/21 09:42 Dose: 1 appl Documented by: BRIGITTE Omeprazole (Omeprazole 20 Mg Capsule.Dr) 20 mg PO BID [facility] Last Admin: 09/25/21 09:36 Dose: 20 mg Documented by: BRIGITTE Ondansetron HCl (Ondansetron Hcl 4 Mg/2 Ml Vial) 4 mg IVPUSH Q8H PRN PRN Reason: Nausea and Vomiting Last Admin: 09/08/21 12:34 Dose: 4 mg Documented by: SABINE Pharmacy Consult (Consult Rx Vancomycin Dosing) 1 each MISCELLANE DAILY PRN PRN Reason: Consult order Potassium Chloride (Potassium Chloride Er 20 Meq Tab.Er.Prt) 20 meq PO DAILY [facility] Last Admin: 09/25/21 09:40 Dose: 20 meq Documented by: BRIGITTE Prednisone (Prednisone 20 Mg Tablet) 20 mg PO DAILY [facility] Last Admin: 09/25/21 09:38 Dose: 20 mg Documented by: BRIGITTE Rifampin (Rifampin 300 Mg Capsule) 600 mg PO BID [facility] Last Admin: 09/25/21 09:37 Dose: 600 mg Documented by: BRIGITTE Senna (Sennosides 8.6 Mg Tablet) 17.2 mg PO BEDTIME [facility] Last Admin: 09/24/21 21:51 Dose: 17.2 mg Documented by: BELINDA Senna (Sennosides 8.6 Mg Tablet) 17.2 mg PO Q24H PRN PRN Reason: constipation Sodium Chloride (0.9 % Sodium Chloride Flush 3 Ml Syringe) 3 ml IVFLUSH QSHIFT [facility] Last Admin: 09/25/21 09:30 Dose: 3 ml Documented by: BRIGITTE Tiotropium Hixson (Tiotropium Hixson 18 Mcg Cap.W.Dev) 1 puff INHALE DAILY [facility] Last Admin: 09/25/21 08:13 Dose: 1 puff Documented by: JEREMY Tramadol HCl (Tramadol Hcl 50 Mg Tablet) 100 mg PO Q6H PRN PRN Reason: Pain, Mild (Pain Scale 1-3) Last Admin: 09/25/21 04:54 Dose: 100 mg Documented by: NAYANA Ursodiol (Ursodiol 300 Mg Capsule) 600 mg PO BID [facility] Last Admin: 09/25/21 09:38 Dose: 600 mg Documented by: BRIGITTE Vitamin D (Cholecalciferol (Vitamin D3) 25 Mcg Tablet) 25 mcg PO DAILY [facility] Last Admin: 09/25/21 09:38 Dose: 25 mcg Documented by: BRIGITTE Warfarin Sodium (Warfarin Sodium 5 Mg Tablet) 5 mg PO DAILY@1800 [facility] Last Admin: 09/24/21 21:50 Dose: 5 mg Documented by: BELINDA Comments: given by previous RN not documented Labs CBC & Chem 7: 09/23/21 08:37 09/25/21 05:40 Labs: Laboratory Results - last 24 hr 09/25/21 09/25/21 05:40 05:40 PT 11.8 INR 1.0 Estim Creat Clear Calc 44.9 Estimated GFR 52 Microbiology Microbiology Results: Microbiology 09/19/21 08:55 Blood Culture - Final Blood - Venous No growth after 5 days. 09/19/21 08:55 Blood Culture - Final Blood - Venous No growth after 5 days. Assessment and Plan (1) MRSA (methicillin resistant staph aureus) culture positive: Status: Acute (2) Bacteremia: Status: Acute (3) Left rib fracture: Status: Acute Assessment and Plan: 76 yo F with multiple medical problems including COPD/Chronic resp. failure with hypoxia on 2-3L, CAD - s/p CABG, A. Fib on coumadin, SOTERO/GAVE/PBC/Colon Ca - s/p resection, L hip fx repaired at [facility] in Jun 2021 who presents from [facility] after ? slipping out of bed / fall (unwitnessed) resulting in a L hip Fx. She will be admitted for further treatment MRSA bacteremia Blood cultures from 09/15 grew MRSA Repeat blood cultures 09/17 1/2 + for Staph species chest CT negative for consolidation, u/a negative. Possible source hip hardware vs endocarditis -Was on Vanco and Rifampin -echo 09/19 no mention of vegetations -ID recommends 6 weeks of therapy, PICC line in No PNA, CXR showed atelectasis, CT no PNA Acute on Chronic HFpEF.? Treated with IV Lasix, no PO, BNP trended own, seem euvolemic at moment Acute COPD improved on bronchodilator by Neb, O2 as needed, IV steroid now oral Prednisone and alfredo over a week Left rib fracture--winslow controlled. Delirium likely related to narc, benzo and situational change-presently lucid L subcap. fem fx with superior displacement seen by both Pulm and Cardiac - deemed high risk d/w ortho -initially planned to be done in 2-3 weeks as hip surgery is not urgent per ortho and will likely put patient at unnecessary risk given her pain and immobility from the rib fracture. interval may give rib time to heal for pt to better participate in PT following surgery. now with bacteremia will likely be delayed until after completion of antibiotics. -WBAT hypokalemia, replaced and resolved, r Chronic AFib RVR--initially required cardizem drip, now rate controlled on cardezem.. Anticoagulation with Lovenox until after hip surgery and go back on NOAC CAD ECHO showing low normal LVEF and WMA, mod tricuspid regurgitation. at high risk for surgery due to above - un-modifiable Chronic normocytic anemia underlying GAVE. no acute blood loss h/o requiring multiple transfusions in the past H/H stable FRAN--pre renal, mild resolved Hypothyroid synthroid PBC ursodial Quality Stroke Does the patient have a stroke diagnosis?: No VTE Prior VTE?: No VTE Risk Level:: Medical - moderate - high VTE Device Contraindication: Treatment Not Indicated VTE Drug Contraindication: N/A - Med Ordered
[2021-09-25 12:03] LABS: Hematocrit 28.2 % (37.0-47.0); Hemoglobin 8.8 g/dl (12.0-16.0); Mean Corpuscular HGB Conc 31.2 g/dl (31.0-35.0); Mean Corpuscular Hemoglobin 29.2 pg (27.0-33.0); Mean Corpuscular Volume 93.7 fL (80.0-98.0); Mean Platelet Volume 10.3 fL (9.4-12.3); Platelet Count 302 X10*3/uL (160-400); Red Blood Count 3.01 X10*6/uL (4.20-5.50); Red Cell Distribution Width 18.2 % (11.0-16.0); White Blood Count 14.5 X10*3/uL (4.8-10.8)
--- NOTE | 2021-09-25 12:10 | MHC.SL.SWA ---
Speech Pathologist Impression: Risk of Aspiration Oralpharyngeal Dysphagia Risk of Aspiration Due to: Poor PO Intake Dysphasia Diet Status: Liquid Consistency and Strategies for Safe Swallow: Liquid Intake Recommendation: Thin Liquid Intake Strategies: Small Sips Solid Food Consistency: Dietary Recommendations: Chopped/Advanced (NDD3) Additional Modifications to Solid Foods: Patient was seen for PO trials. Current diet is Chopped/Advanced with thin liquids. Patient was awake, oriented and communicative. Pt reported that she has been tolerating current diet well with no difficulties and increased confidence in eating. Pt. demonstrated thin liquid trial by independently taking sips from a can with appropriate timing of swallow with no cough or evidence of aspiration. Pt. additional took bites of solid, with prolonged oral phase/mastication, followed by pharyngeal phase with well timed laryngeal elevation. Pt. 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 Pt expressed interest in trying different foods from the menu and was encouraged to alternate bites with sips to manage new foods/consistencies when tried. Continue with current recommended diet. Oral Medication Intake: Crushed with Puree Compensatory Strategies and Precautions to be Taken for Safe Swallow: Sitting Upright (90 deg) Double Swallow Small Bites and Sips Alternate Liquids/Solids Rate of Ingestion Change Avoid Specific Foods Supervision While Eating and Drinking for Safe Swallow: Intermittent Supervision Foods to Avoid: Rice Swallowing Recommended Treatments: Compens. Strategy Educat. Recommendation for Speech: Inpatient Speech Therapy Comment: Frequency/Duration: Date Range for Service Req: Timeline to reassess: Road Oiling Truck Driver Clinican/Clinical Fellow: No Supervisory Statement: I have reviewed and agree with the student/clinical fellow's documentation: N/A Speech Language Pathologist: Mariela Fair M.A., CCC-SOFTWARE LICENSING SPECIALIST
[2021-09-25 12:25] LABS: Anion Gap 13 (12-20); Blood Urea Nitrogen 15 mg/dL (9-16); Calcium 8.4 mg/dL (8.4-10.2); Carbon Dioxide 31 mmol/L (22-29); Chloride 97 mmol/L (96-108); Creatinine Clr Calc Pharmacy 47.2; Estimated Glomerular Filt Rate 56; Glucose Random 148 mg/dL (60-115); Potassium 4.1 mmol/L (3.3-5.1); Sodium 137 mmol/L (135-145)
[2021-09-25] MEDS: Enoxaparin Sodium 80 MG/0.8 ML SYRINGE 65 MG SUBCUT (12:41)
--- NOTE | 2021-09-25 13:03 | MHC.CM.PN ---
Addendum entered by Lula Jones 09/25/21 14:34: [facility] INFORMED CM PT CANNOT USE HER MEDICARE BENEFIT. SHE MUST USE [facility] WHICH THEY ARE NOT CONTRACTED WITH. CM CALLED HCP VICKIE ([phone]) AND LEFT A VM MESSAGE WITH ABOVE INFO AND DC TIME FOR PT TO GO TO [facility] CONTACT INFO ALSO LEFT ON FOLLOW UP IMM DELIVERED DURING PREVIOUS T/C, COPY WILL BE SENT CERTIFIED MAIL PT WILL DC TO [facility] TODAY AT 1600 HOURS VIA BLS Original Note: PT IS CLEARED TO DC BACK TO [facility]. CM SPOKE TO PTS HCP/NIECE, SIDNEY WHO WOULD PREFER PT TO GO TO [facility] OR [facility]. SHE IS AWARE [facility] DID NOT OFFER A BED AND [facility] IS NOT CONTRACTED WITH PTS INSURANCE. PER DISCUSSION, CM MADE A REFERRAL TO [facility] TO CONFIRM THEY ARE NOT CONTRACTED. IF [facility] IS UNABLE TO TAKE PT THEN SHE WILL RETURN TO [facility]. [facility] ALREADY HAS AUTH. SUSANNE WILL UPDATE VICKIE ONCE A RESPONSE IS RECEIVED FROM [place] PT IS TENTATIVELY SCHEDULED TO RETURN TO [facility] AT 1600 HOURS UNLESS [facility] IS ABLE TO OFFER A BED.
[2021-09-25 13:45] LABS: COVID-19 Test Negative (Negative)
--- NOTE | 2021-09-25 14:22 | PC.NURSE ---
TELE PACK AND IV TO LEFT WRIST REMOVED. PICC LINE TO RIGHT UPPER ARM C/D/I. BELONGINGS BAGGED AND PLACED BEDSIDE. CALLING TO GIVE STR NOW.
--- NOTE | 2021-09-25 16:48 | PC.NURSE ---
Report recieved from [facility]. Pt is awaiting transportation to SNF.
--- NOTE | 2021-10-01 14:40 | P.CDIR_ITS ---
Documented by User: Hallie Mccain RN 10/01/21 14:43 Retrospective Query PHYSICIAN'S DOCUMENTATION REQUEST Date of Query: 10/01/21 1447 Patient Name: Alina Trujillo Admit Date: 09/08/21 Dear Doctor, A review of the medical record indicates additional documentation may be needed. Please review below and update the documentation accordingly. Risk Factors/Clinical Indicators/Treatments Per Discharge Summary 09/25/21: MRSA bacteremia, Sepsis, Blood cultures from 09/14 and 09/15 were positive for MRSA, blood cultures from 09/17 and 09/19 have been negative > 5 days. Source of infection is unclear but concern for possible hardware infection. Further work up included negative Urine culture, Echo cardiogram showed no vegetations.? CXR and CT showed no pneumonia. ? She has been on Vancomycin since 09/15 and Rifampin since 09/17 and ID recommends 6 weeks of therapy, therefore last dose of Vancomycin will be October 26, 2021 and Rifampin 300 mg PO bid until October 26.? She has a PICC line inserted on 09/21/21.? Please clarify the following: * Sepsis was present on admission and is now resolved * Sepsis was present on admission and is still being monitored, evaluated, or treated * Sepsis was ruled out * Sepsis is still a likely, suspected, probable diagnosis * Other (please specify) * Unable to determine Use of terms such as suspected, likely, concern for, or probable (associated with a specific diagnosis that is being evaluated, monitored, or treated as if it exists) are acceptable and can be coded in the inpatient setting, when documented at the time of discharge. Thank you, Hallie Mccain RN Extension: [phone] Please use your independent medical judgment in providing your response. THIS QUERY IS PART OF THE PERMANENT MEDICAL RECORD Documented by User: Cam Lott MD 10/18/21 16:32 Retrospective Query Provider Response: Other (MRSA bacteremia, present on admission)
== END 2021-09-25 17:51 | disposition skilled nursing facility (03) | DRG 535 ==
LOC: HO.ED 09-08 06:30 → HO.EDOVER 09-08 11:06 → HO.S3 09-08 16:00 → HO.IMC 09-10 12:58
PROVIDERS: Nurse Practitioner Acute Care; Physician Assistant; Physician Assistant Medical; Admitting Provider Family Medicine; Emergency Provider Student in an Organized Health Care Education/Training Program; PCP Family Medicine; Visit Provider Internal Medicine
DX: S72.012A Unspecified intracapsular fracture of left femur, initial encounter for closed fracture (principal); J18.9 Pneumonia, unspecified organism; I50.33 Acute on chronic diastolic (congestive) heart failure; G93.41 Metabolic encephalopathy; S22.32XA Fracture of one rib, left side, initial encounter for closed fracture; N39.0 Urinary tract infection, site not specified; N17.9 Acute kidney failure, unspecified; J96.11 Chronic respiratory failure with hypoxia; F05 Delirium due to known physiological condition; J44.0 Chronic obstructive pulmonary disease with (acute) lower respiratory infection; R78.81 Bacteremia; J44.1 Chronic obstructive pulmonary disease with (acute) exacerbation; I48.20 Chronic atrial fibrillation, unspecified; W18.30XA Fall on same level, unspecified, initial encounter; Y92.003 Bedroom of unspecified non-institutional (private) residence as the place of occurrence of the external cause; I25.10 Atherosclerotic heart disease of native coronary artery without angina pectoris; Z99.81 Dependence on supplemental oxygen; E03.9 Hypothyroidism, unspecified; K74.3 Primary biliary cirrhosis; B95.62 Methicillin resistant Staphylococcus aureus infection as the cause of diseases classified elsewhere; D63.1 Anemia in chronic kidney disease; K31.819 Angiodysplasia of stomach and duodenum without bleeding; D72.829 Elevated white blood cell count, unspecified; Z95.1 Presence of aortocoronary bypass graft; Z87.440 Personal history of urinary (tract) infections; Z20.822 Contact with and (suspected) exposure to COVID-19; Z79.890 Hormone replacement therapy; Z79.891 Long term (current) use of opiate analgesic; Z79.899 Other long term (current) drug therapy
CPT/HCPCS: 36415; 36573; 70450; 71045; 71250; 72125; 73502; 80048; 80053; 80202; 81001; 81003; 82565; 83605; 83880; 85025; 85027; 85610; 86850; 86900; 86901; 87040; 87077; 87086; 87147; 87186; 87205; 87635; 92610; 93005; 93306; 94640; 96365; 96375; 97110; 97116; 97163; 99285; C1751; J0131; J0456; J0696; J1170; J1650; J1940; J2405; J2920; J3010; J3370; J3430

== ENCOUNTER 2021-09-08 00:16 | Outpatient (REF) | payer MEDICARE, SELFPAY | END 2021-09-08 00:17 | disposition home or self-care (01) | LOC: HO.MMNH1L 00:16 | PROVIDERS: Visit Provider Family Medicine | DX: Z13.89 Encounter for screening for other disorder (principal) ==

== ENCOUNTER 2021-09-26 07:40 | Outpatient (REF) | payer MEDICARE, SELFPAY ==
[2021-09-26 07:58] LABS: MANUAL DIFF FLAG NO
[2021-09-26 08:06] LABS: Basophils Percent Auto 0.2 % (0-2); Eosinophils Absolute Auto 0.1 X10*3/uL (0.0-0.4); Eosinophils Percent Auto 0.9 % (0-4); Hematocrit 28.9 % (37.0-47.0); Hemoglobin 9.1 g/dl (12.0-16.0); Imm Gran Abs Auto 0.18 X10*3/uL (0.00-0.03); Imm Gran Pct Auto 1.8 % (0.0-0.4); Lymphocytes Percent Auto 9.8 % (20-40); Mean Corpuscular HGB Conc 31.5 g/dl (31.0-35.0); Mean Corpuscular Hemoglobin 28.7 pg (27.0-33.0); Mean Corpuscular Volume 91.2 fL (80.0-98.0); Mean Platelet Volume 10.7 fL (9.4-12.3); Monocytes Absolute Auto 1.2 X10*3/uL (0.1-1.2); Monocytes Percent Auto 12.2 % (2-11); Neutrophils Absolute Auto 7.3 x10*3/uL (2.0-8.3); Neutrophils Percent Auto 75.1 % (45-73); Platelet Count 351 X10*3/uL (160-400); Red Blood Count 3.17 X10*6/uL (4.20-5.50); Red Cell Distribution Width 17.9 % (11.0-16.0); White Blood Count 9.7 X10*3/uL (4.8-10.8)
[2021-09-26 08:40] LABS: Alanine Aminotransferase 11 U/L (0-31); Albumin Level 3.1 g/dL (3.5-5.0); Alkaline Phosphatase 121 U/L (39-117); Anion Gap 13 (12-20); Aspartate Amino Transferase 14 U/L (5-31); Bilirubin Total 0.3 mg/dL (0.0-1.0); Blood Urea Nitrogen 17 mg/dL (9-16); Calcium 8.1 mg/dL (8.4-10.2); Carbon Dioxide 31 mmol/L (22-29); Chloride 97 mmol/L (96-108); Estimated Glomerular Filt Rate 52; Glucose Random 100 mg/dL (60-115); Potassium 4.1 mmol/L (3.3-5.1); Sodium 137 mmol/L (135-145); Total Protein 5.3 g/dL (6.5-8.0)
[2021-09-26 20:19] LABS: Vancomycin Random 27.9 mcg/mL (15-20)
== END 2021-09-26 07:41 | disposition home or self-care (01) ==
LOC: HO.MMNH1L 07:40
PROVIDERS: Visit Provider Family Medicine
DX: J44.9 Chronic obstructive pulmonary disease, unspecified (principal); I48.91 Unspecified atrial fibrillation
CPT/HCPCS: 36415; 80053; 80202; 85025

== ENCOUNTER 2021-09-27 16:57 | Emergency (ER) | payer MEDICARE, SELFPAY ==
--- NOTE | 2021-09-27 17:05 | ED.RECABL ---
HPI - Recheck/Abnormal Lab/Rx General Chief Complaint: Recheck/Abnormal Lab/Rx Stated Complaint: CRITICAL VANCO TROUGH 27.9,DRAW NEEDED PER SNF Time Seen by Provider: 09/27/21 17:01 Source: patient, EMS and old records reviewed Mode of arrival: EMS Limitations: no limitations History of Present Illness HPI narrative: sent for blood work - needs vancomycin trough per EMS 27.9? last night but then the patient states she might have received her dose today. Has RUE PICC line - dose 1,000mg Q12 for 31 days DC on 09/25 - scrap charger to call SNF as there is confusion as to why the patient was sent to the ED to obtain vancomycin our records show random vancomycin 27.9 at 7pm last night not sent in with her MAR was given her dose of 1,000mg vancomycin at 9am today complaint: abnormal lab (needs vancomycin test and staff unable to draw blood) Initial visit (ago): week(s) Initial visit for: other (fall found to have MRSA bacteremia 09/15 on vancomycin 1g Q12H) Returns today for: other (has known elevated vancomycin random level staff could not obtain blood work today) Symptoms since prior visit: no new symptoms Context: other (failed blood draw) Associated symptoms: none Treatments prior to arrival: other (received her IV vancomycin dose at 9am today) Related Data Home Medications Medication Instructions Recorded Confirmed acetaminophen 325 mg tablet 650 mg PO Q6H PRN 09/08/21 09/08/21 albuterol sulfate 90 mcg/actuation 2 puff INHALATION Q4H PRN 09/08/21 09/08/21 aerosol inhaler cholecalciferol (vitamin D3) 25 25 mcg PO DAILY 09/08/21 09/08/21 mcg (1,000 unit) tablet [id number]-asygyjcoqd-FCU-caffeine 30 1 cap PO Q12H PRN 09/08/21 09/08/21 mg-50 mg-325 mg-40 mg capsule cyanocobalamin (vitamin B-12) 1,000 mcg PO DAILY 09/08/21 09/08/21 1,000 mcg tablet docusate sodium 100 mg capsule 100 mg PO BID 09/08/21 09/08/21 (Colace) duloxetine 30 mg capsule,delayed 30 mg PO BID 09/08/21 09/08/21 release ferrous sulfate 325 mg (65 mg 325 mg PO DAILY 09/08/21 09/08/21 iron) tablet guaifenesin 100 mg/5 mL oral liquid 200 mg PO Q4H PRN 09/08/21 09/08/21 levothyroxine 150 mcg tablet 150 mcg PO DAILY@0630 09/08/21 09/08/21 lorazepam 1 mg tablet 1 mg PO BID 09/08/21 09/08/21 melatonin 3 mg tablet 6 mg PO BEDTIME 09/08/21 09/08/21 metoprolol succinate 25 mg 75 mg PO DAILY 09/08/21 09/08/21 tablet,extended release 24 hr miconazole nitrate 2 % topical 1 appl TOPICAL DAILY 09/08/21 09/08/21 powder multivitamin 1 tab PO DAILY 09/08/21 09/08/21 pantoprazole 40 mg tablet,delayed 40 mg PO BID 09/08/21 09/08/21 release polyethylene glycol 3350 17 17 g PO DAILY 09/08/21 09/08/21 gram/dose oral powder (Miralax) polyvinyl alcohol 1.4 % eye drops 1 drp OPHTHALMIC (EYE) BID 09/08/21 09/08/21 (Artificial Tears (polyvinyl alcohol)) sennosides 8.6 mg tablet 17.2 mg PO BEDTIME 09/08/21 09/08/21 tiotropium bromide 18 mcg capsule 1 cap INHALATION DAILY 09/08/21 09/08/21 with inhalation device tramadol 50 mg tablet 50 mg PO Q6H PRN 09/08/21 09/08/21 ursodiol 500 mg tablet 500 mg PO BID 09/08/21 09/08/21 Previous Rx's Medication Instructions Recorded diltiazem HCl 120 mg 120 mg PO DAILY #7 cap 09/13/21 capsule,extended release 24 hr (Cardizem CD) enoxaparin 80 mg/0.8 mL 65 mg (0.65 mL) SUBCUT Q12H #8 ml 09/13/21 subcutaneous syringe ipratropium 0.5 mg-albuterol 3 mg 3 ml INHALATION RQ6H PRN #3 ml 09/13/21 (2.5 mg base)/3 mL nebulization soln lidocaine 4 % topical patch 1 patch TRANSDERMAL DAILY #10 ea 09/13/21 (Lidocaine Pain Relief) furosemide 40 mg tablet 40 mg PO DAILY #30 tab 09/25/21 oxycodone 5 mg tablet 5 mg PO Q6H PRN #14 tab 09/25/21 prednisone 10 mg tablet 10 mg PO DAILY #4 tab 09/25/21 rifampin 300 mg capsule 600 mg PO BID 31 Days #124 cap 09/25/21 vancomycin 1,000 mg intravenous 1,000 mg IV Q12H 31 Days #62 ea 09/25/21 injection Allergies Allergy/AdvReac Type Severity Reaction Status Date / Time No Known Allergies Allergy Unverified 09/08/21 00:27 Review of Systems Review of Systems: Constitutional :No Fever, No Chills ENT/Mouth : No sore throat, No Rhinorrhea Eyes: No Eye Pain, No Swelling Cardiovascular : No Chest Pain, No SOB Respiratory : No Cough, No Sputum, No Wheezing Gastrointestinal : No Nausea, No Vomiting, No Diarrhea Genitourinary : No Dysuria, No Urinary Frequency Musculoskeletal : pos old joint pain, No Myalgias Skin : No Skin Lesions, No rash Neuro : pos Weakness, No Numbness, No Dizziness, No Headache Psych : pos Anxiety/Panic, No Depression All other systems reviewed and are negative [facility], [facility] Past Medical History Attestation statement: The following information was validated with the patient. Medical History Afib Atherosclerotic cardiovascular disease CAD (coronary artery disease) Chronic respiratory failure with hypoxia Colon cancer COPD (chronic obstructive pulmonary disease) Fall GAVE (gastric antral vascular ectasia) Hypertension Iron deficiency anemia PAF (paroxysmal atrial fibrillation) Primary biliary cirrhosis [place] Surgical History H/O pneumonectomy Hx of CABG Social History Social History Household Members: Other Household Members Other:: patient from facility Housing: Intermediate Do you presently have visiting nurse or other home services: No Unable to assess alcohol history related to: Unknown Patient Tobacco Use Status: Tobacco use Unknown Advance Directives: Yes Advance Directives on File: Yes Advance Directives Date on File: 09/08/21 service: No Current occupational status: retired Physical Exam Vital Signs: Vital Signs: Last Vital Signs Temp 98.8 F 09/27/21 17:11 Pulse 107 H 09/27/21 17:11 Resp 20 09/27/21 17:11 BP 129/62 09/27/21 17:11 Pulse Ox 96 09/27/21 17:11 Body Mass Index 20.5 Appearance: Alert. Oriented X3. No acute distress. Eyes: Pupils equal, round and reactive to light. ENT: Pharynx normal. Neck: Normal inspection. Neck supple. CVS: irregular heart rate and rhythm. Pulses normal. Respiratory: No respiratory distress. Breath sounds normal. Abdomen: Soft and non-tender. Skin: Skin warm and dry. Normal skin color. Normal skin turgor. Extremities: No lower extremity edema. RUE PICC line c/d/i Neuro: Oriented X 3. No motor deficit. No sensory deficit. Course Course Course Narrative: signed out to Dr. Mckeon pending CBC/BMP - outpatient provider can follow up with vancomycin random result MDM - Recheck/Abnormal Lab/Rx MDM Narrative Medical decision making narrative: 76 yo female with hx of afib, anxiety, recent fall resulting in fractures, MRSA bacteremia found to have elevated vancomycin random level. Received her dose this AM not sent over with her MAR - RN tried did try to call facility but not much information shared - will repeat lab and checked her kidney function - can follow up with the provider at facility pending normal labs. Should decreased the dose to 750mg Q12 Discharge Plan Discharge Clinical Impression: Abnormal laboratory test Instructions: Vancomycin (By injection) Additional Instructions: return to ED for any worsening symptoms or concerns vancomycin random testing pending WOULD CONSIDER DECREASING DOSE TO 750MG BID INSTEADY OF 1,000MG BID PLEASE FOLLOW UP ON YOUR VANCOMYCIN RESULT IT WAS NOT RESULTED ON DISCHARGE Prescriptions: No Action acetaminophen 325 mg Tablet 650 mg PO Q6H PRN (Reason: Pain) RF: 0 polyvinyl alcohol [Artificial Tears (polyvin alc)] 1.4 % Drops 1 drp OPHTHALMIC (EYE) BID RF: 0 miconazole nitrate 2 % Powder 1 appl TOPICAL DAILY RF: 0 cyanocobalamin (vitamin B-12) 1,000 mcg Tablet 1,000 mcg PO DAILY RF: 0 melatonin 3 mg Tablet 6 mg PO BEDTIME RF: 0 guaifenesin 100 mg/5 mL Liquid 200 mg PO Q4H PRN (Reason: Cough) RF: 0 qxchonj-bhkcgvzqas-LWD-caff [id number] mg Capsule 1 cap PO Q12H PRN (Reason: Headache) RF: 0 ferrous sulfate 325 mg (65 mg iron) Tablet 325 mg PO DAILY RF: 0 levothyroxine 150 mcg Tablet 150 mcg PO DAILY@0630 RF: 0 docusate sodium [Colace] 100 mg Capsule 100 mg PO BID RF: 0 lorazepam 1 mg Tablet 1 mg PO BID RF: 0 polyethylene glycol 3350 [Miralax] 17 gram/dose Powder 17 g PO DAILY RF: 0 albuterol sulfate 90 mcg/actuation Hfa Aerosol Inhaler 2 puff INHALATION Q4H PRN (Reason: Wheezing) RF: 0 duloxetine 30 mg Capsule,Delayed Release(Dr/Ec) 30 mg PO BID RF: 0 cholecalciferol (vitamin D3) 25 mcg (1,000 unit) Tablet 25 mcg PO DAILY RF: 0 multivitamin Tablet 1 tab PO DAILY RF: 0 sennosides 8.6 mg Tablet 17.2 mg PO BEDTIME RF: 0 tramadol 50 mg Tablet 50 mg PO Q6H PRN (Reason: Pain) RF: 0 pantoprazole 40 mg Tablet,Delayed Release (Dr/Ec) 40 mg PO BID RF: 0 metoprolol succinate 25 mg Tablet Extended Release 24 Hr 75 mg PO DAILY RF: 0 tiotropium bromide 18 mcg Capsule, W/Inhalation Device 1 cap INHALATION DAILY RF: 0 ursodiol 500 mg Tablet 500 mg PO BID RF: 0 ipratropium-albuterol 0.5 mg-3 mg(2.5 mg base)/3 mL Solution For Nebulization 3 ml inhalation RQ6H PRN (Reason: Shortness Of Breath/Wheezing) Qty: 3 RF: 0 enoxaparin 80 mg/0.8 mL Syringe 65 mg subcut Q12H Qty: 8 RF: 0 diltiazem HCl [Cardizem CD] 120 mg Capsule,Extended Release 24hr 120 mg PO DAILY Qty: 7 RF: 0 lidocaine [Lidocaine Pain Relief] 4 % Adhesive Patch,Medicated 1 patch transdermal DAILY Qty: 10 RF: 0 rifampin 300 mg Capsule 600 mg PO BID 31 Days Qty: 124 RF: 0 vancomycin 1,000 mg recon soln 1,000 mg IV Q12H 31 Days Qty: 62 RF: 0 furosemide 40 mg Tablet 40 mg PO DAILY Qty: 30 RF: 0 prednisone 10 mg tablet 10 mg PO DAILY Qty: 4 RF: 0 oxycodone 5 mg tablet 5 mg PO Q6H PRN (Reason: pain (scale score 7-10)) Qty: 14 RF: 0
[2021-09-27 17:11] VITALS: BP 129/62; PULSE 107; RESP 20; TEMP 37.1; O2SAT 96; BMI 20.5
--- NOTE | 2021-09-27 17:30 | PC.NURSE ---
pt sent to ed from SNF to have a vancomycin trough drawn. per EMS pt was sent by the facility because their lab was unable to go to SNF this morning to draw her. pt getting iv antibiotics via RUE PICC line. pt unable to recall when she got her last dose of vancomycin. Charge nurse will call SNF to get further information. pt alert and oriented. no apparent distress noted.
[2021-09-27] MEDS: LORazepam 1 MG TABLET PO (18:10)
[2021-09-27 19:04] LABS: MANUAL DIFF FLAG NO
[2021-09-27 19:06] LABS: Basophils Percent Auto 0.2 % (0-2); Eosinophils Absolute Auto 0.1 X10*3/uL (0.0-0.4); Eosinophils Percent Auto 0.8 % (0-4); Hematocrit 32.7 % (37.0-47.0); Hemoglobin 10.4 g/dl (12.0-16.0); Imm Gran Abs Auto 0.15 X10*3/uL (0.00-0.03); Imm Gran Pct Auto 1.1 % (0.0-0.4); Lymphocytes Absolute Auto 0.7 X10*3/uL (1.2-4.9); Lymphocytes Percent Auto 5.2 % (20-40); Mean Corpuscular HGB Conc 31.8 g/dl (31.0-35.0); Mean Corpuscular Hemoglobin 29.5 pg (27.0-33.0); Mean Corpuscular Volume 92.6 fL (80.0-98.0); Mean Platelet Volume 9.8 fL (9.4-12.3); Monocytes Absolute Auto 1.1 X10*3/uL (0.1-1.2); Monocytes Percent Auto 8.5 % (2-11); Neutrophils Absolute Auto 11.1 x10*3/uL (2.0-8.3); Neutrophils Percent Auto 84.2 % (45-73); Platelet Count 347 X10*3/uL (160-400); Red Blood Count 3.53 X10*6/uL (4.20-5.50); Red Cell Distribution Width 18.3 % (11.0-16.0); White Blood Count 13.2 X10*3/uL (4.8-10.8)
[2021-09-27 19:29] LABS: Anion Gap 16 (12-20); Blood Urea Nitrogen 16 mg/dL (9-16); Calcium 9.1 mg/dL (8.4-10.2); Carbon Dioxide 31 mmol/L (22-29); Chloride 95 mmol/L (96-108); Creatinine Clr Calc Pharmacy 41.5; Estimated Glomerular Filt Rate 49; Glucose Random 120 mg/dL (60-115); Potassium 4.2 mmol/L (3.3-5.1); Sodium 138 mmol/L (135-145)
[2021-09-27 19:42] LABS: Vancomycin Random 30.5 mcg/mL (15-20)
[2021-09-27 20:07] VITALS: BP 110/68; PULSE 80; RESP 16; TEMP 36.9; O2SAT 98
[2021-09-27 23:14] VITALS: BP 121/58; PULSE 93; RESP 18; O2SAT 95
[2021-09-27] MEDS: Calcium Carbonate 750 MG TAB.CHEW 1500 MG PO (23:27)
--- NOTE | 2021-09-28 00:23 | PC.NURSE ---
this nurse called Bernardo William to give nurse to nurse report. facility secretart stated that the nurse stepped out and pathology secretary could not provide a time estimate for when nurse would return. [facility] ED number given to pathology secretary for Bernardo William nurse to call back for report. confectionery cooker aware
--- NOTE | 2021-09-28 00:40 | PC.NURSE ---
nurse report given to Angelita MASSEY at [facility]
== END 2021-09-28 00:20 | disposition skilled nursing facility (03) ==
PROVIDERS: Emergency Medicine; Emergency Provider Internal Medicine; PCP Family Medicine
DX: R79.89 Other specified abnormal findings of blood chemistry (principal); I25.10 Atherosclerotic heart disease of native coronary artery without angina pectoris; F41.1 Generalized anxiety disorder; F43.0 Acute stress reaction; Z79.899 Other long term (current) drug therapy
CPT/HCPCS: 36415; 80048; 80202; 85025; 99283; 99284

== ENCOUNTER 2021-09-29 06:28 | Outpatient (REF) | payer MEDICARE, SELFPAY ==
[2021-09-29 10:09] LABS: Vancomycin Trough 13.4 mcg/mL (10.0-20.0)
== END 2021-09-29 06:29 | disposition home or self-care (01) ==
LOC: HO.MMNH1L 06:28
PROVIDERS: Visit Provider Family Medicine
DX: Z13.89 Encounter for screening for other disorder (principal)
CPT/HCPCS: 36415; 80202

== ENCOUNTER 2021-09-30 06:02 | Outpatient (REF) | payer MEDICARE, SELFPAY ==
[2021-09-30 06:15] LABS: Hematocrit 32.6 % (37.0-47.0); Hemoglobin 9.9 g/dl (12.0-16.0); Mean Corpuscular HGB Conc 30.4 g/dl (31.0-35.0); Mean Corpuscular Hemoglobin 28.9 pg (27.0-33.0); Mean Corpuscular Volume 95.3 fL (80.0-98.0); Mean Platelet Volume 10.3 fL (9.4-12.3); Platelet Count 255 X10*3/uL (160-400); Red Blood Count 3.42 X10*6/uL (4.20-5.50); Red Cell Distribution Width 18.3 % (11.0-16.0); White Blood Count 11.1 X10*3/uL (4.8-10.8)
[2021-09-30 06:35] LABS: Anion Gap 12 (12-20); Blood Urea Nitrogen 13 mg/dL (9-16); Calcium 8.6 mg/dL (8.4-10.2); Carbon Dioxide 32 mmol/L (22-29); Chloride 97 mmol/L (96-108); Estimated Glomerular Filt Rate 49; Glucose Random 112 mg/dL (60-115); Potassium 4.2 mmol/L (3.3-5.1); Sodium 137 mmol/L (135-145)
== END 2021-09-30 06:03 | disposition home or self-care (01) ==
LOC: HO.MMNH1L 06:02
PROVIDERS: Visit Provider Family Medicine
DX: S72.002A Fracture of unspecified part of neck of left femur, initial encounter for closed fracture (principal); C18.9 Malignant neoplasm of colon, unspecified
CPT/HCPCS: 36415; 80048; 85027

== ENCOUNTER 2021-10-02 | Outpatient (REF) | payer MEDICARE, SELFPAY ==
[2021-10-02 08:47] LABS: Vancomycin Trough 21.1 mcg/mL (10.0-20.0)
== END 2021-10-02 00:01 | disposition home or self-care (01) ==
LOC: HO.MMNH1L
PROVIDERS: Visit Provider Family Medicine
DX: S72.002D Fracture of unspecified part of neck of left femur, subsequent encounter for closed fracture with routine healing (principal); C18.9 Malignant neoplasm of colon, unspecified; Z79.2 Long term (current) use of antibiotics
CPT/HCPCS: 36415; 80202

== ENCOUNTER 2021-10-05 | Outpatient (REF) | payer MEDICARE, SELFPAY ==
[2021-10-05 09:09] LABS: Vancomycin Trough 16.6 mcg/mL (10.0-20.0)
== END 2021-10-05 00:01 | disposition home or self-care (01) ==
LOC: HO.MMNH1L
PROVIDERS: Visit Provider Family Medicine
DX: C18.9 Malignant neoplasm of colon, unspecified (principal); S72.002D Fracture of unspecified part of neck of left femur, subsequent encounter for closed fracture with routine healing; Z79.899 Other long term (current) drug therapy
CPT/HCPCS: 36415; 80202

== ENCOUNTER 2021-10-06 | Outpatient (REF) | payer MEDICARE, SELFPAY ==
[2021-10-06 07:38] LABS: Hematocrit 30.8 % (37.0-47.0); Hemoglobin 9.2 g/dl (12.0-16.0); Mean Corpuscular HGB Conc 29.9 g/dl (31.0-35.0); Mean Corpuscular Hemoglobin 28.6 pg (27.0-33.0); Mean Corpuscular Volume 95.7 fL (80.0-98.0); Mean Platelet Volume 9.9 fL (9.4-12.3); Platelet Count 208 X10*3/uL (160-400); Red Blood Count 3.22 X10*6/uL (4.20-5.50); Red Cell Distribution Width 17.2 % (11.0-16.0); White Blood Count 6.3 X10*3/uL (4.8-10.8)
[2021-10-06 07:58] LABS: Anion Gap 17 (12-20); Blood Urea Nitrogen 13 mg/dL (9-16); Calcium 8.2 mg/dL (8.4-10.2); Carbon Dioxide 26 mmol/L (22-29); Chloride 100 mmol/L (96-108); Estimated Glomerular Filt Rate 55; Glucose Random 88 mg/dL (60-115); Potassium 3.9 mmol/L (3.3-5.1); Sodium 139 mmol/L (135-145)
[2021-10-06 08:19] LABS: Thyroid Stimulating Hormone 31.22 uIU/mL (0.32-4.0)
[2021-10-06 10:20] LABS: Folate 6.9 ng/mL (> or = 4.0); Vitamin B12 1353 pg/mL (200-900)
== END 2021-10-06 00:01 | disposition home or self-care (01) ==
LOC: HO.MMNH1L
PROVIDERS: Visit Provider Family Medicine
DX: F32.A Depression, unspecified (principal); C18.9 Malignant neoplasm of colon, unspecified; F41.9 Anxiety disorder, unspecified; S72.002D Fracture of unspecified part of neck of left femur, subsequent encounter for closed fracture with routine healing
CPT/HCPCS: 36415; 80048; 82306; 82607; 82746; 84443; 85027

== ENCOUNTER 2021-10-08 | Outpatient (REF) | payer MEDICARE, SELFPAY ==
[2021-10-08 07:13] LABS: Vancomycin Trough 19.2 mcg/mL (10.0-20.0)
[2021-10-08 07:31] LABS: Thyroid Stimulating Hormone 32.74 uIU/mL (0.32-4.0)
== END 2021-10-08 00:01 | disposition home or self-care (01) ==
LOC: HO.MMNH1L
PROVIDERS: Visit Provider Family Medicine
DX: I48.91 Unspecified atrial fibrillation (principal); Z79.899 Other long term (current) drug therapy
CPT/HCPCS: 36415; 80202; 84439; 84443; 87040

== ENCOUNTER 2021-10-12 | Outpatient (REF) | payer MEDICARE, SELFPAY ==
[2021-10-12 10:14] LABS: Vancomycin Trough 16.9 mcg/mL (10.0-20.0)
== END 2021-10-12 00:01 | disposition home or self-care (01) ==
LOC: HO.MMNH3L
PROVIDERS: Visit Provider Family Medicine
DX: A41.9 Sepsis, unspecified organism (principal); R41.0 Disorientation, unspecified
CPT/HCPCS: 36415; 80202

== ENCOUNTER 2021-10-12 08:53 | Outpatient (REF) | payer MEDICARE, SELFPAY ==
[2021-10-12 10:10] LABS: Anion Gap 15 (12-20); Blood Urea Nitrogen 14 mg/dL (9-16); Calcium 8.7 mg/dL (8.4-10.2); Carbon Dioxide 29 mmol/L (22-29); Chloride 100 mmol/L (96-108); Estimated Glomerular Filt Rate 50; Glucose Random 153 mg/dL (60-115); Potassium 4.2 mmol/L (3.3-5.1); Sodium 140 mmol/L (135-145)
[2021-10-12 10:14] LABS: Basophils Absolute Auto 0.1 X10*3/uL (0.0-0.2); Basophils Percent Auto 1.3 % (0-2); Eosinophils Absolute Auto 0.2 X10*3/uL (0.0-0.4); Eosinophils Percent Auto 3.5 % (0-4); Hematocrit 29.5 % (37.0-47.0); Hemoglobin 8.9 g/dl (12.0-16.0); Imm Gran Abs Auto 0.15 X10*3/uL (0.00-0.03); Imm Gran Pct Auto 2.2 % (0.0-0.4); Lymphocytes Absolute Auto 0.4 X10*3/uL (1.2-4.9); MANUAL DIFF FLAG NO; Mean Corpuscular HGB Conc 30.2 g/dl (31.0-35.0); Mean Corpuscular Hemoglobin 29.3 pg (27.0-33.0); Mean Platelet Volume 9.7 fL (9.4-12.3); Monocytes Percent Auto 14.1 % (2-11); Neutrophils Percent Auto 72.9 % (45-73); Platelet Count 349 X10*3/uL (160-400); Red Blood Count 3.04 X10*6/uL (4.20-5.50); White Blood Count 6.8 X10*3/uL (4.8-10.8)
[2021-10-12 10:37] LABS: Appearance Urine CLEAR; Color Urine YELLOW; Glucose Urine UA NEG (NEG); Leukocyte Esterase Urine NEG (NEG); Nitrite Urine NEG (NEG); Specific Gravity - Urine 1.015 (1.005-1.025); Urine Blood NEG (NEG); Urine Ketones NEG (NEG); Urine Protein NEG (NEG-TRACE)
== END 2021-10-12 08:54 | disposition home or self-care (01) ==
LOC: HO.MMNH1L 08:53
PROVIDERS: Visit Provider Family Medicine
DX: R41.0 Disorientation, unspecified (principal)
CPT/HCPCS: 36415; 80048; 81003; 85025; 87086

== ENCOUNTER 2021-10-13 22:07 | Outpatient (REF) | payer MEDICARE, SELFPAY ==
[2021-10-13 07:07] LABS: Hematocrit 29.8 % (37.0-47.0); Hemoglobin 9.1 g/dl (12.0-16.0); Mean Corpuscular HGB Conc 30.5 g/dl (31.0-35.0); Mean Corpuscular Hemoglobin 29.4 pg (27.0-33.0); Mean Corpuscular Volume 96.1 fL (80.0-98.0); Platelet Count 360 X10*3/uL (160-400); Red Cell Distribution Width 16.9 % (11.0-16.0); White Blood Count 7.8 X10*3/uL (4.8-10.8)
[2021-10-13 07:28] LABS: Anion Gap 17 (12-20); Blood Urea Nitrogen 15 mg/dL (9-16); Calcium 8.3 mg/dL (8.4-10.2); Carbon Dioxide 27 mmol/L (22-29); Chloride 101 mmol/L (96-108); Estimated Glomerular Filt Rate 51; Glucose Random 88 mg/dL (60-115); Potassium 4.2 mmol/L (3.3-5.1); Sodium 141 mmol/L (135-145)
== END 2021-10-13 22:08 | disposition home or self-care (01) ==
LOC: HO.MMNH1L 22:07
PROVIDERS: Visit Provider Family Medicine
DX: S72.019A Unspecified intracapsular fracture of unspecified femur, initial encounter for closed fracture (principal); R78.81 Bacteremia; Z22.322 Carrier or suspected carrier of Methicillin resistant Staphylococcus aureus
CPT/HCPCS: 36415; 80048; 85027; 99212

== ENCOUNTER 2021-10-15 | Outpatient (REF) | payer MEDICARE, SELFPAY ==
[2021-10-15 07:45] LABS: Vancomycin Trough 15.5 mcg/mL (10.0-20.0)
== END 2021-10-15 00:01 | disposition home or self-care (01) ==
LOC: HO.MMNH1L
PROVIDERS: Visit Provider Family Medicine
DX: Z79.899 Other long term (current) drug therapy (principal)
CPT/HCPCS: 36415; 80202

== ENCOUNTER 2021-10-18 | Outpatient (REF) | payer MEDICARE, SELFPAY ==
[2021-10-18 08:38] LABS: Vancomycin Trough 14.8 mcg/mL (10.0-20.0)
== END 2021-10-18 00:01 | disposition home or self-care (01) ==
LOC: HO.MMNH1L
PROVIDERS: Visit Provider Family Medicine
DX: A41.9 Sepsis, unspecified organism (principal)
CPT/HCPCS: 36415; 80202

== ENCOUNTER 2021-10-20 00:56 | Outpatient (REF) | payer MEDICARE, SELFPAY ==
[2021-10-20 07:00] LABS: Hematocrit 30.7 % (37.0-47.0); Hemoglobin 8.9 g/dl (12.0-16.0); Mean Corpuscular Hemoglobin 28.2 pg (27.0-33.0); Mean Corpuscular Volume 97.2 fL (80.0-98.0); Mean Platelet Volume 10.8 fL (9.4-12.3); Platelet Count 307 X10*3/uL (160-400); Red Blood Count 3.16 X10*6/uL (4.20-5.50); Red Cell Distribution Width 15.9 % (11.0-16.0)
[2021-10-20 07:26] LABS: Anion Gap 13 (12-20); Blood Urea Nitrogen 14 mg/dL (9-16); Calcium 8.7 mg/dL (8.4-10.2); Carbon Dioxide 33 mmol/L (22-29); Chloride 102 mmol/L (96-108); Estimated Glomerular Filt Rate 56; Glucose Random 135 mg/dL (60-115); Potassium 3.8 mmol/L (3.3-5.1); Sodium 144 mmol/L (135-145)
== END 2021-10-20 00:57 | disposition home or self-care (01) ==
LOC: HO.MMNH1L 00:56
PROVIDERS: Visit Provider Family Medicine
DX: C18.9 Malignant neoplasm of colon, unspecified (principal); S72.002A Fracture of unspecified part of neck of left femur, initial encounter for closed fracture; X58.XXXA Exposure to other specified factors, initial encounter; Y93.9 Activity, unspecified; Y92.9 Unspecified place or not applicable; Y99.8 Other external cause status
CPT/HCPCS: 36415; 80048; 85027

== ENCOUNTER 2021-10-21 08:13 | Outpatient (REF) | payer MEDICARE, SELFPAY | END 2021-10-21 08:14 | disposition home or self-care (01) | LOC: HO.MMNH1L 08:13 | PROVIDERS: Visit Provider Family Medicine | DX: A41.9 Sepsis, unspecified organism (principal); Z79.2 Long term (current) use of antibiotics | CPT/HCPCS: 36415; 80202 ==

== ENCOUNTER 2021-10-24 09:27 | Outpatient (REF) | payer MEDICARE, SELFPAY ==
--- NOTE | ~2021-10-24 | XR_ITS ---
EXAMINATION: XR PELVIS CLINICAL INFORMATION: Hip pain COMPARISON: 09/08/2021 TECHNIQUE: AP view of the pelvis. FINDINGS: 3 cannulated screws remain in place in the left femoral neck, unchanged from prior. Alignment of the left femoral neck is unchanged. The hips remain aligned. Advanced degenerative change of both hips with medial joint space narrowing and [id number] appearance. Subchondral sclerosis present along the acetabula. The bones are osteopenic. The pelvic rim is intact. The sacroiliac joints and pubic symphysis appear aligned. XR/XR pelvis 1-2V IMPRESSION: Moderate degenerative change of both hips. No acute abnormality seen. Unchanged alignment at the left femoral neck with screws in place.
== END 2021-10-24 09:28 | disposition home or self-care (01) ==
LOC: HO.HOSX 09:27
PROVIDERS: Visit Provider Orthopaedic Surgery
DX: M25.552 Pain in left hip (principal); S72.012A Unspecified intracapsular fracture of left femur, initial encounter for closed fracture; M97.02XA Periprosthetic fracture around internal prosthetic left hip joint, initial encounter; W18.30XA Fall on same level, unspecified, initial encounter; Y93.9 Activity, unspecified; Y92.9 Unspecified place or not applicable; Y99.8 Other external cause status
CPT/HCPCS: 72170; 99212

== ENCOUNTER 2021-10-24 17:11 | Outpatient (REF) | payer MEDICARE, SELFPAY ==
[2021-10-24 18:06] LABS: Vancomycin Trough 13.5 mcg/mL (10.0-20.0)
== END 2021-10-24 17:12 | disposition home or self-care (01) ==
LOC: HO.MMNH1L 17:11
PROVIDERS: Visit Provider Family Medicine
DX: S72.009A Fracture of unspecified part of neck of unspecified femur, initial encounter for closed fracture (principal); X58.XXXA Exposure to other specified factors, initial encounter; Y93.9 Activity, unspecified; Y92.9 Unspecified place or not applicable; Y99.8 Other external cause status; A41.9 Sepsis, unspecified organism
CPT/HCPCS: 36415; 80202

== ENCOUNTER 2021-10-27 00:16 | Outpatient (REF) | payer MEDICARE, SELFPAY ==
[2021-10-27 07:47] LABS: Hematocrit 30.5 % (37.0-47.0); Hemoglobin 9.1 g/dl (12.0-16.0); Mean Corpuscular HGB Conc 29.8 g/dl (31.0-35.0); Mean Corpuscular Hemoglobin 28.3 pg (27.0-33.0); Mean Platelet Volume 10.9 fL (9.4-12.3); Platelet Count 230 X10*3/uL (160-400); Red Blood Count 3.21 X10*6/uL (4.20-5.50); Red Cell Distribution Width 15.5 % (11.0-16.0); White Blood Count 9.6 X10*3/uL (4.8-10.8)
[2021-10-27 08:28] LABS: Anion Gap 15 (12-20); Blood Urea Nitrogen 16 mg/dL (9-16); Calcium 9.2 mg/dL (8.4-10.2); Carbon Dioxide 32 mmol/L (22-29); Chloride 101 mmol/L (96-108); Estimated Glomerular Filt Rate 52; Glucose Random 81 mg/dL (60-115); Potassium 3.8 mmol/L (3.3-5.1); Sodium 144 mmol/L (135-145)
== END 2021-10-27 00:17 | disposition home or self-care (01) ==
LOC: HO.MMNH1L 00:16
PROVIDERS: Visit Provider Family Medicine
DX: S72.002A Fracture of unspecified part of neck of left femur, initial encounter for closed fracture (principal); X58.XXXA Exposure to other specified factors, initial encounter; Y93.9 Activity, unspecified; Y92.9 Unspecified place or not applicable; Y99.9 Unspecified external cause status; C18.9 Malignant neoplasm of colon, unspecified
CPT/HCPCS: 36415; 80048; 85027

== ENCOUNTER 2021-10-28 07:18 | Outpatient (REF) | payer MEDICARE, SELFPAY ==
[2021-10-28 18:09] LABS: Vancomycin Trough 14.3 mcg/mL (10.0-20.0)
== END 2021-10-28 07:19 | disposition home or self-care (01) ==
LOC: HO.MMNH1L 07:18
PROVIDERS: Visit Provider Family Medicine
DX: S72.009D Fracture of unspecified part of neck of unspecified femur, subsequent encounter for closed fracture with routine healing (principal); A41.9 Sepsis, unspecified organism; Z79.2 Long term (current) use of antibiotics
CPT/HCPCS: 36415; 80202

== ENCOUNTER → 2021-10-30 15:21 | Outpatient (BNVA) | payer MEDICARE, SELFPAY | PROVIDERS: PCP Family Medicine; Visit Provider Orthopaedic Surgery ==

== ENCOUNTER 2021-10-30 16:23 | Inpatient (IN) | payer MEDICARE, SELFPAY ==
--- NOTE | ~2021-10-30 | XR_ITS ---
EXAMINATION: XR PELVIS CLINICAL INFORMATION: Postoperative evaluation. COMPARISON: Pelvic radiographs dated 10/24/2021. TECHNIQUE: AP view of the pelvis. FINDINGS: The patient is status post left hip arthroplasty showing good anatomic alignment and no evidence for hardware malfunction. Mild adjacent soft tissue air is noted. There is generalized osteopenia. Mild right hip degenerative joint changes are seen. There is no acute fracture. The soft tissues are unremarkable. XR/XR pelvis 1-2V IMPRESSION: 1. Status post left hip arthroplasty with post surgical changes but no hardware abnormality.
[2021-10-30 17:04] VITALS: BP 114/72; PULSE 86; RESP 17; TEMP 36.6; O2SAT 97
--- NOTE | 2021-10-30 18:44 | PHA.MEDREC ---
MED REC COMPLETE, NO ISSUES Pharmacy Consult ? Medication Reconciliation Pharmacy has completed the medication reconciliation.
[2021-10-30] MEDS: Dextrose 5 % and 0.45 % NaCl 1,000 ML 80 ML IVCONT (19:31)
[2021-10-30 20:17] VITALS: BP 127/68; PULSE 82; RESP 18; TEMP 36.9; O2SAT 96
[2021-10-30] MEDS: LORazepam 1 MG TABLET PO (21:47)
[2021-10-30] MEDS: Acetaminophen 325 MG TABLET 650 MG PO (23:20)
[2021-10-30 23:21] VITALS: BMI 21.9
[2021-10-30 23:36] VITALS: BP 159/67; PULSE 70; RESP 18; TEMP 36; O2SAT 97
--- NOTE | 2021-10-31 | ECG_ITS ---
Test Reason : pre op Blood Pressure : / mmHG Vent. Rate : 075 BPM Atrial Rate : 000 BPM P-R Int : 000 ms QRS Dur : 080 ms QT Int : 370 ms P-R-T Axes : 000 090 042 degrees QTc Int : 413 ms Atrial fibrillation Nonspecific ST abnormality Abnormal ECG When compared with ECG of 20-SEP-2021 15:31, T wave inversion no longer evident in Anterolateral leads Referred By: Diogo Fish Electronically Signed By:Parth Quintero
[2021-10-31 03:50] VITALS: BP 154/82; PULSE 69; RESP 18; TEMP 36.1; O2SAT 94
--- NOTE | 2021-10-31 04:47 | PC.NURSE ---
Pt requested for her scheduled Lorazepam earlier of the shift, Dr. Price was notified, med given, slept fairly after.
[2021-10-31 05:42] LABS: MANUAL DIFF FLAG NO
[2021-10-31 05:49] LABS: Basophils Percent Auto 0.5 % (0-2); Eosinophils Absolute Auto 0.2 X10*3/uL (0.0-0.4); Eosinophils Percent Auto 2.1 % (0-4); Hematocrit 31.1 % (37.0-47.0); Hemoglobin 9.4 g/dl (12.0-16.0); Imm Gran Abs Auto 0.06 X10*3/uL (0.00-0.03); Imm Gran Pct Auto 0.8 % (0.0-0.4); Lymphocytes Absolute Auto 0.7 X10*3/uL (1.2-4.9); Lymphocytes Percent Auto 8.5 % (20-40); Mean Corpuscular HGB Conc 30.2 g/dl (31.0-35.0); Mean Corpuscular Hemoglobin 28.5 pg (27.0-33.0); Mean Corpuscular Volume 94.2 fL (80.0-98.0); Mean Platelet Volume 10.3 fL (9.4-12.3); Monocytes Absolute Auto 1.2 X10*3/uL (0.1-1.2); Monocytes Percent Auto 14.5 % (2-11); Neutrophils Absolute Auto 5.9 x10*3/uL (2.0-8.3); Neutrophils Percent Auto 73.6 % (45-73); Platelet Count 232 X10*3/uL (160-400); Red Cell Distribution Width 14.8 % (11.0-16.0)
[2021-10-31] MEDS: Dextrose 5 % and 0.45 % NaCl 1,000 ML 80 ML IVCONT ×2 (06:10→20:53)
[2021-10-31 07:48] VITALS: BP 184/87; PULSE 84; RESP 20; TEMP 36.4; O2SAT 97
--- NOTE | 2021-10-31 08:28 | PM.EVENT ---
Event Note Date of Service: 10/31/21 Event Note: Patient seen and examined. Chart reviewed. Known to me from last admission. Full Consult to follow. Seen by cardiology and pulmonary last admission and deemed high risk from both cardiac and pulmonary perspective. Remains the same. Will check basic labs and pre-op EKG. Unless something significantly abnormal on these, no further work up needed prior to surgery. Would recommend to monitor her on telemetry fareed-operatively.
--- NOTE | 2021-10-31 08:34 | PM.IMCN ---
History of Present Illness Data of Consult Service Date: 10/31/21 Primary Care Provider: Unknown Physician [facility] Reason for consult: Pre-operative medical clearance This is a 76 year F with multiple medical problems including COPD on chronic respiratory failure with hypoxia (2-3L at baseline), A. Fib on anticoagulation, CAD s/p CABG, Carotid artery stenosis, HTN, SOTERO / GAVE, PBC, Colon Ca s/p colectomy, Sicca syndrome, migraines, , anxiety / depression, hip fx s/p repair @ [facility] in Jun 2021 who was admitted to [facility] [place] from 09/08/21 to 09/25/21 for a fall and hip fracture. The patient's hospital course was complicated by MRSA bactermia, A. Fib with RVR, Acute on Chronic CHF, Encepahlopathy. Ultimately, her surgery was deferred. Per outpatient ortho / ID notes -- the patient has completed her course of IV antibiotics for the bacteremia. She is now admitted for repair of that hip. Medical consult requested for pre-operative evaluation. The patient is seen and examined on Med/Surg. She reports hip pain but otherwise has no complaints. She denies any chest pain, shortness of breath, cough/wheezing, palpitations. She reports some anxiety about the procedure. Review of Systems Review of Systems: negative except what is mentioned in the HPI [facility] Medical History Afib Atherosclerotic cardiovascular disease CAD (coronary artery disease) Chronic respiratory failure with hypoxia Colon cancer COPD (chronic obstructive pulmonary disease) Fall GAVE (gastric antral vascular ectasia) Hypertension Iron deficiency anemia PAF (paroxysmal atrial fibrillation) Primary biliary cirrhosis Sicca Pertinent family history: . Surgical History H/O pneumonectomy Hx of CABG Social History Household Members: Other Household Members Other:: patient from facility Housing: Snf Do you presently have visiting nurse or other home services: Yes Unable to assess alcohol history related to: Unknown Patient Tobacco Use Status: Never used Tobacco Smoked in Last 30 Days: No e-Cigarette/Vaping Use: Never Used Patient Interested in Nicotine Replacement: No Patient Given Instructions on How to Stop Smoking: No Second Hand Smoke Exposure: No Use of substances other than those prescribed or required for medical reasons: No Currently Displaying Signs/Symptoms of Drug Intoxication Withdrawal: No Have you been hit, kicked, punched, or otherwise hurt by someone within the past year? If so, by whom?: No Do you feel safe in your current relationship?: Yes Is there a partner from a previous relationship who is making you feel unsafe now?: No Are you made to feel afraid or neglected: No Advance Directives: Yes Advance Directives on File: Yes Advance Directives Date on File: 09/08/21 Do you have thoughts of harming others: None Do you have a plan to hurt others: No Plan Recently lost weight without trying: No Nutrition Risks: No Nutritional Risk Patient : No : No Poor oral hygiene: No service: No Current occupational status: [employer] Allergies Allergy/AdvReac Type Severity Reaction Status Date / Time No Known Allergies Allergy Verified 10/13/21 13:54 Active Medications: Current Medications Acetaminophen (Acetaminophen 325 Mg Tablet) 650 mg PO Q6H PRN PRN Reason: Pain, Mild (Pain Scale 1-3) Last Admin: 10/30/21 23:20 Dose: 650 mg Documented by: Albuterol Sulfate (Albuterol Sulfate 90 Mcg 8 Gm Inhaler) 2 puff INHALE RQ4H PRN PRN Reason: Wheezing Albuterol/Ipratropium (Albuterol/Iprat 2.5/0.5mg 3 Ml Ampul.Neb) 3 ml INHALE Q8H PRN PRN Reason: Shortness Of Breath Artificial Tears (Artificial Tears 15 Ml Drops) 1 drop EYE-BOTH BID [facility] Cyanocobalamin (Cyanocobalamin (Vitamin B-12) 1,000 Mcg Tablet) 1,000 mcg PO DAILY [facility] Diltiazem HCl (Diltiazem Hcl Cd 120 Mg Cap.Er.Deg) 120 mg PO DAILY [facility]; Protocol Docusate Sodium (Docusate Sodium 100 Mg Capsule) 100 mg PO DAILY PRN PRN Reason: Constipation Docusate Sodium (Docusate Sodium 100 Mg Capsule) 100 mg PO BID [facility] Duloxetine HCl (Duloxetine Hcl 30 Mg Capsule.) 30 mg PO DAILY [facility] Duloxetine HCl (Duloxetine Hcl 60 Mg Capsule.) 60 mg PO BEDTIME [facility] Ferrous Sulfate (Ferrous Sulfate 324 Mg Tablet.) 324 mg PO DAILY [facility] Furosemide (Furosemide 40 Mg Tablet) 40 mg PO DAILY [facility]; Protocol Dextrose/Sodium Chloride (D51/2ns) 1,000 mls @ 80 mls/hr IVCONT .[id number] [facility] Last Admin: 10/31/21 06:10 Dose: 80 mls/hr Documented by: Levothyroxine Sodium (Levothyroxine Sodium 175 Mcg Tablet) 175 mcg PO DAILY@0600 [facility] Lorazepam (Lorazepam 1 Mg Tablet) 1 mg PO BID [facility] Last Admin: 10/30/21 21:47 Dose: 1 mg Documented by: Magnesium Hydroxide (Milk Of Magnesia 30 Ml Oral.Susp) 30 ml PO DAILY PRN PRN Reason: Constipation Melatonin (Melatonin 3 Mg Tablet) 6 mg PO BEDTIME [facility] Metoprolol Succinate (Metoprolol Succinate Er 25 Mg Tab.Er.24h) 75 mg PO DAILY [facility]; Protocol Miconazole Nitrate (Miconazole Nitrate 2% Powder 85 Gm Bottle) 1 appl TOPICAL BEDTIME [facility]; Protocol Multivitamins/Vitamin C (Multivitamin Tablet) 1 tab PO DAILY [facility] Non-Formulary Medication (Ursodiol) 500 mg PO BID [facility] Omeprazole (Omeprazole 20 Mg Capsule.Dr) 20 mg PO BID [facility] Ondansetron HCl (Ondansetron Odt 8 Mg Tab.Rapdis) 8 mg TRANSLINGU Q8H PRN PRN Reason: Nausea Oxycodone HCl (Oxycodone Hcl Immed Release 5 Mg Tablet) 5 mg PO Q6H PRN PRN Reason: pain (scale score 7-10) Polyethylene Glycol (Polyethylene Glycol 3350 17 Gm Powd.Pack) 17 gm PO DAILY [facility] Prednisone (Prednisone 10 Mg Tablet) 10 mg PO DAILY [facility] Scopolamine (Scopolamine 1.5 Mg Patch.Td.3) 1.5 mg TRANSDERMA Q3D [facility] Senna (Sennosides 8.6 Mg Tablet) 17.2 mg PO BEDTIME [facility] Sodium Chloride (0.9 % Sodium Chloride Flush 3 Ml Syringe) 3 ml IVFLUSH QSHIFT [facility] Last Admin: 10/31/21 07:48 Dose: Not Given Documented by: Tiotropium Haugen (Tiotropium Haugen 18 Mcg Cap.W.Dev) 1 puff INHALE DAILY [facility] Vitamin D (Cholecalciferol (Vitamin D3) 25 Mcg Tablet) 25 mcg PO DAILY [facility] Home Medications Medication Instructions Recorded Confirmed Last Taken Type acetaminophen 325 mg tablet 650 mg PO Q6H PRN 09/08/21 10/30/21 Unknown History albuterol sulfate 90 mcg/actuation 2 puff INHALATION Q4H PRN 09/08/21 10/30/21 Unknown History aerosol inhaler cholecalciferol (vitamin D3) 25 25 mcg PO DAILY 09/08/21 10/30/21 Unknown History mcg (1,000 unit) tablet nupufww-yrwfzbfvsw-KUV-caffeine 30 1 cap PO Q12H PRN 09/08/21 10/30/21 Unknown History mg-50 mg-325 mg-40 mg capsule cyanocobalamin (vitamin B-12) 1,000 mcg PO DAILY 09/08/21 10/30/21 Unknown History 1,000 mcg tablet docusate sodium 100 mg capsule 100 mg PO BID 09/08/21 10/30/21 Unknown History (Colace) duloxetine 30 mg capsule,delayed 30 mg PO DAILY 09/08/21 10/30/21 Unknown History release ferrous sulfate 325 mg (65 mg 325 mg PO DAILY 09/08/21 10/30/21 Unknown History iron) tablet guaifenesin 100 mg/5 mL oral liquid 100 mg PO Q4H PRN 09/08/21 10/30/21 Unknown History lorazepam 1 mg tablet 1 mg PO BID 09/08/21 10/30/21 Unknown History melatonin 3 mg tablet 6 mg PO BEDTIME 09/08/21 10/30/21 Unknown History miconazole nitrate 2 % topical 1 appl TOPICAL BEDTIME 09/08/21 10/30/21 Unknown History powder multivitamin 1 tab PO DAILY 09/08/21 10/30/21 Unknown History pantoprazole 40 mg tablet,delayed 40 mg PO BID 09/08/21 10/30/21 Unknown History release polyethylene glycol 3350 17 17 g PO DAILY 09/08/21 10/30/21 Unknown History gram/dose oral powder (Miralax) polyvinyl alcohol 1.4 % eye drops 1 drp OPHTHALMIC (EYE) BID 09/08/21 10/30/21 Unknown History (Artificial Tears (polyvinyl alcohol)) sennosides 8.6 mg tablet 17.2 mg PO BEDTIME 09/08/21 10/30/21 Unknown History tiotropium bromide 18 mcg capsule 1 cap INHALATION DAILY 09/08/21 10/30/21 Unknown History with inhalation device tramadol 50 mg tablet 50 mg PO Q6H PRN 09/08/21 10/30/21 Unknown History ursodiol 500 mg tablet 500 mg PO BID 09/08/21 10/30/21 Unknown History bisacodyl 10 mg rectal suppository 10 mg CA Q3D PRN 10/30/21 10/30/21 Unknown History (Dulcolax (bisacodyl)) doxycycline hyclate 100 mg tablet 100 mg PO BID 10/30/21 10/30/21 Unknown History duloxetine 60 mg capsule,delayed 60 mg PO BEDTIME 10/30/21 10/30/21 Unknown History release sprinkle ipratropium 20 mcg-albuterol 100 2 puff INHALATION Q8H PRN 10/30/21 10/30/21 Unknown History mcg/actuation mist for inhalation (Combivent Respimat) levothyroxine 175 mcg tablet 175 mcg PO DAILY@0600 10/30/21 10/30/21 Unknown History magnesium hydroxide 400 mg/5 mL 30 ml PO DAILY PRN 10/30/21 10/30/21 Unknown History oral suspension (Milk of Magnesia) menthol 5 mg lozenges (Cough Drops) 5 mg MUCOUS MEMBRANE Q2H PRN 10/30/21 10/30/21 Unknown History metoprolol succinate 50 mg 75 mg PO DAILY 10/30/21 10/30/21 Unknown History tablet,extended release 24 hr scopolamine base 1 mg over 3 days 1 patch TRANSDERMAL Q3D 10/30/21 10/30/21 Unknown History transdermal patch Physical Exam Vital Signs and Narrative: Vital Signs: Last Vital Signs Temp 97.6 F 10/31/21 07:48 Pulse 84 10/31/21 07:48 Resp 20 10/31/21 07:48 BP 184/87 H 10/31/21 07:48 Pulse Ox 97 10/31/21 07:48 BMI result Body Mass Index 21.9 Const: Other: Constitutional - Awake and Alert, No apparent distress, laying on her left side Eyes - PERRLA, EOMI Cardiovascular - S1S2, no JVD, no LE edema appreciated Respiratory - No respiratory distress; no wheezing bilaterally Gastrointestinal - NT / ND; +BS; No rebound or guarding - No CVA tenderness Extremities - no calf tenderness bilaterally, no swelling Musculoskeletal - Normal inspection Skin - Warm/Dry Neurological - Awake and alert; oriented to time and situation, knows shes in the hospital but had to be reminded that shes at [facility] [place] Psychological - Appropriate affect Results Labs CBC and Chem 7: 10/31/21 05:32 Labs: Laboratory Results - last 24 hr 10/31/21 05:32 MCV 94.2 MCH 28.5 MCHC 30.2 L RDW 14.8 Plt Count 232 MPV 10.3 Immature Gran % (Auto) 0.8 H Neut % (Auto) 73.6 H Lymph % (Auto) 8.5 L Ulster % (Auto) 14.5 H Eos % (Auto) 2.1 Baso % (Auto) 0.5 Lymph # (Auto) 0.7 L Ulster # (Auto) 1.2 Eos # (Auto) 0.2 Baso # (Auto) 0.0 Abs Immat Gran (auto) 0.06 H Absolute Neuts (auto) 5.9 Absolute Nucleated RBC 0.000 Nucleated RBC % (auto) 0.0 Assessment and Plan (1) Pre-op evaluation: Status: Acute This is a 76 yo F with multiple medical problems who is admitted under the orthopedic services for L hip hemiarthroplasty for a femoral neck fracture. Medical consultation requested for pre-operative evaluation. 1. Pre-operative evaluation The patient has multiple cardiac and pulmonary problems. She was evaluated by cardiology and pulmonary during her last admission and was deemded high risk from both perspectives. Her conditions were deemed un-modifiable. She appears to be stable from those perspective but remains high risk. Would recommend to monitor her on telemetry fareed-operatively. She has a history of CHF, avoid fluid overload. EKG showing A. Fib/Flutter (rate controlled). CBC/BMP/INR pending. 2. Chronic HFpEF euvoluemic continue diuretics and avoid fluid overload 3. Permanant A. Fib continue Cardizem / Metoprolol Resume anticoagulation post-operatively 4. COPD, chronic respiratory failure with hypoxia not in exacerbation continue her inhalers continue baseline O2 at 2-3L 5. Hypothyroid synthroid Will Follow along.
[2021-10-31] MEDS: oxyCODONE HCl Immed Release 5 MG TABLET PO (08:54)
[2021-10-31] MEDS: Artificial Tears 15 ML DROPS 1 DROP EYE-BOTH ×2 (08:54→20:52)
[2021-10-31] MEDS: dilTIAZem HCL CD 120 MG CAP.ER.DEG PO (08:55)
[2021-10-31] MEDS: Docusate Sodium 100 MG CAPSULE PO ×2 (08:55→20:52)
[2021-10-31] MEDS: DULoxetine HCl 30 MG CAPSULE.DR PO (08:55)
[2021-10-31] MEDS: Multivitamin TABLET 1 TAB PO (08:55)
[2021-10-31] MEDS: Cyanocobalamin (Vitamin B-12) 1,000 MCG TABLET 1000 MCG PO (08:55)
[2021-10-31] MEDS: Levothyroxine Sodium 175 MCG TABLET PO (08:55)
[2021-10-31] MEDS: LORazepam 1 MG TABLET PO ×2 (08:55→20:53)
[2021-10-31] MEDS: Cholecalciferol (Vitamin D3) 25 MCG TABLET PO (08:56)
[2021-10-31] MEDS: Ferrous Sulfate 324 MG TABLET.DR PO (08:56)
[2021-10-31] MEDS: Omeprazole 20 MG CAPSULE.DR PO ×2 (08:56→20:53)
[2021-10-31] MEDS: Furosemide 40 MG TABLET PO (08:56)
[2021-10-31] MEDS: Metoprolol Succinate ER 25 MG TAB.ER.24H 75 MG PO (08:56)
[2021-10-31] MEDS: predniSONE 10 MG TABLET PO (08:56)
[2021-10-31 09:31] VITALS: PULSE 84; RESP 20; O2SAT 97
[2021-10-31 09:37] LABS: INTERNATIONAL NORM RATIO 0.9 (0.9-1.1); Prothrombin Time 10.4 SEC (9.9-13.0)
[2021-10-31 09:49] LABS: Anion Gap 12 (12-20); Blood Urea Nitrogen 13 mg/dL (9-16); Calcium 9.3 mg/dL (8.4-10.2); Carbon Dioxide 34 mmol/L (22-29); Chloride 101 mmol/L (96-108); Creatinine Clr Calc Pharmacy 48.2; Estimated Glomerular Filt Rate 56; Glucose Random 112 mg/dL (60-115); Potassium 3.9 mmol/L (3.3-5.1); Sodium 143 mmol/L (135-145)
[2021-10-31 12:00] VITALS: BP 165/75; PULSE 75; RESP 18; TEMP 36.1; O2SAT 97
--- NOTE | 2021-10-31 12:13 | MHC.CM.PN ---
NURSE RING CONDUCTOR NOTE ELECTRONIC MEDICAL RECORD REVIEWED , PATIENT WAS HERE AT 09/08/21 WENT TO [facility] FOR MRSA BACTEREMIA FOR IV ABX. SHE WAS ADMITTED HER ON 10/30/21 FOR MEDICAL CLEARANCE FOR ORTHOPEDIC SURGERY ANTICIPATE SURGERY TODAY. 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 HER NEICE/HCP VICKIE QUINONEZ LIVES IN [place] AND HAS A SISTER CLOSE BY DRISCHARGE PLAN REHAB HAS FALLEN MANAGED MEDICARE , NO SECONDARY INSURANCE, SHE WAS TRANSFERED HER FROM [facility] WHERE SHE WOULD LIKE TO GO BACK TO , REFERRAL INIATED AND AND [facility] RESPONSE WAS IF BED AVAILABILITY AND [place] INSURANCE AUTHORIZATION IS OBTAINED. I SPOKE WITH PATIENTS PERMISSION HER NEMICHAEL OVALLE AND SHE WOULD LIKE REFERRAL ALSO SENT TO [facility] IF WHEN DISCHARGED [facility] DOES NOT HAVE A BED AVAILABILITY ANTICIPATE TRANSPORT VIA ACTION BLS EDUCATED ABOUT SECONDARY INSURANCE [facility] THIS INFORMATION WAS ALSO SHEARED WITH HER NEMICHAEL MEDICARE IMMM EXPLAINED AND LEFT AT BEDSIDE FOR HER TO REVIEW HCP/MOLST FORM ON FILE
--- NOTE | 2021-10-31 14:06 | MHC.CLN ---
NUTRITION NUTRITION CONSULT DUE TO POSSIBLE INADEQUATE INTAKE. CURRENTLY NPO. STAGE I TO BILATERAL BUTTOCKS. REVIEW OF WEIGHT HX SHOWS -4.8% X TWO MONTHS. FOLLOW FOR DIET ADVANCEMENT AND INTAKE.
--- NOTE | 2021-10-31 15:00 | W.PM.IDCN ---
History of Present Illness Data of Consult Service Date: 10/31/21 Requesting physician: Pedro Leal Primary Care Provider: Unknown Physician HPI Reason for consult: prior MRSA bacteremia She presents for routine evaluation She is undergoing surgery to repair left hip She has had MRSA bacteremia 09/17 which cleared and finished Vancomycin with Rifampin one month 10/14 She has not had any fever,hip redness or signs of infection. Review of Systems Review of Systems: Yes all other systems are reviewed and are negative PMFSH Past Medical History Medical History Afib Atherosclerotic cardiovascular disease CAD (coronary artery disease) Chronic respiratory failure with hypoxia Colon cancer COPD (chronic obstructive pulmonary disease) Fall GAVE (gastric antral vascular ectasia) Hypertension Iron deficiency anemia PAF (paroxysmal atrial fibrillation) Primary biliary cirrhosis [place] Family History Family history: reviewed and not pertinent Surgical History Surgical History H/O pneumonectomy Hx of CABG Social History Social History Household Members: Other Household Members Other:: patient from facility Housing: [facility] Do you presently have visiting nurse or other home services: Yes Unable to assess alcohol history related to: Unknown Patient Tobacco Use Status: Never used Tobacco Smoked in Last 30 Days: No e-Cigarette/Vaping Use: Never Used Patient Interested in Nicotine Replacement: No Patient Given Instructions on How to Stop Smoking: No Second Hand Smoke Exposure: No Use of substances other than those prescribed or required for medical reasons: No Currently Displaying Signs/Symptoms of Drug Intoxication Withdrawal: No Have you been hit, kicked, punched, or otherwise hurt by someone within the past year? If so, by whom?: No Do you feel safe in your current relationship?: Yes Is there a partner from a previous relationship who is making you feel unsafe now?: No Are you made to feel afraid or neglected: No Advance Directives: Yes Advance Directives on File: Yes Advance Directives Date on File: 09/08/21 Do you have thoughts of harming others: None Do you have a plan to hurt others: No Plan Recently lost weight without trying: No Nutrition Risks: No Nutritional Risk Patient : No : No Poor oral hygiene: No service: No Current occupational status: retired [employer] Allergies Allergy/AdvReac Type Severity Reaction Status Date / Time No Known Allergies Allergy Verified 10/13/21 13:54 Active Medications: Current Medications Acetaminophen (Acetaminophen 325 Mg Tablet) 650 mg PO Q6H PRN PRN Reason: Pain, Mild (Pain Scale 1-3) Last Admin: 10/30/21 23:20 Dose: 650 mg Documented by: Albuterol Sulfate (Albuterol Sulfate 90 Mcg 8 Gm Inhaler) 2 puff INHALE RQ4H PRN PRN Reason: Wheezing Albuterol/Ipratropium (Albuterol/Iprat 2.5/0.5mg 3 Ml Ampul.Neb) 3 ml INHALE Q8H PRN PRN Reason: Shortness Of Breath Artificial Tears (Artificial Tears 15 Ml Drops) 1 drop EYE-BOTH BID [facility] Last Admin: 10/31/21 08:54 Dose: 1 drop Documented by: Cyanocobalamin (Cyanocobalamin (Vitamin B-12) 1,000 Mcg Tablet) 1,000 mcg PO DAILY [facility] Last Admin: 10/31/21 08:55 Dose: 1,000 mcg Documented by: Diltiazem HCl (Diltiazem Hcl Cd 120 Mg Cap.Er.Deg) 120 mg PO DAILY [facility]; Protocol Last Admin: 10/31/21 08:55 Dose: 120 mg Documented by: Docusate Sodium (Docusate Sodium 100 Mg Capsule) 100 mg PO DAILY PRN PRN Reason: Constipation Docusate Sodium (Docusate Sodium 100 Mg Capsule) 100 mg PO BID [facility] Last Admin: 10/31/21 08:55 Dose: 100 mg Documented by: Duloxetine HCl (Duloxetine Hcl 30 Mg Capsule.) 30 mg PO DAILY [facility] Last Admin: 10/31/21 08:55 Dose: 30 mg Documented by: Duloxetine HCl (Duloxetine Hcl 60 Mg Capsule.) 60 mg PO BEDTIME [facility] Ferrous Sulfate (Ferrous Sulfate 324 Mg Tablet.) 324 mg PO DAILY [facility] Last Admin: 10/31/21 08:56 Dose: 324 mg Documented by: Furosemide (Furosemide 40 Mg Tablet) 40 mg PO DAILY [facility]; Protocol Last Admin: 10/31/21 08:56 Dose: 40 mg Documented by: Dextrose/Sodium Chloride (D51/2ns) 1,000 mls @ 80 mls/hr IVCONT .[id number] [facility] Last Admin: 10/31/21 06:10 Dose: 80 mls/hr Documented by: Levothyroxine Sodium (Levothyroxine Sodium 175 Mcg Tablet) 175 mcg PO DAILY@0600 [facility] Last Admin: 10/31/21 08:55 Dose: 175 mcg Documented by: Lorazepam (Lorazepam 1 Mg Tablet) 1 mg PO BID [facility] Last Admin: 10/31/21 08:55 Dose: 1 mg Documented by: Magnesium Hydroxide (Milk Of Magnesia 30 Ml Oral.Susp) 30 ml PO DAILY PRN PRN Reason: Constipation Melatonin (Melatonin 3 Mg Tablet) 6 mg PO BEDTIME [facility] Metoprolol Succinate (Metoprolol Succinate Er 25 Mg Tab.Er.24h) 75 mg PO DAILY [facility]; Protocol Last Admin: 10/31/21 08:56 Dose: 75 mg Documented by: Miconazole Nitrate (Miconazole Nitrate 2% Powder 85 Gm Bottle) 1 appl TOPICAL BEDTIME [facility]; Protocol Multivitamins/Vitamin C (Multivitamin Tablet) 1 tab PO DAILY [facility] Last Admin: 10/31/21 08:55 Dose: 1 tab Documented by: Non-Formulary Medication (Ursodiol) 500 mg PO BID [facility] Omeprazole (Omeprazole 20 Mg Capsule.Dr) 20 mg PO BID [facility] Last Admin: 10/31/21 08:56 Dose: 20 mg Documented by: Ondansetron HCl (Ondansetron Odt 8 Mg Tab.Rapdis) 8 mg TRANSLINGU Q8H PRN PRN Reason: Nausea Oxycodone HCl (Oxycodone Hcl Immed Release 5 Mg Tablet) 5 mg PO Q6H PRN PRN Reason: pain (scale score 7-10) Last Admin: 10/31/21 08:54 Dose: 5 mg Documented by: Polyethylene Glycol (Polyethylene Glycol 3350 17 Gm Powd.Pack) 17 gm PO DAILY [facility] Last Admin: 10/31/21 08:58 Dose: Not Given Documented by: Prednisone (Prednisone 10 Mg Tablet) 10 mg PO DAILY [facility] Last Admin: 10/31/21 08:56 Dose: 10 mg Documented by: Scopolamine (Scopolamine 1.5 Mg Patch.Td.3) 1.5 mg TRANSDERMA Q3D [facility] Last Admin: 10/31/21 08:57 Dose: Not Given Documented by: Senna (Sennosides 8.6 Mg Tablet) 17.2 mg PO BEDTIME [facility] Sodium Chloride (0.9 % Sodium Chloride Flush 3 Ml Syringe) 3 ml IVFLUSH QSHIFT [facility] Last Admin: 10/31/21 07:48 Dose: Not Given Documented by: Tiotropium [place] (Tiotropium [place] 18 Mcg Cap.W.Dev) 1 puff INHALE DAILY [facility] Last Admin: 10/31/21 09:31 Dose: 1 puff Documented by: Vitamin D (Cholecalciferol (Vitamin D3) 25 Mcg Tablet) 25 mcg PO DAILY [facility] Last Admin: 10/31/21 08:56 Dose: 25 mcg Documented by: Home Medications Medication Instructions Recorded Confirmed Last Taken Type acetaminophen 325 mg tablet 650 mg PO Q6H PRN 09/08/21 10/30/21 Unknown History albuterol sulfate 90 mcg/actuation 2 puff INHALATION Q4H PRN 09/08/21 10/30/21 Unknown History aerosol inhaler cholecalciferol (vitamin D3) 25 25 mcg PO DAILY 09/08/21 10/30/21 Unknown History mcg (1,000 unit) tablet [id number] 30 1 cap PO Q12H PRN 09/08/21 10/30/21 Unknown History mg-50 mg-325 mg-40 mg capsule cyanocobalamin (vitamin B-12) 1,000 mcg PO DAILY 09/08/21 10/30/21 Unknown History 1,000 mcg tablet docusate sodium 100 mg capsule 100 mg PO BID 09/08/21 10/30/21 Unknown History (Colace) duloxetine 30 mg capsule,delayed 30 mg PO DAILY 09/08/21 10/30/21 Unknown History release ferrous sulfate 325 mg (65 mg 325 mg PO DAILY 09/08/21 10/30/21 Unknown History iron) tablet guaifenesin 100 mg/5 mL oral liquid 100 mg PO Q4H PRN 09/08/21 10/30/21 Unknown History lorazepam 1 mg tablet 1 mg PO BID 09/08/21 10/30/21 Unknown History melatonin 3 mg tablet 6 mg PO BEDTIME 09/08/21 10/30/21 Unknown History miconazole nitrate 2 % topical 1 appl TOPICAL BEDTIME 09/08/21 10/30/21 Unknown History powder multivitamin 1 tab PO DAILY 09/08/21 10/30/21 Unknown History pantoprazole 40 mg tablet,delayed 40 mg PO BID 09/08/21 10/30/21 Unknown History release polyethylene glycol 3350 17 17 g PO DAILY 09/08/21 10/30/21 Unknown History gram/dose oral powder (Miralax) polyvinyl alcohol 1.4 % eye drops 1 drp OPHTHALMIC (EYE) BID 09/08/21 10/30/21 Unknown History (Artificial Tears (polyvinyl alcohol)) sennosides 8.6 mg tablet 17.2 mg PO BEDTIME 09/08/21 10/30/21 Unknown History tiotropium bromide 18 mcg capsule 1 cap INHALATION DAILY 09/08/21 10/30/21 Unknown History with inhalation device tramadol 50 mg tablet 50 mg PO Q6H PRN 09/08/21 10/30/21 Unknown History ursodiol 500 mg tablet 500 mg PO BID 09/08/21 10/30/21 Unknown History bisacodyl 10 mg rectal suppository 10 mg [place] Q3D PRN 10/30/21 10/30/21 Unknown History (Dulcolax (bisacodyl)) doxycycline hyclate 100 mg tablet 100 mg PO BID 10/30/21 10/30/21 Unknown History duloxetine 60 mg capsule,delayed 60 mg PO BEDTIME 10/30/21 10/30/21 Unknown History release sprinkle ipratropium 20 mcg-albuterol 100 2 puff INHALATION Q8H PRN 10/30/21 10/30/21 Unknown History mcg/actuation mist for inhalation (Combivent Respimat) levothyroxine 175 mcg tablet 175 mcg PO DAILY@0600 10/30/21 10/30/21 Unknown History magnesium hydroxide 400 mg/5 mL 30 ml PO DAILY PRN 10/30/21 10/30/21 Unknown History oral suspension (Milk of Magnesia) menthol 5 mg lozenges (Cough Drops) 5 mg MUCOUS MEMBRANE Q2H PRN 10/30/21 10/30/21 Unknown History metoprolol succinate 50 mg 75 mg PO DAILY 10/30/21 10/30/21 Unknown History tablet,extended release 24 hr scopolamine base 1 mg over 3 days 1 patch TRANSDERMAL Q3D 10/30/21 10/30/21 Unknown History transdermal patch Physical Exam Vital Signs: Vital Signs: Last Vital Signs Temp 96.9 F 10/31/21 12:00 Pulse 75 10/31/21 12:00 Resp 18 10/31/21 12:00 BP 165/75 H 10/31/21 12:00 Pulse Ox 97 10/31/21 12:00 BMI result Body Mass Index 21.9 Const: General: cooperative Eyes: General: appearance normal, both eyes and all related structures Resp: Effort & Inspection: normal respiratory effort Cardio: Rate: regular rate Rhythm: regular rhythm GI: Palpation (GI): Soft to palpation and nontender Skin: General skin exam: no rashes or lesions noted Extrem: Other: hip clear,left Results Labs CBC & Chem 7: 10/31/21 05:32 10/31/21 09:05 Labs: Short CBC 10/31/21 Range/Units 05:32 WBC 8.0 (4.8-10.8) X10*3/uL Hgb 9.4 L (12.0-16.0) g/dl Hct 31.1 L (37.0-47.0) % Plt Count 232 (160-400) X10*3/uL BMP 10/31/21 09:05 Sodium 143 Potassium 3.9 Chloride 101 Carbon Dioxide 34 H BUN 13 Creatinine 0.97 Calcium 9.3 Assessment and Plan (1) Bacteremia: Status: Acute Patient has completed treatment for MRSA bacteremia She has no evidence of metastatic disease or hip infection or bacteremia Hip repair Usual preoperative antibiotics No further antibiotic treatment at this time
[2021-10-31 16:00] VITALS: BP 148/79; PULSE 64; RESP 16; TEMP 36.2; O2SAT 90
[2021-10-31 20:00] VITALS: BP 128/60; PULSE 84; RESP 16; TEMP 36.6; O2SAT 97
[2021-10-31] MEDS: Miconazole Nitrate 2% Powder 85 GM Bottle 1 APPL TOPICAL (20:52)
[2021-10-31] MEDS: DULoxetine HCl 60 MG CAPSULE.DR PO (20:53)
[2021-10-31] MEDS: Melatonin 3 MG TABLET 6 MG PO (20:53)
[2021-10-31] MEDS: Sennosides 8.6 MG TABLET 17.2 MG PO (20:53)
[2021-11-01] VITALS (11 sets, daily range): BP systolic 117–167; BP diastolic 42–85; PULSE 72–126; RESP 16–20; TEMP 36.2–39.4; O2SAT 90–100
[2021-11-01] MEDS: Levothyroxine Sodium 175 MCG TABLET PO (06:03)
--- NOTE | 2021-11-01 09:19 | P.PNIM_ITS ---
Subjective Subjective Date of Service: 11/01/21 Interval History: has some hip pain o/w doing well Review of Systems hip pain no fever Physical Exam Vital Signs: Vital Signs: Last Vital Signs Temp 97.2 F 11/01/21 07:46 Pulse 72 11/01/21 07:46 Resp 17 11/01/21 07:46 BP 167/76 H 11/01/21 07:46 Pulse Ox 100 11/01/21 07:46 BMI result Body Mass Index 21.9 Const: Other: Constitutional - Awake and Alert, No apparent distress, laying on her left side Eyes - PERRLA, EOMI Cardiovascular - S1S2, no JVD, no LE edema appreciated Respiratory - No respiratory distress; no wheezing bilaterally Gastrointestinal - NT / ND; +BS; No rebound or guarding - No CVA tenderness Extremities - no calf tenderness bilaterally, no swelling Musculoskeletal - Normal inspection Skin - Warm/Dry Neurological - Awake and alert; oriented to time and situation, knows shes in the hospital but had to be reminded [place] [facility] [place] - Appropriate affect Objective Data Active Medications Acetaminophen (Acetaminophen 325 Mg Tablet) 650 mg PO Q6H PRN PRN Reason: Pain, Mild (Pain Scale 1-3) Last Admin: 10/30/21 23:20 Dose: 650 mg Documented by: CASTILQing Albuterol Sulfate (Albuterol Sulfate 90 Mcg 8 Gm Inhaler) 2 puff INHALE RQ4H PRN PRN Reason: Wheezing Albuterol/Ipratropium (Albuterol/Iprat 2.5/0.5mg 3 Ml Ampul.Neb) 3 ml INHALE Q8H PRN PRN Reason: Shortness Of Breath Artificial Tears (Artificial Tears 15 Ml Drops) 1 drop EYE-BOTH BID [facility] Last Admin: 10/31/21 20:52 Dose: 1 drop Documented by: DRU Cyanocobalamin (Cyanocobalamin (Vitamin B-12) 1,000 Mcg Tablet) 1,000 mcg PO DAILY [facility] Last Admin: 10/31/21 08:55 Dose: 1,000 mcg Documented by: KIMMY Diltiazem HCl (Diltiazem Hcl Cd 120 Mg Cap.Er.Deg) 120 mg PO DAILY [facility]; Protocol Last Admin: 10/31/21 08:55 Dose: 120 mg Documented by: KIMMY Docusate Sodium (Docusate Sodium 100 Mg Capsule) 100 mg PO DAILY PRN PRN Reason: Constipation Docusate Sodium (Docusate Sodium 100 Mg Capsule) 100 mg PO BID [facility] Last Admin: 10/31/21 20:52 Dose: 100 mg Documented by: DRU Duloxetine HCl (Duloxetine Hcl 30 Mg Capsule.) 30 mg PO DAILY [facility] Last Admin: 10/31/21 08:55 Dose: 30 mg Documented by: KIMMY Duloxetine HCl (Duloxetine Hcl 60 Mg Capsule.) 60 mg PO BEDTIME [facility] Last Admin: 10/31/21 20:53 Dose: 60 mg Documented by: DRU Ferrous Sulfate (Ferrous Sulfate 324 Mg Tablet.) 324 mg PO DAILY [facility] Last Admin: 10/31/21 08:56 Dose: 324 mg Documented by: KIMMY Furosemide (Furosemide 40 Mg Tablet) 40 mg PO DAILY [facility]; Protocol Last Admin: 10/31/21 08:56 Dose: 40 mg Documented by: KIMMY Dextrose/Sodium Chloride (D51/2ns) 1,000 mls @ 80 mls/hr IVCONT .[id number] [facility] Last Admin: 10/31/21 20:53 Dose: 80 mls/hr Documented by: DRU Levothyroxine Sodium (Levothyroxine Sodium 175 Mcg Tablet) 175 mcg PO DAILY@0600 [facility] Last Admin: 11/01/21 06:03 Dose: 175 mcg Documented by: DRU Lorazepam (Lorazepam 1 Mg Tablet) 1 mg PO BID [facility] Last Admin: 10/31/21 20:53 Dose: 1 mg Documented by: DRU Magnesium Hydroxide (Milk Of Magnesia 30 Ml Oral.Susp) 30 ml PO DAILY PRN PRN Reason: Constipation Melatonin (Melatonin 3 Mg Tablet) 6 mg PO BEDTIME [facility] Last Admin: 10/31/21 20:53 Dose: 6 mg Documented by: DRU Metoprolol Succinate (Metoprolol Succinate Er 25 Mg Tab.Er.24h) 75 mg PO DAILY [facility]; Protocol Last Admin: 10/31/21 08:56 Dose: 75 mg Documented by: KIMMY Miconazole Nitrate (Miconazole Nitrate 2% Powder 85 Gm Bottle) 1 appl TOPICAL BEDTIME [facility]; Protocol Last Admin: 10/31/21 20:52 Dose: 1 appl Documented by: DRU Multivitamins/Vitamin C (Multivitamin Tablet) 1 tab PO DAILY [facility] Last Admin: 10/31/21 08:55 Dose: 1 tab Documented by: KIMMY Non-Formulary Medication (Ursodiol) 500 mg PO BID [facility] Omeprazole (Omeprazole 20 Mg Capsule.Dr) 20 mg PO BID [facility] Last Admin: 10/31/21 20:53 Dose: 20 mg Documented by: DRU Ondansetron HCl (Ondansetron Odt 8 Mg Tab.Rapdis) 8 mg TRANSLINGU Q8H PRN PRN Reason: Nausea Oxycodone HCl (Oxycodone Hcl Immed Release 5 Mg Tablet) 5 mg PO Q6H PRN PRN Reason: pain (scale score 7-10) Last Admin: 10/31/21 08:54 Dose: 5 mg Documented by: KIMMY Polyethylene Glycol (Polyethylene Glycol 3350 17 Gm Powd.Pack) 17 gm PO DAILY [facility] Last Admin: 10/31/21 08:58 Dose: Not Given Documented by: KIMMY Non-Admin Reason: NPO Prednisone (Prednisone 10 Mg Tablet) 10 mg PO DAILY [facility] Last Admin: 10/31/21 08:56 Dose: 10 mg Documented by: KIMMY Scopolamine (Scopolamine 1.5 Mg Patch.Td.3) 1.5 mg TRANSDERMA Q3D [facility] Last Admin: 10/31/21 08:57 Dose: Not Given Documented by: KIMMY Non-Admin Reason: just placed yesterday Senna (Sennosides 8.6 Mg Tablet) 17.2 mg PO BEDTIME [facility] Last Admin: 10/31/21 20:53 Dose: 17.2 mg Documented by: DRU Sodium Chloride (0.9 % Sodium Chloride Flush 3 Ml Syringe) 3 ml IVFLUSH QSHIFT [facility] Last Admin: 11/01/21 09:12 Dose: Not Given Documented by: JOSH Non-Admin Reason: IV Running Tiotropium [place] (Tiotropium [place] 18 Mcg Cap.W.Dev) 1 puff INHALE DAILY [facility] Last Admin: 11/01/21 08:37 Dose: Not Given Documented by: KYLIE Non-Admin Reason: Patient Asleep Vitamin D (Cholecalciferol (Vitamin D3) 25 Mcg Tablet) 25 mcg PO DAILY [facility] Last Admin: 10/31/21 08:56 Dose: 25 mcg Documented by: KIMMY Labs CBC & Chem 7: 10/31/21 05:32 10/31/21 09:05 Labs: Laboratory Results - last 24 hr 10/31/21 10/31/21 09:05 09:05 PT 10.4 INR 0.9 Anion Gap 12 Estim Creat Clear Calc 48.2 Estimated GFR 56 Random Glucose 112 Calcium 9.3 Assessment and Plan (1) Pre-op evaluation: Status: Acute (2) Bacteremia: Status: Acute (3) Closed subcapital fracture of femur: Status: Acute Assessment and Plan: This is a 76 yo F with multiple medical problems who is admitted under the orthopedic services for L hip hemiarthroplasty for a femoral neck fracture. Medical consultation requested for pre-operative evaluation. 1. Pre-operative evaluation The patient has multiple cardiac and pulmonary problems. She was evaluated by cardiology and pulmonary during her last admission and was deemded high risk from both perspectives. Her conditions were deemed un-modifiable, She appears to be stable from those perspective but remains high risk for an operation that she otherwise need We recommend monitoring on telemetry fareed-operatively. She has a history of CHF, avoid fluid overload. EKG showing A. Fib/Flutter (rate controlled). INR is 0.9 holding coumadin 2. Chronic HFpEF euvoluemic continue diuretics and avoid fluid overload 3. Permanant A. Fib continue Cardizem / Metoprolol Resume anticoagulation post-operatively 4. COPD, chronic respiratory failure with hypoxia not in exacerbation continue her inhalers continue baseline O2 at 2-3L 5. Hypothyroid synthroid 6. H/o MRSA bacteremia--has completed course of Abx and needs no additional Abx other than usual fareed-op antibiotics Will Follow along. Quality Stroke Does the patient have a stroke diagnosis?: No VTE Prior VTE?: No VTE Risk Level:: Medical - moderate - high VTE Device Contraindication: N/A - Device Ordered VTE Drug Contraindication: Treatment Not Indicated
[2021-11-01] MEDS: Artificial Tears 15 ML DROPS 1 DROP EYE-BOTH (09:50)
--- NOTE | 2021-11-01 11:16 | P.HPOP_ITS ---
History of Present Illness History of Present Illness Date of Service: 11/01/21 Chief complaint: Left hip fx Narrative: Alina Trujillo is a 76 year old female who underwent a left hip pinning about 3 months ago. She was admitted to the hospital about 2 months ago and developed bacteremia. She was treated with a full course of IV antibiotics. In the meantime her hip has continued to prevent her from ambulating and imaging has showed displacement of the fracture. Review of Systems Constitutional: Constitutional: Reports as per HPI and Reports no additional constitutional complaints Eyes: Eyes: Reports no additional eye complaints Cardiovascular: Cardiovascular: Reports as per HPI and Reports no additional cardiovascular complaints Respiratory: Respiratory: Reports as per HPI and Reports no additional respiratory complaints Gastrointestinal: Gastrointestinal: Reports as per HPI and Reports no additional gastrointestinal complaints Musculoskeletal: Musculoskeletal: Reports as per HPI Integumentary/Breasts: Skin/Breast: Reports system reviewed and no additional complaints, except as docu Neurologic: Reports system reviewed and no additional complaints, except as documented Psychiatric: Psychiatric: Reports no additional psychiatric complaints PMFSH Past Medical History Medical History Afib Atherosclerotic cardiovascular disease CAD (coronary artery disease) Chronic respiratory failure with hypoxia Colon cancer COPD (chronic obstructive pulmonary disease) Fall GAVE (gastric antral vascular ectasia) Hypertension Iron deficiency anemia PAF (paroxysmal atrial fibrillation) Primary biliary cirrhosis [place] Family History Family history: reviewed and not pertinent Surgical History Surgical History H/O pneumonectomy Hx of CABG Social History Social History Household Members: Other Household Members Other:: patient from facility Housing: Longterm Do you presently have visiting nurse or other home services: Yes Unable to assess alcohol history related to: Unknown Patient Tobacco Use Status: Never used Tobacco Smoked in Last 30 Days: No e-Cigarette/Vaping Use: Never Used Patient Interested in Nicotine Replacement: No Patient Given Instructions on How to Stop Smoking: No Second Hand Smoke Exposure: No Use of substances other than those prescribed or required for medical reasons: No Currently Displaying Signs/Symptoms of Drug Intoxication Withdrawal: No Have you been hit, kicked, punched, or otherwise hurt by someone within the past year? If so, by whom?: No Do you feel safe in your current relationship?: Yes Is there a partner from a previous relationship who is making you feel unsafe now?: No Are you made to feel afraid or neglected: No Advance Directives: Yes Advance Directives on File: Yes Advance Directives Date on File: 09/08/21 Do you have thoughts of harming others: None Do you have a plan to hurt others: No Plan Recently lost weight without trying: No Nutrition Risks: No Nutritional Risk Patient : No : No Poor oral hygiene: No service: No Current occupational status: retired [employer] Allergies Allergy/AdvReac Type Severity Reaction Status Date / Time No Known Allergies Allergy Verified 10/13/21 13:54 Active Medications: Current Medications Acetaminophen (Acetaminophen 325 Mg Tablet) 650 mg PO Q6H PRN PRN Reason: Pain, Mild (Pain Scale 1-3) Last Admin: 10/30/21 23:20 Dose: 650 mg Documented by: Albuterol Sulfate (Albuterol Sulfate 90 Mcg 8 Gm Inhaler) 2 puff INHALE RQ4H PRN PRN Reason: Wheezing Albuterol/Ipratropium (Albuterol/Iprat 2.5/0.5mg 3 Ml Ampul.Neb) 3 ml INHALE Q8H PRN PRN Reason: Shortness Of Breath Artificial Tears (Artificial Tears 15 Ml Drops) 1 drop EYE-BOTH BID [facility] [place] Last Admin: 11/01/21 09:50 Dose: 1 drop Documented by: Cyanocobalamin (Cyanocobalamin (Vitamin B-12) 1,000 Mcg Tablet) 1,000 mcg PO DAILY [facility] [place] Last Admin: 10/31/21 08:55 Dose: 1,000 mcg Documented by: Diltiazem HCl (Diltiazem Hcl Cd 120 Mg Cap.Er.Deg) 120 mg PO DAILY [facility] [place]; Protocol Last Admin: 10/31/21 08:55 Dose: 120 mg Documented by: Docusate Sodium (Docusate Sodium 100 Mg Capsule) 100 mg PO DAILY PRN PRN Reason: Constipation Docusate Sodium (Docusate Sodium 100 Mg Capsule) 100 mg PO BID [facility] [place] Last Admin: 10/31/21 20:52 Dose: 100 mg Documented by: Duloxetine HCl (Duloxetine Hcl 30 Mg Capsule.Dr) 30 mg PO DAILY [facility] [place] Last Admin: 10/31/21 08:55 Dose: 30 mg Documented by: Duloxetine HCl (Duloxetine Hcl 60 Mg Capsule.) 60 mg PO BEDTIME [facility] [place] Last Admin: 10/31/21 20:53 Dose: 60 mg Documented by: Ferrous Sulfate (Ferrous Sulfate 324 Mg Tablet.) 324 mg PO DAILY [facility] [place] Last Admin: 10/31/21 08:56 Dose: 324 mg Documented by: Furosemide (Furosemide 40 Mg Tablet) 40 mg PO DAILY [facility]; Protocol Last Admin: 10/31/21 08:56 Dose: 40 mg Documented by: Dextrose/Sodium Chloride (D51/2ns) 1,000 mls @ 80 mls/hr IVCONT .[id number] [facility] Last Admin: 10/31/21 20:53 Dose: 80 mls/hr Documented by: Vancomycin HCl 1,000 mg/ (Sodium Chloride) 270 mls @ 270 mls/hr IV PREOP ONE Stop: 11/01/21 12:10 Levothyroxine Sodium (Levothyroxine Sodium 175 Mcg Tablet) 175 mcg PO DAILY@0600 [facility] Last Admin: 11/01/21 06:03 Dose: 175 mcg Documented by: Lorazepam (Lorazepam 1 Mg Tablet) 1 mg PO BID [facility] [place] Last Admin: 10/31/21 20:53 Dose: 1 mg Documented by: Magnesium Hydroxide (Milk Of Magnesia 30 Ml Oral.Susp) 30 ml PO DAILY PRN PRN Reason: Constipation Melatonin (Melatonin 3 Mg Tablet) 6 mg PO BEDTIME [facility] [place] Last Admin: 10/31/21 20:53 Dose: 6 mg Documented by: Metoprolol Succinate (Metoprolol Succinate Er 25 Mg Tab.Er.24h) 75 mg PO DAILY [facility] [place]; Protocol Last Admin: 10/31/21 08:56 Dose: 75 mg Documented by: Miconazole Nitrate (Miconazole Nitrate 2% Powder 85 Gm Bottle) 1 appl TOPICAL BEDTIME [facility] [place]; Protocol Last Admin: 10/31/21 20:52 Dose: 1 appl Documented by: Multivitamins/Vitamin C (Multivitamin Tablet) 1 tab PO DAILY [facility] [place] Last Admin: 10/31/21 08:55 Dose: 1 tab Documented by: Non-Formulary Medication (Ursodiol) 500 mg PO BID [facility] [place] Omeprazole (Omeprazole 20 Mg Capsule.) 20 mg PO BID [facility] [place] Last Admin: 10/31/21 20:53 Dose: 20 mg Documented by: Ondansetron HCl (Ondansetron Odt 8 Mg Tab.Rapdis) 8 mg TRANSLINGU Q8H PRN PRN Reason: Nausea Oxycodone HCl (Oxycodone Hcl Immed Release 5 Mg Tablet) 5 mg PO Q6H PRN PRN Reason: pain (scale score 7-10) Last Admin: 10/31/21 08:54 Dose: 5 mg Documented by: Pharmacy Consult (Consult Rx Vancomycin Dosing) 1 each MISCELLANE DAILY PRN PRN Reason: Consult order Polyethylene Glycol (Polyethylene Glycol 3350 17 Gm Powd.Pack) 17 gm PO DAILY [facility] [place] Last Admin: 10/31/21 08:58 Dose: Not Given Documented by: Prednisone (Prednisone 10 Mg Tablet) 10 mg PO DAILY [facility] [place] Last Admin: 10/31/21 08:56 Dose: 10 mg Documented by: Scopolamine (Scopolamine 1.5 Mg Patch.Td.3) 1.5 mg TRANSDERMA Q3D [facility] [place] Last Admin: 10/31/21 08:57 Dose: Not Given Documented by: Senna (Sennosides 8.6 Mg Tablet) 17.2 mg PO BEDTIME [facility] [place] Last Admin: 10/31/21 20:53 Dose: 17.2 mg Documented by: Sodium Chloride (0.9 % Sodium Chloride Flush 3 Ml Syringe) 3 ml IVFLUSH QSHIFT [facility] [place] Last Admin: 11/01/21 09:12 Dose: Not Given Documented by: Tiotropium [place] (Tiotropium [place] 18 Mcg Cap.W.Dev) 1 puff INHALE DAILY [facility] [place] Last Admin: 11/01/21 08:37 Dose: Not Given Documented by: Vitamin D (Cholecalciferol (Vitamin D3) 25 Mcg Tablet) 25 mcg PO DAILY [facility] [place] Last Admin: 10/31/21 08:56 Dose: 25 mcg Documented by: Home Medications Medication Instructions Recorded Confirmed Last Taken Type acetaminophen 325 mg tablet 650 mg PO Q6H PRN 09/08/21 10/30/21 Unknown History albuterol sulfate 90 mcg/actuation 2 puff INHALATION Q4H PRN 09/08/21 10/30/21 Unknown History aerosol inhaler cholecalciferol (vitamin D3) 25 25 mcg PO DAILY 09/08/21 10/30/21 Unknown History mcg (1,000 unit) tablet dtoiulb-anwqznzuon-KKK-caffeine 30 1 cap PO Q12H PRN 09/08/21 10/30/21 Unknown History mg-50 mg-325 mg-40 mg capsule cyanocobalamin (vitamin B-12) 1,000 mcg PO DAILY 09/08/21 10/30/21 Unknown History 1,000 mcg tablet docusate sodium 100 mg capsule 100 mg PO BID 09/08/21 10/30/21 Unknown History (Colace) duloxetine 30 mg capsule,delayed 30 mg PO DAILY 09/08/21 10/30/21 Unknown Hist ory release ferrous sulfate 325 mg (65 mg 325 mg PO DAILY 09/08/21 10/30/21 Unknown History iron) tablet guaifenesin 100 mg/5 mL oral liquid 100 mg PO Q4H PRN 09/08/21 10/30/21 Unknown History lorazepam 1 mg tablet 1 mg PO BID 09/08/21 10/30/21 Unknown History melatonin 3 mg tablet 6 mg PO BEDTIME 09/08/21 10/30/21 Unknown History miconazole nitrate 2 % topical 1 appl TOPICAL BEDTIME 09/08/21 10/30/21 Unknown History powder multivitamin 1 tab PO DAILY 09/08/21 10/30/21 Unknown History pantoprazole 40 mg tablet,delayed 40 mg PO BID 09/08/21 10/30/21 Unknown History release polyethylene glycol 3350 17 17 g PO DAILY 09/08/21 10/30/21 Unknown History gram/dose oral powder (Miralax) polyvinyl alcohol 1.4 % eye drops 1 drp OPHTHALMIC (EYE) BID 09/08/21 10/30/21 Unknown History (Artificial Tears (polyvinyl alcohol)) sennosides 8.6 mg tablet 17.2 mg PO BEDTIME 09/08/21 10/30/21 Unknown History tiotropium bromide 18 mcg capsule 1 cap INHALATION DAILY 09/08/21 10/30/21 Unknown History with inhalation device tramadol 50 mg tablet 50 mg PO Q6H PRN 09/08/21 10/30/21 Unknown History ursodiol 500 mg tablet 500 mg PO BID 09/08/21 10/30/21 Unknown History bisacodyl 10 mg rectal suppository 10 mg DC Q3D PRN 10/30/21 10/30/21 Unknown History (Dulcolax (bisacodyl)) doxycycline hyclate 100 mg tablet 100 mg PO BID 10/30/21 10/30/21 Unknown History duloxetine 60 mg capsule,delayed 60 mg PO BEDTIME 10/30/21 10/30/21 Unknown History release sprinkle ipratropium 20 mcg-albuterol 100 2 puff INHALATION Q8H PRN 10/30/21 10/30/21 Unknown History mcg/actuation mist for inhalation (Combivent Respimat) levothyroxine 175 mcg tablet 175 mcg PO DAILY@0600 10/30/21 10/30/21 Unknown History magnesium hydroxide 400 mg/5 mL 30 ml PO DAILY PRN 10/30/21 10/30/21 Unknown History oral suspension (Milk of Magnesia) menthol 5 mg lozenges (Cough Drops) 5 mg MUCOUS MEMBRANE Q2H PRN 10/30/21 Unknown History metoprolol succinate 50 mg 75 mg PO DAILY 10/30/21 10/30/21 Unknown History tablet,extended release 24 hr scopolamine base 1 mg over 3 days 1 patch TRANSDERMAL Q3D 10/30/21 10/30/21 Unknown History transdermal patch Physical Exam Vital Signs: Vital Signs: Last Vital Signs Temp 97.2 F 11/01/21 07:46 Pulse 72 11/01/21 07:46 Resp 17 11/01/21 07:46 BP 167/76 H 11/01/21 07:46 Pulse Ox 100 11/01/21 07:46 BMI result Body Mass Index 21.9 Const: General: cooperative, healthy appearing, no acute distress and well groomed Orientation/consciousness: oriented to person and oriented to place HENMT: Head: Yes normal to inspection, Yes normocephalic and Yes atraumatic Eyes: General: appearance normal, both eyes and all related structures Alignment and Position: alignment normal Conjunctivae: conjunctivae normal EOM: EOMs intact bilaterally Neck: Neck: Yes normal visual inspection and Yes trachea midline Resp: Other: No rerpiratory distress Effort & Inspection: normal respiratory effort and able to speak in complete sentences Cardio: Other: Palpable radial pulse with no appreciable rythmic abnormalities GI: Other: No abdominal distension Back/Spine/Pelvis: Cervical Spine: normal cervical lordosis and cervical ROM normal Skin: General skin exam: no rashes or lesions noted Neuro: General: oriented to person, oriented to place and gait normal Extrem: Other: well healed left hip small incision. No pain with passive hip ROM. General: Yes no pedal edema Results Labs Result Diagrams: 10/31/21 05:32 10/31/21 09:05 Labs: H & H 10/31/21 Range/Units 05:32 Hgb 9.4 L (12.0-16.0) g/dl Hct 31.1 L (37.0-47.0) % Coagulation 10/31/21 Range/Units 09:05 INR 0.9 (0.9-1.1) All other labs normal. Diagnostic results Hip MRI: image reviewed and other (Displacement of femoral neck fracture with intact cannulated screws) Assessment and Plan (1) Closed subcapital fracture of femur: Status: Acute This is a 76 yo previously amulatory F with a displaced femoral neck fra cture that has failed surgical attempt at repair. I recommend a left hip hemiarthroplasty. She has been evaluated by ID and the Medical service and has been cleared to undergo surgery. There is no evidence of hip infection, nor was there ever any evidence of hip infection. She does use oxygen at home and did have a pnuemonia type process occurring w months ago. Regardless she needs to be ambulatory and I reviewed the r/b/a of surgery wtih the patient and the daughter. We will proceedforward accordingly. Quality Stroke Does the patient have a stroke diagnosis?: No VTE Prior VTE?: No VTE Risk Level:: Medical - moderate - high VTE Device Contraindication: N/A - Device Ordered VTE Drug Contraindication: Treatment Not Indicated Procedures Date of Service Date of Service: 11/01/21
--- NOTE | 2021-11-01 11:53 | MHC.SHP ---
Pre-Procedural Eval Section A Date of Service: 11/01/21 The patient is an INPATIENT: Yes Changes since office visit: Yes Patient answered all questions; No Cold of Flu in the past 2 weeks, No New Medical Problems and No Changes in Medication The History & Physical has been completed within 30 days and I have reviewed it.: Yes Section B Chief Complaint: Left hip fx Allergies: Allergies Allergy/AdvReac Type Severity Reaction Status Date / Time No Known Allergies Allergy Verified 10/13/21 13:54 Plan I have reviewed the history and physical and performed a pertinent physical examination on my patient. No changes have occurred unless specified.
--- NOTE | 2021-11-01 12:39 | HO.ANESPROP2 ---
[facility] Active Problems Active Problems: All Active Problems (Updated 10/31/21 @ 09:08 by Diogo Fish MD) Pre-op evaluation (Acute) MRSA (methicillin resistant staph aureus) culture positive (Acute) Bacteremia (Acute) Closed subcapital fracture of femur (Acute) Past Medical History Medical History Afib Atherosclerotic cardiovascular disease CAD (coronary artery disease) Chronic respiratory failure with hypoxia Colon cancer COPD (chronic obstructive pulmonary disease) Fall GAVE (gastric antral vascular ectasia) Hypertension Iron deficiency anemia PAF (paroxysmal atrial fibrillation) Primary biliary cirrhosis [place] Family History Family history of problems with anesthesia: No Surgical History Surgical History H/O pneumonectomy Hx of CABG History of Problems with Anesthesia: No Social History Social History Household Members: Other Household Members Other:: patient from facility Housing: Senior Living Do you presently have visiting nurse or other home services: Yes Unable to assess alcohol history related to: Unknown Patient Tobacco Use Status: Never used Tobacco Smoked in Last 30 Days: No e-Cigarette/Vaping Use: Never Used Patient Interested in Nicotine Replacement: No Patient Given Instructions on How to Stop Smoking: No Second Hand Smoke Exposure: No Use of substances other than those prescribed or required for medical reasons: No Currently Displaying Signs/Symptoms of Drug Intoxication Withdrawal: No Have you been hit, kicked, punched, or otherwise hurt by someone within the past year? If so, by whom?: No Do you feel safe in your current relationship?: Yes Is there a partner from a previous relationship who is making you feel unsafe now?: No Are you made to feel afraid or neglected: No Advance Directives: Yes Advance Directives on File: Yes Advance Directives Date on File: 09/08/21 Do you have thoughts of harming others: None Do you have a plan to hurt others: No Plan Recently lost weight without trying: No Nutrition Risks: No Nutritional Risk Patient : No : No Poor oral hygiene: No service: No Current occupational status: retired Meds Allergies Allergy/AdvReac Type Severity Reaction Status Date / Time No Known Allergies Allergy Verified 10/13/21 13:54 Active Medications: Current Medications Acetaminophen (Acetaminophen 325 Mg Tablet) 650 mg PO Q6H PRN PRN Reason: Pain, Mild (Pain Scale 1-3) Last Admin: 10/30/21 23:20 Dose: 650 mg Documented by: Albuterol Sulfate (Albuterol Sulfate 90 Mcg 8 Gm Inhaler) 2 puff INHALE RQ4H PRN PRN Reason: Wheezing Albuterol/Ipratropium (Albuterol/Iprat 2.5/0.5mg 3 Ml Ampul.Neb) 3 ml INHALE Q8H PRN PRN Reason: Shortness Of Breath Artificial Tears (Artificial Tears 15 Ml Drops) 1 drop EYE-BOTH BID [facility] Last Admin: 11/01/21 09:50 Dose: 1 drop Documented by: Cyanocobalamin (Cyanocobalamin (Vitamin B-12) 1,000 Mcg Tablet) 1,000 mcg PO DAILY [facility] Last Admin: 11/01/21 11:26 Dose: Not Given Documented by: Diltiazem HCl (Diltiazem Hcl Cd 120 Mg Cap.Er.Deg) 120 mg PO DAILY [facility]; Protocol Last Admin: 11/01/21 11:26 Dose: Not Given Documented by: Docusate Sodium (Docusate Sodium 100 Mg Capsule) 100 mg PO DAILY PRN PRN Reason: Constipation Docusate Sodium (Docusate Sodium 100 Mg Capsule) 100 mg PO BID [facility] Last Admin: 11/01/21 11:26 Dose: Not Given Documented by: Duloxetine HCl (Duloxetine Hcl 30 Mg Capsule.) 30 mg PO DAILY [facility] Last Admin: 11/01/21 11:26 Dose: Not Given Documented by: Duloxetine HCl (Duloxetine Hcl 60 Mg Capsule.) 60 mg PO BEDTIME [facility] Last Admin: 10/31/21 20:53 Dose: 60 mg Documented by: Ferrous Sulfate (Ferrous Sulfate 324 Mg Tablet.) 324 mg PO DAILY [facility] Last Admin: 11/01/21 11:27 Dose: Not Given Documented by: Furosemide (Furosemide 40 Mg Tablet) 40 mg PO DAILY [facility]; Protocol Last Admin: 11/01/21 11:27 Dose: Not Given Documented by: Dextrose/Sodium Chloride (D51/2ns) 1,000 mls @ 80 mls/hr IVCONT .[id number] [facility] Last Infusion: 11/01/21 11:33 Dose: Infused Documented by: Levothyroxine Sodium (Levothyroxine Sodium 175 Mcg Tablet) 175 mcg PO DAILY@0600 [facility] Last Admin: 11/01/21 06:03 Dose: 175 mcg Documented by: Lorazepam (Lorazepam 1 Mg Tablet) 1 mg PO BID [facility] Last Admin: 10/31/21 20:53 Dose: 1 mg Documented by: Magnesium Hydroxide (Milk Of Magnesia 30 Ml Oral.Susp) 30 ml PO DAILY PRN PRN Reason: Constipation Melatonin (Melatonin 3 Mg Tablet) 6 mg PO BEDTIME [facility] Last Admin: 10/31/21 20:53 Dose: 6 mg Documented by: Metoprolol Succinate (Metoprolol Succinate Er 25 Mg Tab.Er.24h) 75 mg PO DAILY [facility]; Protocol Last Admin: 11/01/21 11:27 Dose: Not Given Documented by: Miconazole Nitrate (Miconazole Nitrate 2% Powder 85 Gm Bottle) 1 appl TOPICAL BEDTIME [facility]; Protocol Last Admin: 10/31/21 20:52 Dose: 1 appl Documented by: Multivitamins/Vitamin C (Multivitamin Tablet) 1 tab PO DAILY [facility] Last Admin: 11/01/21 11:27 Dose: Not Given Documented by: Non-Formulary Medication (Ursodiol) 500 mg PO BID [facility] Omeprazole (Omeprazole 20 Mg Capsule.Dr) 20 mg PO BID [facility] Last Admin: 11/01/21 11:27 Dose: Not Given Documented by: Ondansetron HCl (Ondansetron Odt 8 Mg Tab.Rapdis) 8 mg TRANSLINGU Q8H PRN PRN Reason: Nausea Oxycodone HCl (Oxycodone Hcl Immed Release 5 Mg Tablet) 5 mg PO Q6H PRN PRN Reason: pain (scale score 7-10) Last Admin: 10/31/21 08:54 Dose: 5 mg Documented by: Polyethylene Glycol (Polyethylene Glycol 3350 17 Gm Powd.Pack) 17 gm PO DAILY [facility] Last Admin: 11/01/21 11:27 Dose: Not Given Documented by: Prednisone (Prednisone 10 Mg Tablet) 10 mg PO DAILY [facility] Last Admin: 11/01/21 11:28 Dose: Not Given Documented by: Scopolamine (Scopolamine 1.5 Mg Patch.Td.3) 1.5 mg TRANSDERMA Q3D [facility] Last Admin: 10/31/21 08:57 Dose: Not Given Documented by: Senna (Sennosides 8.6 Mg Tablet) 17.2 mg PO BEDTIME [facility] Last Admin: 10/31/21 20:53 Dose: 17.2 mg Documented by: Sodium Chloride (0.9 % Sodium Chloride Flush 3 Ml Syringe) 3 ml IVFLUSH QSHIFT [facility] Last Admin: 11/01/21 09:12 Dose: Not Given Documented by: Tiotropium [place] (Tiotropium [place] 18 Mcg Cap.W.Dev) 1 puff INHALE DAILY [facility] Last Admin: 11/01/21 08:37 Dose: Not Given Documented by: Vitamin D (Cholecalciferol (Vitamin D3) 25 Mcg Tablet) 25 mcg PO DAILY [facility] Last Admin: 11/01/21 11:26 Dose: Not Given Documented by: Home Medications Medication Instructions Recorded Confirmed Last Taken Type acetaminophen 325 mg tablet 650 mg PO Q6H PRN 09/08/21 10/30/21 Unknown History albuterol sulfate 90 mcg/actuation 2 puff INHALATION Q4H PRN 09/08/21 10/30/21 Unknown History aerosol inhaler cholecalciferol (vitamin D3) 25 25 mcg PO DAILY 09/08/21 10/30/21 Unknown History mcg (1,000 unit) tablet ugfbbnu-axebxkcbcb-REE-caffeine 30 1 cap PO Q12H PRN 09/08/21 10/30/21 Unknown History mg-50 mg-325 mg-40 mg capsule cyanocobalamin (vitamin B-12) 1,000 mcg PO DAILY 09/08/21 10/30/21 Unknown History 1,000 mcg tablet docusate sodium 100 mg capsule 100 mg PO BID 09/08/21 10/30/21 Unknown History (Colace) duloxetine 30 mg capsule,delayed 30 mg PO DAILY 09/08/21 10/30/21 Unknown History release ferrous sulfate 325 mg (65 mg 325 mg PO DAILY 09/08/21 10/30/21 Unknown History iron) tablet guaifenesin 100 mg/5 mL oral liquid 100 mg PO Q4H PRN 09/08/21 10/30/21 Unknown History lorazepam 1 mg tablet 1 mg PO BID 09/08/21 10/30/21 Unknown History melatonin 3 mg tablet 6 mg PO BEDTIME 09/08/21 10/30/21 Unknown History miconazole nitrate 2 % topical 1 appl TOPICAL BEDTIME 09/08/21 10/30/21 Unknown History powder multivitamin 1 tab PO DAILY 09/08/21 10/30/21 Unknown History pantoprazole 40 mg tablet,delayed 40 mg PO BID 09/08/21 10/30/21 Unknown History release polyethylene glycol 3350 17 17 g PO DAILY 09/08/21 10/30/21 Unknown History gram/dose oral powder (Miralax) polyvinyl alcohol 1.4 % eye drops 1 drp OPHTHALMIC (EYE) BID 09/08/21 10/30/21 Unknown History (Artificial Tears (polyvinyl alcohol)) sennosides 8.6 mg tablet 17.2 mg PO BEDTIME 09/08/21 10/30/21 Unknown History tiotropium bromide 18 mcg capsule 1 cap INHALATION DAILY 09/08/21 10/30/21 Unknown History with inhalation device tramadol 50 mg tablet 50 mg PO Q6H PRN 09/08/21 10/30/21 Unknown History ursodiol 500 mg tablet 500 mg PO BID 09/08/21 10/30/21 Unknown History bisacodyl 10 mg rectal suppository 10 mg [place] Q3D PRN 10/30/21 10/30/21 Unknown History (Dulcolax (bisacodyl)) doxycycline hyclate 100 mg tablet 100 mg PO BID 10/30/21 10/30/21 Unknown History duloxetine 60 mg capsule,delayed 60 mg PO BEDTIME 10/30/21 10/30/21 Unknown History release sprinkle ipratropium 20 mcg-albuterol 100 2 puff INHALATION Q8H PRN 10/30/21 10/30/21 Unknown History mcg/actuation mist for inhalation (Combivent Respimat) levothyroxine 175 mcg tablet 175 mcg PO DAILY@0600 10/30/21 10/30/21 Unknown History magnesium hydroxide 400 mg/5 mL 30 ml PO DAILY PRN 10/30/21 10/30/21 Unknown History oral suspension (Milk of Magnesia) menthol 5 mg lozenges (Cough Drops) 5 mg MUCOUS MEMBRANE Q2H PRN 10/30/21 10/30/21 Unknown History metoprolol succinate 50 mg 75 mg PO DAILY 10/30/21 10/30/21 Unknown History tablet,extended release 24 hr scopolamine base 1 mg over 3 days 1 patch TRANSDERMAL Q3D 10/30/21 10/30/21 Unknown History transdermal patch Exam Exam Date and Time: November 01, 2021 1239 Height,Weight and Vital Signs: Height 5 ft 8 in Weight 65.6 kg Last Vital Signs Temp 97.2 F 11/01/21 07:46 Pulse 72 11/01/21 07:46 Resp 17 11/01/21 07:46 BP 167/76 H 11/01/21 07:46 Pulse Ox 100 11/01/21 07:46 Pertinent Lab Results Pertinent Lab Results: Laboratory Tests 10/31/21 10/31/21 10/31/21 05:32 09:05 09:05 WBC 8.0 RBC 3.30 L Hgb 9.4 L Hct 31.1 L MCV 94.2 MCH 28.5 MCHC 30.2 L RDW 14.8 Plt Count 232 MPV 10.3 Immature Gran % (Auto) 0.8 H Neut % (Auto) 73.6 H Lymph % (Auto) 8.5 L [place] % (Auto) 14.5 H Eos % (Auto) 2.1 Baso % (Auto) 0.5 Lymph # (Auto) 0.7 L [place] # (Auto) 1.2 Eos # (Auto) 0.2 Baso # (Auto) 0.0 Abs Immat Gran (auto) 0.06 H Absolute Neuts (auto) 5.9 Absolute Nucleated RBC 0.000 Nucleated RBC % (auto) 0.0 PT 10.4 INR 0.9 Sodium 143 Potassium 3.9 Chloride 101 Carbon Dioxide 34 H Anion Gap 12 BUN 13 Creatinine 0.97 Estim Creat Clear Calc 48.2 Estimated GFR 56 Random Glucose 112 Calcium 9.3 Airway Mallampati Class: III TM Dist: >3cm Neck ROM: Limited Denture: Lower Partial: Upper Assessment and Plan Assessment Anesthesia Assessment: Anesthesia Plan Discussed and Chart Reviewed Final Anesthetic Review Family History of Problems with Anesthesia: No History of Problems with Anesthesia: No NPO: Yes ASA Class: III and Emergency Final Preanesthetic Review: No Changes in Pt Med Stat, Meds/Allgs Chart Reviewed, Consent Obtained/Reviewed and Anes Risks/Benef Reviewed Patient Risk: Intermediate Procedure Risk: High Anesthetic Plan Anesthetic Plan: GA Disposition: Standard PACU
--- NOTE | 2021-11-01 12:40 | HO.ANESPROP2 ---
[facility] Active Problems Active Problems: All Active Problems (Updated 10/31/21 @ 09:08 by Diogo Fish MD) Pre-op evaluation (Acute) MRSA (methicillin resistant staph aureus) culture positive (Acute) Bacteremia (Acute) Closed subcapital fracture of femur (Acute) Past Medical History Medical History Afib Atherosclerotic cardiovascular disease CAD (coronary artery disease) Chronic respiratory failure with hypoxia Colon cancer COPD (chronic obstructive pulmonary disease) Fall GAVE (gastric antral vascular ectasia) Hypertension Iron deficiency anemia PAF (paroxysmal atrial fibrillation) Primary biliary cirrhosis [place] Family History Family history of problems with anesthesia: No Surgical History Surgical History H/O pneumonectomy Hx of CABG History of Problems with Anesthesia: No Social History Social History Household Members: Other Household Members Other:: patient from facility Housing: Shelter Do you presently have visiting nurse or other home services: Yes Unable to assess alcohol history related to: Unknown Patient Tobacco Use Status: Never used Tobacco Smoked in Last 30 Days: No e-Cigarette/Vaping Use: Never Used Patient Interested in Nicotine Replacement: No Patient Given Instructions on How to Stop Smoking: No Second Hand Smoke Exposure: No Use of substances other than those prescribed or required for medical reasons: No Currently Displaying Signs/Symptoms of Drug Intoxication Withdrawal: No Have you been hit, kicked, punched, or otherwise hurt by someone within the past year? If so, by whom?: No Do you feel safe in your current relationship?: Yes Is there a partner from a previous relationship who is making you feel unsafe now?: No Are you made to feel afraid or neglected: No Advance Directives: Yes Advance Directives on File: Yes Advance Directives Date on File: 09/08/21 Do you have thoughts of harming others: None Do you have a plan to hurt others: No Plan Recently lost weight without trying: No Nutrition Risks: No Nutritional Risk Patient : No : No Poor oral hygiene: No service: No Current occupational status: retired Meds Allergies Allergy/AdvReac Type Severity Reaction Status Date / Time No Known Allergies Allergy Verified 10/13/21 13:54 Active Medications: Current Medications Acetaminophen (Acetaminophen 325 Mg Tablet) 650 mg PO Q6H PRN PRN Reason: Pain, Mild (Pain Scale 1-3) Last Admin: 10/30/21 23:20 Dose: 650 mg Documented by: Albuterol Sulfate (Albuterol Sulfate 90 Mcg 8 Gm Inhaler) 2 puff INHALE RQ4H PRN PRN Reason: Wheezing Albuterol/Ipratropium (Albuterol/Iprat 2.5/0.5mg 3 Ml Ampul.Neb) 3 ml INHALE Q8H PRN PRN Reason: Shortness Of Breath Artificial Tears (Artificial Tears 15 Ml Drops) 1 drop EYE-BOTH BID [facility] Last Admin: 11/01/21 09:50 Dose: 1 drop Documented by: Cyanocobalamin (Cyanocobalamin (Vitamin B-12) 1,000 Mcg Tablet) 1,000 mcg PO DAILY [facility] Last Admin: 11/01/21 11:26 Dose: Not Given Documented by: Diltiazem HCl (Diltiazem Hcl Cd 120 Mg Cap.Er.Deg) 120 mg PO DAILY [facility]; Protocol Last Admin: 11/01/21 11:26 Dose: Not Given Documented by: Docusate Sodium (Docusate Sodium 100 Mg Capsule) 100 mg PO DAILY PRN PRN Reason: Constipation Docusate Sodium (Docusate Sodium 100 Mg Capsule) 100 mg PO BID [facility] Last Admin: 11/01/21 11:26 Dose: Not Given Documented by: Duloxetine HCl (Duloxetine Hcl 30 Mg Capsule.) 30 mg PO DAILY [facility] Last Admin: 11/01/21 11:26 Dose: Not Given Documented by: Duloxetine HCl (Duloxetine Hcl 60 Mg Capsule.) 60 mg PO BEDTIME [facility] Last Admin: 10/31/21 20:53 Dose: 60 mg Documented by: Ferrous Sulfate (Ferrous Sulfate 324 Mg Tablet.) 324 mg PO DAILY [facility] Last Admin: 11/01/21 11:27 Dose: Not Given Documented by: Furosemide (Furosemide 40 Mg Tablet) 40 mg PO DAILY [facility]; Protocol Last Admin: 11/01/21 11:27 Dose: Not Given Documented by: Dextrose/Sodium Chloride (D51/2ns) 1,000 mls @ 80 mls/hr IVCONT .[id number] [facility] Last Infusion: 11/01/21 11:33 Dose: Infused Documented by: Levothyroxine Sodium (Levothyroxine Sodium 175 Mcg Tablet) 175 mcg PO DAILY@0600 [facility] Last Admin: 11/01/21 06:03 Dose: 175 mcg Documented by: Lorazepam (Lorazepam 1 Mg Tablet) 1 mg PO BID [facility] Last Admin: 10/31/21 20:53 Dose: 1 mg Documented by: Magnesium Hydroxide (Milk Of Magnesia 30 Ml Oral.Susp) 30 ml PO DAILY PRN PRN Reason: Constipation Melatonin (Melatonin 3 Mg Tablet) 6 mg PO BEDTIME [facility] Last Admin: 10/31/21 20:53 Dose: 6 mg Documented by: Metoprolol Succinate (Metoprolol Succinate Er 25 Mg Tab.Er.24h) 75 mg PO DAILY [facility]; Protocol Last Admin: 11/01/21 11:27 Dose: Not Given Documented by: Miconazole Nitrate (Miconazole Nitrate 2% Powder 85 Gm Bottle) 1 appl TOPICAL BEDTIME [facility]; Protocol Last Admin: 10/31/21 20:52 Dose: 1 appl Documented by: Multivitamins/Vitamin C (Multivitamin Tablet) 1 tab PO DAILY [facility] Last Admin: 11/01/21 11:27 Dose: Not Given Documented by: Non-Formulary Medication (Ursodiol) 500 mg PO BID [facility] Omeprazole (Omeprazole 20 Mg Capsule.Dr) 20 mg PO BID [facility] Last Admin: 11/01/21 11:27 Dose: Not Given Documented by: Ondansetron HCl (Ondansetron Odt 8 Mg Tab.Rapdis) 8 mg TRANSLINGU Q8H PRN PRN Reason: Nausea Oxycodone HCl (Oxycodone Hcl Immed Release 5 Mg Tablet) 5 mg PO Q6H PRN PRN Reason: pain (scale score 7-10) Last Admin: 10/31/21 08:54 Dose: 5 mg Documented by: Polyethylene Glycol (Polyethylene Glycol 3350 17 Gm Powd.Pack) 17 gm PO DAILY [facility] Last Admin: 11/01/21 11:27 Dose: Not Given Documented by: Prednisone (Prednisone 10 Mg Tablet) 10 mg PO DAILY [facility] Last Admin: 11/01/21 11:28 Dose: Not Given Documented by: Scopolamine (Scopolamine 1.5 Mg Patch.Td.3) 1.5 mg TRANSDERMA Q3D [facility] Last Admin: 10/31/21 08:57 Dose: Not Given Documented by: Senna (Sennosides 8.6 Mg Tablet) 17.2 mg PO BEDTIME [facility] Last Admin: 10/31/21 20:53 Dose: 17.2 mg Documented by: Sodium Chloride (0.9 % Sodium Chloride Flush 3 Ml Syringe) 3 ml IVFLUSH QSHIFT [facility] Last Admin: 11/01/21 09:12 Dose: Not Given Documented by: Tiotropium [place] (Tiotropium [place] 18 Mcg Cap.W.Dev) 1 puff INHALE DAILY [facility] Last Admin: 11/01/21 08:37 Dose: Not Given Documented by: Vitamin D (Cholecalciferol (Vitamin D3) 25 Mcg Tablet) 25 mcg PO DAILY [facility] Last Admin: 11/01/21 11:26 Dose: Not Given Documented by: Home Medications Medication Instructions Recorded Confirmed Last Taken Type acetaminophen 325 mg tablet 650 mg PO Q6H PRN 09/08/21 10/30/21 Unknown History albuterol sulfate 90 mcg/actuation 2 puff INHALATION Q4H PRN 09/08/21 10/30/21 Unknown History aerosol inhaler cholecalciferol (vitamin D3) 25 25 mcg PO DAILY 09/08/21 10/30/21 Unknown History mcg (1,000 unit) tablet nhmubio-cyearjffpg-LNT-caffeine 30 1 cap PO Q12H PRN 09/08/21 10/30/21 Unknown History mg-50 mg-325 mg-40 mg capsule cyanocobalamin (vitamin B-12) 1,000 mcg PO DAILY 09/08/21 10/30/21 Unknown History 1,000 mcg tablet docusate sodium 100 mg capsule 100 mg PO BID 09/08/21 10/30/21 Unknown History (Colace) duloxetine 30 mg capsule,delayed 30 mg PO DAILY 09/08/21 10/30/21 Unknown History release ferrous sulfate 325 mg (65 mg 325 mg PO DAILY 09/08/21 10/30/21 Unknown History iron) tablet guaifenesin 100 mg/5 mL oral liquid 100 mg PO Q4H PRN 09/08/21 10/30/21 Unknown History lorazepam 1 mg tablet 1 mg PO BID 09/08/21 10/30/21 Unknown History melatonin 3 mg tablet 6 mg PO BEDTIME 09/08/21 10/30/21 Unknown History miconazole nitrate 2 % topical 1 appl TOPICAL BEDTIME 09/08/21 10/30/21 Unknown History powder multivitamin 1 tab PO DAILY 09/08/21 10/30/21 Unknown History pantoprazole 40 mg tablet,delayed 40 mg PO BID 09/08/21 10/30/21 Unknown History release polyethylene glycol 3350 17 17 g PO DAILY 09/08/21 10/30/21 Unknown History gram/dose oral powder (Miralax) polyvinyl alcohol 1.4 % eye drops 1 drp OPHTHALMIC (EYE) BID 09/08/21 10/30/21 Unknown History (Artificial Tears (polyvinyl alcohol)) sennosides 8.6 mg tablet 17.2 mg PO BEDTIME 09/08/21 10/30/21 Unknown History tiotropium bromide 18 mcg capsule 1 cap INHALATION DAILY 09/08/21 10/30/21 Unknown History with inhalation device tramadol 50 mg tablet 50 mg PO Q6H PRN 09/08/21 10/30/21 Unknown History ursodiol 500 mg tablet 500 mg PO BID 09/08/21 10/30/21 Unknown History bisacodyl 10 mg rectal suppository 10 mg [place] Q3D PRN 10/30/21 10/30/21 Unknown History (Dulcolax (bisacodyl)) doxycycline hyclate 100 mg tablet 100 mg PO BID 10/30/21 10/30/21 Unknown History duloxetine 60 mg capsule,delayed 60 mg PO BEDTIME 10/30/21 10/30/21 Unknown History release sprinkle ipratropium 20 mcg-albuterol 100 2 puff INHALATION Q8H PRN 10/30/21 10/30/21 Unknown History mcg/actuation mist for inhalation (Combivent Respimat) levothyroxine 175 mcg tablet 175 mcg PO DAILY@0600 10/30/21 10/30/21 Unknown History magnesium hydroxide 400 mg/5 mL 30 ml PO DAILY PRN 10/30/21 10/30/21 Unknown History oral suspension (Milk of Magnesia) menthol 5 mg lozenges (Cough Drops) 5 mg MUCOUS MEMBRANE Q2H PRN 10/30/21 10/30/21 Unknown History metoprolol succinate 50 mg 75 mg PO DAILY 10/30/21 10/30/21 Unknown History tablet,extended release 24 hr scopolamine base 1 mg over 3 days 1 patch TRANSDERMAL Q3D 10/30/21 10/30/21 Unknown History transdermal patch Exam Exam Date and Time: November 01, 2021 1240 Height,Weight and Vital Signs: Height 5 ft 8 in Weight 65.6 kg Last Vital Signs Temp 97.2 F 11/01/21 07:46 Pulse 72 11/01/21 07:46 Resp 17 11/01/21 07:46 BP 167/76 H 11/01/21 07:46 Pulse Ox 100 11/01/21 07:46 Pertinent Lab Results Pertinent Lab Results: Laboratory Tests 10/31/21 10/31/21 10/31/21 05:32 09:05 09:05 WBC 8.0 RBC 3.30 L Hgb 9.4 L Hct 31.1 L MCV 94.2 MCH 28.5 MCHC 30.2 L RDW 14.8 Plt Count 232 MPV 10.3 Immature Gran % (Auto) 0.8 H Neut % (Auto) 73.6 H Lymph % (Auto) 8.5 L [place] % (Auto) 14.5 H Eos % (Auto) 2.1 Baso % (Auto) 0.5 Lymph # (Auto) 0.7 L [place] # (Auto) 1.2 Eos # (Auto) 0.2 Baso # (Auto) 0.0 Abs Immat Gran (auto) 0.06 H Absolute Neuts (auto) 5.9 Absolute Nucleated RBC 0.000 Nucleated RBC % (auto) 0.0 PT 10.4 INR 0.9 Sodium 143 Potassium 3.9 Chloride 101 Carbon Dioxide 34 H Anion Gap 12 BUN 13 Creatinine 0.97 Estim Creat Clear Calc 48.2 Estimated GFR 56 Random Glucose 112 Calcium 9.3 Assessment and Plan Final Anesthetic Review Family History of Problems with Anesthesia: No History of Problems with Anesthesia: No
--- NOTE | 2021-11-01 13:56 | PM.OP ---
Brief Operative Note Date of Service: 11/01/21 Pre-op diagnosis: left femoral neck fracture Post-op diagnosis: same Procedure: left hip hemiarthroplasty and removal of hardware Implants: Hugo accolade C #5 127 deg wtih -3 / bipolar Surgeon: Pedro Leal MD Anesthesia: GETA and local Was an Survey Superintendent used for this Procedure?: No Estimated blood loss (mL): 200 IV fluids (mL): 1,100 Pathology: other Condition: stable Disposition: PACU
[2021-11-01] MEDS: ondansetron HCL 4 MG/2 ML VIAL IVPUSH (14:20)
[2021-11-01] MEDS: Scopolamine 1.5 MG PATCH.TD.3 TRANSDERMA (14:22)
[2021-11-01] MEDS: 0.9 % Sodium Chloride Flush 3 ML SYRINGE IVFLUSH (17:25)
[2021-11-01] MEDS: Ondansetron ODT 8 MG TAB.RAPDIS TRANSLINGU (17:29)
[2021-11-01] MEDS: Docusate Sodium 100 MG CAPSULE PO (20:51)
[2021-11-01] MEDS: traMADoL HCL 50 MG TABLET 25 MG PO (20:51)
[2021-11-01] MEDS: LORazepam 1 MG TABLET PO (20:51)
[2021-11-01] MEDS: Omeprazole 20 MG CAPSULE.DR PO (20:51)
[2021-11-01] MEDS: DULoxetine HCl 60 MG CAPSULE.DR PO (20:51)
[2021-11-01] MEDS: Melatonin 3 MG TABLET 6 MG PO (20:51)
[2021-11-01] MEDS: Sennosides 8.6 MG TABLET 17.2 MG PO (20:51)
[2021-11-01] MEDS: Miconazole Nitrate 2% Powder 85 GM Bottle 1 APPL TOPICAL (20:53)
[2021-11-01] MEDS: Dextrose 5 % and 0.45 % NaCl 1,000 ML 80 ML IVCONT (20:53)
[2021-11-01] MEDS: vancomycin HCL 1,000 MG in 0.9 % Sodium Chloride 250 ML 270 MG IV (23:48)
[2021-11-01] MEDS: Acetaminophen 325 MG TABLET 650 MG PO (23:49)
[2021-11-02] VITALS (10 sets, daily range): BP systolic 108–123; BP diastolic 54–60; PULSE 87–123; RESP 16–20; TEMP 36.1–37; O2SAT 90–97
[2021-11-02] MEDS: Levothyroxine Sodium 175 MCG TABLET PO (05:50)
[2021-11-02] MEDS: traMADoL HCL 50 MG TABLET 25 MG PO ×2 (07:33→16:17)
[2021-11-02] MEDS: Cholecalciferol (Vitamin D3) 25 MCG TABLET PO (07:35)
[2021-11-02] MEDS: LORazepam 1 MG TABLET PO ×2 (07:36→20:55)
[2021-11-02] MEDS: Multivitamin TABLET 1 TAB PO (07:36)
[2021-11-02] MEDS: Ferrous Sulfate 324 MG TABLET.DR PO (07:36)
[2021-11-02] MEDS: Omeprazole 20 MG CAPSULE.DR PO ×2 (07:36→20:55)
[2021-11-02] MEDS: predniSONE 10 MG TABLET PO (07:37)
[2021-11-02] MEDS: DULoxetine HCl 30 MG CAPSULE.DR PO (07:37)
[2021-11-02] MEDS: Cyanocobalamin (Vitamin B-12) 1,000 MCG TABLET 1000 MCG PO (07:37)
[2021-11-02] MEDS: Docusate Sodium 100 MG CAPSULE PO ×2 (07:37→20:55)
[2021-11-02] MEDS: Dextrose 5 % and 0.45 % NaCl 1,000 ML 80 ML IVCONT (07:39)
[2021-11-02] MEDS: Furosemide 40 MG TABLET PO (07:44)
[2021-11-02] MEDS: dilTIAZem HCL CD 120 MG CAP.ER.DEG PO (07:45)
[2021-11-02] MEDS: Metoprolol Succinate ER 25 MG TAB.ER.24H 75 MG PO (07:45)
[2021-11-02 08:48] LABS: Hematocrit 24.1 % (37.0-47.0); Hemoglobin 7.4 g/dl (12.0-16.0); Mean Corpuscular HGB Conc 30.7 g/dl (31.0-35.0); Mean Corpuscular Hemoglobin 29.4 pg (27.0-33.0); Mean Corpuscular Volume 95.6 fL (80.0-98.0); Mean Platelet Volume 10.1 fL (9.4-12.3); Platelet Count 194 X10*3/uL (160-400); Red Blood Count 2.52 X10*6/uL (4.20-5.50); Red Cell Distribution Width 14.7 % (11.0-16.0); White Blood Count 13.1 X10*3/uL (4.8-10.8)
--- NOTE | 2021-11-02 08:58 | HO.PM.IMPN ---
Subjective Subjective Date of Service: 11/02/21 Interval History: f/u on med consult, Hip surgery yesterday without event. She has some pain in the area. Review of Systems hip pain no fever Physical Exam Vital Signs: Vital Signs: Last Vital Signs Temp 97.3 F 11/02/21 07:44 Pulse 108 H 11/02/21 07:45 Resp 20 11/02/21 07:44 BP 112/54 L 11/02/21 07:45 Pulse Ox 94 11/02/21 07:44 BMI result Body Mass Index 21.9 Const: Other: Constitutional - Awake and Alert, No apparent distress, laying on her left side Cardiovascular - S1S2, no JVD, no LE edema appreciated Respiratory - No respiratory distress; no wheezing bilaterally Gastrointestinal - NT / ND; +BS; No rebound or guarding Extremities - no calf tenderness bilaterally, no swelling Skin - Warm/Dry, Surgical site is clean Neurological - Awake and alert; oriented to time and situation, Psychological - Appropriate affect Objective Data Active Medications Acetaminophen (Acetaminophen 325 Mg Tablet) 650 mg PO Q6H PRN PRN Reason: Pain, Mild (Pain Scale 1-3) Last Admin: 11/01/21 23:49 Dose: 650 mg Documented by: DRU Albuterol Sulfate (Albuterol Sulfate 90 Mcg 8 Gm Inhaler) 2 puff INHALE RQ4H PRN PRN Reason: Wheezing Albuterol/Ipratropium (Albuterol/Iprat 2.5/0.5mg 3 Ml Ampul.Neb) 3 ml INHALE Q8H PRN PRN Reason: Shortness Of Breath Artificial Tears (Artificial Tears 15 Ml Drops) 1 drop EYE-BOTH BID [facility] Last Admin: 11/01/21 20:52 Dose: Not Given Documented by: DRU Non-Admin Reason: Patient Refused Bisacodyl (Bisacodyl 10 Mg Supp.Rect) 10 mg [place] Q3D PRN PRN Reason: Constipation Cyanocobalamin (Cyanocobalamin (Vitamin B-12) 1,000 Mcg Tablet) 1,000 mcg PO DAILY [facility] Last Admin: 11/02/21 07:37 Dose: 1,000 mcg Documented by: LUCY Diltiazem HCl (Diltiazem Hcl Cd 120 Mg Cap.Er.Deg) 120 mg PO DAILY [facility]; Protocol Last Admin: 11/02/21 07:45 Dose: 120 mg Documented by: LUCY Docusate Sodium (Docusate Sodium 100 Mg Capsule) 100 mg PO DAILY PRN PRN Reason: Constipation Docusate Sodium (Docusate Sodium 100 Mg Capsule) 100 mg PO BID [facility] Last Admin: 11/02/21 07:37 Dose: 100 mg Documented by: LUCY Duloxetine HCl (Duloxetine Hcl 30 Mg Capsule.) 30 mg PO DAILY [facility] Last Admin: 11/02/21 07:37 Dose: 30 mg Documented by: LUCY Duloxetine HCl (Duloxetine Hcl 60 Mg Capsule.) 60 mg PO BEDTIME [facility] Last Admin: 11/01/21 20:51 Dose: 60 mg Documented by: DRU Enoxaparin Sodium (Enoxaparin Sodium 30 Mg/0.3 Ml Syringe) 30 mg SUBCUT Q12H [facility] Fentanyl (Fentanyl Citrate/Pf 100 Mcg/2 Ml Vial) 25 mcg IVPUSH Q5M PRN; Protocol PRN Reason: Pain, Moderate (Pain Scale 4-6 Ferrous Sulfate (Ferrous Sulfate 324 Mg Tablet.) 324 mg PO DAILY [facility] Last Admin: 11/02/21 07:36 Dose: 324 mg Documented by: LUCY Furosemide (Furosemide 40 Mg Tablet) 40 mg PO DAILY [facility]; Protocol Last Admin: 11/02/21 07:44 Dose: 40 mg Documented by: LUCY Dextrose/Sodium Chloride (D51/2ns) 1,000 mls @ 80 mls/hr IVCONT .[id number] [facility] Last Admin: 11/02/21 07:39 Dose: 80 mls/hr Documented by: LUCY Levothyroxine Sodium (Levothyroxine Sodium 175 Mcg Tablet) 175 mcg PO DAILY@0600 [facility] Last Admin: 11/02/21 05:50 Dose: 175 mcg Documented by: DRU Lorazepam (Lorazepam 1 Mg Tablet) 1 mg PO BID [facility] Last Admin: 11/02/21 07:36 Dose: 1 mg Documented by: LUCY Magnesium Hydroxide (Milk Of Magnesia 30 Ml Oral.Susp) 30 ml PO DAILY PRN PRN Reason: Constipation Melatonin (Melatonin 3 Mg Tablet) 6 mg PO BEDTIME [facility] Last Admin: 11/01/21 20:51 Dose: 6 mg Documented by: DRU Metoprolol Succinate (Metoprolol Succinate Er 25 Mg Tab.Er.24h) 75 mg PO DAILY [facility]; Protocol Last Admin: 11/02/21 07:45 Dose: 75 mg Documented by: LUCY Miconazole Nitrate (Miconazole Nitrate 2% Powder 85 Gm Bottle) 1 appl TOPICAL BEDTIME [facility]; Protocol Last Admin: 11/01/21 20:53 Dose: 1 appl Documented by: DRU Multivitamins/Vitamin C (Multivitamin Tablet) 1 tab PO DAILY [facility] Last Admin: 11/02/21 07:36 Dose: 1 tab Documented by: LUCY Non-Formulary Medication (Ursodiol) 500 mg PO BID [facility] Omeprazole (Omeprazole 20 Mg Capsule.Dr) 20 mg PO BID [facility] Last Admin: 11/02/21 07:36 Dose: 20 mg Documented by: LUCY Ondansetron HCl (Ondansetron Odt 8 Mg Tab.Rapdis) 8 mg TRANSLINGU Q8H PRN PRN Reason: Nausea Last Admin: 11/01/21 17:29 Dose: 8 mg Documented by: JOSH Oxycodone HCl (Oxycodone Hcl Immed Release 5 Mg Tablet) 5 mg PO ONCE PRN PRN Reason: Pain, Severe (Pain Scale 7-10) Pharmacy Consult (Consult Rx Vancomycin Dosing) 1 each MISCELLANE DAILY PRN PRN Reason: Consult order Polyethylene Glycol (Polyethylene Glycol 3350 17 Gm Powd.Pack) 17 gm PO DAILY [facility] Last Admin: 11/02/21 07:47 Dose: Not Given Documented by: LUCY Non-Admin Reason: Patient Refused Prednisone (Prednisone 10 Mg Tablet) 10 mg PO DAILY [facility] Last Admin: 11/02/21 07:37 Dose: 10 mg Documented by: LUCY Scopolamine (Scopolamine 1.5 Mg Patch.Td.3) 1.5 mg TRANSDERMA Q3D [facility] Last Admin: 11/01/21 14:22 Dose: 1.5 mg Documented by: MAL Senna (Sennosides 8.6 Mg Tablet) 17.2 mg PO BEDTIME [facility] Last Admin: 11/01/21 20:51 Dose: 17.2 mg Documented by: DRU Sodium Chloride (0.9 % Sodium Chloride Flush 3 Ml Syringe) 3 ml IVFLUSH QSHIFT [facility] Last Admin: 11/02/21 07:52 Dose: Not Given Documented by: LUCY Non-Admin Reason: IV Running Tiotropium [place] (Tiotropium [place] 18 Mcg Cap.W.Dev) 1 puff INHALE DAILY [facility] Last Admin: 11/01/21 08:37 Dose: Not Given Documented by: KYLIE Non-Admin Reason: Patient Asleep Tramadol HCl (Tramadol Hcl 50 Mg Tablet) 25 mg PO Q6H PRN PRN Reason: Breakthrough Pain Last Admin: 11/02/21 07:33 Dose: 25 mg Documented by: LUCY Vitamin D (Cholecalciferol (Vitamin D3) 25 Mcg Tablet) 25 mcg PO DAILY [facility] Last Admin: 11/02/21 07:35 Dose: 25 mcg Documented by: LUCY Labs CBC & Chem 7: 10/31/21 05:32 10/31/21 09:05 Labs: Laboratory Results - last 24 hr 11/01/21 14:32 Blood Type O Positive Antibody Screen NEGATIVE Assessment and Plan (1) Closed subcapital fracture of femur: Status: Acute Assessment and Plan: This is a 76 yo F with multiple medical problems who is admitted under the orthopedic services for L hip hemiarthroplasty for a femoral neck fracture. Medical consultation requested for pre-operative evaluation. 1. s/p left femoral neck fracture, management by surgery 2. Chronic HFpEF euvoluemic continue diuretics and avoid fluid overload 3. Permanant A. Fib continue Cardizem / Metoprolol Resume anticoagulation as soon as ok with surgery 4. COPD, chronic respiratory failure with hypoxia not in exacerbation continue her inhalers continue baseline O2 at 2-3L 5. Hypothyroid synthroid 6. H/o MRSA bacteremia--has completed course of Abx and needs no additional Abx other than usual fareed-op antibiotics Will Follow along. Quality Stroke Does the patient have a stroke diagnosis?: No VTE Prior VTE?: No VTE Risk Level:: Medical - moderate - high VTE Device Contraindication: N/A - Device Ordered VTE Drug Contraindication: Treatment Not Indicated
[2021-11-02 09:11] LABS: Anion Gap 14 (12-20); Blood Urea Nitrogen 11 mg/dL (9-16); Calcium 8.5 mg/dL (8.4-10.2); Carbon Dioxide 27 mmol/L (22-29); Chloride 99 mmol/L (96-108); Creatinine Clr Calc Pharmacy 45.8; Estimated Glomerular Filt Rate 52; Glucose Random 141 mg/dL (60-115); Potassium 3.2 mmol/L (3.3-5.1); Sodium 137 mmol/L (135-145)
[2021-11-02] MEDS: Artificial Tears 15 ML DROPS 1 DROP EYE-BOTH ×2 (09:49→20:56)
[2021-11-02] MEDS: Enoxaparin Sodium 30 MG/0.3 ML SYRINGE SUBCUT (14:25)
[2021-11-02] MEDS: Melatonin 3 MG TABLET 6 MG PO (20:55)
[2021-11-02] MEDS: Sennosides 8.6 MG TABLET 17.2 MG PO (20:55)
[2021-11-02] MEDS: DULoxetine HCl 60 MG CAPSULE.DR PO (20:55)
[2021-11-02] MEDS: 0.9 % Sodium Chloride Flush 3 ML SYRINGE IVFLUSH (20:59)
[2021-11-02] MEDS: Miconazole Nitrate 2% Powder 85 GM Bottle 1 APPL TOPICAL (21:06)
[2021-11-03] VITALS (11 sets, daily range): BP systolic 112–139; BP diastolic 55–63; PULSE 62–100; RESP 17–20; TEMP 36.2–36.7; O2SAT 92–99
[2021-11-03] MEDS: Enoxaparin Sodium 30 MG/0.3 ML SYRINGE SUBCUT ×3 (00:01→23:58)
[2021-11-03] MEDS: traMADoL HCL 50 MG TABLET 25 MG PO (00:01)
[2021-11-03] MEDS: Furosemide 20 MG/2 ML VIAL IVPUSH (03:15)
[2021-11-03] MEDS: Levothyroxine Sodium 175 MCG TABLET PO (06:23)
[2021-11-03 08:18] LABS: Hematocrit 26.7 % (37.0-47.0); Hemoglobin 8.4 g/dl (12.0-16.0); Mean Corpuscular HGB Conc 31.5 g/dl (31.0-35.0); Mean Corpuscular Hemoglobin 28.5 pg (27.0-33.0); Mean Corpuscular Volume 90.5 fL (80.0-98.0); Mean Platelet Volume 10.7 fL (9.4-12.3); Platelet Count 186 X10*3/uL (160-400); Red Blood Count 2.95 X10*6/uL (4.20-5.50); Red Cell Distribution Width 15.1 % (11.0-16.0)
[2021-11-03] MEDS: polyethylene glycoL 3350 17 GM POWD.PACK PO (08:20)
[2021-11-03] MEDS: Cholecalciferol (Vitamin D3) 25 MCG TABLET PO (08:20)
[2021-11-03] MEDS: Acetaminophen 325 MG TABLET 650 MG PO (08:20)
[2021-11-03] MEDS: predniSONE 10 MG TABLET PO (08:20)
[2021-11-03] MEDS: LORazepam 1 MG TABLET PO ×2 (08:21→19:19)
[2021-11-03] MEDS: Metoprolol Succinate ER 25 MG TAB.ER.24H 75 MG PO (08:21)
[2021-11-03] MEDS: dilTIAZem HCL CD 120 MG CAP.ER.DEG PO (08:21)
[2021-11-03] MEDS: Ferrous Sulfate 324 MG TABLET.DR PO (08:21)
[2021-11-03] MEDS: Docusate Sodium 100 MG CAPSULE PO ×2 (08:21→19:20)
[2021-11-03] MEDS: DULoxetine HCl 30 MG CAPSULE.DR PO (08:21)
[2021-11-03] MEDS: Furosemide 40 MG TABLET PO (08:21)
[2021-11-03] MEDS: Multivitamin TABLET 1 TAB PO (08:21)
[2021-11-03] MEDS: Omeprazole 20 MG CAPSULE.DR PO ×2 (08:21→19:19)
[2021-11-03] MEDS: Cyanocobalamin (Vitamin B-12) 1,000 MCG TABLET 1000 MCG PO (08:21)
[2021-11-03] MEDS: 0.9 % Sodium Chloride Flush 3 ML SYRINGE IVFLUSH ×2 (08:22→19:20)
--- NOTE | 2021-11-03 09:22 | PM.PNORT ---
Subjective Subjective Date of Service: 11/03/21 Interval history: POD2 s/p left hip hemiarthroplasty Dr. Leal. Patient is resting in bed. No overnight events. Deneis any CP, SOB, abd pain. No additioanl complaints. Physical Exam Vital Signs: Vital Signs: Last Vital Signs Temp 97.8 F 11/03/21 07:51 Pulse 62 11/03/21 07:51 Resp 20 11/03/21 07:51 BP 139/63 11/03/21 07:51 Pulse Ox 95 11/03/21 07:51 Oxygen Flow Rate 2 11/02/21 14:38 BMI result Body Mass Index 21.9 Const: General: cooperative, healthy appearing and no acute distress Resp: Effort & Inspection: normal respiratory effort and able to speak in complete sentences Cardio: Rate: regular rate Peripheral pulses: Peripheral pulses 2+ throughout GI: Palpation (GI): Soft to palpation Skin: Lesions: no lesions Rashes: no rashes Extrem: Other: Left hip dressing is clean dry and intact. No drainage. NVI. Procedures Date of Service Date of Service: 11/03/21 Progress Note: A&P Assessment and plan (1) Closed subcapital fracture of femur: Status: Acute Assessment and Plan: Continue pain mgmnt Continue Lovenox for dvt ppx Continue PT for lt hip nory Dispo planning-Pending Pain management, stable for d/c to rehab from ortho perspective Fall Risk Details Current Medications: Current Medications Acetaminophen (Acetaminophen 325 Mg Tablet) 650 mg PO Q6H PRN PRN Reason: Pain, Mild (Pain Scale 1-3) Last Admin: 11/03/21 08:20 Dose: 650 mg Documented by: Albuterol Sulfate (Albuterol Sulfate 90 Mcg 8 Gm Inhaler) 2 puff INHALE RQ4H PRN PRN Reason: Wheezing Albuterol/Ipratropium (Albuterol/Iprat 2.5/0.5mg 3 Ml Ampul.Neb) 3 ml INHALE Q8H PRN PRN Reason: Shortness Of Breath Artificial Tears (Artificial Tears 15 Ml Drops) 1 drop EYE-BOTH BID [facility] Last Admin: 11/02/21 20:56 Dose: 1 drop Documented by: Bisacodyl (Bisacodyl 10 Mg Supp.Rect) 10 mg [place] Q3D PRN PRN Reason: Constipation Cyanocobalamin (Cyanocobalamin (Vitamin B-12) 1,000 Mcg Tablet) 1,000 mcg PO DAILY [facility] Last Admin: 11/03/21 08:21 Dose: 1,000 mcg Documented by: Diltiazem HCl (Diltiazem Hcl Cd 120 Mg Cap.Er.Deg) 120 mg PO DAILY [facility]; Protocol Last Admin: 11/03/21 08:21 Dose: 120 mg Documented by: Docusate Sodium (Docusate Sodium 100 Mg Capsule) 100 mg PO DAILY PRN PRN Reason: Constipation Docusate Sodium (Docusate Sodium 100 Mg Capsule) 100 mg PO BID [facility] Last Admin: 11/03/21 08:21 Dose: 100 mg Documented by: Duloxetine HCl (Duloxetine Hcl 30 Mg Capsule.) 30 mg PO DAILY [facility] Last Admin: 11/03/21 08:21 Dose: 30 mg Documented by: Duloxetine HCl (Duloxetine Hcl 60 Mg Capsule.) 60 mg PO BEDTIME [facility] Last Admin: 11/02/21 20:55 Dose: 60 mg Documented by: Enoxaparin Sodium (Enoxaparin Sodium 30 Mg/0.3 Ml Syringe) 30 mg SUBCUT Q12H [facility] Last Admin: 11/03/21 00:01 Dose: 30 mg Documented by: Fentanyl (Fentanyl Citrate/Pf 100 Mcg/2 Ml Vial) 25 mcg IVPUSH Q5M PRN; Protocol PRN Reason: Pain, Moderate (Pain Scale 4-6 Ferrous Sulfate (Ferrous Sulfate 324 Mg Tablet.) 324 mg PO DAILY [facility] Last Admin: 11/03/21 08:21 Dose: 324 mg Documented by: Furosemide (Furosemide 40 Mg Tablet) 40 mg PO DAILY [facility]; Protocol Last Admin: 11/03/21 08:21 Dose: 40 mg Documented by: Levothyroxine Sodium (Levothyroxine Sodium 175 Mcg Tablet) 175 mcg PO DAILY@0600 [facility] Last Admin: 11/03/21 06:23 Dose: 175 mcg Documented by: Lorazepam (Lorazepam 1 Mg Tablet) 1 mg PO BID [facility] Last Admin: 11/03/21 08:21 Dose: 1 mg Documented by: Magnesium Hydroxide (Milk Of Magnesia 30 Ml Oral.Susp) 30 ml PO DAILY PRN PRN Reason: Constipation Melatonin (Melatonin 3 Mg Tablet) 6 mg PO BEDTIME [facility] Last Admin: 11/02/21 20:55 Dose: 6 mg Documented by: Metoprolol Succinate (Metoprolol Succinate Er 25 Mg Tab.Er.24h) 75 mg PO DAILY [facility]; Protocol Last Admin: 11/03/21 08:21 Dose: 75 mg Documented by: Miconazole Nitrate (Miconazole Nitrate 2% Powder 85 Gm Bottle) 1 appl TOPICAL BEDTIME [facility]; Protocol Last Admin: 11/02/21 21:06 Dose: 1 appl Documented by: Multivitamins/Vitamin C (Multivitamin Tablet) 1 tab PO DAILY [facility] Last Admin: 11/03/21 08:21 Dose: 1 tab Documented by: Omeprazole (Omeprazole 20 Mg Capsule.Dr) 20 mg PO BID [facility] Last Admin: 11/03/21 08:21 Dose: 20 mg Documented by: Ondansetron HCl (Ondansetron Odt 8 Mg Tab.Rapdis) 8 mg TRANSLINGU Q8H PRN PRN Reason: Nausea Last Admin: 11/01/21 17:29 Dose: 8 mg Documented by: Oxycodone HCl (Oxycodone Hcl Immed Release 5 Mg Tablet) 5 mg PO ONCE PRN PRN Reason: Pain, Severe (Pain Scale 7-10) Pharmacy Consult (Consult Rx Vancomycin Dosing) 1 each MISCELLANE DAILY PRN PRN Reason: Consult order Polyethylene Glycol (Polyethylene Glycol 3350 17 Gm Powd.Pack) 17 gm PO DAILY [facility] Last Admin: 11/03/21 08:20 Dose: 17 gm Documented by: Prednisone (Prednisone 10 Mg Tablet) 10 mg PO DAILY [facility] Last Admin: 11/03/21 08:20 Dose: 10 mg Documented by: Scopolamine (Scopolamine 1.5 Mg Patch.Td.3) 1.5 mg TRANSDERMA Q3D [facility] Last Admin: 11/01/21 14:22 Dose: 1.5 mg Documented by: Senna (Sennosides 8.6 Mg Tablet) 17.2 mg PO BEDTIME [facility] Last Admin: 11/02/21 20:55 Dose: 17.2 mg Documented by: Sodium Chloride (0.9 % Sodium Chloride Flush 3 Ml Syringe) 3 ml IVFLUSH QSHIFT [facility] Last Admin: 11/03/21 08:22 Dose: 3 ml Documented by: Tiotropium [place] (Tiotropium [place] 18 Mcg Cap.W.Dev) 1 puff INHALE DAILY [facility] Last Admin: 11/03/21 07:46 Dose: 1 puff Documented by: Tramadol HCl (Tramadol Hcl 50 Mg Tablet) 25 mg PO Q6H PRN PRN Reason: Breakthrough Pain Last Admin: 11/03/21 00:01 Dose: 25 mg Documented by: Vitamin D (Cholecalciferol (Vitamin D3) 25 Mcg Tablet) 25 mcg PO DAILY [facility] Last Admin: 11/03/21 08:20 Dose: 25 mcg Documented by: Time Spent With Patient Time: Total time spent is greater than 50% in coordination of care (as documented) at patient's floor/unit and/or counseling patient: Time with patient: less than 15 minutes Quality Stroke Does the patient have a stroke diagnosis?: No VTE Prior VTE?: No VTE Risk Level:: Medical - moderate - high VTE Device Contraindication: N/A - Device Ordered VTE Drug Contraindication: Treatment Not Indicated
[2021-11-03] MEDS: Artificial Tears 15 ML DROPS 1 DROP EYE-BOTH ×2 (09:48→19:22)
[2021-11-03] MEDS: Scopolamine 1.5 MG PATCH.TD.3 TRANSDERMA (09:48)
--- NOTE | 2021-11-03 09:49 | HO.POSTANES ---
Post Anesthesia Evaluation Post Anesthesia Evaluation Vital Signs: Vital Signs Temp Pulse Resp BP Pulse Ox 11/03/21 07:51 97.8 F 62 20 139/63 95 11/03/21 07:46 20 11/03/21 04:00 20 11/03/21 03:16 97.7 F 88 20 121/58 L 96 11/03/21 03:11 97.7 F 88 20 121/58 L 11/03/21 01:06 20 11/03/21 00:50 97.8 F 88 20 112/55 L 11/03/21 00:34 98.0 F 95 20 116/58 L 11/02/21 23:50 97.6 F 95 20 114/54 L 95 Anesthesia: General Mental Status: Awake Pain Control: Satisfactory Nausea/Vomiting: None Hydration: Adequate Anesthesia-Related Issues: No Anes. Related Issues
--- NOTE | 2021-11-03 10:01 | P.PNIM_ITS ---
Subjective Subjective Date of Service: 11/03/21 Interval History: f/u on med consult, s/p hip repair, doing ok, has some nausea, pain seems controlle\ Review of Systems hip pain no fever Physical Exam Vital Signs: Vital Signs: Last Vital Signs Temp 97.8 F 11/03/21 07:51 Pulse 62 11/03/21 07:51 Resp 20 11/03/21 07:51 BP 139/63 11/03/21 07:51 Pulse Ox 95 11/03/21 07:51 Oxygen Flow Rate 2 11/02/21 14:38 BMI result Body Mass Index 21.9 Const: Other: General: AO X 3, no acute distress Resp: CTA bilateral CVS:iregular GI: +BS, NT, no distention Skin: No rash, right hip wound d/c/i Neuro: motor grossly intact Psych: appropriate affect Objective Data Active Medications Acetaminophen (Acetaminophen 325 Mg Tablet) 650 mg PO Q6H PRN PRN Reason: Pain, Mild (Pain Scale 1-3) Last Admin: 11/03/21 08:20 Dose: 650 mg Documented by: JOSH Albuterol Sulfate (Albuterol Sulfate 90 Mcg 8 Gm Inhaler) 2 puff INHALE RQ4H PRN PRN Reason: Wheezing Albuterol/Ipratropium (Albuterol/Iprat 2.5/0.5mg 3 Ml Ampul.Neb) 3 ml INHALE Q8H PRN PRN Reason: Shortness Of Breath Artificial Tears (Artificial Tears 15 Ml Drops) 1 drop EYE-BOTH BID [facility] Last Admin: 11/03/21 09:48 Dose: 1 drop Documented by: JOSH Bisacodyl (Bisacodyl 10 Mg Supp.Rect) 10 mg [place] Q3D PRN PRN Reason: Constipation Cyanocobalamin (Cyanocobalamin (Vitamin B-12) 1,000 Mcg Tablet) 1,000 mcg PO DAILY [facility] Last Admin: 11/03/21 08:21 Dose: 1,000 mcg Documented by: JOSH Diltiazem HCl (Diltiazem Hcl Cd 120 Mg Cap.Er.Deg) 120 mg PO DAILY [facility]; Protocol Last Admin: 11/03/21 08:21 Dose: 120 mg Documented by: JOSH Docusate Sodium (Docusate Sodium 100 Mg Capsule) 100 mg PO DAILY PRN PRN Reason: Constipation Docusate Sodium (Docusate Sodium 100 Mg Capsule) 100 mg PO BID [facility] Last Admin: 11/03/21 08:21 Dose: 100 mg Documented by: JOSH Duloxetine HCl (Duloxetine Hcl 30 Mg Capsule.) 30 mg PO DAILY [facility] Last Admin: 11/03/21 08:21 Dose: 30 mg Documented by: JOSH Duloxetine HCl (Duloxetine Hcl 60 Mg Capsule.) 60 mg PO BEDTIME [facility] Last Admin: 11/02/21 20:55 Dose: 60 mg Documented by: GUILLAUME Enoxaparin Sodium (Enoxaparin Sodium 30 Mg/0.3 Ml Syringe) 30 mg SUBCUT Q12H [facility] Last Admin: 11/03/21 00:01 Dose: 30 mg Documented by: GUILLAUME Fentanyl (Fentanyl Citrate/Pf 100 Mcg/2 Ml Vial) 25 mcg IVPUSH Q5M PRN; Protocol PRN Reason: Pain, Moderate (Pain Scale 4-6 Ferrous Sulfate (Ferrous Sulfate 324 Mg Tablet.) 324 mg PO DAILY [facility] Last Admin: 11/03/21 08:21 Dose: 324 mg Documented by: JOSH Furosemide (Furosemide 40 Mg Tablet) 40 mg PO DAILY [facility]; Protocol Last Admin: 11/03/21 08:21 Dose: 40 mg Documented by: JOSH Levothyroxine Sodium (Levothyroxine Sodium 175 Mcg Tablet) 175 mcg PO DAILY@0600 [facility] Last Admin: 11/03/21 06:23 Dose: 175 mcg Documented by: GUILLAUME Lorazepam (Lorazepam 1 Mg Tablet) 1 mg PO BID [facility] Last Admin: 11/03/21 08:21 Dose: 1 mg Documented by: JOSH Magnesium Hydroxide (Milk Of Magnesia 30 Ml Oral.Susp) 30 ml PO DAILY PRN PRN Reason: Constipation Melatonin (Melatonin 3 Mg Tablet) 6 mg PO BEDTIME [facility] Last Admin: 11/02/21 20:55 Dose: 6 mg Documented by: GUILLAUME Metoprolol Succinate (Metoprolol Succinate Er 25 Mg Tab.Er.24h) 75 mg PO DAILY [facility]; Protocol Last Admin: 11/03/21 08:21 Dose: 75 mg Documented by: JOSH Miconazole Nitrate (Miconazole Nitrate 2% Powder 85 Gm Bottle) 1 appl TOPICAL BEDTIME [facility]; Protocol Last Admin: 11/02/21 21:06 Dose: 1 appl Documented by: GUILLAUME Multivitamins/Vitamin C (Multivitamin Tablet) 1 tab PO DAILY [facility] Last Admin: 11/03/21 08:21 Dose: 1 tab Documented by: JOSH Omeprazole (Omeprazole 20 Mg Capsule.Dr) 20 mg PO BID [facility] Last Admin: 11/03/21 08:21 Dose: 20 mg Documented by: JOSH Ondansetron HCl (Ondansetron Odt 8 Mg Tab.Rapdis) 8 mg TRANSLINGU Q8H PRN PRN Reason: Nausea Last Admin: 11/01/21 17:29 Dose: 8 mg Documented by: JOSH Oxycodone HCl (Oxycodone Hcl Immed Release 5 Mg Tablet) 5 mg PO ONCE PRN PRN Reason: Pain, Severe (Pain Scale 7-10) Pharmacy Consult (Consult Rx Vancomycin Dosing) 1 each MISCELLANE DAILY PRN PRN Reason: Consult order Polyethylene Glycol (Polyethylene Glycol 3350 17 Gm Powd.Pack) 17 gm PO DAILY [facility] Last Admin: 11/03/21 08:20 Dose: 17 gm Documented by: JOSH Prednisone (Prednisone 10 Mg Tablet) 10 mg PO DAILY [facility] Last Admin: 11/03/21 08:20 Dose: 10 mg Documented by: JOSH Scopolamine (Scopolamine 1.5 Mg Patch.Td.3) 1.5 mg TRANSDERMA Q3D [facility] Last Admin: 11/03/21 09:48 Dose: 1.5 mg Documented by: JOSH Senna (Sennosides 8.6 Mg Tablet) 17.2 mg PO BEDTIME [facility] Last Admin: 11/02/21 20:55 Dose: 17.2 mg Documented by: GUILLAUME Sodium Chloride (0.9 % Sodium Chloride Flush 3 Ml Syringe) 3 ml IVFLUSH QSHIFT [facility] Last Admin: 11/03/21 08:22 Dose: 3 ml Documented by: JOSH Tiotropium [place] (Tiotropium [place] 18 Mcg Cap.W.Dev) 1 puff INHALE DAILY [facility] Last Admin: 11/03/21 07:46 Dose: 1 puff Documented by: GUERO Tramadol HCl (Tramadol Hcl 50 Mg Tablet) 25 mg PO Q6H PRN PRN Reason: Breakthrough Pain Last Admin: 11/03/21 00:01 Dose: 25 mg Documented by: GUILLAUME Vitamin D (Cholecalciferol (Vitamin D3) 25 Mcg Tablet) 25 mcg PO DAILY [facility] Last Admin: 11/03/21 08:20 Dose: 25 mcg Documented by: LAENOAL Labs CBC & Chem 7: 11/03/21 07:57 11/02/21 08:19 Labs: Laboratory Results - last 24 hr 11/01/21 11/03/21 14:32 07:57 MCV 90.5 D MCH 28.5 MCHC 31.5 RDW 15.1 Plt Count 186 MPV 10.7 Absolute Nucleated RBC 0.000 Nucleated RBC % (auto) 0.0 Blood Type O Positive Antibody Screen NEGATIVE Crossmatch See Detail Microbiology Microbiology Results: Microbiology 11/01/21 23:54 Blood Culture - Preliminary Blood - Venous No growth after 24 hours. 11/01/21 23:49 Blood Culture - Preliminary Blood - Venous No growth after 24 hours. Assessment and Plan (1) Afib: Status: Acute (2) Closed subcapital fracture of femur: Status: Acute (3) COPD (chronic obstructive pulmonary disease): Status: Acute Assessment and Plan: 76 yo F with multiple medical problems who is admitted under the orthopedic services for L hip hemiarthroplasty for a femoral neck fracture. Medical consultation requested for pre-operative evaluation. 1. s/p left femoral neck fracture repair, management by surgery 2. Chronic HFpEF euvoluemic continue diuretics and avoid fluid overload 3. Permanant A. Fib continue Cardizem / Metoprolol Lovenox 30 bid 4. COPD, chronic respiratory failure with hypoxia not in exacerbation continue her inhalers continue baseline O2 at 2-3L 5. Hypothyroid synthroid 6. H/o MRSA bacteremia--has completed course of Abx and needs no additional Abx other than usual fareed-op antibiotics 7. Anemia s/p 1 unit of RBC overnight and is better, Will Follow along. Quality Stroke Does the patient have a stroke diagnosis?: No VTE Prior VTE?: No VTE Risk Level:: Medical - moderate - high VTE Device Contraindication: N/A - Device Ordered VTE Drug Contraindication: Treatment Not Indicated
[2021-11-03] MEDS: Sennosides 8.6 MG TABLET 17.2 MG PO (19:19)
[2021-11-03] MEDS: Melatonin 3 MG TABLET 6 MG PO (19:19)
[2021-11-03] MEDS: DULoxetine HCl 60 MG CAPSULE.DR PO (19:20)
[2021-11-03] MEDS: Miconazole Nitrate 2% Powder 85 GM Bottle 1 APPL TOPICAL (19:22)
[2021-11-04] VITALS (11 sets, daily range): BP systolic 129–136; BP diastolic 61–79; PULSE 68–105; RESP 16–20; TEMP 36–36.4; O2SAT 91–99
[2021-11-04] MEDS: Levothyroxine Sodium 175 MCG TABLET PO (05:56)
[2021-11-04 09:00] LABS: Potassium 2.9 mmol/L (3.3-5.1)
[2021-11-04] MEDS: DULoxetine HCl 30 MG CAPSULE.DR PO (09:00)
[2021-11-04] MEDS: dilTIAZem HCL CD 120 MG CAP.ER.DEG PO (09:00)
[2021-11-04] MEDS: polyethylene glycoL 3350 17 GM POWD.PACK PO (09:00)
[2021-11-04] MEDS: Docusate Sodium 100 MG CAPSULE PO ×2 (09:01→20:13)
[2021-11-04] MEDS: predniSONE 10 MG TABLET PO (09:01)
[2021-11-04] MEDS: Cholecalciferol (Vitamin D3) 25 MCG TABLET PO (09:01)
[2021-11-04] MEDS: Ferrous Sulfate 324 MG TABLET.DR PO (09:01)
[2021-11-04] MEDS: Omeprazole 20 MG CAPSULE.DR PO ×2 (09:01→20:12)
[2021-11-04] MEDS: Multivitamin TABLET 1 TAB PO (09:01)
[2021-11-04] MEDS: Metoprolol Succinate ER 25 MG TAB.ER.24H 75 MG PO (09:01)
[2021-11-04] MEDS: LORazepam 1 MG TABLET PO ×2 (09:01→20:13)
[2021-11-04] MEDS: Cyanocobalamin (Vitamin B-12) 1,000 MCG TABLET 1000 MCG PO (09:01)
[2021-11-04] MEDS: Furosemide 40 MG TABLET PO (09:01)
[2021-11-04] MEDS: Artificial Tears 15 ML DROPS 1 DROP EYE-BOTH ×2 (09:02→20:16)
[2021-11-04] MEDS: 0.9 % Sodium Chloride Flush 3 ML SYRINGE IVFLUSH ×3 (09:03→20:17)
--- NOTE | 2021-11-04 11:42 | HO.PM.IMPN ---
Subjective Subjective Date of Service: 11/04/21 Interval History: s/p hip repair , perm aib Review of Systems mild nausea improving, pain seems more comfortable Physical Exam Vital Signs: Vital Signs: Last Vital Signs Temp 96.8 F 11/04/21 08:00 Pulse 92 11/04/21 09:01 Resp 18 11/04/21 08:00 BP 131/79 11/04/21 09:01 Pulse Ox 96 11/04/21 08:00 Oxygen Flow Rate 2 11/03/21 12:00 BMI result Body Mass Index 21.9 General: AO X 3, no acute distress Resp:? good air entry, no rales or wheezing. CVS:iregular, s1s2 heard. GI: +BS, NT, no distention Skin: No rash, right hip wound d/c/i Neuro:? motor grossly intact Psych: appropriate affect Objective Data Active Medications Acetaminophen (Acetaminophen 325 Mg Tablet) 650 mg PO Q6H PRN PRN Reason: Pain, Mild (Pain Scale 1-3) Last Admin: 11/03/21 08:20 Dose: 650 mg Documented by: JOHS Albuterol Sulfate (Albuterol Sulfate 90 Mcg 8 Gm Inhaler) 2 puff INHALE RQ4H PRN PRN Reason: Wheezing Albuterol/Ipratropium (Albuterol/Iprat 2.5/0.5mg 3 Ml Ampul.Neb) 3 ml INHALE Q8H PRN PRN Reason: Shortness Of Breath Artificial Tears (Artificial Tears 15 Ml Drops) 1 drop EYE-BOTH BID [facility] Last Admin: 11/04/21 09:02 Dose: 1 drop Documented by: CAROLE Bisacodyl (Bisacodyl 10 Mg Supp.Rect) 10 mg [place] Q3D PRN PRN Reason: Constipation Cyanocobalamin (Cyanocobalamin (Vitamin B-12) 1,000 Mcg Tablet) 1,000 mcg PO DAILY [facility] Last Admin: 11/04/21 09:01 Dose: 1,000 mcg Documented by: CAROLE Diltiazem HCl (Diltiazem Hcl Cd 120 Mg Cap.Er.Deg) 120 mg PO DAILY [facility]; Protocol Last Admin: 11/04/21 09:00 Dose: 120 mg Documented by: CAROLE Docusate Sodium (Docusate Sodium 100 Mg Capsule) 100 mg PO DAILY PRN PRN Reason: Constipation Docusate Sodium (Docusate Sodium 100 Mg Capsule) 100 mg PO BID [facility] Last Admin: 11/04/21 09:01 Dose: 100 mg Documented by: CAROLE Duloxetine HCl (Duloxetine Hcl 30 Mg Capsule.) 30 mg PO DAILY [facility] Last Admin: 11/04/21 09:00 Dose: 30 mg Documented by: CAROLE Duloxetine HCl (Duloxetine Hcl 60 Mg Capsule.) 60 mg PO BEDTIME [facility] Last Admin: 11/03/21 19:20 Dose: 60 mg Documented by: POWER Enoxaparin Sodium (Enoxaparin Sodium 30 Mg/0.3 Ml Syringe) 30 mg SUBCUT Q12H [facility] Last Admin: 11/03/21 23:58 Dose: 30 mg Documented by: POWER Fentanyl (Fentanyl Citrate/Pf 100 Mcg/2 Ml Vial) 25 mcg IVPUSH Q5M PRN; Protocol PRN Reason: Pain, Moderate (Pain Scale 4-6 Ferrous Sulfate (Ferrous Sulfate 324 Mg Tablet.) 324 mg PO DAILY [facility] Last Admin: 11/04/21 09:01 Dose: 324 mg Documented by: CAROLE Furosemide (Furosemide 40 Mg Tablet) 40 mg PO DAILY [facility]; Protocol Last Admin: 11/04/21 09:01 Dose: 40 mg Documented by: CAROLE Levothyroxine Sodium (Levothyroxine Sodium 175 Mcg Tablet) 175 mcg PO DAILY@0600 [facility] Last Admin: 11/04/21 05:56 Dose: 175 mcg Documented by: POWER Lorazepam (Lorazepam 1 Mg Tablet) 1 mg PO BID [facility] Last Admin: 11/04/21 09:01 Dose: 1 mg Documented by: CAROLE Magnesium Hydroxide (Milk Of Magnesia 30 Ml Oral.Susp) 30 ml PO DAILY PRN PRN Reason: Constipation Melatonin (Melatonin 3 Mg Tablet) 6 mg PO BEDTIME [facility] Last Admin: 11/03/21 19:19 Dose: 6 mg Documented by: POWER Metoprolol Succinate (Metoprolol Succinate Er 25 Mg Tab.Er.24h) 75 mg PO DAILY [facility]; Protocol Last Admin: 11/04/21 09:01 Dose: 75 mg Documented by: CAROLE Miconazole Nitrate (Miconazole Nitrate 2% Powder 85 Gm Bottle) 1 appl TOPICAL BEDTIME [facility]; Protocol Last Admin: 11/03/21 19:22 Dose: 1 appl Documented by: POWER Multivitamins/Vitamin C (Multivitamin Tablet) 1 tab PO DAILY [facility] Last Admin: 11/04/21 09:01 Dose: 1 tab Documented by: CAROLE Omeprazole (Omeprazole 20 Mg Capsule.Dr) 20 mg PO BID [facility] Last Admin: 11/04/21 09:01 Dose: 20 mg Documented by: CAROLE Ondansetron HCl (Ondansetron Odt 8 Mg Tab.Rapdis) 8 mg TRANSLINGU Q8H PRN PRN Reason: Nausea Last Admin: 11/01/21 17:29 Dose: 8 mg Documented by: JOSH Oxycodone HCl (Oxycodone Hcl Immed Release 5 Mg Tablet) 5 mg PO ONCE PRN PRN Reason: Pain, Severe (Pain Scale 7-10) Pharmacy Consult (Consult Rx Vancomycin Dosing) 1 each MISCELLANE DAILY PRN PRN Reason: Consult order Polyethylene Glycol (Polyethylene Glycol 3350 17 Gm Powd.Pack) 17 gm PO DAILY [facility] Last Admin: 11/04/21 09:00 Dose: 17 gm Documented by: CAROLE Prednisone (Prednisone 10 Mg Tablet) 10 mg PO DAILY [facility] Last Admin: 11/04/21 09:01 Dose: 10 mg Documented by: CAROLE Scopolamine (Scopolamine 1.5 Mg Patch.Td.3) 1.5 mg TRANSDERMA Q3D [facility] Last Admin: 11/03/21 09:48 Dose: 1.5 mg Documented by: JOSH Senna (Sennosides 8.6 Mg Tablet) 17.2 mg PO BEDTIME [facility] Last Admin: 11/03/21 19:19 Dose: 17.2 mg Documented by: POWER Sodium Chloride (0.9 % Sodium Chloride Flush 3 Ml Syringe) 3 ml IVFLUSH QSHIFT [facility] Last Admin: 11/04/21 09:03 Dose: 3 ml Documented by: CAROLE Tiotropium [place] (Tiotropium [place] 18 Mcg Cap.W.Dev) 1 puff INHALE DAILY [facility] Last Admin: 11/04/21 07:59 Dose: 1 puff Documented by: HO.ULRICC Tramadol HCl (Tramadol Hcl 50 Mg Tablet) 25 mg PO Q6H PRN PRN Reason: Breakthrough Pain Last Admin: 11/03/21 00:01 Dose: 25 mg Documented by: GUILLAUME Vitamin D (Cholecalciferol (Vitamin D3) 25 Mcg Tablet) 25 mcg PO DAILY [facility] Last Admin: 11/04/21 09:01 Dose: 25 mcg Documented by: CAROLE Labs CBC & Chem 7: 11/03/21 07:57 11/04/21 08:29 Microbiology Microbiology Results: Microbiology 11/01/21 23:49 Blood Culture - Preliminary Blood - Venous No growth after 48 hours. 11/01/21 23:54 Blood Culture - Preliminary Blood - Venous No growth after 48 hours. Assessment and Plan (1) Afib: Status: Acute (2) COPD (chronic obstructive pulmonary disease): Status: Acute Assessment and Plan: 76 yo F with multiple medical problems who is admitted under the orthopedic services for L hip hemiarthroplasty for a femoral neck fracture. Medical consultation requested for pre-operative evaluation. 1. s/p left femoral neck fracture repair, management by surgery 2. Chronic HFpEF euvoluemic continue diuretics and avoid fluid overload 3. Permanant A. Fib continue Cardizem / Metoprolol Lovenox 30 bid 4. COPD, chronic respiratory failure with hypoxia not in exacerbation continue her inhalers continue baseline O2 at 2-3L 5. Hypothyroid synthroid 6. H/o MRSA bacteremia--has completed course of Abx and needs no additional Abx other than usual fareed-op antibiotics 7. Anemia s/p 1 unit of RBC : h/h improved 8.4/26.4 8. hypokalemia : added po and iv potassium. Quality Stroke Does the patient have a stroke diagnosis?: No VTE Prior VTE?: No VTE Risk Level:: Medical - moderate - high VTE Device Contraindication: N/A - Device Ordered VTE Drug Contraindication: Treatment Not Indicated
[2021-11-04] MEDS: Potassium Chloride Packet 20 MEQ PACKET 40 MEQ PO (12:44)
[2021-11-04] MEDS: Potassium Chloride/H20 10 MEQ/100 ML PIGGYBACK 100 MEQ IV ×2 (12:44→14:56)
[2021-11-04] MEDS: Enoxaparin Sodium 30 MG/0.3 ML SYRINGE SUBCUT ×2 (12:45→23:37)
--- NOTE | 2021-11-04 13:13 | MHC.CM.PN ---
CM met with Patient at bedside and spoke with Niece/HCP/Andra at [phone] regarding dc planning. Patient/HCP's first and second choice facilities (#1- [facility] [place] and #2 [facility])do not have availability today. Andra was going to inquire with [facility] herself and get back to CM. CM will follow for dc planning.
[2021-11-04] MEDS: traMADoL HCL 50 MG TABLET 25 MG PO ×2 (13:59→20:12)
--- NOTE | 2021-11-04 14:33 | MHC.CM.PN ---
Both [facility] and [facility] have a bed tomorrow. [facility] has initiated auth ([facility] is [facility] choice). CM will follow.
[2021-11-04 15:48] LABS: Potassium 3.9 mmol/L (3.3-5.1)
[2021-11-04] MEDS: DULoxetine HCl 60 MG CAPSULE.DR PO (20:12)
[2021-11-04] MEDS: Sennosides 8.6 MG TABLET 17.2 MG PO (20:13)
[2021-11-04] MEDS: Melatonin 3 MG TABLET 6 MG PO (20:13)
[2021-11-04] MEDS: Miconazole Nitrate 2% Powder 85 GM Bottle 1 APPL TOPICAL (20:16)
[2021-11-05] VITALS (7 sets, daily range): BP systolic 134–152; BP diastolic 69–85; PULSE 66–83; RESP 18–20; TEMP 36.4–36.9; O2SAT 95–99
[2021-11-05] MEDS: Levothyroxine Sodium 175 MCG TABLET PO (05:13)
--- NOTE | 2021-11-05 07:52 | P.CDIC_ITS ---
CDI Concurrent Query Documentation Clarification: PHYSICIAN'S DOCUMENTATION REQUEST Date of Query: 11/05/21 0752 Patient Name: Alina Trujillo Admit Date: 10/30/21 Dear Doctor, A review of the medical record indicates additional documentation may be needed. Please review below and update the documentation accordingly. Clinical Indicators: Risk Factors/Clinical Indicators/Treatments S/P left femoral neck fracture repair 11/01 Anemia, Tranfused 1 unit PRBC HGB 7.4 HCT 24.1 H&H improved. Based on the above, could you clarify in the Progress Notes which of the following is the most likely type of anemia you are evaluating, treating, and/or monitoring? Anemia * Acute blood loss anemia * Acute posthemorrhagic anemia * Other ? please specify * Unable to determine Use of terms such as suspected, likely, concern for, or probable (associated with a specific diagnosis that is being evaluated, monitored, or treated as if it exists) are acceptable and can be coded in the inpatient setting, when documented at the time of discharge. Thank you, Claudia Kiser [facility], CDIS Extension: [phone] Please use your independent medical judgment in providing your response. THIS QUERY IS PART OF THE PERMANENT MEDICAL RECORD Provider Response: Acute Blood Loss Anemia
[2021-11-05] MEDS: Metoprolol Succinate ER 25 MG TAB.ER.24H 75 MG PO (09:06)
[2021-11-05] MEDS: Docusate Sodium 100 MG CAPSULE PO (09:06)
[2021-11-05] MEDS: polyethylene glycoL 3350 17 GM POWD.PACK PO (09:06)
[2021-11-05] MEDS: DULoxetine HCl 30 MG CAPSULE.DR PO (09:06)
[2021-11-05] MEDS: Multivitamin TABLET 1 TAB PO (09:06)
[2021-11-05] MEDS: dilTIAZem HCL CD 120 MG CAP.ER.DEG PO (09:06)
[2021-11-05] MEDS: Cholecalciferol (Vitamin D3) 25 MCG TABLET PO (09:07)
[2021-11-05] MEDS: Furosemide 40 MG TABLET PO (09:07)
[2021-11-05] MEDS: predniSONE 10 MG TABLET PO (09:07)
[2021-11-05] MEDS: Cyanocobalamin (Vitamin B-12) 1,000 MCG TABLET 1000 MCG PO (09:07)
[2021-11-05] MEDS: Ferrous Sulfate 324 MG TABLET.DR PO (09:07)
[2021-11-05] MEDS: 0.9 % Sodium Chloride Flush 3 ML SYRINGE IVFLUSH (09:07)
[2021-11-05] MEDS: Omeprazole 20 MG CAPSULE.DR PO (09:07)
[2021-11-05] MEDS: Artificial Tears 15 ML DROPS 1 DROP EYE-BOTH (09:08)
[2021-11-05] MEDS: LORazepam 1 MG TABLET PO (10:13)
[2021-11-05] MEDS: Enoxaparin Sodium 30 MG/0.3 ML SYRINGE SUBCUT (13:19)
--- NOTE | 2021-11-05 13:30 | P.PNIM_ITS ---
Subjective Subjective Date of Service: 11/05/21 Interval History: s/p hip repair , perm aib Review of Systems nausea seems to be improving, denies any pain, anxious Physical Exam Vital Signs: Vital Signs: Last Vital Signs Temp 98.4 F 11/05/21 11:55 Pulse 83 11/05/21 11:55 Resp 20 11/05/21 11:55 BP 152/85 H 11/05/21 11:55 Pulse Ox 96 11/05/21 12:00 Oxygen Flow Rate 2 11/05/21 12:00 BMI result Body Mass Index 21.9 ?General: AO X 3, no acute distress Resp:?? good air entry, no rales or wheezing. CVS:iregular, s1s2 heard. GI: +BS, NT, no distention Skin: No rash, right hip wound d/c/i Neuro:? motor grossly intact Psych: appropriate affect Objective Data Active Medications Acetaminophen (Acetaminophen 325 Mg Tablet) 650 mg PO Q6H PRN PRN Reason: Pain, Mild (Pain Scale 1-3) Last Admin: 11/03/21 08:20 Dose: 650 mg Documented by: JOSH Albuterol Sulfate (Albuterol Sulfate 90 Mcg 8 Gm Inhaler) 2 puff INHALE RQ4H PRN PRN Reason: Wheezing Albuterol/Ipratropium (Albuterol/Iprat 2.5/0.5mg 3 Ml Ampul.Neb) 3 ml INHALE Q8H PRN PRN Reason: Shortness Of Breath Artificial Tears (Artificial Tears 15 Ml Drops) 1 drop EYE-BOTH BID [facility] Last Admin: 11/05/21 09:08 Dose: 1 drop Documented by: CAROLE Bisacodyl (Bisacodyl 10 Mg Supp.Rect) 10 mg PA Q3D PRN PRN Reason: Constipation Cyanocobalamin (Cyanocobalamin (Vitamin B-12) 1,000 Mcg Tablet) 1,000 mcg PO D AILY [facility] Last Admin: 11/05/21 09:07 Dose: 1,000 mcg Documented by: CAROLE Diltiazem HCl (Diltiazem Hcl Cd 120 Mg Cap.Er.Deg) 120 mg PO DAILY [facility]; Protocol Last Admin: 11/05/21 09:06 Dose: 120 mg Documented by: CAROLE Docusate Sodium (Docusate Sodium 100 Mg Capsule) 100 mg PO DAILY PRN PRN Reason: Constipation Docusate Sodium (Docusate Sodium 100 Mg Capsule) 100 mg PO BID [facility] Last Admin: 11/05/21 09:06 Dose: 100 mg Documented by: CAROLE Duloxetine HCl (Duloxetine Hcl 30 Mg Capsule.) 30 mg PO DAILY [facility] Last Admin: 11/05/21 09:06 Dose: 30 mg Documented by: CAROLE Duloxetine HCl (Duloxetine Hcl 60 Mg Capsule.) 60 mg PO BEDTIME [facility] Last Admin: 11/04/21 20:12 Dose: 60 mg Documented by: POWER Enoxaparin Sodium (Enoxaparin Sodium 30 Mg/0.3 Ml Syringe) 30 mg SUBCUT Q12H [facility] Last Admin: 11/05/21 13:19 Dose: 30 mg Documented by: CAROLE Fentanyl (Fentanyl Citrate/Pf 100 Mcg/2 Ml Vial) 25 mcg IVPUSH Q5M PRN; Protocol PRN Reason: Pain, Moderate (Pain Scale 4-6 Ferrous Sulfate (Ferrous Sulfate 324 Mg Tablet.) 324 mg PO DAILY [facility] Last Admin: 11/05/21 09:07 Dose: 324 mg Documented by: CAROLE Furosemide (Furosemide 40 Mg Tablet) 40 mg PO DAILY [facility]; Protocol Last Admin: 11/05/21 09:07 Dose: 40 mg Documented by: CAROLE Levothyroxine Sodium (Levothyroxine Sodium 175 Mcg Tablet) 175 mcg PO DAILY@0600 [facility] Last Admin: 11/05/21 05:13 Dose: 175 mcg Documented by: POWER Lorazepam (Lorazepam 1 Mg Tablet) 1 mg PO BID PRN PRN Reason: Anxiety Last Admin: 11/05/21 10:13 Dose: 1 mg Documented by: CAROLE Magnesium Hydroxide (Milk Of Magnesia 30 Ml Oral.Susp) 30 ml PO DAILY PRN PRN Reason: Constipation Melatonin (Melatonin 3 Mg Tablet) 6 mg PO BEDTIME [facility] Last Admin: 11/04/21 20:13 Dose: 6 mg Documented by: POWER Metoprolol Succinate (Metoprolol Succinate Er 25 Mg Tab.Er.24h) 75 mg PO DAILY [facility]; Protocol Last Admin: 11/05/21 09:06 Dose: 75 mg Documented by: CAROLE Miconazole Nitrate (Miconazole Nitrate 2% Powder 85 Gm Bottle) 1 appl TOPICAL BEDTIME [facility]; Protocol Last Admin: 11/04/21 20:16 Dose: 1 appl Documented by: POWER Multivitamins/Vitamin C (Multivitamin Tablet) 1 tab PO DAILY [facility] Last Admin: 11/05/21 09:06 Dose: 1 tab Documented by: CAROLE Omeprazole (Omeprazole 20 Mg Capsule.Dr) 20 mg PO BID [facility] Last Admin: 11/05/21 09:07 Dose: 20 mg Documented by: CAROLE Ondansetron HCl (Ondansetron Odt 8 Mg Tab.Rapdis) 8 mg TRANSLINGU Q8H PRN PRN Reason: Nausea Last Admin: 11/01/21 17:29 Dose: 8 mg Documented by: JOSH Oxycodone HCl (Oxycodone Hcl Immed Release 5 Mg Tablet) 5 mg PO ONCE PRN PRN Reason: Pain, Severe (Pain Scale 7-10) Pharmacy Consult (Consult Rx Vancomycin Dosing) 1 each MISCELLANE DAILY PRN PRN Reason: Consult order Polyethylene Glycol (Polyethylene Glycol 3350 17 Gm Powd.Pack) 17 gm PO DAILY [facility] Last Admin: 11/05/21 09:06 Dose: 17 gm Documented by: CAROLE Prednisone (Prednisone 10 Mg Tablet) 10 mg PO DAILY [facility] Last Admin: 11/05/21 09:07 Dose: 10 mg Documented by: CAROLE Scopolamine (Scopolamine 1.5 Mg Patch.Td.3) 1.5 mg TRANSDERMA Q3D [facility] Last Admin: 11/03/21 09:48 Dose: 1.5 mg Documented by: JOSH Senna (Sennosides 8.6 Mg Tablet) 17.2 mg PO BEDTIME [facility] Last Admin: 11/04/21 20:13 Dose: 17.2 mg Documented by: POWER Sodium Chloride (0.9 % Sodium Chloride Flush 3 Ml Syringe) 3 ml IVFLUSH QSHIFT [facility] Last Admin: 11/05/21 09:07 Dose: 3 ml Documented by: CAROLE Tiotropium [place] (Tiotropium [place] 18 Mcg Cap.W.Dev) 1 puff INHALE DAILY [facility] Last Admin: 11/05/21 08:51 Dose: 1 puff Documented by: AYAZ Tramadol HCl (Tramadol Hcl 50 Mg Tablet) 25 mg PO Q6H PRN PRN Reason: Breakthrough Pain Last Admin: 11/04/21 20:12 Dose: 25 mg Documented by: POWER Vitamin D (Cholecalciferol (Vitamin D3) 25 Mcg Tablet) 25 mcg PO DAILY [facility] Last Admin: 11/05/21 09:07 Dose: 25 mcg Documented by: CAROLE Labs CBC & Chem 7: 11/03/21 07:57 11/04/21 15:18 Assessment and Plan (1) Hypokalemia: Status: Acute Assessment and Plan: 76 yo F with multiple medical problems who is admitted under the orthopedic services for L hip hemiarthroplasty for a femoral neck fracture. Medical consultation requested for pre-operative evaluation. 1. s/p left femoral neck fracture repair, management by surgery 2. Chronic HFpEF euvoluemic continue diuretics and avoid fluid overload 3. Permanant A. Fib continue Cardizem / Metoprolol Lovenox 30 bid 4. COPD, chronic respiratory failure with hypoxia not in exacerbation continue her inhalers continue baseline O2 at 2-3L 5. Hypothyroid synthroid 6. H/o MRSA bacteremia--has completed course of Abx and needs no additional Abx other than usual fareed-op antibiotics 7. Anemia s/p 1 unit of RBC : h/h improved 8.4/26.4 8. hypokalemia :repleted , repated 3.9 Quality Stroke Does the patient have a stroke diagnosis?: No VTE Prior VTE?: No VTE Risk Level:: Medical - moderate - high VTE Device Contraindication: N/A - Device Ordered VTE Drug Contraindication: Treatment Not Indicated
[2021-11-05 13:53] LABS: COVID-19 Test Negative (Negative)
--- NOTE | 2021-11-05 14:06 | MHC.CM.PN ---
Trish has authorized Patient to go to [facility]. Today, first choice SNF- [facility] [place] [facility] has a bed and per Niece/HCP/Rafaela, [facility] is her first choice SNF. CM has requested that [facility] notifish [facility] that Patient will NOT be going there and have asked [facility] to initiate a new auth. CM will follow.
--- NOTE | 2021-11-05 15:38 | MHC.CM.PN ---
Per Medical/Ortho, Patient is medically cleared for dc to [facility]/SNF today. Patient will dc to first choice SNF- [facility] [place] [facility] today at 5PM, via [facility]. CM addressed IMM with Niece/HCP/Andra @ [phone] and original will be mailed out certified letter to her and a copy has already been placed on the chart.CM informed Andra via a detailed VM of the final dc details.
[2021-11-05] MEDS: Ondansetron ODT 8 MG TAB.RAPDIS TRANSLINGU (16:09)
--- NOTE | 2021-11-05 16:10 | PM.DS ---
DS: Providers Provider Date of Service: 11/05/21 Date of admission: 10/30/21 16:23 Primary care physician: Unknown Physician Consults: 10/30/21 16:57 Consult to Hospitalist Routine Consulting Provider: Hospitalist Reason For Exam: pre op clearance DS: Diagnosis Discharge Diagnosis (1) History of left hip hemiarthroplasty: Status: Acute DS: Summary Hospital Course Hospital Course: The patient underwent a successful left hip nory arthroplasty, was transferred to PACU and then to the floor to recover. During their stay, their vitals were stable, afebrile at 97.5 . Labs were unremarkable. . POD 1 she was started on lovenox for DVT ppx, they also received services PT/OT twice a day. Prior to discharge, their dressing was change, incision clean dry and intact, new Aquacel dressing applied and the plan was to be discharged to [facility]. Time Spent with Patient Time attestation: Total time spent providing and/or coordinating discharge services: Discharge coordination time: Less than 30 minutes Quality: Stroke Does the patient have a stroke diagnosis?: No Physical Exam Vital Signs: Vital Signs: Last Vital Signs Temp 97.5 F 11/05/21 15:52 Pulse 66 11/05/21 15:52 Resp 18 11/05/21 15:52 BP 134/69 11/05/21 15:52 Pulse Ox 95 11/05/21 14:00 Oxygen Flow Rate 2 11/05/21 14:00 BMI result Body Mass Index 21.9 Const: General: cooperative, healthy appearing and no acute distress Resp: Effort & Inspection: normal respiratory effort and able to speak in complete sentences Cardio: Rate: regular rate Peripheral pulses: Peripheral pulses 2+ throughout GI: Palpation (GI): Soft to palpation Skin: General skin exam: no rashes or lesions noted Extrem: Other: incision clean dry and intact. [place] intact. No erythema or effusion. Calf supple nontender. Neurovascularly intact. DS: Data Data Completed and Pending Completed studies during hospitalization [Text1]: Pending at discharge 11/01/21 14:00 Surgical [PTH] Routine Procedures Insertion of Infusion Device into Superior Vena Cava, Percutaneous Approach (09/08/21) Labs on day of discharge: Laboratory Results - last 24 hr 11/05/21 13:25 COVID-19 ([facility]IMAL) Negative COVID-19 Clin Com See Note Preliminary micro results at discharge 11/01/21 23:49 Blood Culture - Preliminary Blood - Venous No growth after 48 hours. 11/01/21 23:54 Blood Culture - Preliminary Blood - Venous No growth after 48 hours. Discharge Plan Discharge Patient Disposition: er [facility] Discharge Diagnosis: s/p lt hip nory Referrals: [facility] [Outside] - 1 Week Fely Colvin PA-C [Physician Bevel Gear Generator Operator] - 2 Weeks Discharge Medications: New acetaminophen 325 mg Tablet 650 mg PO Q6H PRN (Reason: Pain, Mild (Pain Scale 1-3)) 30 Days Qty: 240 RF: 0 Continued polyvinyl alcohol [Artificial Tears (polyvin alc)] 1.4 % Drops 1 drp OPHTHALMIC (EYE) BID RF: 0 miconazole nitrate 2 % Powder 1 appl TOPICAL BEDTIME RF: 0 cyanocobalamin (vitamin B-12) 1,000 mcg Tablet 1,000 mcg PO DAILY RF: 0 melatonin 3 mg Tablet 6 mg PO BEDTIME RF: 0 guaifenesin 100 mg/5 mL Liquid 100 mg PO Q4H PRN (Reason: Cough) RF: 0 ifyeeyn-[id number] [id number] mg Capsule 1 cap PO Q12H PRN (Reason: Headache) RF: 0 ferrous sulfate 325 mg (65 mg iron) Tablet 325 mg PO DAILY RF: 0 docusate sodium [Colace] 100 mg Capsule 100 mg PO BID RF: 0 lorazepam 1 mg Tablet 1 mg PO BID RF: 0 polyethylene glycol 3350 [Miralax] 17 gram/dose Powder 17 g PO DAILY RF: 0 albuterol sulfate 90 mcg/actuation Hfa Aerosol Inhaler 2 puff INHALATION Q4H PRN (Reason: Wheezing) RF: 0 duloxetine 30 mg Capsule,Delayed Release(Dr/Ec) 30 mg PO DAILY RF: 0 cholecalciferol (vitamin D3) 25 mcg (1,000 unit) Tablet 25 mcg PO DAILY RF: 0 multivitamin Tablet 1 tab PO DAILY RF: 0 sennosides 8.6 mg Tablet 17.2 mg PO BEDTIME RF: 0 tramadol 50 mg Tablet 50 mg PO Q6H PRN (Reason: Pain) RF: 0 pantoprazole 40 mg Tablet,Delayed Release (Dr/Ec) 40 mg PO BID RF: 0 tiotropium bromide 18 mcg Capsule, W/Inhalation Device 1 cap INHALATION DAILY RF: 0 ursodiol 500 mg Tablet 500 mg PO BID RF: 0 diltiazem HCl [Cardizem CD] 120 mg Capsule,Extended Release 24hr 120 mg PO DAILY Qty: 7 RF: 0 furosemide 40 mg Tablet 40 mg PO DAILY Qty: 30 RF: 0 prednisone 10 mg tablet 10 mg PO DAILY Qty: 4 RF: 0 doxycycline hyclate 100 mg Tablet 100 mg PO BID RF: 0 Combivent Respimat 20-100 mcg/actuation Mist 2 puff INHALATION Q8H PRN (Reason: Shortness Of Breath) RF: 0 levothyroxine 175 mcg Tablet 175 mcg PO DAILY@0600 RF: 0 scopolamine base 1 mg over 3 days Patch 3 Day 1 patch TRANSDERMAL Q3D RF: 0 Cough Drops 5 mg Lozenge 5 mg MUCOUS MEMBRANE Q2H PRN (Reason: Cough) RF: 0 duloxetine 60 mg Capsule, Delayed Rel Sprinkle 60 mg PO BEDTIME RF: 0 magnesium hydroxide [Milk of Magnesia] 400 mg/5 mL Suspension 30 ml PO DAILY PRN (Reason: Constipation) RF: 0 bisacodyl [Dulcolax (bisacodyl)] 10 mg Suppository [address] Q3D PRN (Reason: Constipation) RF: 0 metoprolol succinate 50 mg Tablet Extended Release 24 Hr 75 mg PO DAILY RF: 0 enoxaparin 80 mg/0.8 mL Syringe 65 mg subcut Q12H 42 Days Qty: 8 RF: 0 Discontinued acetaminophen 325 mg Tablet 650 mg PO Q6H PRN (Reason: Pain) RF: 0 oxycodone 5 mg tablet 5 mg PO Q6H PRN (Reason: pain (scale score 7-10)) Qty: 14 RF: 0 Discharge Orders: Discharge Order (Routine); Ordered 11/05/21 Ordered By: Betty De La O Diet: regular diet Activity on Discharge: Use cane or walker Stand Alone Forms: Patient Portal Discharge page Care Plan Goals: restore fxn to left hip Health Concerns: stable for d/c Plan of Treatment: Physical Therapy for left hip hemiarthroplasty: posterior precautions, gait training, ROM, strength Limit stair climbing No showering, no tub bath-keep dressing clean, dry and intact No driving x6 weeks Continue Lovenox once a day x 6 weeks Follow up with [facility] in 2 weeks Assessment: stable for d/c
[2021-11-05] MEDS: traMADoL HCL 50 MG TABLET 25 MG PO (19:12)
--- NOTE | 2021-11-07 14:50 | P.OP_ITS ---
Operative Note Operative Note Date of Service: 11/01/21 Narrative: Pre-op diagnosis: left femoral neck fracture Post-op diagnosis: same Procedure: left hip hemiarthroplasty and removal of hardware Implants: Cleve accolade C #5 127 deg wtih -3 36/45 bipolar Surgeon: Pedro Leal MD Anesthesia: GETA and local Was an Hospitality Specialist used for this Procedure?: No Estimated blood loss (mL): 200 IV fluids (mL): 1,100 Pathology: other Condition: stable Disposition: PACU Procedure in detail: Patient was brought to the operative room placed in the lateral decubitus position. All bony prominences were well padded he was prepped and draped in standard sterile fashion. IV antibiotics per weight were administered and a time-out was called to identify proper site proper procedure proper surgeon. Radiographs were available and confirmed. I began by making a lateral incision over the prior incision and removed the 3 hip screws without complication. I was unable to remove the washer as was caught the soft tissues and did not see the benefit of more extensive dissection for removal. A curvilinear incision was then made over the posterolateral aspect of the greater trochanter. Dissection was taken down to the tensor fascia which was incised in line with the incision and a Charnley retractor was placed. The hip was internally rotated and the external rotators were identified. All vessels in the area were cauterized and a full-thickness capsular/external rotator layer was developed in a hockey-stick fashion starting just proximal to the piriformis. This layer was tagged and the displaced femoral neck fracture was identified. Clean-up cut was performed and the head was removed and measured on the back table. I then copiously irrigated the acetabulum and removed all bony fragments. Once this was done I used a cookie cutter to lateralize and a Charnley awl to identify the canal and then sequentially broached up to a # 5. I then trialed with a standard head and a bipolar component matching the femoral head size. I was satisfied with the range of motion and stability and length. Therefore I removed all instrumentation and copiously irrigated. One bag of [place] bone cement was mixed on the back table and I then placed my final implant after a centralizer and a cement plug were placed. Once the cement was dry I trialed again with a +0 and -3 head and was happiest with a -3. The final-3 26 mm head and 45 mm bipolar component were placed. I again took the hip through range of motion and was satisfied with the stability and length. I then irrigated copiously with iodine and normal saline. She has been in a flexed position for approximately 3 months and so she was stiff in flexion but I had good extension. Once this was done I closed the capsular layer with FiberWire and then performed a layered closure with aga on skin. Patient was placed in sterile dressing extubated brought to recovery room in stable condition there were no known complications. An abduction pillow was placed.
== END 2021-11-05 19:30 | disposition skilled nursing facility (03) | DRG 522 ==
PROVIDERS: Family Medicine; Internal Medicine; Admitting Provider Orthopaedic Surgery; PCP Family Medicine; Visit Provider Orthopaedic Surgery
PROC: 0SRS0J9 Replacement of Left Hip Joint, Femoral Surface with Synthetic Substitute, Cemented, Open Approach (ICD-10-PCS; CPT 27125; principal; 2021-11-01 11:00)
PROC: 0SRS0J9 Replacement of Left Hip Joint, Femoral Surface with Synthetic Substitute, Cemented, Open Approach (ICD-10-PCS; 2021-11-01 11:00)
DX: S72.012A Unspecified intracapsular fracture of left femur, initial encounter for closed fracture (principal); J96.11 Chronic respiratory failure with hypoxia; I50.32 Chronic diastolic (congestive) heart failure; I48.21 Permanent atrial fibrillation; D62 Acute posthemorrhagic anemia; X58.XXXA Exposure to other specified factors, initial encounter; I25.10 Atherosclerotic heart disease of native coronary artery without angina pectoris; E03.9 Hypothyroidism, unspecified; J44.9 Chronic obstructive pulmonary disease, unspecified; Z95.1 Presence of aortocoronary bypass graft; Z20.822 Contact with and (suspected) exposure to COVID-19; Z79.01 Long term (current) use of anticoagulants; Z79.890 Hormone replacement therapy; Z79.891 Long term (current) use of opiate analgesic; Z79.899 Other long term (current) drug therapy
CPT/HCPCS: 36415; 72170; 80048; 84132; 85025; 85027; 85610; 86850; 86900; 86901; 86923; 87040; 87635; 88304; 88311; 93005; 97162; 97166; 97530; 97535; 99212; C1713; C1776; J0131; J1100; J1650; J1940; J2250; J2405; J2550; J3010; J3370; P9016

== ENCOUNTER 2021-11-03 00:17 | Outpatient (REF) | payer MEDICARE, SELFPAY ==
--- NOTE | 2021-11-06 15:19 | PM.EVENT ---
Event Note Date of Service: 11/05/21 Event Note: Patient was walking to the restroom when she stated that her legs felt weak. She was assisted by the nursing staff and lower to the ground. Patient denies any increased pain or increased difficulty with motion or ambulation. I have evaluated the patient at bedside and was able to flex and extend her hip without any difficulties. Patient is okay from orthopedic standpoint for discharge.
== END 2021-11-03 00:18 | disposition home or self-care (01) ==
LOC: HO.MMNH1L 00:17
PROVIDERS: Visit Provider Family Medicine
DX: Z13.89 Encounter for screening for other disorder (principal)